=== PATIENT | female | born 1955 | race Caucasian/White ===

== ENCOUNTER → 2016-04-15 | Outpatient (CLI) | payer MEDICARE ==
--- NOTE | 2016-04-22 00:32 | ECWPNPC ---
PATIENT NAME: CHANCE AUGUSTE : 1955 GENDER: FEMALE VISIT DATE: 04/15/2016 DISCHARGE DATE: 04/15/16 1243 VISIT LOCKED DATE TIME: PHYSICIAN: CATIA BYRD RESOURCE: CATIA BYRD REASON FOR APPOINTMENT 1. INCREASED PAIN-BACK HISTORY OF PRESENT ILLNESS HISTORY OF PRESENT ILLNESS: PAIN THE PATIENT DESCRIBES THE PAIN... 60 YEAR OLD FEMALE PATIENT WITH HISTORY OF CHRONIC BACK PAIN. PATIENT DESCRIBES THE PAIN ACHING, SHARP, THROBBING, AND HAVING IT ALL THE TIME WITH A PAIN SCORE OF 7/10. PATIENT STATES THAT NOW SHE HAS PAIN DOWN HER LEFT LEG. PATIENT REPORTS THAT SHE TAKE IBUPROFEN ON BAD DAYS. PATIENT STATES THAT HER PRIMARY HAS INCREASE THE DOSAGE OF HER GABAPENTIN AND SHE DOES NOT SEE A DECREASE IN HER PAIN LEVELS. PATIENT REPORTS THAT MUSCLE SPASM ISM HAVE STOPPED IN HER LEGS. PATIENT ALSO INDICATES THAT SHE HAS RIGHT KNEE PAIN. IN 1976 SHE HAD SURGERY ON HER KNEE DUE TO THE DISLOCATION OF THE KNEE CAP. PATIENT DENIES UNEXPLAINABLE WEIGHT LOSS, FEVER, CHILLS, NEW CHANGES ON HIS URINARY OR BOWEL CONTROL. FALL RISK SCREENING: SCREENING :NO FALLS IN THE PAST YEAR CURRENT MEDICATIONS TAKING SULFAZINE EC 500 MG TABLET DELAYED RELEASE 1 TABLET ORALLY TWICE A DAY TAKING DULCOLAX 10 MG SUPPOSITORY 1 SUPPOSITORY NEEDED RECTAL EVERY 3 DAYS NEEDED FOR CONSTIPATION TAKING VITAMIN D 2000 UNIT TABLET 1 TAB ORALLY ONCE DAILY TAKING AMITRIPTYLINE HCL 25 MG TABLET 1 TABLET AT BEDTIME ORALLY ONCE A DAY TAKING NEURONTIN 300 MG CAPSULE 3 CAPSULES ORALLY TWICE A DAY, NOTES: 900MG THREE TIMES DAILY TAKING ACETAMINOPHEN EXTRA STRENGTH 500 MG TABLET 2 TABLETS NEEDED ORALLY EVERY 6 HRS TAKING REGLAN 10 MG TABLET TAKE 1 TABLET BY MOUTH 1/2 HOUR BEFORE MEALS AND AT BEDTIME TAKING FLUOXETINE HCL 40 MG CAPSULE TAKE 1 CAPSULE BY MOUTH DAILY IN THE MORNING TAKING ASPIRIN 81 MG TABLET CHEWABLE 1 TABLET ORALLY ONCE A DAY TAKING VITAMIN B12 100 MCG TABLET ORALLY TAKING RANITIDINE HCL 75 MG TABLET 3 TABLET ORALLY THREE TIMES A DAY, NOTES: 225MG DAILY TAKING PROMETHAZINE HCL 25 MG TABLET 1 TABLET NEEDED ORALLY EVERY 6 HRS TAKING METFORMIN HCL 500 MG TABLET TAKE 1 TABLET BY MOUTH TWO TIMES DAILY TAKING LOVASTATIN 20 MG TABLET TAKE 1 TABLET BY MOUTH DAILY WITH A MEAL TAKING TRAZODONE HCL 100 MG TABLET TAKE 1 TABLET BY MOUTH DAILY TAKING PROTONIX 40 MG ENTERIC COATED TABLET TAKE 1 TABLET BY MOUTH TWO TIMES DAILY TAKING LEVOTHYROXINE SODIUM 100 MCG TABLET 1 TABLET ORALLY ONCE A DAY TAKING IBUPROFEN 800 MG TABLET TAKE 1 TABLET BY MOUTH 3 TIMES A DAY ORALLY THREE TIMES DAILY TAKING LISINOPRIL 20 MG TABLET 1 TAB ORALLY DAILY TAKING ZOFRAN 4 MG TABLET TAKE 1 TABLET BY MOUTH EVERY 6 HOURS NEEDED FOR NAUSEA NOT-TAKING MIRALAX . POWDER 1 CAP(S) ORALLY ONCE A DAY MEDICATION LIST REVIEWED AND RECONCILED WITH THE PATIENT PAST MEDICAL HISTORY HYPOTHYROIDISM TYPE 2 DM WITH NEPHROPATHY/ELEV MIKKI HYPERLIPIDEMIA FATTY LIVER, ABNL LFT'S METABOLIC SYNDROME IBS FIBROMYALGIA VIT D DEFICIENCY DEPRESSION INFLAMMATORY ARTHRITIS/ + REESE - DR. LARA (RHEUMATOLOGY [facility]) - SULFAZINE PER RHUEMATOLOGY GASTROPARESIS PER UGI WITH SBFT 2015 SEVERE LUMBAR SPINAL STENOSIS L4-5 MRI 02/16; DDD MULTIPLE LEVELS; DONE BY NCO, SAW DR KELLER, HAD INJECTIONS 2014, FOLLOWING WITH PAIN CLINIC - HAD INJECTIONS 10/2015 (DR. BYRD) DDD THORACIC SPINE MRI 02/16 - [facility] SECONDARY TO SULFAZINE - IMPROVED WITH DECREASED DOSE B12 DEFICIENCY IRON DEFICIENCY ALLERGIES KEFLEX: TONGUE SWELLING: ALLERGY SULFAZINE: HIGH DOSES CAUSE LEUKOPENIA: SIDE EFFECTS SURGICAL HISTORY EGD - MILD CHEMICAL GASTRITITS, COLONOSCOPY INCOMPLETE DUE TO POOR PREP - PATIENT DECLINES REPEAT (DR. CLARK) 12/2015 FAMILY HISTORY NO FAMILY HISTORY DOCUMENTED. SOCIAL HISTORY GENERAL: TOBACCO USE ARE YOU A:NONSMOKER LEARNING BARRIERS / SPECIAL NEEDS ORIENTED TO PLAN OF CARE: PATIENT, PAIN MANAGEMENT PATIENT, ORIENTED TO PLAN OF CARE: PATIENT, PAIN MANAGEMENT PATIENT. 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 SHE IS ON DISABILITY NOW FOR MAJOR DEPRESSION AND FIBROMYALGIAIN HER SPARE TIME SHE ENJOYS READING AND GARDENING. HOSPITALIZATION/MAJOR DIAGNOSTIC PROCEDURE SURGERY RELATED REVIEW OF SYSTEMS CONSTITUTIONAL: ANY CHANGE IN YOUR MEDICAL CONDITION? NO . CHILLS NO . FEVER NO . INFECTION: DO YOU HAVE NEW INFECTIONS? NO . DO YOU HAVE HISTORY OF MRSA? NO . MUSCULOSKELETAL: ANY NEW PATTERNS OF PAIN OR NUMBNESS? NO . GASTROENTEROLOGY: ANY NEW CHANGE IN BOWEL CONTROL? NO . GENITOURINARY: ANY NEW CHANGE IN BLADDER CONTROL? NO . IS THERE A CHANCE YOU COULD BE ? NO . HEMATOLOGY/LYMPH: DO YOU TAKE ANY BLOOD THINNERS? (FOR EXAMPLE- COUMADIN, PLAVIX, AGGRENOX, PLATEL, PRADAXA, OR XARELTO) NO . WHEN WAS YOUR LAST DOSE? DATE: TIME: . NEUROLOGY: HAVE YOU FALLEN IN THE PAST 6 MONTHS? YES, PT STATES THAT SHE WAS AT HOME, FELL WHILE ATTEMPTING TO PUT ON SHOES, NO INJURY AND NO REPORT TO ED. . ANY NEW EXTREMITY NUMBNESS OR WEAKNESS? NO . CARDIOLOGY: DO YOU HAVE A PACEMAKER OR DEFIBRILLATOR? NO . RESPIRATORY: HAVE YOU BEEN SICK IN THE PAST WEEK? NO . FEVER NO . FLU LIKE SYMPTOMS? NO . COUGH NO . INTEGUMENTARY: DO YOU HAVE ANY RASHES OR OPEN SORES? NO . ALLERGIC/IMMUNO: ARE YOU ALLERGIC TO SHELLFISH OR IV DYE? NO . ANY NEW ALLERGIES? NO . PSYCHIATRIC: DO YOU HAVE THOUGHTS OF HURTING YOURSELF OR SOMEONE ELSE? NO . ARE YOU ABUSED, NEGLECTED, OR IN AN UNSAFE ENVIRONMENT? NO . ENDOCRINOLOGY: ARE YOU DIABETIC? YES, MANAGED WITH MEDICATION . OTHER: DO YOU NEED ANY PRESCRIPTIONS? NO . IF YES, PLEASE LIST: ____ . ANY NEW PROBLEMS WITH YOUR MEDICATIONS? NO . WHEN DID YOU LAST EAT? ____ . WHEN DID YOU LAST DRINK? ____ . WHAT DID YOU LAST DRINK? ____ . NAME OF PERSON DRIVING YOU HOME? ____ . DO YOU HAVE ANY OTHER QUESTIONS OR CONCERNS PT STATES THAT SHE HAD AN LUMBAR EPIDURAL IN SEPTEMBER 2015 AND GRADUALLY PAIN HAS RETURNED, NO SPASMS BUT PAIN IS RADIATING INTO LEFT HIP . REVIEWED BY: PROVIDER: CATIA BYRD MD . VITAL SIGNS WT 255 LBS, HT 67 IN, BMI 39.93 INDEX, BP 160/91 MM HG, HR 91 /MIN, RR 18 /MIN, TEMP 97.8 F, OXYGEN SAT % 97%, NA INITIALS SC 11:10. EXAMINATION : PATIENT IS ALERT O X 3 AND COOPERATIVE. PATIENT IS ALERT O X 3 AND COOPERATIVE. MRI OF THE LUMBAR SPINE DONE ON 10/9/15 SHOWS STENOSIS L4-L5 DISC PROTRUSION L5-S1. MILD TENDERNESS IN THE LOWER RIGHT SIDE OF THE BACK.. ASSESSMENTS INTERVERTEBRAL DISC DISORDERS WITH RADICULOPATHY, LUMBAR REGION - M51.16 (PRIMARY) INTERVERTEBRAL DISC DISORDERS WITH RADICULOPATHY, LUMBOSACRAL REGION - M51.17 TREATMENT INTERVERTEBRAL DISC DISORDERS WITH RADICULOPATHY, LUMBAR REGION NOTES: WE DISCUSSED SEVERAL ISSUES WITH MS. AUGUSTE'S PAIN MANAGEMENT CASE. PATIENT WAS ADVISED TO SEE THEIR PRIMARY TO HAVE A REFERRAL SENT OVER FOR HER RIGHT KNEE PAIN. PATIENT IS A CANDIDATE FOR AN LUMBAR EPIDURAL INJECTION. WE DISCUSSED THE RISK, BENEFITS, AND ALTERNATIVES AND THE PATIENT WOULD LIKE TO PROCEED. I DISCUSSED WITH THE PATIENT THAT LATER DOWN THE ROAD SHE WILL BE SEEN BY ONE OF THE NURSE PRACTITIONERS. INSTRUCTIONS WERE GIVEN, QUESTIONS WERE ANSWERED, PATIENT REPORTS UNDERSTANDING AND AGREES WITH THE PLAN. I, ELISABETH WHITT, DOCUMENTED THE ABOVE INFORMATION ACTING A SCRIBE FOR DR. BYRD. I HAVE REVIEWED THE ABOVE DOCUMENT, WRITTEN BY ELISABETH WHITT SCRIBShazia AND I VERIFY THAT IT IS ACCURATE. PROCEDURE CODES FA211 ESTABILISHED PATIENT [facility] FACILITY CHARGE G8730 PAIN ASSESS POS TOOL F/U PLAN DOC G8427 DOC MEDS VERIFIED W/PT OR RE FOLLOW UP LE PENDING APPROVAL ELECTRONICALLY SIGNED BY CATIA BYRD MD ON 04/21/2016 AT 11:01 AM EST DISCLAIMER : THIS IS A VISIT SUMMARY EXTRACTED FROM THE [employer] CHART. IT IS NOT A COPY OF THE [employer] PROGRESS NOTE. MTDD
== END ==
LOC: M PAIN 10:40
PROVIDERS: ATTEND Anesthesiology
DX: M51.16 Intervertebral disc disorders with radiculopathy, lumbar region (principal); M51.17 Intervertebral disc disorders with radiculopathy, lumbosacral region; Z79.899 Other long term (current) drug therapy; Z79.82 Long term (current) use of aspirin; Z79.84 Long term (current) use of oral hypoglycemic drugs; Z88.2 Allergy status to sulfonamides; Z88.8 Allergy status to other drugs, medicaments and biological substances

== ENCOUNTER → 2016-05-12 | Outpatient (CLI) | payer MEDICARE ==
[~2016-05-12] MED LIST: ISOVUE-M 300 61% 15ML VIAL (Q9967) As Ordered ONE; LIDOCAINE 1% SDV INJ 30 ML VIAL As Ordered ONE; methylPREDNISolone SUSP 40 MG/ML (DEPO-medrol) VIAL (J1030) As Ordered ONE
--- NOTE | 2016-05-12 14:43 | REP ---
Partial lumbar spine series: Three views. History: Pain. 15 seconds of fluoroscopy time is reported. Findings: A sequence of three fluoroscopically obtained last image hold spot radiographs of the lumbar spine document needle position and contrast injection associated with lumbar epidural injection procedure. Signed by Francisco Shin MD 05/12/2016 03:06 P
--- NOTE | 2016-05-15 00:02 | ECWPNPC ---
PATIENT NAME: CHANCE AUGUSTE : 1955 GENDER: FEMALE VISIT DATE: 05/12/2016 DISCHARGE DATE: 05/12/16 1243 VISIT LOCKED DATE TIME: PHYSICIAN: CATIA BYRD RESOURCE: CATIA BYRD REASON FOR APPOINTMENT 1. LE HISTORY OF PRESENT ILLNESS HISTORY OF PRESENT ILLNESS: PAIN THE PATIENT DESCRIBES THE PAIN... FALL RISK SCREENING: SCREENING :NO FALLS IN THE PAST YEAR CURRENT MEDICATIONS DISCONTINUED MIRALAX . POWDER 1 CAP(S) ORALLY ONCE A DAY UNKNOWN PROTONIX 40 MG ENTERIC COATED TABLET TAKE 1 TABLET BY MOUTH TWO TIMES DAILY , NOTES: 05/12/16799 UNKNOWN MIRALAX POWDER USING MEASURING CAP MIX 17GM IN WATER AND DRINK ONCE A DAY , NOTES: 05/10/16 UNKNOWN FLUOXETINE HCL 40 MG CAPSULE TAKE 1 CAPSULE BY MOUTH DAILY IN THE MORNING , NOTES: 05/12/16799 UNKNOWN TRAZODONE HCL 100 MG TABLET TAKE 1 TABLET BY MOUTH DAILY , NOTES: 05/11/162099 UNKNOWN REGLAN 10 MG TABLET TAKE 1 TABLET BY MOUTH 1/2 HOUR BEFORE MEALS AND AT BEDTIME , NOTES: 05/11/162099 UNKNOWN LOVASTATIN 20 MG TABLET TAKE 1 TABLET BY MOUTH DAILY WITH A MEAL , NOTES: 05/11/162099 UNKNOWN METFORMIN HCL 500 MG TABLET TAKE 1 TABLET BY MOUTH TWICE A DAY , NOTES: 05/11/161699 UNKNOWN ZOFRAN 4 MG TABLET TAKE 1 TABLET BY MOUTH EVERY 6 HOURS NEEDED FOR NAUSEA , NOTES: 05/12/16799 UNKNOWN LISINOPRIL 20 MG TABLET 1 TAB ORALLY DAILY, NOTES: 05/12/16799 UNKNOWN LEVOTHYROXINE SODIUM 100 MCG TABLET TAKE 1 TABLET BY MOUTH ONCE A DAY , NOTES: 05/12/16799 UNKNOWN RANITIDINE HCL 150 MG TABLET 1 TABLET ORALLY THREE TIMES A DAY, NOTES: 05/12/16799 UNKNOWN AMLODIPINE BESYLATE 5 MG TABLET 1 TABLET ORALLY ONCE A DAY, NOTES: 05/12/16799 UNKNOWN SULFAZINE EC 500 MG TABLET DELAYED RELEASE 1 TABLET ORALLY TWICE A DAY, NOTES: 05/12/16799 UNKNOWN DULCOLAX 10 MG SUPPOSITORY 1 SUPPOSITORY NEEDED RECTAL EVERY 3 DAYS NEEDED FOR CONSTIPATION, NOTES: NONE LATELY UNKNOWN VITAMIN D 2000 UNIT TABLET 1 TAB ORALLY ONCE DAILY, NOTES: 05/12/16799 UNKNOWN AMITRIPTYLINE HCL 25 MG TABLET 1 TABLET AT BEDTIME ORALLY ONCE A DAY, NOTES: 05/11/162099 UNKNOWN NEURONTIN 300 MG CAPSULE 3 CAPSULES ORALLY TWICE A DAY, NOTES: 05/12/16799 UNKNOWN ACETAMINOPHEN EXTRA STRENGTH 500 MG TABLET 2 TABLETS NEEDED ORALLY EVERY 6 HRS, NOTES: 05/11/162099 UNKNOWN ASPIRIN 81 MG TABLET CHEWABLE 1 TABLET ORALLY ONCE A DAY, NOTES: 05/12/16799 UNKNOWN VITAMIN B12 100 MCG TABLET ORALLY , NOTES: 05/12/16799 UNKNOWN PROMETHAZINE HCL 25 MG TABLET 1 TABLET NEEDED ORALLY EVERY 6 HRS, NOTES: 05/12/16799 UNKNOWN IBUPROFEN 800 MG TABLET TAKE 1/2 TABLET BY MOUTH 3 TIMES A DAY ORALLY THREE TIMES DAILY, NOTES: 05/11/162099 MEDICATION LIST REVIEWED AND RECONCILED WITH THE PATIENT PAST MEDICAL HISTORY HYPOTHYROIDISM TYPE 2 DM WITH NEPHROPATHY/ELEV MIKKI HYPERLIPIDEMIA FATTY LIVER, ABNL LFT'S METABOLIC SYNDROME IBS FIBROMYALGIA VIT D DEFICIENCY DEPRESSION INFLAMMATORY ARTHRITIS/ + REESE - DR. LARA (RHEUMATOLOGY [facility]) - SULFAZINE PER RHUEMATOLOGY GASTROPARESIS PER UGI WITH SBFT 2015 SEVERE LUMBAR SPINAL STENOSIS L4-5 MRI 02/16; DDD MULTIPLE LEVELS; DONE BY NCO, SAW DR KELLER, HAD INJECTIONS 2014, FOLLOWING WITH PAIN CLINIC - HAD INJECTIONS 10/2015 (DR. BYRD) DDD THORACIC SPINE MRI 02/16 - [facility] SECONDARY TO SULFAZINE - IMPROVED WITH DECREASED DOSE B12 DEFICIENCY IRON DEFICIENCY HTN ALLERGIES KEFLEX: TONGUE SWELLING: ALLERGY SULFAZINE: HIGH DOSES CAUSE LEUKOPENIA: SIDE EFFECTS SOCIAL HISTORY GENERAL: TOBACCO USE ARE YOU A:NONSMOKER LEARNING BARRIERS / SPECIAL NEEDS ORIENTED TO PLAN OF CARE: PATIENT, PAIN MANAGEMENT PATIENT, ORIENTED TO PLAN OF CARE: PATIENT, PAIN MANAGEMENT PATIENT. NEW PATIENT PAIN DIARY TODAY'S VISITNOTES FROM 0-10, WHAT LEVEL IS YOUR PAIN TODAY?0 PAIN CLINIC PFS, CLERGY, PUBLIC HEALTH REFERRALS PFS REFERRAL NEEDED?NO CLERGY REFERRAL NEEDED?NO PUBLIC HEALTH REFERRAL NEEDED?NO WAS THE PROVIDER NOTIFIED OF ANY PERTINENT INFO?NO PFS REFERRAL NEEDED?NO CLERGY REFERRAL NEEDED?NO PUBLIC HEALTH REFERRAL NEEDED?NO WAS THE PROVIDER NOTIFIED OF ANY PERTINENT INFO?NO REVIEW OF SYSTEMS CONSTITUTIONAL: ANY CHANGE IN YOUR MEDICAL CONDITION? NO . CHILLS NO . FEVER NO . INFECTION: DO YOU HAVE NEW INFECTIONS? NO . DO YOU HAVE HISTORY OF MRSA? NO . MUSCULOSKELETAL: ANY NEW PATTERNS OF PAIN OR NUMBNESS? NO . GASTROENTEROLOGY: ANY NEW CHANGE IN BOWEL CONTROL? NO . GENITOURINARY: ANY NEW CHANGE IN BLADDER CONTROL? NO . IS THERE A CHANCE YOU COULD BE ? NO . HEMATOLOGY/LYMPH: DO YOU TAKE ANY BLOOD THINNERS? (FOR EXAMPLE- COUMADIN, PLAVIX, AGGRENOX, PLATEL, PRADAXA, OR XARELTO) NO . WHEN WAS YOUR LAST DOSE? DATE: TIME: . NEUROLOGY: HAVE YOU FALLEN IN THE PAST 6 MONTHS? YES-X2 TRIPPED. NO ED EVAL . ANY NEW EXTREMITY NUMBNESS OR WEAKNESS? NO . CARDIOLOGY: DO YOU HAVE A PACEMAKER OR DEFIBRILLATOR? NO . RESPIRATORY: HAVE YOU BEEN SICK IN THE PAST WEEK? NO . FEVER NO . FLU LIKE SYMPTOMS? NO . COUGH NO . INTEGUMENTARY: DO YOU HAVE ANY RASHES OR OPEN SORES? NO . ALLERGIC/IMMUNO: ARE YOU ALLERGIC TO SHELLFISH OR IV DYE? NO . ANY NEW ALLERGIES? NO . PSYCHIATRIC: DO YOU HAVE THOUGHTS OF HURTING YOURSELF OR SOMEONE ELSE? NO . ARE YOU ABUSED, NEGLECTED, OR IN AN UNSAFE ENVIRONMENT? NO . ENDOCRINOLOGY: ARE YOU DIABETIC? YES . OTHER: DO YOU NEED ANY PRESCRIPTIONS? NO . IF YES, PLEASE LIST: ____ . ANY NEW PROBLEMS WITH YOUR MEDICATIONS? NO . WHEN DID YOU LAST EAT? ____05/11/16 2100 . WHEN DID YOU LAST DRINK? ____05/12/16 0800 . WHAT DID YOU LAST DRINK? ____WATER . NAME OF PERSON DRIVING YOU HOME? ____SHELLY JACINTO . DO YOU HAVE ANY OTHER QUESTIONS OR CONCERNS NO . REVIEWED BY: PROVIDER: . VITAL SIGNS WT 257 LBS, HT 67 IN, BMI 40.25 INDEX, BP 158/92 MM HG, HR 83 /MIN, RR 18 /MIN, TEMP 97.2 F, OXYGEN SAT % 93%, NA INITIALS SC 11:06, REVIEWED BY: MLF. ASSESSMENTS INTERVERTEBRAL DISC DISORDERS WITH RADICULOPATHY, LUMBOSACRAL REGION - M51.17 (PRIMARY) PROCEDURES PRE PROCEDURE DIAGNOSIS LUMBOSACRAL DISC DISORDER WITH RADICULOPATHY POST PROCEDURE DIAGNOSIS LUMBOSACRAL DISC DISORDER WITH RADICULOPATHY PROCEDURE LUMBAR EPIDURAL STEROID INJECTION UNDER FLUOROSCOPIC GUIDANCE SURGEON DR. CATIA BYRD BOTTOM SAW OPERATOR NONE ANESTHESIA LOCAL PRE PROCEDURE NOTE THE PATIENT HAS A HISTORY OF CHRONIC LOW BACK PAIN. I EVALUATE THE PATIENT AND REVIEWED THE CHART. I WENT OVER THE RISKS, ALTERNATIVES, AND BENEFITS ASSOCIATED WITH THIS PROCEDURE. THE PATIENT WOULD LIKE TO PROCEED AND GIVE CONSENT TO PERFORMED THE PROCEDURE. THE PATIENT DENIES UNEXPLAINABLE WEIGHT LOSS, FEVER, CHILLS, OR NEW CHANGES IN URINARY OR BOWEL CONTROL DESCRIPTION OF PROCEDURE THE PATIENT WAS BROUGHT TO THE PROCEDURE ROOM AND PLACED IN THE PRONE POSITION. THE LUMBOSACRAL AREA WAS CLEANED WITH BETADINE SOLUTION AND DRAPED ASEPTICALLY. THE PROCEDURE WAS DONE UNDER STERILE CONDITIONS. I CHECKED LATERALITY AND THE LEVEL WHERE THE PROCEDURE WAS GOING TO BE PERFORMED WITH THE PATIENT AND THE SUPPORTING STAFF AT THE MOMENT OF THE TIME OUT IN THE PROCEDURE ROOM. UNDER FLUOROSCOPIC GUIDANCE, THE TARGET POINT WAS SELECTED AT THE INTERLAMINAR LEVEL OF L5-S1. LIDOCAINE WAS USED TO NUMB THE SKIN AND THE SUBCUTANEOUS TISSUE BELOW IT. EPIDURAL TUOHY NEEDLE, 17-GAUGE, WAS ADVANCED UNDER FLUOROSCOPIC GUIDANCE AND FOLLOWING PATIENT FEEDBACK UNTIL THE EPIDURAL SPACE WAS REACHED, 7 CM DEEP INTO THE SKIN BY THE LOSS OF RESISTANCE TECHNIQUE. ISOVUE M DYE 30%, 0.25 ML, WAS INJECTED SHOWING ADEQUATE SPREAD OF THE DYE. THEN, A SOLUTION OF 3 ML OF NORMAL SALINE WITH DEPO-MEDROL 60 MG WAS INJECTED SLOWLY FOLLOWING PATIENT FEEDBACK. THERE WAS NO EVIDENCE OF BLOOD, PARESTHESIA OR CEREBROSPINAL FLUID DURING THE PROCEDURE. THE PATIENT WAS SENT TO THE RECOVERY ROOM. THE PATIENT WAS MOVING THE EXTREMITIES AND DOING WELL. THERE WAS NO COMPLICATION DURING THE PROCEDURE. FLUOROSCOPY TIME WAS 15 SECONDS POST PROCEDURE NOTE THE PATIENT WILL BE SEEN IN A FOLLOW UP IN THE NEXT FEW WEEKS. INSTRUCTIONS WERE GIVEN, QUESTIONS WERE ANSWERED, AND THE PATIENT EXPRESSED UNDERSTANDING AND AGREES WITH THE PLAN. I, YOMI BATRES, DOCUMENTED THE ABOVE INFORMATION ACTING A SCRIBE FOR DR. BYRD. I, DR. BYRD, HAVE REVIEWED THE ABOVE DOCUMENT, SCRIBED BY YOMI BATRES, AND I VERIFY THAT IT IS ACCURATE DIAGNOSTIC IMAGING [facility] FLUORO GUIDE SPINE INJECTION (PAIN)[id number] PROCEDURE CODES 6045F RADXPS IN END [id number] PXD [id number] LUMBAR/SACRAL W/ IMAGING FOLLOW UP 3 WEEKS ELECTRONICALLY SIGNED BY CATIA BYRD MD ON 05/14/2016 AT 01:40 PM EST DISCLAIMER : THIS IS A VISIT SUMMARY EXTRACTED FROM THE [employer] CHART. IT IS NOT A COPY OF THE [employer] PROGRESS NOTE. ANA ROSA
== END ==
LOC: M PAIN 10:50
PROVIDERS: ATTEND Anesthesiology
DX: G89.29 Other chronic pain (principal); M51.17 Intervertebral disc disorders with radiculopathy, lumbosacral region; E03.9 Hypothyroidism, unspecified; E11.9 Type 2 diabetes mellitus without complications; I10 Essential (primary) hypertension; M79.7 Fibromyalgia; M48.06 Spinal stenosis, lumbar region; M51.34 Other intervertebral disc degeneration, thoracic region; E78.5 Hyperlipidemia, unspecified; E88.81 Metabolic syndrome and other insulin resistance; E61.1 Iron deficiency; D51.9 Vitamin B12 deficiency anemia, unspecified; K58.1 Irritable bowel syndrome with constipation; K31.84 Gastroparesis; E55.9 Vitamin D deficiency, unspecified; F32.9 Major depressive disorder, single episode, unspecified; M06.4 Inflammatory polyarthropathy; Z88.2 Allergy status to sulfonamides; Z88.8 Allergy status to other drugs, medicaments and biological substances; Z79.84 Long term (current) use of oral hypoglycemic drugs; Z79.1 Long term (current) use of non-steroidal anti-inflammatories (NSAID); Z79.82 Long term (current) use of aspirin; Z79.899 Other long term (current) drug therapy
CPT/HCPCS: 62323; J1030; Q9967

== ENCOUNTER → 2016-06-16 | Outpatient (CLI) | payer MEDICARE ==
--- NOTE | 2016-06-20 23:43 | ECWPNPC ---
PATIENT NAME: CHANCE AUGUSTE : 1955 GENDER: FEMALE VISIT DATE: 06/16/2016 DISCHARGE DATE: 06/16/16 1425 VISIT LOCKED DATE TIME: PHYSICIAN: CATIA BYRD RESOURCE: CATIA BYRD REASON FOR APPOINTMENT 1. LOW BACK PAIN HISTORY OF PRESENT ILLNESS HISTORY OF PRESENT ILLNESS: PAIN THE PATIENT DESCRIBES THE PAIN... 61 YEAR OLD FEMALE PATIENT WITH HISTORY OF CHRONIC LOW BACK PAIN. PATIENT DESCRIBES THE PAIN ACHING AND TENDER WITH A PAIN SCORE OF 9/10. PATIENT RECEIVED A LUMBAR EPIDURAL ON 05/12/16 AND STATES THAT SHE IS DOING VERY WELL FROM THE INJECTION. PATIENT HAS NO PAIN IN THE LEGS AT THIS TIME. HOWEVER, MRS. AUGUSTE REPORTS HAVING PAIN HIGHER IN THE BACK NOW. CURRENTLY THE PATIENT IS USING TYLENOL AND IBUPROFEN TO AID IN PAIN RELIEF WHICH SHE STATES DOES HELP. ANY TYPE OF ACTIVITY INCREASES THE PAIN IN HER LOWER BACK AND AT THIS TIME INTERVENTIONS, MEDICATION, AND REST AIDS IN PAIN RELIEF. PATIENT DENIES UNEXPLAINABLE WEIGHT LOSS, FEVER, CHILLS, NEW CHANGES ON HER URINARY OR BOWEL CONTROL. FALL RISK SCREENING: SCREENING :NO FALLS IN THE PAST YEAR CURRENT MEDICATIONS UNKNOWN PROTONIX 40 MG ENTERIC COATED TABLET TAKE 1 TABLET BY MOUTH TWO TIMES DAILY UNKNOWN MIRALAX POWDER USING MEASURING CAP MIX 17GM IN WATER AND DRINK ONCE A DAY UNKNOWN FLUOXETINE HCL 40 MG CAPSULE TAKE 1 CAPSULE BY MOUTH DAILY IN THE MORNING UNKNOWN TRAZODONE HCL 100 MG TABLET TAKE 1 TABLET BY MOUTH DAILY UNKNOWN REGLAN 10 MG TABLET TAKE 1 TABLET BY MOUTH 1/2 HOUR BEFORE MEALS AND AT BEDTIME UNKNOWN LOVASTATIN 20 MG TABLET TAKE 1 TABLET BY MOUTH DAILY WITH A MEAL UNKNOWN METFORMIN HCL 500 MG TABLET TAKE 1 TABLET BY MOUTH TWICE A DAY UNKNOWN ZOFRAN 4 MG TABLET TAKE 1 TABLET BY MOUTH EVERY 6 HOURS NEEDED FOR NAUSEA UNKNOWN LISINOPRIL 20 MG TABLET 1 TAB ORALLY DAILY UNKNOWN LEVOTHYROXINE SODIUM 100 MCG TABLET TAKE 1 TABLET BY MOUTH ONCE A DAY UNKNOWN RANITIDINE HCL 150 MG TABLET 1 TABLET ORALLY THREE TIMES A DAY UNKNOWN AMLODIPINE BESYLATE 5 MG TABLET 1 TABLET ORALLY ONCE A DAY UNKNOWN SULFAZINE EC 500 MG TABLET DELAYED RELEASE 1 TABLET ORALLY TWICE A DAY UNKNOWN DULCOLAX 10 MG SUPPOSITORY 1 SUPPOSITORY NEEDED RECTAL EVERY 3 DAYS NEEDED FOR CONSTIPATION, NOTES: NONE LATELY UNKNOWN VITAMIN D 2000 UNIT TABLET 1 TAB ORALLY ONCE DAILY UNKNOWN AMITRIPTYLINE HCL 25 MG TABLET 1 TABLET AT BEDTIME ORALLY ONCE A DAY UNKNOWN NEURONTIN 100 MG CAPSULE 3 CAPSULES ORALLY TWICE A DAY UNKNOWN ACETAMINOPHEN EXTRA STRENGTH 500 MG TABLET 2 TABLETS NEEDED ORALLY EVERY 6 HRS UNKNOWN ASPIRIN 81 MG TABLET CHEWABLE 1 TABLET ORALLY ONCE A DAY UNKNOWN VITAMIN B12 100 MCG TABLET ORALLY UNKNOWN PROMETHAZINE HCL 25 MG TABLET 1 TABLET NEEDED ORALLY EVERY 6 HRS UNKNOWN IBUPROFEN 800 MG TABLET TAKE 1/2 TABLET BY MOUTH 3 TIMES A DAY ORALLY THREE TIMES DAILY MEDICATION LIST REVIEWED AND RECONCILED WITH THE PATIENT PAST MEDICAL HISTORY HYPOTHYROIDISM TYPE 2 DM WITH NEPHROPATHY/ELEV MIKKI HYPERLIPIDEMIA FATTY LIVER, ABNL LFT'S METABOLIC SYNDROME IBS FIBROMYALGIA VIT D DEFICIENCY DEPRESSION INFLAMMATORY ARTHRITIS/ + REESE - DR. LARA ([facility]UMATOLOGY [facility]) - SULFAZINE PER RHUEMATOLOGY GASTROPARESIS PER UGI WITH SBFT 2015 SEVERE LUMBAR SPINAL STENOSIS L4-5 MRI 02/16; DDD MULTIPLE LEVELS; DONE BY NCO, SAW DR KELLER, HAD INJECTIONS 2014, FOLLOWING WITH PAIN CLINIC - HAD INJECTIONS 10/2015 (DR. BYRD) DDD THORACIC SPINE MRI 02/16 - [facility] SECOND[facility] TO SULFAZINE - IMPROVED WITH DECREASED DOSE B12 DEFICIENCY IRON DEFICIENCY HTN ALLERGIES KEFLEX: TONGUE SWELLING: ALLERGY SULFAZINE: HIGH DOSES CAUSE [facility]: SIDE EFFECTS SURGICAL HISTORY NO SURGICAL HISTORY DOCUMENTED. FAMILY HISTORY NO FAMILY HISTORY DOCUMENTED. SOCIAL HISTORY GENERAL: TOBACCO USE ARE YOU A:NONSMOKER LEARNING BARRIERS / SPECIAL NEEDS ORIENTED TO PLAN OF CARE: PATIENT, PAIN MANAGEMENT PATIENT, ORIENTED TO PLAN OF CARE: PATIENT, PAIN MANAGEMENT PATIENT. NEW PATIENT PAIN DIARY TODAY'S VISITNOTES FROM 0-10, WHAT LEVEL IS YOUR PAIN TODAY?0 PAIN CLINIC PFS, CLERGY, PUBLIC HEALTH REFERRALS PFS REFERRAL NEEDED?NO CLERGY REFERRAL NEEDED?NO PUBLIC HEALTH REFERRAL NEEDED?NO WAS THE PROVIDER NOTIFIED OF ANY PERTINENT INFO?NO PFS REFERRAL NEEDED?NO CLERGY REFERRAL NEEDED?NO PUBLIC HEALTH REFERRAL NEEDED?NO WAS THE PROVIDER NOTIFIED OF ANY PERTINENT INFO?NO HOSPITALIZATION/MAJOR DIAGNOSTIC PROCEDURE SURGERY RELATED REVIEW OF SYSTEMS CONSTITUTIONAL: ANY CHANGE IN YOUR MEDICAL CONDITION? NO . CHILLS NO . FEVER NO . INFECTION: DO YOU HAVE NEW INFECTIONS? NO . DO YOU HAVE HISTORY OF MRSA? NO . MUSCULOSKELETAL: ANY NEW PATTERNS OF PAIN OR NUMBNESS? NO . GASTROENTEROLOGY: ANY NEW CHANGE IN BOWEL CONTROL? NO . GENITOURINARY: ANY NEW CHANGE IN BLADDER CONTROL? NO . IS THERE A CHANCE YOU COULD BE ? NO . HEMATOLOGY/LYMPH: DO YOU TAKE ANY BLOOD THINNERS? (FOR EXAMPLE- COUMADIN, PLAVIX, AGGRENOX, PLATEL, PRADAXA, OR XARELTO) NO . WHEN WAS YOUR LAST DOSE? DATE: TIME: . NEUROLOGY: HAVE YOU FALLEN IN THE PAST 6 MONTHS? NO . ANY NEW EXTREMITY NUMBNESS OR WEAKNESS? NO . CARDIOLOGY: DO YOU HAVE A PACEMAKER OR DEFIBRILLATOR? NO . RESPIRATORY: HAVE YOU BEEN SICK IN THE PAST WEEK? NO . FEVER NO . FLU LIKE SYMPTOMS? NO . COUGH NO . INTEGUMENTARY: DO YOU HAVE ANY RASHES OR OPEN SORES? NO . ALLERGIC/IMMUNO: ARE YOU ALLERGIC TO SHELLFISH OR IV DYE? NO . ANY NEW ALLERGIES? NO . PSYCHIATRIC: DO YOU HAVE THOUGHTS OF HURTING YOURSELF OR SOMEONE ELSE? NO . ARE YOU ABUSED, NEGLECTED, OR IN AN UNSAFE ENVIRONMENT? NO . ENDOCRINOLOGY: ARE YOU DIABETIC? YES . OTHER: DO YOU NEED ANY PRESCRIPTIONS? NO . IF YES, PLEASE LIST: ____ . ANY NEW PROBLEMS WITH YOUR MEDICATIONS? NO . WHEN DID YOU LAST EAT? ____ . WHEN DID YOU LAST DRINK? ____ . WHAT DID YOU LAST DRINK? ____ . NAME OF PERSON DRIVING YOU HOME? ____ . DO YOU HAVE ANY OTHER QUESTIONS OR CONCERNS NO . REVIEWED BY: PROVIDER: CATIA BYRD MD . VITAL SIGNS WT 249.8 LBS, HT 67 IN, BMI 39.12 INDEX, BP 146.81 MM HG, HR 85 /MIN, RR 18 /MIN, TEMP 96.6 F, OXYGEN SAT % 98%, NA INITIALS AW 1:01, REVIEWED BY: JEREL. EXAMINATION : PATIENT IS ALERT O X 3 AND COOPERATIVE. PATIENT IS ALERT O X 3 AND COOPERATIVE. MRI OF THE LUMBAR SPINE DONE ON 01/10/15 SHOWS STENOSIS L4-L5 DISC PROTRUSION L5-S1. MILD TENDERNESS IN THE LOWER RIGHT SIDE OF THE BACK. ASSESSMENTS SPONDYLOSIS WITHOUT MYELOPATHY OR RADICULOPATHY, LUMBAR REGION - M47.816 (PRIMARY) SPONDYLOSIS WITHOUT MYELOPATHY OR RADICULOPATHY, LUMBOSACRAL REGION - M47.817 TREATMENT SPONDYLOSIS WITHOUT MYELOPATHY OR RADICULOPATHY, LUMBAR REGION NOTES: WE DISCUSSED SEVERAL ISSUES WITH MRS. AUGUSTE'S PAIN MANAGEMENT CASE. AT THIS TIME THE PATIENT WILL CONTINUE WITH THE SAME MEDICATION REGIME BEFORE. PATIENT HAD ADEQUATE RESULTS FROM THE LUMBAR EPIDURAL SHE IS S/P A MONTH AND HAS NO LEG PAIN. PATIENT COMPLAINS OF PAIN LOCATED HIGHER AND IN THE FACET AREA. WE DISCUSSED MOVING FORWARD WITH A FACET BLOCK AND THE PATIENT WOULD LIKE TO PROCEED AT THIS TIME. WE DISCUSSED THE RISKS, BENEFITS, AND ALTNERATIVES OF THE INJECTION AND THE PATIENT WOULD LIKE TO PROCEED AT THIS TIME. INSTRUCTIONS WERE GIVEN, QUESTIONS WERE ANSWERED, PATIENT REPORTS UNDERSTANDING AND AGREES WITH THE PLAN. I, YOMI BATRES, DOCUMENTED THE ABOVE INFORMATION ACTING A SCRIBE FOR DR. BYRD. I HAVE REVIEWED THE ABOVE DOCUMENT, WRITTEN BY YOMI ADANIBShazia AND I VERIFY THAT IT IS ACCURATE. PROCEDURE CODES FA211 ESTABILISHED PATIENT [facility] FACILITY CHARGE G8427 DOC MEDS VERIFIED W/PT OR RE G8730 PAIN ASSESS POS TOOL F/U PLAN DOC DISPOSITION & COMMUNICATION FOLLOW UP LFBT AFTER APPROVAL ELECTRONICALLY SIGNED BY CATIA BYRD MD ON 06/20/2016 AT 09:01 PM EDT DISCLAIMER : THIS IS A VISIT SUMMARY EXTRACTED FROM THE [employer] CHART. IT IS NOT A COPY OF THE [employer] PROGRESS NOTE. ANA ROSA
== END ==
LOC: M PAIN 13:00
PROVIDERS: ATTEND Anesthesiology
DX: Z09 Encounter for follow-up examination after completed treatment for conditions other than malignant neoplasm (principal); G89.29 Other chronic pain; M47.816 Spondylosis without myelopathy or radiculopathy, lumbar region; M47.817 Spondylosis without myelopathy or radiculopathy, lumbosacral region; E03.9 Hypothyroidism, unspecified; E11.9 Type 2 diabetes mellitus without complications; I10 Essential (primary) hypertension; E78.5 Hyperlipidemia, unspecified; E55.9 Vitamin D deficiency, unspecified; F32.9 Major depressive disorder, single episode, unspecified; M06.4 Inflammatory polyarthropathy; D51.9 Vitamin B12 deficiency anemia, unspecified; D50.9 Iron deficiency anemia, unspecified; M48.06 Spinal stenosis, lumbar region; Z88.8 Allergy status to other drugs, medicaments and biological substances; Z88.2 Allergy status to sulfonamides; Z79.84 Long term (current) use of oral hypoglycemic drugs; Z79.1 Long term (current) use of non-steroidal anti-inflammatories (NSAID); Z79.82 Long term (current) use of aspirin

== ENCOUNTER → 2016-06-22 | Outpatient (REF) | payer MEDICARE ==
[2016-06-22 13:17] LABS: ANION GAP 11 MEQ/L (8-16); BLOOD UREA NITROGEN 6 MG/DL (7-18); CALCIUM LEVEL 8.9 MG/DL (8.5-10.1); CARBON DIOXIDE LEVEL 26 MEQ/L (21-32); CHLORIDE LEVEL 97 MEQ/L (98-107); CREATININE FOR GFR 0.79 MG/DL (0.55-1.02); GLOMERULAR FILTRATION RATE > 60.0 (>51); GLUCOSE, FASTING 97 MG/DL (70-105); POTASSIUM SERUM 4.1 MEQ/L (3.5-5.1); SODIUM LEVEL 134 MEQ/L (136-145)
== END ==
LOC: M SFHCADAM 08:31
PROVIDERS: ATTEND Physician Assistant
DX: I10 Essential (primary) hypertension (principal)

== ENCOUNTER → 2016-06-29 | Outpatient (REF) | payer MEDICARE | LOC: M SFHCADAM 12:19 | PROVIDERS: ATTEND Physician Assistant | DX: N30.00 Acute cystitis without hematuria (principal) | CPT/HCPCS: 81002; 87088; 87186; G0463 ==

== ENCOUNTER → 2016-07-12 | Outpatient (REF) | payer MEDICARE | LOC: M SFHCADAM 07:50 | PROVIDERS: ATTEND Physician Assistant | DX: R82.99 Other abnormal findings in urine (principal) ==

== ENCOUNTER → 2016-07-19 | Outpatient (CLI) | payer MEDICARE ==
[~2016-07-19] MED LIST changes: +BUPIVACAINE HCL 0.25% 30 ML VIAL As Ordered ONE; +TRIAMCINOLONE ACETONIDE SUSP 40 MG/ML VIAL (J3301) As Ordered ONE; -methylPREDNISolone SUSP 40 MG/ML (DEPO-medrol) VIAL (J1030) As Ordered ONE
--- NOTE | 2016-07-19 12:23 | REP ---
Partial lumbar spine series: Two views. History: Injection procedure for pain. 15 seconds of fluoroscopy time is reported. Findings: A sequence of two last image hold fluoroscopic spot radiographs of the lumbosacral spine document needle position and contrast injection associated with injection procedure. Signed by Francisco Shin MD 07/19/2016 06:25 P
--- NOTE | 2016-07-25 23:40 | ECWPNPC ---
PATIENT NAME: CHANCE AUGUSTE : 1955 GENDER: FEMALE VISIT DATE: 07/19/2016 DISCHARGE DATE: 07/19/16 1022 VISIT LOCKED DATE TIME: PHYSICIAN: CATIA BYRD RESOURCE: CATIA BYRD REASON FOR APPOINTMENT 1. THERAPEUTIC LFB HISTORY OF PRESENT ILLNESS HISTORY OF PRESENT ILLNESS: PAIN THE PATIENT DESCRIBES THE PAIN... FALL RISK SCREENING: SCREENING :NO FALLS IN THE PAST YEAR CURRENT MEDICATIONS TAKING PROTONIX 40 MG ENTERIC COATED TABLET TAKE 1 TABLET BY MOUTH TWO TIMES DAILY , NOTES: 07-19-16599 TAKING MIRALAX POWDER USING MEASURING CAP MIX 17GM IN WATER AND DRINK ONCE A DAY , NOTES: NONE TAKING FLUOXETINE HCL 40 MG CAPSULE TAKE 1 CAPSULE BY MOUTH DAILY IN THE MORNING , NOTES: 07-19-16599 TAKING TRAZODONE HCL 100 MG TABLET TAKE 1 TABLET BY MOUTH DAILY , NOTES: [id number] TAKING REGLAN 10 MG TABLET TAKE 1 TABLET BY MOUTH 1/2 HOUR BEFORE MEALS AND AT BEDTIME ORALLY FOUR TIMES DAILY, NOTES: 07-19-16599 TAKING LOVASTATIN 20 MG TABLET TAKE 1 TABLET BY MOUTH DAILY WITH A MEAL , NOTES: 07-18-162099 TAKING METFORMIN HCL 500 MG TABLET TAKE 1 TABLET BY MOUTH TWICE A DAY , NOTES: 07-18-161999 TAKING ZOFRAN 4 MG TABLET TAKE 1 TABLET BY MOUTH EVERY 6 HOURS NEEDED FOR NAUSEA , NOTES: 07-19-16599 TAKING LEVOTHYROXINE SODIUM 100 MCG TABLET TAKE 1 TABLET BY MOUTH ONCE A DAY , NOTES: 07-19-16599 TAKING RANITIDINE HCL 150 MG TABLET 1 TABLET ORALLY THREE TIMES A DAY, NOTES: 07-19-16599 TAKING SULFAZINE EC 500 MG TABLET DELAYED RELEASE 1 TABLET ORALLY TWICE A DAY, NOTES: 07-19-16599 TAKING DULCOLAX 10 MG SUPPOSITORY 1 SUPPOSITORY NEEDED RECTAL EVERY 3 DAYS NEEDED FOR CONSTIPATION, NOTES: NONE LATELY TAKING VITAMIN D 2000 UNIT TABLET 1 TAB ORALLY ONCE DAILY, NOTES: 07-19-16599 TAKING AMITRIPTYLINE HCL 25 MG TABLET 1 TABLET AT BEDTIME ORALLY ONCE A DAY, NOTES: 07-18-161999 TAKING NEURONTIN 100 MG CAPSULE 3 CAPSULES ORALLY TWICE A DAY, NOTES: 07-19-16599 TAKING ACETAMINOPHEN EXTRA STRENGTH 500 MG TABLET 2 TABLETS NEEDED ORALLY EVERY 6 HRS, NOTES: NONE TAKING ASPIRIN 81 MG TABLET CHEWABLE 1 TABLET ORALLY ONCE A DAY, NOTES: 07-19-16599 TAKING VITAMIN B12 100 MCG TABLET ORALLY , NOTES: 07-19-16599 TAKING PROMETHAZINE HCL 25 MG TABLET 1 TABLET NEEDED ORALLY EVERY 6 HRS, NOTES: 07-19-16599 TAKING IBUPROFEN 800 MG TABLET TAKE 1/2 TABLET BY MOUTH 3 TIMES A DAY ORALLY THREE TIMES DAILY, NOTES: NONE TAKING AMLODIPINE BESYLATE 5 MG TABLET 1 TABLET ORALLY ONCE A DAY, NOTES: 07-19-16599 TAKING LISINOPRIL 20 MG TABLET 1 TAB ORALLY DAILY, NOTES: 07-19-16599 DISCONTINUED NITROFURANTOIN MONOHYD MACRO 100 MG CAPSULE 1 CAPSULE WITH FOOD ORALLY EVERY 12 HRS MEDICATION LIST REVIEWED AND RECONCILED WITH THE PATIENT PAST MEDICAL HISTORY HYPOTHYROIDISM TYPE 2 DM WITH NEPHROPATHY/ELEV MIKKI HYPERLIPIDEMIA FATTY LIVER, ABNL LFT'S METABOLIC SYNDROME IBS FIBROMYALGIA VIT D DEFICIENCY DEPRESSION INFLAMMATORY ARTHRITIS/ + REESE - DR. LARA (RHEUMATOLOGY [facility]) - SULFAZINE PER RHUEMATOLOGY GASTROPARESIS PER UGI WITH SBFT 2015 SEVERE LUMBAR SPINAL STENOSIS L4-5 MRI 02/16; DDD MULTIPLE LEVELS; DONE BY NCO, SAW DR KELLER, HAD INJECTIONS 2014, FOLLOWING WITH PAIN CLINIC - HAD INJECTIONS 10/2015 (DR. BYRD) DDD THORACIC SPINE MRI 02/16 - [facility] SECONDARY TO SULFAZINE - IMPROVED WITH DECREASED DOSE B12 DEFICIENCY IRON DEFICIENCY HTN ALLERGIES KEFLEX: TONGUE SWELLING: ALLERGY SULFAZINE: HIGH DOSES CAUSE [facility]OPEN[facility]: SIDE EFFECTS SOCIAL HISTORY GENERAL: PAIN CLINIC PFS, CLERGY, PUBLIC HEALTH REFERRALS CLERGY REFERRAL NEEDED?NO WAS THE PROVIDER NOTIFIED OF ANY PERTINENT INFO?NO PFS REFERRAL NEEDED?NO PUBLIC HEALTH REFERRAL NEEDED?NO PATIENT: ____. REVIEW OF SYSTEMS CONSTITUTIONAL: ANY CHANGE IN YOUR MEDICAL CONDITION? NO . CHILLS NO . FEVER NO . INFECTION: DO YOU HAVE NEW INFECTIONS? NO . DO YOU HAVE HISTORY OF MRSA? NO . MUSCULOSKELETAL: ANY NEW PATTERNS OF PAIN OR NUMBNESS? NO . GASTROENTEROLOGY: ANY NEW CHANGE IN BOWEL CONTROL? NO . GENITOURINARY: ANY NEW CHANGE IN BLADDER CONTROL? NO . IS THERE A CHANCE YOU COULD BE ? NO . HEMATOLOGY/LYMPH: DO YOU TAKE ANY BLOOD THINNERS? (FOR EXAMPLE- COUMADIN, PLAVIX, AGGRENOX, PLATEL, PRADAXA, OR XARELTO) NO . WHEN WAS YOUR LAST DOSE? DATE: TIME: . NEUROLOGY: HAVE YOU FALLEN IN THE PAST 6 MONTHS? YES . ANY NEW EXTREMITY NUMBNESS OR WEAKNESS? NO . CARDIOLOGY: DO YOU HAVE A PACEMAKER OR DEFIBRILLATOR? NO . RESPIRATORY: HAVE YOU BEEN SICK IN THE PAST WEEK? NO . FEVER NO . FLU LIKE SYMPTOMS? NO . COUGH NO . INTEGUMENTARY: DO YOU HAVE ANY RASHES OR OPEN SORES? NO . ALLERGIC/IMMUNO: ARE YOU ALLERGIC TO SHELLFISH OR IV DYE? NO . ANY NEW ALLERGIES? NO . PSYCHIATRIC: DO YOU HAVE THOUGHTS OF HURTING YOURSELF OR SOMEONE ELSE? NO . ARE YOU ABUSED, NEGLECTED, OR IN AN UNSAFE ENVIRONMENT? NO . ENDOCRINOLOGY: ARE YOU DIABETIC? YES, . OTHER: DO YOU NEED ANY PRESCRIPTIONS? NO . IF YES, PLEASE LIST: ____ . ANY NEW PROBLEMS WITH YOUR MEDICATIONS? NO . WHEN DID YOU LAST EAT? 07-18-16 8:30 PM . WHEN DID YOU LAST DRINK? 07-19-16 0600 . WHAT DID YOU LAST DRINK? WATER . NAME OF PERSON DRIVING YOU HOME? SHELLY JACINTO . DO YOU HAVE ANY OTHER QUESTIONS OR CONCERNS NO . REVIEWED BY: PROVIDER: . VITAL SIGNS WT 238.4 LBS, HT 67 IN, BMI 37.33 INDEX, BP 147/87 MM HG, HR 87 /MIN, TEMP 97.0 F, OXYGEN SAT % 97%, NA INITIALS SC 08:49, REVIEWED BY: CM. ASSESSMENTS SPONDYLOSIS WITHOUT MYELOPATHY OR RADICULOPATHY, LUMBAR REGION - M47.816 (PRIMARY) SPONDYLOSIS WITHOUT MYELOPATHY OR RADICULOPATHY, LUMBOSACRAL REGION - M47.817 PROCEDURES PN LUMBAR FACET BLOCK THERAPEUTIC PRE PROCEDURE DIAGNOSIS LUMBAR SPONDYLOSIS, LUMBOSACRAL SPONDYLOSIS POST PROCEDURE DIAGNOSIS LUMBAR SPONDYLOSIS, LUMBOSACRAL SPONDYLOSIS PROCEDURE BILATERAL L4-L5 AND BILATERAL L5-S1 LUMBAR FACET THERAPEUTIC BLOCK SURGEON DR. CATIA BYRD DRAGSAW OPERATOR NONE ANESTHESIA LOCAL PRE PROCEDURE NOTE THE PATIENT HAS A HISTORY OF CHRONIC LOW BACK PAIN. I EVALUATE THE PATIENT AND REVIEWED THE CHART. I WENT OVER THE RISKS, ALTERNATIVES, AND BENEFITS ASSOCIATED WITH THIS PROCEDURE. THE PATIENT WOULD LIKE TO PROCEED AND GIVE CONSENT TO PERFORMED THE PROCEDURE. THE PATIENT DENIES UNEXPLAINABLE WEIGHT LOSS, FEVER, CHILLS, OR NEW CHANGES IN URINARY OR BOWEL CONTROL DESCRIPTION OF PROCEDURE THE PATIENT WAS BROUGHT TO THE PROCEDURE ROOM AND PLACED IN THE PRONE POSITION. THE LUMBOSACRAL AREA WAS CLEANED WITH CHLORAPREP SOLUTION AND DRAPED ASEPTICALLY. THE PROCEDURE WAS DONE UNDER STERILE CONDITIONS. I CHECKED LATERALITY AND THE LEVEL WHERE THE PROCEDURE WAS GOING TO BE PERFORMED WITH THE PATIENT AND THE SUPPORTING STAFF AT THE MOMENT OF THE TIME OUT IN THE PROCEDURE ROOM. UNDER FLUOROSCOPIC GUIDANCE, THE TARGET POINT WAS SELECTED AT THE RIGHT AND LEFT L4-L5 AND RIGHT AND LEFT L5-S1 FACET JOINT. TARGET POINT WAS SELECTED AFTER LATERAL ROTATION AND TILT OF THE MAGNIFIER OF THE C-ARM. LIDOCAINE 0.5% WAS USED TO NUMB THE SKIN AND THE SUBCUTANEOUS TISSUE BELOW IT. SPINAL NEEDLES, 22-GAUGE, WERE ADVANCED UNDER FLUOROSCOPIC GUIDANCE AND FOLLOWING PATIENT FEEDBACK UNTIL THE TARGETS WERE TOUCHED. THE POSITION OF THE NEEDLES WAS VERIFIED WITH AP AND LATERAL VIEWS. AFTER PROPER POSITION OF THE NEEDLES WAS ACHIEVED, ISOVUE-M DYE 30% 0.1 ML WAS INJECTED SHOWING ADEQUATE SPREAD OF THE DYE. THEN A SOLUTION OF 1.9 ML OF BUPIVACAINE 0.125% OF KENALOG 10 MG WAS INJECTED AT EACH SITE. THERE WAS NO EVIDENCE OF BLOOD, PARESTHESIA OR CEREBROSPINAL FLUID DURING THE PROCEDURE. THE PATIENT WAS SENT TO THE RECOVERY ROOM. THE PATIENT WAS MOVING THE EXTREMITIES AND DOING WELL. THERE WAS NO COMPLICATION DURING THE PROCEDURE. FLUOROSCOPY TIME WAS 15 SECONDS POST PROCEDURE NOTE THE PATIENT WILL BE SEEN IN A FOLLOW UP IN THE NEXT FEW WEEKS. INSTRUCTIONS WERE GIVEN, QUESTIONS WERE ANSWERED, AND THE PATIENT EXPRESSED UNDERSTANDING AND AGREES WITH THE PLAN. I, ELISABETH WHITT, DOCUMENTED THE ABOVE INFORMATION ACTING A SCRIBE FOR DR. BYRD. I HAVE REVIEWED THE ABOVE DOCUMENT, WRITTEN BY ELISABETH WHITT SCRIBShazia AND I VERIFY THAT IT IS ACCURATE. DIAGNOSTIC IMAGING [facility] FACET BLOCK (PAIN)[id number] PROCEDURE CODES 99369 INJ PARAVERT F JNT L/S 1 LEV 67188 INJ PARAVERT F JNT L/S 2 LEV 6045F RADXPS IN END [id number] PXD DISPOSITION & COMMUNICATION FOLLOW UP 3 WEEKS ELECTRONICALLY SIGNED BY CATIA BYRD MD ON 07/25/2016 AT 05:56 PM EDT DISCLAIMER : THIS IS A VISIT SUMMARY EXTRACTED FROM THE [employer] CHART. IT IS NOT A COPY OF THE [employer] PROGRESS NOTE. MTDD
== END ==
LOC: M PAIN 08:40
PROVIDERS: ATTEND Anesthesiology
DX: G89.29 Other chronic pain (principal); M47.816 Spondylosis without myelopathy or radiculopathy, lumbar region; M47.817 Spondylosis without myelopathy or radiculopathy, lumbosacral region; E03.9 Hypothyroidism, unspecified; E11.9 Type 2 diabetes mellitus without complications; E78.5 Hyperlipidemia, unspecified; E88.81 Metabolic syndrome and other insulin resistance; M79.7 Fibromyalgia; E55.9 Vitamin D deficiency, unspecified; F32.9 Major depressive disorder, single episode, unspecified; M06.4 Inflammatory polyarthropathy; D51.0 Vitamin B12 deficiency anemia due to intrinsic factor deficiency; I10 Essential (primary) hypertension; Z88.2 Allergy status to sulfonamides; Z88.8 Allergy status to other drugs, medicaments and biological substances; Z79.84 Long term (current) use of oral hypoglycemic drugs; Z79.82 Long term (current) use of aspirin; Z79.1 Long term (current) use of non-steroidal anti-inflammatories (NSAID); Z79.899 Other long term (current) drug therapy
CPT/HCPCS: 64493; 64494; J3301; Q9967

== ENCOUNTER → 2016-08-16 | Outpatient (CLI) | payer MEDICARE ==
--- NOTE | 2016-08-26 02:36 | ECWPNPC ---
PATIENT NAME: CHANCE AUGUSTE : 1955 GENDER: FEMALE VISIT DATE: 08/16/2016 DISCHARGE DATE: 08/16/16 1337 VISIT LOCKED DATE TIME: PHYSICIAN: CATIA BYRD RESOURCE: CATIA BYRD REASON FOR APPOINTMENT 1. LOW BACK PAIN HISTORY OF PRESENT ILLNESS HISTORY OF PRESENT ILLNESS: PAIN THE PATIENT DESCRIBES THE PAIN... 61 YEAR OLD FEMALE PATIENT WITH HISTORY OF CHRONIC LOW BACK PAIN. PATIENT DESCRIBES THE PAIN ACHING AND SORE WITH A PAIN SCORE OF 3/10. MRS. AUGUSTE RECEIVED A LUMBAR FACET BLOCK ON 07/19/16 AND STATES THAT WHILE THE PAIN WAS INCREASED A FEW DAYS AFTER THE INJECTION SHE IS RECEIVING OVER 50% RELIEF FROM PAIN WITH INCREASED MOBILITY AND FUNCTIONALITY. CURRENTLY THE PATIENT IS USING TYLENOL AND IBUPROFEN FOR PAIN MANAGEMENT. PATIENT DENIES UNEXPLAINABLE WEIGHT LOSS, FEVER, CHILLS, NEW CHANGES ON HER URINARY OR BOWEL CONTROL. FALL RISK SCREENING: SCREENING :NO FALLS IN THE PAST YEAR CURRENT MEDICATIONS TAKING PROTONIX 40 MG ENTERIC COATED TABLET TAKE 1 TABLET BY MOUTH TWO TIMES DAILY , NOTES: 07-19-16599 TAKING MIRALAX POWDER USING MEASURING CAP MIX 17GM IN WATER AND DRINK ONCE A DAY , NOTES: NONE TAKING FLUOXETINE HCL 40 MG CAPSULE TAKE 1 CAPSULE BY MOUTH DAILY IN THE MORNING , NOTES: 07-19-16599 TAKING TRAZODONE HCL 100 MG TABLET TAKE 1 TABLET BY MOUTH DAILY , NOTES: 07-18-162099 TAKING REGLAN 10 MG TABLET TAKE 1 TABLET BY MOUTH 1/2 HOUR BEFORE MEALS AND AT BEDTIME ORALLY FOUR TIMES DAILY, NOTES: 07-19-16599 TAKING LOVASTATIN 20 MG TABLET TAKE 1 TABLET BY MOUTH DAILY WITH A MEAL , NOTES: 07-18-162099 TAKING METFORMIN HCL 500 MG TABLET TAKE 1 TABLET BY MOUTH TWICE A DAY , NOTES: 07-18-161999 TAKING ZOFRAN 4 MG TABLET TAKE 1 TABLET BY MOUTH EVERY 6 HOURS NEEDED FOR NAUSEA , NOTES: 07-19-16599 TAKING LEVOTHYROXINE SODIUM 100 MCG TABLET TAKE 1 TABLET BY MOUTH ONCE A DAY , NOTES: 07-19-16599 TAKING RANITIDINE HCL 150 MG TABLET 1 TABLET ORALLY THREE TIMES A DAY, NOTES: 07-19-16599 TAKING SULFAZINE EC 500 MG TABLET DELAYED RELEASE 1 TABLET ORALLY TWICE A DAY, NOTES: 07-19-16599 TAKING DULCOLAX 10 MG SUPPOSITORY 1 SUPPOSITORY NEEDED RECTAL EVERY 3 DAYS NEEDED FOR CONSTIPATION, NOTES: NONE LATELY TAKING VITAMIN D 2000 UNIT TABLET 1 TAB ORALLY ONCE DAILY, NOTES: 07-19-16599 TAKING AMITRIPTYLINE HCL 25 MG TABLET 1 TABLET AT BEDTIME ORALLY ONCE A DAY, NOTES: 07-18-161999 TAKING NEURONTIN 100 MG CAPSULE 3 CAPSULES ORALLY TWICE A DAY, NOTES: 07-19-16599 TAKING ACETAMINOPHEN EXTRA STRENGTH 500 MG TABLET 2 TABLETS NEEDED ORALLY EVERY 6 HRS, NOTES: NONE TAKING ASPIRIN 81 MG TABLET CHEWABLE 1 TABLET ORALLY ONCE A DAY, NOTES: 07-19-16599 TAKING VITAMIN B12 100 MCG TABLET ORALLY , NOTES: 07-19-16599 TAKING PROMETHAZINE HCL 25 MG TABLET 1 TABLET NEEDED ORALLY EVERY 6 HRS, NOTES: 07-19-16599 TAKING IBUPROFEN 800 MG TABLET TAKE 1/2 TABLET BY MOUTH 3 TIMES A DAY ORALLY THREE TIMES DAILY, NOTES: NONE TAKING AMLODIPINE BESYLATE 5 MG TABLET 1 TABLET ORALLY ONCE A DAY, NOTES: 07-19-16599 TAKING LISINOPRIL 20 MG TABLET 1 TAB ORALLY DAILY MEDICATION LIST REVIEWED AND RECONCILED WITH THE PATIENT PAST MEDICAL HISTORY HYPOTHYROIDISM TYPE 2 DM WITH NEPHROPATHY/ELEV MIKKI HYPERLIPIDEMIA FATTY LIVER, ABNL LFT'S METABOLIC SYNDROME IBS FIBROMYALGIA VIT D DEFICIENCY DEPRESSION INFLAMMATORY ARTHRITIS/ + REESE - DR. LARA (RHEUMATOLOGY [facility]) - SULFAZINE PER RHUEMATOLOGY GASTROPARESIS PER UGI WITH SBFT 2015 SEVERE LUMBAR SPINAL STENOSIS L4-5 MRI 02/16; DDD MULTIPLE LEVELS; DONE BY NCO, SAW DR KELLER, HAD INJECTIONS 2014, FOLLOWING WITH PAIN CLINIC - HAD INJECTIONS 10/2015 (DR. BYRD) DDD THORACIC SPINE MRI 02/16 - LEUKOPENIA SECONDARY TO SULFAZINE - IMPROVED WITH DECREASED DOSE B12 DEFICIENCY IRON DEFICIENCY HTN ALLERGIES KEFLEX: TONGUE SWELLING: ALLERGY SULFAZINE: HIGH DOSES CAUSE LEUKOPENIA: SIDE EFFECTS SURGICAL HISTORY NO SURGICAL HISTORY DOCUMENTED. FAMILY HISTORY NO FAMILY HISTORY DOCUMENTED. SOCIAL HISTORY GENERAL: PAIN CLINIC PFS, CLERGY, PUBLIC HEALTH REFERRALS CLERGY REFERRAL NEEDED?NO WAS THE PROVIDER NOTIFIED OF ANY PERTINENT INFO?NO PFS REFERRAL NEEDED?NO PUBLIC HEALTH REFERRAL NEEDED?NO PATIENT: ____. 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 SHE IS ON DISABILITY NOW FOR MAJOR DEPRESSION AND FIBROMYALGIAIN HER SPARE TIME SHE ENJOYS READING AND GARDENING. HOSPITALIZATION/MAJOR DIAGNOSTIC PROCEDURE SURGERY RELATED REVIEW OF SYSTEMS CONSTITUTIONAL: ANY CHANGE IN YOUR MEDICAL CONDITION? NO. PT STATES SHE HAD A LUMBAR FACET PROCEDURE HERE 07/2016. PRE PROCEDURE PT PRATES PAIN WAS 6/10. POST PROCEDURE PT RATES PAIN 2-6/10. PT REPORTS PAIN INCREASES WITH ACTIVITY AND CARRYING THINGS. PT STATES OVERALL SOME IMPROVEMENT. . CHILLS NO . FEVER NO . INFECTION: DO YOU HAVE NEW INFECTIONS? NO . DO YOU HAVE HISTORY OF MRSA? NO . MUSCULOSKELETAL: ANY NEW PATTERNS OF PAIN OR NUMBNESS? NO . GASTROENTEROLOGY: ANY NEW CHANGE IN BOWEL CONTROL? NO . GENITOURINARY: ANY NEW CHANGE IN BLADDER CONTROL? NO . IS THERE A CHANCE YOU COULD BE ? NO . HEMATOLOGY/LYMPH: DO YOU TAKE ANY BLOOD THINNERS? (FOR EXAMPLE- COUMADIN, PLAVIX, AGGRENOX, PLATEL, PRADAXA, OR XARELTO) NO . WHEN WAS YOUR LAST DOSE? DATE: TIME: . NEUROLOGY: HAVE YOU FALLEN IN THE PAST 6 MONTHS? NO . ANY NEW EXTREMITY NUMBNESS OR WEAKNESS? NO . CARDIOLOGY: DO YOU HAVE A PACEMAKER OR DEFIBRILLATOR? NO . RESPIRATORY: HAVE YOU BEEN SICK IN THE PAST WEEK? NO . FEVER NO . FLU LIKE SYMPTOMS? NO . COUGH NO . INTEGUMENTARY: DO YOU HAVE ANY RASHES OR OPEN SORES? NO . ALLERGIC/IMMUNO: ARE YOU ALLERGIC TO SHELLFISH OR IV DYE? NO . ANY NEW ALLERGIES? NO . PSYCHIATRIC: DO YOU HAVE THOUGHTS OF HURTING YOURSELF OR SOMEONE ELSE? NO . ARE YOU ABUSED, NEGLECTED, OR IN AN UNSAFE ENVIRONMENT? NO . ENDOCRINOLOGY: ARE YOU DIABETIC? YES . OTHER: DO YOU NEED ANY PRESCRIPTIONS? NO . IF YES, PLEASE LIST: ____ . ANY NEW PROBLEMS WITH YOUR MEDICATIONS? NO . WHEN DID YOU LAST EAT? ____ . WHEN DID YOU LAST DRINK? ____ . WHAT DID YOU LAST DRINK? ____ . NAME OF PERSON DRIVING YOU HOME? ____ . DO YOU HAVE ANY OTHER QUESTIONS OR CONCERNS NO . REVIEWED BY: PROVIDER: CATIA BYRD MD . VITAL SIGNS WT 232.6 LBS, HT 67 IN, BMI 36.43 INDEX, BP 134/81 MM HG, HR 75 /MIN, RR 16 /MIN, TEMP 96.7 F, OXYGEN SAT % 98%, SAFE IN ENV? (Y/N) Y, NA INITIALS SC13:05, REVIEWED BY: GERSON. EXAMINATION : PATIENT IS ALERT O X 3 AND COOPERATIVE. PATIENT IS ALERT O X 3 AND COOPERATIVE. MRI OF THE LUMBAR SPINE DONE ON 01/10/15 SHOWS STENOSIS L4-L5 AND DISC PROTRUSION AT L5-S1. MILD TENDERNESS IN THE LOWER RIGHT SIDE OF THE BACK. ASSESSMENTS INTERVERTEBRAL DISC DISORDERS WITH RADICULOPATHY, LUMBOSACRAL REGION - M51.17 (PRIMARY) TREATMENT INTERVERTEBRAL DISC DISORDERS WITH RADICULOPATHY, LUMBOSACRAL REGION NOTES: WE DISCUSSED SEVERAL ISSUES WITH MRS. AUGUSTE'S PAIN MANAGEMENT CASE. AT THIS TIME THE PATIENT WILL CONTINUE TO USE TYLENOL AND IBUPROFEN FOR PAIN MANAGEMENT. PATIENT WAS ADVISED TO USE IBUPROFEN WITH FOOD TO AVOID GASTROINTESTINAL PROBLEMS. AT THIS TIME NO INTERVENTIONS WILL BE HELD DUE TO THE PATIENT HAVING OVER 50% RELIEF FROM THE LUMBAR FACET BLOCK DONE ON 07/19/16. PATIENT WILL RETURN TO THE CLINIC IN 2 MONTHS BUT WAS ADVISED TO CALL IF THE PAIN SIGNIFICANTLY WORSENS. INSTRUCTIONS WERE GIVEN, QUESTIONS WERE ANSWERED, PATIENT REPORTS UNDERSTANDING AND AGREES WITH THE PLAN. I, YOMI BATRES, DOCUMENTED THE ABOVE INFORMATION ACTING A SCRIBE FOR DR. BYRD. I HAVE REVIEWED THE ABOVE DOCUMENT, WRITTEN BY YOMI DE LA VEGA AND I VERIFY THAT IT IS ACCURATE. PROCEDURE CODES FA211 ESTABILISHED PATIENT [facility] CHARGE G8427 DOC MEDS VERIFIED W/PT OR RE G8730 PAIN ASSESS POS TOOL F/U PLAN DOC DISPOSITION & COMMUNICATION FOLLOW UP 2 MONTHS ELECTRONICALLY SIGNED BY CATIA BYRD MD ON 08/23/2016 AT 07:08 PM EDT DISCLAIMER : THIS IS A VISIT SUMMARY EXTRACTED FROM THE [facility] CHART. IT IS NOT A COPY OF THE [facility] PROGRESS NOTE. MTDD
== END ==
LOC: M PAIN 13:00
PROVIDERS: ATTEND Anesthesiology
DX: G89.29 Other chronic pain (principal); M51.17 Intervertebral disc disorders with radiculopathy, lumbosacral region; E03.9 Hypothyroidism, unspecified; E11.9 Type 2 diabetes mellitus without complications; E78.5 Hyperlipidemia, unspecified; E88.81 Metabolic syndrome and other insulin resistance; M79.7 Fibromyalgia; E55.9 Vitamin D deficiency, unspecified; F32.9 Major depressive disorder, single episode, unspecified; M06.4 Inflammatory polyarthropathy; D51.9 Vitamin B12 deficiency anemia, unspecified; D50.9 Iron deficiency anemia, unspecified; I10 Essential (primary) hypertension; Z88.8 Allergy status to other drugs, medicaments and biological substances; Z88.2 Allergy status to sulfonamides; Z79.84 Long term (current) use of oral hypoglycemic drugs; Z79.82 Long term (current) use of aspirin; Z79.1 Long term (current) use of non-steroidal anti-inflammatories (NSAID); Z79.899 Other long term (current) drug therapy

== ENCOUNTER → 2016-09-27 | Outpatient (REF) | payer MEDICARE | LOC: M SFHCADAM 20:03 | PROVIDERS: ATTEND Family Medicine | DX: N30.00 Acute cystitis without hematuria (principal) | CPT/HCPCS: 81002; 87088; 87186; G0463 ==

== ENCOUNTER → 2016-11-03 | Outpatient (REF) | payer MEDICARE ==
[2016-11-03 13:05] LABS: ALBUMIN 3.9 GM/DL (3.2-5.2); ALBUMIN/GLOBULIN RATIO 1.22 (1.00-1.93); ALKALINE PHOSPHATASE 54 U/L (45-117); ALT/SGPT 20 U/L (12-78); ANION GAP 6 MEQ/L (8-16); AST/SGOT 18 U/L (15-37); BILIRUBIN,TOTAL 0.2 MG/DL (0.2-1.0); BLOOD UREA NITROGEN 3 MG/DL (7-18); CALCIUM LEVEL 9.4 MG/DL (8.5-10.1); CARBON DIOXIDE LEVEL 30 MEQ/L (21-32); CHLORIDE LEVEL 93 MEQ/L (98-107); CREATININE FOR GFR 0.62 MG/DL (0.55-1.02); FREE T4 1.12 NG/DL (0.76-1.46); GLOMERULAR FILTRATION RATE > 60.0 (>51); GLUCOSE, FASTING 74 MG/DL (70-105); POTASSIUM SERUM 4.3 MEQ/L (3.5-5.1); SODIUM LEVEL 129 MEQ/L (136-145); TOTAL PROTEIN 7.1 GM/DL (6.4-8.2)
[2016-11-03 13:15] LABS: BASO % 0.5 % (0.0-1.0); EOS % 0.9 % (0.0-3.0); LARGE UNSTAINED CELL # 0.1 K/mm3 (0.0-0.4); LYMPH # 0.9 K/mm3 (1.5-4.5); LYMPH % 31.8 % (24.0-44.0); MEAN CORPUSCULAR HEMOGLOBIN 32.7 pg (27.0-33.0); MEAN CORPUSCULAR HGB CONC 34.5 g/dl (32.0-36.5); MEAN CORPUSCULAR VOLUME 94.6 fl (80.0-96.0); MONO # 0.2 K/mm3 (0.0-0.8); MONO % 7.9 % (0.0-5.0); NEUTROPHILS # 1.6 K/mm3 (1.8-7.7); NEUTROPHILS % 55.9 % (36.0-66.0); PLATELET COUNT, AUTOMATED 224 k/mm3 (150-450); RED CELL DISTRIBUTION WIDTH 13.1 % (11.5-14.5); WHITE BLOOD COUNT 2.9 K/mm3 (4.0-10.0)
== END ==
LOC: M SFHCADAM 11:55
PROVIDERS: ATTEND Physician Assistant
DX: R07.89 Other chest pain (principal); R42 Dizziness and giddiness; Z86.39 Personal history of other endocrine, nutritional and metabolic disease
CPT/HCPCS: 80053; 82550; 82553; 84439; 84443; 84484; 85025; 93005; G0463

== ENCOUNTER → 2016-11-12 | Outpatient (REF) | payer MEDICARE ==
[2016-11-12 13:08] LABS: OSMOLALITY SERUM 263 MOSM/KG (275-295)
[2016-11-12 13:11] LABS: OSMOLALITY URINE 215 MOSM/KG (500-800)
[2016-11-12 13:25] LABS: ANION GAP 11 MEQ/L (8-16); BLOOD UREA NITROGEN 4 MG/DL (7-18); CALCIUM LEVEL 9.2 MG/DL (8.5-10.1); CARBON DIOXIDE LEVEL 26 MEQ/L (21-32); CHLORIDE LEVEL 94 MEQ/L (98-107); CREATININE FOR GFR 0.53 MG/DL (0.55-1.02); FREE T4 1.08 NG/DL (0.76-1.46); GLOMERULAR FILTRATION RATE > 60.0 (>51); GLUCOSE, FASTING 77 MG/DL (70-105); POTASSIUM SERUM 4.4 MEQ/L (3.5-5.1); SODIUM LEVEL 131 MEQ/L (136-145)
== END ==
LOC: M SFHCADAM 08:03
PROVIDERS: ATTEND Physician Assistant
DX: R94.6 Abnormal results of thyroid function studies (principal); E87.1 Hypo-osmolality and hyponatremia

== ENCOUNTER → 2016-11-26 | Outpatient (REF) | payer MEDICARE ==
[2016-11-26 19:54] LABS: OSMOLALITY URINE 432 MOSM/KG (500-800)
[2016-11-26 20:02] LABS: OSMOLALITY SERUM 268 MOSM/KG (275-295)
[2016-11-26 20:12] LABS: ALBUMIN 3.7 GM/DL (3.2-5.2); ANION GAP 10 MEQ/L (8-16); BLOOD UREA NITROGEN 7 MG/DL (7-18); CALCIUM LEVEL 8.7 MG/DL (8.5-10.1); CARBON DIOXIDE LEVEL 26 MEQ/L (21-32); CHLORIDE LEVEL 97 MEQ/L (98-107); CREATININE FOR GFR 0.63 MG/DL (0.55-1.02); GLOMERULAR FILTRATION RATE > 60.0 (>51); GLUCOSE, FASTING 106 MG/DL (70-105); PHOSPHORUS LEVEL 3.9 MG/DL (2.5-4.9); POTASSIUM SERUM 4.1 MEQ/L (3.5-5.1); SODIUM LEVEL 133 MEQ/L (136-145)
== END ==
LOC: M SFHCADAM 16:42
PROVIDERS: ATTEND Physician Assistant
DX: E87.1 Hypo-osmolality and hyponatremia (principal)

== ENCOUNTER → 2016-12-09 | Outpatient (REF) | payer MEDICARE ==
[2016-12-09 19:25] LABS: ANION GAP 8 MEQ/L (8-16); BLOOD UREA NITROGEN 6 MG/DL (7-18); CALCIUM LEVEL 9.2 MG/DL (8.5-10.1); CARBON DIOXIDE LEVEL 29 MEQ/L (21-32); CHLORIDE LEVEL 96 MEQ/L (98-107); GLOMERULAR FILTRATION RATE > 60.0 (>51); GLUCOSE, FASTING 82 MG/DL (70-105); SODIUM LEVEL 133 MEQ/L (136-145)
[2016-12-09 19:27] LABS: POTASSIUM SERUM 5.2 MEQ/L (3.5-5.1)
[2016-12-09 20:11] LABS: BASO % 0.4 % (0.0-1.0); EOS % 1.1 % (0.0-3.0); LARGE UNSTAINED CELL # 0.1 K/mm3 (0.0-0.4); LARGE UNSTAINED CELL % 2.2 % (0.0-4.0); LYMPH # 1.2 K/mm3 (1.5-4.5); LYMPH % 28.3 % (24.0-44.0); MEAN CORPUSCULAR HEMOGLOBIN 33.2 pg (27.0-33.0); MEAN CORPUSCULAR VOLUME 97.4 fl (80.0-96.0); MONO # 0.3 K/mm3 (0.0-0.8); MONO % 5.8 % (0.0-5.0); NEUTROPHILS # 2.7 K/mm3 (1.8-7.7); NEUTROPHILS % 62.2 % (36.0-66.0); PLATELET COUNT, AUTOMATED 224 k/mm3 (150-450); WHITE BLOOD COUNT 4.3 K/mm3 (4.0-10.0)
== END ==
LOC: M SFHCADAM 14:16
PROVIDERS: ATTEND Physician Assistant
DX: D72.819 Decreased white blood cell count, unspecified (principal); E22.2 Syndrome of inappropriate secretion of antidiuretic hormone
CPT/HCPCS: 80048; 81001; 85025; G0463

== ENCOUNTER → 2016-12-20 | Outpatient (CLI) | payer MEDICARE ==
--- NOTE | 2016-12-20 09:02 | REPMRS ---
Patient History The patient states she has not had a clinical breast exam in over a year. Patient is postmenopausal and is nulliparous. Family history of breast cancer in maternal aunt at age 50 or over. Digital Woman Screen Mammo: December 20, 2016 - Exam #: [id number] Bilateral CC and MLO view(s) were taken. Technologist: Kylie Cheung, Technologist Prior study comparison: November 24, 2015, digital woman screen mammo performed at [facility] to [place]. November 22, 2014, digital woman screen mammo performed at [facility] to [place]. FINDINGS: There are scattered fibroglandular densities. There has been no change in the appearance of the mammogram from the prior studies. There is a mild amount of residual fibroglandular tissue which is fairly symmetric. There is no interval development of dominant mass, architectural distortion, or clustered microcalcification suggestive of malignancy. ASSESSMENT: BI-RADS/ACR category 1 mammogram. Negative. Recommendation Routine screening mammogram in 1 year (for women over age 40). This mammogram was interpreted with the aid of an FDA-approved computer-aided dectection system. Electronically Signed By: Mainor Corley MD 12/20/16 0901
== END ==
LOC: M WHC 07:52
PROVIDERS: ATTEND Physician Assistant
DX: Z12.31 Encounter for screening mammogram for malignant neoplasm of breast (principal); Z80.3 Family history of malignant neoplasm of breast

== ENCOUNTER → 2016-12-29 | Outpatient (REF) | payer MEDICARE ==
[2016-12-29 12:41] LABS: FOLATE 20.4 NG/ML
== END ==
LOC: M SFHCADAM 08:41
PROVIDERS: ATTEND Physician Assistant
DX: E53.8 Deficiency of other specified B group vitamins (principal)

== ENCOUNTER → 2017-01-12 | Outpatient (CLI) | payer MEDICARE ==
[~2017-01-12] MED LIST changes: -BUPIVACAINE HCL 0.25% 30 ML VIAL As Ordered ONE; -ISOVUE-M 300 61% 15ML VIAL (Q9967) As Ordered ONE; -LIDOCAINE 1% SDV INJ 30 ML VIAL As Ordered ONE; +PROHANCE 279.3MG/ML 5ML VIAL (A9576) As Ordered ONE; -TRIAMCINOLONE ACETONIDE SUSP 40 MG/ML VIAL (J3301) As Ordered ONE
--- NOTE | 2017-01-12 12:48 | REP ---
MRI BRAIN WITHOUT AND WITH CONTRAST: HISTORY: SIADH. CONTRAST: ProHance 9 mL. Scattered punctate areas of increased signal intensity on T2-weighted images are present in the periventricular and subcortical white matter and [place]. This represents small vessel ischemic disease. There is no intraparenchymal hemorrhage, infarct, mass, or midline shift. The sella turcica is partially empty. There is no abnormal enhancement. The ventricular system is normal in appearance. There is no extracerebral collection. The sinuses are clear. IMPRESSION: Minimal small vessel ischemic disease. Signed by Aquilino Carrington MD 01/12/2017 12:56 P
== END ==
LOC: M RAD 10:28
PROVIDERS: ATTEND Physician Assistant
DX: E22.2 Syndrome of inappropriate secretion of antidiuretic hormone (principal)
CPT/HCPCS: 70553; A9576

== ENCOUNTER → 2017-03-07 | Outpatient (REF) | payer MEDICARE ==
[2017-03-07 13:00] LABS: BASO % 0.4 % (0.0-1.0); EOS # 0.1 10^3/uL (0.0-0.50); IMMATURE GRANULOCYTE % 0.4 % (0-0); LYMPH # 0.9 10^3/uL (1.5-4.5); LYMPH % 11.1 % (24.0-44.0); MEAN CORPUSCULAR HEMOGLOBIN 31.8 pg (27.0-33.0); MEAN CORPUSCULAR HGB CONC 32.4 g/dl (32.0-36.5); MEAN CORPUSCULAR VOLUME 98.2 fl (80.0-96.0); MONO # 0.3 10^3/uL (0.0-0.8); MONO % 3.8 % (0.0-5.0); NEUTROPHILS # 6.6 10^3/uL (1.8-7.7); NEUTROPHILS % 83.3 % (36.0-66.0); PLATELET COUNT, AUTOMATED 201 10^3/uL (150-450); RED CELL DISTRIBUTION WIDTH 12.8 % (11.5-14.5)
[2017-03-07 14:08] LABS: ALBUMIN 3.7 GM/DL (3.2-5.2); ALBUMIN/GLOBULIN RATIO 1.06 (1.00-1.93); ALKALINE PHOSPHATASE 58 U/L (45-117); ALT/SGPT 26 U/L (12-78); ANION GAP 6 MEQ/L (8-16); AST/SGOT 23 U/L (7-37); BILIRUBIN,TOTAL 0.2 MG/DL (0.2-1.0); BLOOD UREA NITROGEN 7 MG/DL (7-18); CARBON DIOXIDE LEVEL 31 MEQ/L (21-32); CHLORIDE LEVEL 98 MEQ/L (98-107); CREATININE FOR GFR 0.66 MG/DL (0.55-1.02); GLOMERULAR FILTRATION RATE > 60.0 (>51); GLUCOSE, FASTING 101 MG/DL (70-105); POTASSIUM SERUM 3.8 MEQ/L (3.5-5.1); SODIUM LEVEL 135 MEQ/L (136-145); TOTAL PROTEIN 7.2 GM/DL (6.4-8.2)
== END ==
LOC: M SFHCADAM 08:42
PROVIDERS: ATTEND Physician Assistant
DX: D64.9 Anemia, unspecified (principal); I10 Essential (primary) hypertension; E11.9 Type 2 diabetes mellitus without complications; E03.9 Hypothyroidism, unspecified

== ENCOUNTER → 2017-04-19 | Outpatient (REF) | payer MEDICARE ==
[2017-04-19 12:53] LABS: BASO % 0.7 % (0.0-1.0); EOS # 0.1 10^3/uL (0.0-0.50); EOS % 1.6 % (0.0-3.0); HEMATOCRIT 34.5 % (36.0-47.0); HEMOGLOBIN 11.4 g/dl (12.0-16.0); IMMATURE GRANULOCYTE % 0.5 % (0-0); LYMPH # 1.2 10^3/uL (1.5-4.5); LYMPH % 27.3 % (24.0-44.0); MEAN CORPUSCULAR HEMOGLOBIN 32.3 pg (27.0-33.0); MEAN CORPUSCULAR VOLUME 97.7 fl (80.0-96.0); MONO # 0.3 10^3/uL (0.0-0.8); MONO % 7.2 % (0.0-5.0); NEUTROPHILS # 2.8 10^3/uL (1.8-7.7); NEUTROPHILS % 62.7 % (36.0-66.0); PLATELET COUNT, AUTOMATED 216 10^3/uL (150-450); RED BLOOD COUNT 3.53 10^6/uL (4.00-5.40); WHITE BLOOD COUNT 4.4 10^3/uL (4.0-10.0)
[2017-04-19 13:25] LABS: ERYTHROCYTE SEDIMENTATION RATE 17 mm/hr (0-30)
[2017-04-19 13:29] LABS: ALBUMIN 4.1 GM/DL (3.2-5.2); ALT/SGPT 21 U/L (12-78); AST/SGOT 18 U/L (7-37); C REACTIVE PROTEIN QUANTITATIV < 0.30 MG/DL (0.00-0.30); CREATININE FOR GFR 0.65 MG/DL (0.55-1.02); GLOMERULAR FILTRATION RATE > 60.0 (>51)
== END ==
LOC: M LAB REF 12:24
DX: Z79.899 Other long term (current) drug therapy (principal)
CPT/HCPCS: 84460

== ENCOUNTER → 2017-05-25 | Outpatient (REF) | payer MEDICARE ==
[2017-05-25 12:20] LABS: HEMATOCRIT 34.8 % (36.0-47.0); HEMOGLOBIN 11.7 g/dl (12.0-16.0); MEAN CORPUSCULAR HEMOGLOBIN 32.4 pg (27.0-33.0); MEAN CORPUSCULAR HGB CONC 33.6 g/dl (32.0-36.5); MEAN CORPUSCULAR VOLUME 96.4 fl (80.0-96.0); PLATELET COUNT, AUTOMATED 195 10^3/uL (150-450); RED BLOOD COUNT 3.61 10^6/uL (4.00-5.40); RED CELL DISTRIBUTION WIDTH 12.8 % (11.5-14.5); RETIC HEMOGLOBIN EQUIVALENT 37.8 pg (24-36); RETICULOCYTE # 50.5 10^9/L (17-77); RETICULOCYTE % 1.4 % (0.5-1.5); WHITE BLOOD COUNT 3.8 10^3/uL (4.0-10.0)
[2017-05-25 13:14] LABS: IRON (FE) 81 UG/DL (50-170)
[2017-05-25 13:15] LABS: FERRITIN 23 NG/ML (8-252); PERCENT SATURATION 22.8 % (13.2-45.0); TOTAL IRON BINDING CAPACITY 355 UG/DL (250-450)
== END ==
LOC: M SFHCADAM 09:52
DX: R04.0 Epistaxis (principal); R53.83 Other fatigue; E11.9 Type 2 diabetes mellitus without complications; Z79.84 Long term (current) use of oral hypoglycemic drugs; Z79.82 Long term (current) use of aspirin; Z79.899 Other long term (current) drug therapy
CPT/HCPCS: 83550

== ENCOUNTER → 2017-10-26 | Outpatient (REF) | payer MEDICARE ==
[2017-10-26 12:59] LABS: BASO % 0.8 % (0.0-1.0); EOS % 1.2 % (0.0-3.0); HEMATOCRIT 33.8 % (36.0-47.0); HEMOGLOBIN 11.4 g/dl (12.0-15.5); LYMPH # 1.2 10^3/uL (1.5-4.5); LYMPH % 50.8 % (24.0-44.0); MEAN CORPUSCULAR HEMOGLOBIN 33.4 pg (27.0-33.0); MEAN CORPUSCULAR HGB CONC 33.7 g/dl (32.0-36.5); MEAN CORPUSCULAR VOLUME 99.1 fl (80.0-96.0); MONO # 0.2 10^3/uL (0.0-0.8); MONO % 8.6 % (0.0-5.0); NEUTROPHILS % 38.6 % (36.0-66.0); PLATELET COUNT, AUTOMATED 213 10^3/uL (150-450); RED BLOOD COUNT 3.41 10^6/uL (4.00-5.40); RED CELL DISTRIBUTION WIDTH 12.4 % (11.5-14.5); WHITE BLOOD COUNT 2.4 10^3/uL (4.0-10.0)
[2017-10-26 13:06] LABS: ALBUMIN/GLOBULIN RATIO 1.21 (1.00-1.93); ALKALINE PHOSPHATASE 56 U/L (45-117); ALT/SGPT 24 U/L (12-78); ANION GAP 7 MEQ/L (8-16); AST/SGOT 19 U/L (7-37); BILIRUBIN,TOTAL 0.2 MG/DL (0.2-1.0); BLOOD UREA NITROGEN 4 MG/DL (7-18); CALCIUM LEVEL 8.9 MG/DL (8.8-10.2); CARBON DIOXIDE LEVEL 30 MEQ/L (21-32); CHLORIDE LEVEL 96 MEQ/L (98-107); CREATININE FOR GFR 0.61 MG/DL (0.55-1.30); GLOMERULAR FILTRATION RATE > 60.0 (>45); GLUCOSE, FASTING 73 MG/DL (70-100); POTASSIUM SERUM 4.5 MEQ/L (3.5-5.1); SODIUM LEVEL 133 MEQ/L (136-145); TOTAL PROTEIN 7.3 GM/DL (6.4-8.2)
[2017-10-26 13:10] LABS: NEUTROPHILS # 0.9 10^3/uL (1.8-7.7); POSITIVE DIFF POS FLAG
[2017-10-26 13:19] LABS: TOTAL 25(OH) VITAMIN D 76.3 NG/ML (30.0-100.0)
== END ==
LOC: M SFHCADAM 07:39
DX: D64.9 Anemia, unspecified (principal); I10 Essential (primary) hypertension; E55.9 Vitamin D deficiency, unspecified; Z79.899 Other long term (current) drug therapy
CPT/HCPCS: 80053

== ENCOUNTER → 2017-10-28 | Outpatient (REF) | payer MEDICARE ==
[2017-10-28 13:29] LABS: INR 1.01; PROTHROMBIN TIME 13.4 SECONDS (12.1-14.4)
== END ==
LOC: M SFHCADAM 10:08
DX: R04.0 Epistaxis (principal)
CPT/HCPCS: 85610

== ENCOUNTER → 2017-11-04 | Outpatient (REF) | payer MEDICARE ==
[2017-11-04 20:05] LABS: HEMATOCRIT 33.4 % (36.0-47.0); HEMOGLOBIN 11.4 g/dl (12.0-15.5); MEAN CORPUSCULAR HEMOGLOBIN 33.4 pg (27.0-33.0); MEAN CORPUSCULAR HGB CONC 34.1 g/dl (32.0-36.5); MEAN CORPUSCULAR VOLUME 97.9 fl (80.0-96.0); PLATELET COUNT, AUTOMATED 242 10^3/uL (150-450); RED BLOOD COUNT 3.41 10^6/uL (4.00-5.40); RED CELL DISTRIBUTION WIDTH 12.3 % (11.5-14.5); WHITE BLOOD COUNT 3.6 10^3/uL (4.0-10.0)
[2017-11-04 20:11] LABS: ALBUMIN 3.7 GM/DL (3.2-5.2); ALBUMIN/GLOBULIN RATIO 1.12 (1.00-1.93); ALKALINE PHOSPHATASE 51 U/L (45-117); ALT/SGPT 21 U/L (12-78); ANION GAP 9 MEQ/L (8-16); AST/SGOT 19 U/L (7-37); BILIRUBIN,TOTAL 0.2 MG/DL (0.2-1.0); BLOOD UREA NITROGEN 5 MG/DL (7-18); CARBON DIOXIDE LEVEL 29 MEQ/L (21-32); CHLORIDE LEVEL 93 MEQ/L (98-107); CREATININE FOR GFR 0.53 MG/DL (0.55-1.30); GLOMERULAR FILTRATION RATE > 60.0 (>45); GLUCOSE, FASTING 91 MG/DL (70-100); POTASSIUM SERUM 3.6 MEQ/L (3.5-5.1); SODIUM LEVEL 131 MEQ/L (136-145)
== END ==
LOC: M SFHCADAM 16:27
DX: R53.1 Weakness (principal); R11.0 Nausea; R42 Dizziness and giddiness
CPT/HCPCS: 80053

== ENCOUNTER 2017-11-08 15:28 | Emergency (ER) | payer MEDICARE ==
[2017-11-08 16:05] LABS: BASO % 0.4 % (0.0-1.0); EOS # 0.1 10^3/uL (0.0-0.50); EOS % 1.1 % (0.0-3.0); HEMOGLOBIN 13.1 g/dl (12.0-15.5); IMMATURE GRANULOCYTE % 0.4 % (0-3.0); LYMPH # 1.5 10^3/uL (1.5-4.5); LYMPH % 28.6 % (24.0-44.0); MEAN CORPUSCULAR HEMOGLOBIN 33.2 pg (27.0-33.0); MEAN CORPUSCULAR HGB CONC 34.5 g/dl (32.0-36.5); MEAN CORPUSCULAR VOLUME 96.2 fl (80.0-96.0); MONO # 0.3 10^3/uL (0.0-0.8); MONO % 6.4 % (0.0-5.0); NEUTROPHILS # 3.4 10^3/uL (1.8-7.7); NEUTROPHILS % 63.1 % (36.0-66.0); PLATELET COUNT, AUTOMATED 257 10^3/uL (150-450); RED BLOOD COUNT 3.95 10^6/uL (4.00-5.40); RED CELL DISTRIBUTION WIDTH 12.4 % (11.5-14.5); WHITE BLOOD COUNT 5.4 10^3/uL (4.0-10.0)
[2017-11-08] MEDS: ONDANSETRON 4MG/2ML VIAL (J2405) IV (16:06)
[2017-11-08] MEDS: ASPIRIN 81 MG CHEW TABLET PO (16:06)
[2017-11-08 16:18] LABS: ANION GAP 12 MEQ/L (8-16); BLOOD UREA NITROGEN 8 MG/DL (7-18); CALCIUM LEVEL 9.6 MG/DL (8.8-10.2); CARBON DIOXIDE LEVEL 26 MEQ/L (21-32); CHLORIDE LEVEL 95 MEQ/L (98-107); CK-MB VALUE MASS 1.5 NG/ML (<3.6); CPK CREATINE PHOSPHOKINASE 88 U/L (26-192); CREATININE FOR GFR 0.63 MG/DL (0.55-1.30); GLOMERULAR FILTRATION RATE > 60.0 (>45); GLUCOSE, FASTING 92 MG/DL (70-100); POTASSIUM SERUM 3.2 MEQ/L (3.5-5.1); SODIUM LEVEL 133 MEQ/L (136-145); TROPONIN I < 0.02 NG/ML (< 0.10)
[2017-11-08 19:34] LABS: CK-MB VALUE MASS 1.3 NG/ML (<3.6); CPK CREATINE PHOSPHOKINASE 87 U/L (26-192); MB/CK RELATIVE INDEX 1.49 (< OR =4); TROPONIN I < 0.02 NG/ML (< 0.10)
[2017-11-08] MEDS: POTASSIUM CHLORIDE 10 MEQ SR TABLET PO (20:42)
== END 2017-11-08 20:51 | disposition home or self-care (01) ==
LOC: M ED 15:28
DX: R07.89 Other chest pain (principal); I10 Essential (primary) hypertension; E11.9 Type 2 diabetes mellitus without complications; E78.9 Disorder of lipoprotein metabolism, unspecified; F33.9 Major depressive disorder, recurrent, unspecified; M79.7 Fibromyalgia; K58.9 Irritable bowel syndrome, unspecified; E66.9 Obesity, unspecified; Z88.8 Allergy status to other drugs, medicaments and biological substances; Z79.899 Other long term (current) drug therapy; Z79.890 Hormone replacement therapy; Z79.84 Long term (current) use of oral hypoglycemic drugs
CPT/HCPCS: J2405

== ENCOUNTER → 2018-01-04 | Outpatient (CLI) | payer MEDICARE | LOC: M WHC 07:47 | DX: Z12.31 Encounter for screening mammogram for malignant neoplasm of breast (principal) | CPT/HCPCS: 77067 ==

== ENCOUNTER → 2018-02-15 | Outpatient (CLI) | payer MEDICARE | LOC: M RAD 13:07 | DX: M17.11 Unilateral primary osteoarthritis, right knee (principal); M22.41 Chondromalacia patellae, right knee; M25.461 Effusion, right knee | CPT/HCPCS: 73721 ==

== ENCOUNTER → 2018-05-24 | Outpatient (REF) | payer MEDICARE ==
[~2018-05-24] MED LIST changes: +AMIT50TA; +FLUO40CA; +GABA-843; +IBUP-359; +LEVO100T5; +LISI-538; +LOVA20TA2; +MECL-68; +METF500T13; +METO10TA2; +ONDA4TAB5; +PANT40TA3; +PARO15TA; +POLY33503; -PROHANCE 279.3MG/ML 5ML VIAL (A9576) As Ordered ONE; +RANI150T; +SULF50TA; +TRAZ-163
[2018-05-24 13:24] LABS: EOS # 0.1 10^3/uL (0.0-0.50); EOS % 2.9 % (0.0-3.0); HEMATOCRIT 37.8 % (36.0-47.0); HEMOGLOBIN 12.2 g/dl (12.0-15.5); LYMPH # 1.3 10^3/uL (1.5-4.5); LYMPH % 34.8 % (24.0-44.0); MEAN CORPUSCULAR HEMOGLOBIN 31.3 pg (27.0-33.0); MEAN CORPUSCULAR HGB CONC 32.3 g/dl (32.0-36.5); MEAN CORPUSCULAR VOLUME 96.9 fl (80.0-96.0); MONO # 0.3 10^3/uL (0.0-0.8); MONO % 8.8 % (0.0-5.0); NEUTROPHILS % 52.2 % (36.0-66.0); PLATELET COUNT, AUTOMATED 253 10^3/uL (150-450); WHITE BLOOD COUNT 3.9 10^3/uL (4.0-10.0)
[2018-05-24 13:29] LABS: ALBUMIN 3.6 GM/DL (3.2-5.2); ALT/SGPT 21 U/L (12-78); BILIRUBIN,TOTAL 0.2 MG/DL (0.2-1.0); BLOOD UREA NITROGEN 5 MG/DL (7-18); CALCIUM LEVEL 9.1 MG/DL (8.8-10.2); CARBON DIOXIDE LEVEL 32 MEQ/L (21-32); CHLORIDE LEVEL 99 MEQ/L (98-107); CREATININE FOR GFR 0.57 MG/DL (0.55-1.30); FREE T4 1.09 NG/DL (0.76-1.46); GLOMERULAR FILTRATION RATE > 60.0 (>45); GLUCOSE, FASTING 96 MG/DL (70-100); POTASSIUM SERUM 4.3 MEQ/L (3.5-5.1); SODIUM LEVEL 136 MEQ/L (136-145); TOTAL PROTEIN 7.1 GM/DL (6.4-8.2)
[2018-05-24 13:54] LABS: CREATININE, URINE 73.8 MG/DL; MALB URINE SIEMENS 20.6 MG/L; MAU/CREAT RATIO 27.9 MCG/MG (0.0-30.0)
== END ==
LOC: M SFHCADAM 08:29
PROVIDERS: ATTEND Physician Assistant
DX: D72.819 Decreased white blood cell count, unspecified (principal); I10 Essential (primary) hypertension; E11.9 Type 2 diabetes mellitus without complications; E03.9 Hypothyroidism, unspecified

== ENCOUNTER → 2018-06-22 | Outpatient (REF) | payer MEDICARE ==
[2018-06-22 20:37] LABS: C REACTIVE PROTEIN QUANTITATIV < 0.30 MG/DL (0.00-0.30); RHEUMATOID FACTOR QUANT < 10.0 IU/ML (<15.0)
[2018-06-24 16:50] LABS: ANTI DOUBLE STRAND-DNA AB 22 IU/mL (0-9)
[2018-06-28 00:08] LABS: ANA (HEP2) Negative (.); CYCLIC CITRULLINATED PEPTIDE 3 units (0-19)
== END ==
LOC: M SFHCPLAZ 14:54 → M SFHCADAM 14:57
PROVIDERS: ATTEND Internal Medicine Rheumatology
DX: M06.9 Rheumatoid arthritis, unspecified (principal)

== ENCOUNTER → 2018-07-14 | Outpatient (REF) | payer MEDICARE | LOC: M SFHCADAM 13:51 | PROVIDERS: ATTEND Family Medicine | DX: N30.01 Acute cystitis with hematuria (principal) | CPT/HCPCS: 87088; 87186; G0463 ==

== ENCOUNTER → 2018-09-14 | Outpatient (REF) | payer MEDICARE ==
[2018-09-14 19:34] LABS: FOLATE > 24.0 NG/ML; VITAMIN B12 LEVEL 1597 PG/ML
== END ==
LOC: M SFHCADAM 11:56
PROVIDERS: ATTEND Physician Assistant
DX: E11.9 Type 2 diabetes mellitus without complications (principal)
CPT/HCPCS: 82607; 82746; G0463

== ENCOUNTER → 2018-12-19 | Outpatient (REF) | payer MEDICARE ==
[2018-12-19 12:50] LABS: BASO % 0.7 % (0.0-1.0); EOS # 0.1 10^3/uL (0.0-0.5); EOS % 1.1 % (0.0-3.0); HEMATOCRIT 41.8 % (36.0-47.0); HEMOGLOBIN 13.2 g/dl (12.0-15.5); LYMPH # 1.4 10^3/uL (1.5-5.0); LYMPH % 23.5 % (24.0-44.0); MEAN CORPUSCULAR HEMOGLOBIN 31.5 pg (27.0-33.0); MEAN CORPUSCULAR HGB CONC 31.6 g/dl (32.0-36.5); MEAN CORPUSCULAR VOLUME 99.8 fl (80.0-96.0); MONO # 0.4 10^3/uL (0.0-0.8); MONO % 6.5 % (0.0-5.0); NEUTROPHILS # 4.2 10^3/uL (1.5-8.5); NEUTROPHILS % 67.7 % (36.0-66.0); PLATELET COUNT, AUTOMATED 247 10^3/uL (150-450); RED BLOOD COUNT 4.19 10^6/uL (4.00-5.40); WHITE BLOOD COUNT 6.1 10^3/uL (4.0-10.0)
[2018-12-19 13:15] LABS: ALBUMIN 3.6 GM/DL (3.2-5.2); ALT/SGPT 16 U/L (12-78); BILIRUBIN,TOTAL 0.2 MG/DL (0.2-1.0); BLOOD UREA NITROGEN 7 MG/DL (7-18); C REACTIVE PROTEIN QUANTITATIV < 0.30 MG/DL (0.00-0.30); CALCIUM LEVEL 9.4 MG/DL (8.8-10.2); CARBON DIOXIDE LEVEL 28 MEQ/L (21-32); CHLORIDE LEVEL 104 MEQ/L (98-107); CREATININE FOR GFR 0.63 MG/DL (0.55-1.30); GLOMERULAR FILTRATION RATE > 60.0 (>45); GLUCOSE, FASTING 94 MG/DL (70-100); POTASSIUM SERUM 4.1 MEQ/L (3.5-5.1); SODIUM LEVEL 140 MEQ/L (136-145); TOTAL PROTEIN 7.1 GM/DL (6.4-8.2)
[2018-12-19 13:23] LABS: ERYTHROCYTE SEDIMENTATION RATE 25 mm/hr (0-30)
== END ==
LOC: M SFHCADAM 10:06
PROVIDERS: ATTEND Internal Medicine Rheumatology
DX: M06.9 Rheumatoid arthritis, unspecified (principal)

== ENCOUNTER → 2019-01-08 | Outpatient (REF) | payer MEDICARE ==
[~2019-01-08] MED LIST changes: -MECL-68; +MECL1TAB31; +ONDA-83; -ONDA4TAB5; -TRAZ-163; +TRAZ-257
[2019-01-08 14:51] LABS: HEMOGLOBIN A1c 5.7 %
[2019-01-08 15:02] LABS: ALBUMIN 3.8 GM/DL (3.2-5.2); ALT/SGPT 20 U/L (12-78); BILIRUBIN,TOTAL 0.2 MG/DL (0.2-1.0); BLOOD UREA NITROGEN 5 MG/DL (7-18); CALCIUM LEVEL 9.2 MG/DL (8.8-10.2); CARBON DIOXIDE LEVEL 30 MEQ/L (21-32); CHLORIDE LEVEL 99 MEQ/L (98-107); CREATININE, URINE 32.6 MG/DL; FREE T4 0.76 NG/DL (0.76-1.46); GLOMERULAR FILTRATION RATE > 60.0 (>45); GLUCOSE, FASTING 81 MG/DL (70-100); MALB URINE SIEMENS 5.4 MG/L; MAU/CREAT RATIO 16.5 MCG/MG (0.0-30.0); POTASSIUM SERUM 4.4 MEQ/L (3.5-5.1); SODIUM LEVEL 136 MEQ/L (136-145); TOTAL PROTEIN 7.4 GM/DL (6.4-8.2)
== END ==
LOC: M SFHCADAM 07:52
PROVIDERS: ATTEND Physician Assistant
DX: I10 Essential (primary) hypertension (principal); E11.9 Type 2 diabetes mellitus without complications

== ENCOUNTER → 2019-01-29 | Outpatient (CLI) | payer MEDICARE ==
[~2019-01-29] MED LIST changes: +MECL-68; -MECL1TAB31; -ONDA-83; +ONDA4TAB5; +TRAZ-163; -TRAZ-257
--- NOTE | 2019-01-29 09:18 | REPMRS ---
Patient History The patient states she has not had a clinical breast exam in over a year. Patient is postmenopausal and is nulliparous. Family history of breast cancer at age 50 or over in maternal aunt. No Hormone Replacement Therapy 3D TOMOSYNTHESIS WAS PERFORMED. The [facility] lifetime risk for breast cancer is 7.5%. Digital Woman Screen Mammo: January 29, 2019 - Exam #: [id number] Bilateral CC and MLO view(s) were taken. Technologist: Kylie Cheung, Technologist Prior study comparison: January 04, 2018, bilateral digital woman screen mammo performed at [facility]. December 20, 2016, digital woman screen mammo performed at [facility]. FINDINGS: The breast tissue is heterogeneously dense. This may lower the sensitivity of mammography. There has been no change in the appearance of the mammogram from the prior studies. There is a moderate amount of residual fibroglandular tissue which is fairly symmetric. There is no interval development of dominant mass, areas of architectural distortion, or clustered microcalcification typical of malignancy. Assessment: BI-RADS/ACR category 1 mammogram. Negative Mammogram. Recommendation Routine screening mammogram in 1 year (for women over age 40). This mammogram was interpreted with the aid of an FDA-approved computer-aided dectection system. Electronically Signed By: Mainor Corley MD 01/29/19 0917
== END ==
LOC: M WHC 07:59
PROVIDERS: ATTEND Physician Assistant
DX: Z12.31 Encounter for screening mammogram for malignant neoplasm of breast (principal); Z80.3 Family history of malignant neoplasm of breast

== ENCOUNTER → 2019-04-12 | Outpatient (REF) | payer MEDICARE ==
[~2019-04-12] MED LIST changes: -MECL-68; +MECL1TAB31; +ONDA-83; -ONDA4TAB5; -TRAZ-163; +TRAZ-257
[2019-04-12 13:22] LABS: CHOLESTEROL LEVEL 171 MG/DL (<200); CHOLESTEROL RISK RATIO 2.342 (<5); HDL CHOLESTEROL 73 MG/DL (>40); LDL CHOLESTEROL 83 MG/DL (<100); NON-HDL-C 98 MG/DL; THYROID STIMULATING HORMONE 0.455 uIU/ML (0.358-3.740); TRIGLYCERIDES LEVEL 76 MG/DL (<150)
[2019-04-12 13:24] LABS: VITAMIN B12 LEVEL 1493 PG/ML
[2019-04-12 13:25] LABS: FOLATE > 24.0 NG/ML
[2019-04-12 13:50] LABS: HEMOGLOBIN A1c 5.9 %
== END ==
LOC: M SFHCADAM 10:03
PROVIDERS: ATTEND Physician Assistant
DX: E11.9 Type 2 diabetes mellitus without complications (principal); E03.9 Hypothyroidism, unspecified; D75.89 Other specified diseases of blood and blood-forming organs
CPT/HCPCS: 80061; 82607; 82746; 83036; 84439; 84443; G0463

== ENCOUNTER → 2019-07-30 | Outpatient (CLI) | payer MEDICARE ==
--- NOTE | 2019-07-30 16:30 | REP ---
MRI RIGHT KNEE: TECHNIQUE: Axial proton density fat saturation, sagittal proton density T2 STIR, water excitation, coronal proton density, proton density fat saturation. COMPARISON: 02/15/2018 Metallic artifact is again seen along the anterior proximal tibia. Extensive complex tear is noted of the body and posterior horn of the medial meniscus. This appears mildly progressed compared to the prior study. Diffuse tear and truncation of the lateral meniscus is again noted unchanged with small remnants again noted. There is a grade 2 sprain or partial tear of the anterior cruciate ligament. Posterior cruciate ligament is intact. Collateral ligaments are intact. Extensor mechanism is intact. Moderate chondromalacia of the patella is unchanged. There is fairly severe chondromalacia along the medial and lateral femoral condyles and medial and lateral tibial plateaus with some minor subchondral marrow edema, unchanged. Moderate diffuse spurring is noted. There is a moderate joint effusion, which has increased since the prior study. No popliteal cyst is seen. IMPRESSION: Complex tear body and posterior horn medial meniscus has mildly progressed since the prior study. Once again, there is evidence of chronic tearing and truncation of the anterior and posterior horns of the lateral meniscus with small remnants of the anterior and posterior horns noted. There is a grade 2 sprain or partial tear of the anterior cruciate ligament, which appears new. Diffuse chondromalacia appears unchanged. Moderate joint effusion has increased since prior study. Electronically Signed by Mainor Corley MD 07/31/2019 10:23 A
== END ==
LOC: M RAD 11:03
PROVIDERS: ATTEND Physician Assistant
DX: S83.411A Sprain of medial collateral ligament of right knee, initial encounter (principal); M94.261 Chondromalacia, right knee; M25.461 Effusion, right knee; X58.XXXA Exposure to other specified factors, initial encounter; Y92.9 Unspecified place or not applicable

== ENCOUNTER → 2019-09-05 | Outpatient (REF) | payer MEDICARE ==
[~2019-09-05] MED LIST changes: -PARO15TA; +PARO30TA4; +SULF500T41; -SULF50TA
[2019-09-05 12:58] LABS: BASO # 0.1 10^3/uL (0.0-0.2); BASO % 1.1 % (0.0-1.0); EOS # 0.2 10^3/uL (0.0-0.5); EOS % 3.5 % (0.0-3.0); HEMATOCRIT 38.6 % (36.0-47.0); HEMOGLOBIN 12.1 g/dl (12.0-15.5); LYMPH # 1.5 10^3/uL (1.5-5.0); LYMPH % 33.1 % (24.0-44.0); MEAN CORPUSCULAR HEMOGLOBIN 29.6 pg (27.0-33.0); MEAN CORPUSCULAR HGB CONC 31.3 g/dl (32.0-36.5); MEAN CORPUSCULAR VOLUME 94.4 fl (80.0-96.0); MONO # 0.4 10^3/uL (0.0-0.8); MONO % 7.8 % (0.0-5.0); NEUTROPHILS # 2.5 10^3/uL (1.5-8.5); NEUTROPHILS % 54.1 % (36.0-66.0); PLATELET COUNT, AUTOMATED 225 10^3/uL (150-450); RED BLOOD COUNT 4.09 10^6/uL (4.00-5.40); WHITE BLOOD COUNT 4.6 10^3/uL (4.0-10.0)
[2019-09-05 13:02] LABS: ALBUMIN 3.6 GM/DL (3.2-5.2); ALT/SGPT 31 U/L (12-78); BILIRUBIN,TOTAL 0.2 MG/DL (0.2-1.0); BLOOD UREA NITROGEN 6 MG/DL (7-18); C REACTIVE PROTEIN QUANTITATIV < 0.30 MG/DL (0.00-0.30); CALCIUM LEVEL 9.5 MG/DL (8.8-10.2); CARBON DIOXIDE LEVEL 30 MEQ/L (21-32); CHLORIDE LEVEL 107 MEQ/L (98-107); COMPLEMENT C3 130 MG/DL (90-180); COMPLEMENT C4 30 MG/DL (10-40); CREATININE FOR GFR 0.66 MG/DL (0.55-1.30); GLOMERULAR FILTRATION RATE > 60.0 (>45); GLUCOSE, FASTING 110 MG/DL (70-100); POTASSIUM SERUM 4.5 MEQ/L (3.5-5.1); SODIUM LEVEL 143 MEQ/L (136-145)
[2019-09-05 13:21] LABS: HEPATITIS B SURFACE ANTIGEN NEGATIVE (NEGATIVE)
[2019-09-05 13:50] LABS: HEPATITIS C VIRUS ABY INDEX 0.3 INDEX (<0.8)
[2019-09-05 13:55] LABS: ERYTHROCYTE SEDIMENTATION RATE 21 mm/hr (0-30)
[2019-09-06 21:29] LABS: ANA (HEP2) Negative (.); HEPATITIS B CORE ANTIBODY IGG Negative (Negative); SSA SJOGRENS A <0.2 AI (0.0-0.9); SSB SJOGRENS B <0.2 AI (0.0-0.9)
== END ==
LOC: M SFHCRHEU 09:41
PROVIDERS: ATTEND Internal Medicine
DX: M06.4 Inflammatory polyarthropathy (principal); R68.2 Dry mouth, unspecified
CPT/HCPCS: 36415; 80053; 85025; 85652; 86038; 86140; 86160; 86235; 86704; 86803; 87340; G0463

== ENCOUNTER → 2019-10-08 | Outpatient (REF) | payer MEDICARE ==
[~2019-10-08] MED LIST changes: +PANT40TA29; -PANT40TA3
== END ==
LOC: M SFHCADAM 16:29
PROVIDERS: ATTEND Family Medicine
DX: R35.0 Frequency of micturition (principal)
CPT/HCPCS: 81002; 87088; 87186; G0463

== ENCOUNTER → 2020-02-08 | Outpatient (CLI) | payer MEDICARE ==
--- NOTE | 2020-02-08 12:16 | REPMRS ---
Patient History The patient states she has not had a clinical breast exam in over a year. Family history of breast cancer at age 50 or over in maternal aunt. No Hormone Replacement Therapy 3D TOMOSYNTHESIS WAS PERFORMED. [facility] lifetime risk for [facility] cancer is 7.2%. [facility] breast density b. Digital Woman Screen Mammo: February 08, 2020 - Exam #: [id number] Bilateral CC and MLO view(s) were taken. Technologist: Sallie Garcia, Technologist Prior study comparison: January 29, 2019, bilateral digital woman screen mammo performed at [facility]. January 04, 2018, bilateral digital woman screen mammo performed at [facility]. FINDINGS: The breast tissue is heterogeneously dense. This may lower the sensitivity of mammography. There has been no change in the appearance of the mammogram from the prior studies. There is a moderate amount of residual fibroglandular tissue which is fairly symmetric. There is no interval development of dominant mass, areas of architectural distortion, or clustered microcalcification typical of malignancy. Assessment: BI-RADS/ACR category 1 mammogram. Negative Mammogram. Recommendation Routine screening mammogram in 1 year (for women over age 40). This mammogram was interpreted with the aid of an FDA-approved computer-aided dectection system. Electronically Signed By: Mainor Corley MD 02/08/20 5032
== END ==
LOC: M WHC 10:30
PROVIDERS: ATTEND Physician Assistant
DX: Z12.31 Encounter for screening mammogram for malignant neoplasm of breast (principal)

== ENCOUNTER → 2020-04-16 | Outpatient (REF) | payer MEDICARE ==
[~2020-04-16] MED LIST changes: +GABA-282; -GABA-843; -LISI-538; +LISI20TA33
== END ==
LOC: M SFHCADAM 15:25
PROVIDERS: ATTEND Physician Assistant
DX: R05 Cough (principal); Z11.52 Encounter for screening for COVID-19
CPT/HCPCS: G0463; U0003

== ENCOUNTER 2020-04-18 18:10 | Emergency (ER) | payer MEDICARE ==
[~2020-04-18] VITALS: Ht 170.2 cm; Wt 118.8 kg
--- OUTSIDE RECORDS SUMMARY | 2020-04-18 18:17 | CCD | Continuity of Care Document ---
Author Author [facility] Organization [facility] Address Unknown Phone Unavailable Care Team Providers Care School Age Teacher Name Role Phone Jose Enrique TURK, Davey Unavailable Unavailable Allergies, Adverse Reactions, Alerts Substance Reaction Status Criticality CEPHALEXIN MONOHYDRATE Active No Inform ation NSAIDS (Non-Steroidal Anti-Inflammatory Drug) Active No Information codeine Active No Information Medications Medication Instructions Dosage Effective Dates (start - stop) Sta tus Comments GABAPENTIN 300MG CAPSULE TAKE 3 CAPSULES BY MOUTH TWO TIMES LIN LY 900 MG - Active sulfasalazine 500 mg tablet,delayed release TAKE 1 TAB LET BY MOUTH IN THE MORNING AND 1 TABLET BY MOUTH IN THE EVENING - Act emery amitriptyline 50 mg tablet take 1 tablet by oral route ever y day at bedtime 50 MG - Active Effexor XR 150 mg capsule,extended release take 1 caps ule by oral route every day 150 MG - Active ranitidine 150 mg capsule take 1 capsule by oral route every bedti me - Active lovastatin 20 mg tablet take 1 tablet by oral route every day with the evening meal 20 MG - Active ibuprofen 200 mg capsule take 1 capsule by oral route every 6 hours as needed 200 MG - Active pantoprazole 40 mg tablet,delayed release take 1 table t by oral route every day 40 MG - Active Zofran 4 mg tablet take 1 - 2 Tablet by oral route every 8 hours for 2 days 4 MG - Active levothyroxine 125 mcg tablet take 1 tablet by oral route every day 125 MCG - Active trazodone 100 mg Tab take 1 tablet (100MG) by or al route every day after meals 100 MG - Active Glucophage 500 mg Tab take 1 tablet (500MG) by or al route 2 times every day with morning and evening meals 500 MG - Active PHENERGAN (unknown strength) take 0-4 tablets by oral route every day as needed Not Available - Active COLACE (unknown strength) BID Not Available - Active aspirin 81 mg Tab take 1 tablet (81MG) by oral route every day - Active Problems Condition Type Effective Dates (start - stop) Clinical S tatus Comments Rheumatoid arthritis w/o rheumatoid factor, multiple s ites Diagnosis interpretation (observable entity) Fibromyalgia Diagnosis interpretation (observable entity) Other terminal operator (current) drug therapy Diagnosis inter pretation (observable entity) Fibromyalgia Diagnosis interpretation (observable entity) RA w/o rheumatoid factor of multiple sites Diagnosis i nterpretation (observable entity) Leukopenia Diagnosis interpretation (observable entity) Other residential (current) drug therapy Diagnosis inter pretation (observable entity) Weakness Diagnosis interpretation (observable entity) Other terminal operator (current) drug therapy Diagnosis inter pretation (observable entity) RA w/o rheumatoid factor of multiple sites Diagnosis i nterpretation (observable entity) Fibromyalgia Diagnosis interpretation (observable entity) Other terminal operator (current) drug therapy Diagnosis inter pretation (observable entity) RA w/o rheumatoid factor of multiple sites Diagnosis i nterpretation (observable entity) Other terminal operator (current) drug therapy Diagnosis inter pretation (observable entity) Leukopenia Diagnosis interpretation (observable entity) Fibromyalgia Diagnosis interpretation (observable entity) RA w/o rheumatoid factor of multiple sites Diagnosis i nterpretation (observable entity) Fibromyalgia Diagnosis interpretation (observable entity) Other terminal operator (current) drug therapy Diagnosis inter pretation (observable entity) Leukopenia Diagnosis interpretation (observable entity) Rheumatoid arthritis, unspecified Diagnosis interpretation ( observable entity) Other terminal operator (current) drug therapy Diagnosis inter pretation (observable entity) Fibromyalgia Diagnosis interpretation (observable entity) Rheumatoid arthritis, unspecified Diagnosis interpretation ( observable entity) Other residential (current) drug therapy Diagnosis inter pretation (observable entity) Fibromyalgia Diagnosis interpretation (observable entity) Rheumatoid arthritis, unspecified Diagnosis interpretation ( observable entity) Other residential (current) drug therapy Diagnosis inter pretation (observable entity) Arthropathy Problem (finding) - Active Mapped f rom [facility] Chronic Conditions table on 06/11/2014 by the ICD9 to SNOMED Bulk Mapping Utility. The mapped diagnosis code was Inflammatory Arthritis - Multiple sites, 716.99, added by Mary Escobar, with responsible provider Mary Escobar. Onset date 02/08/2012; last addressed on 08/10/2013. Fibromyositis Problem (finding) - Active Mapped from [facility] Chronic Conditions table on 07/26/2014 by the ICD9 to SNOMED Bulk Mapping Utility. The mapped diagnosis code was Fibromyalgia / Myalgia, 729.1, added by Mary Escobar, with responsible provider Mary Escobar. Onset date 02/08/2012; last addressed on 08/10/2013. High risk drug monitoring status Problem (finding) - A ctive Mapped from [facility] Chronic Conditions table on 08/12/2014 by the ICD9 to SNOMED Bulk Mapping Utility. 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 Onset date 02/08/2012; last addressed on 08/10/2013. Procedures Procedure Date No Information Results Test Name Date and Time Measure Units Reference Range Abnormal Flag St atus Comments No Information Advance Directives Directive Yes / No Effective Date File Name No Information Encounters Encounter Description Practice Location Reason(s) For Visit Diagnose s Date Provider Providers Copied on Encounter [facility], [address] [place] [address], [id number], tel:[phone] [facility] No Information Jose Enrique Mariscal. [address] [place], [place], [id number], [place]. tel:[phone] [facility], [address] [place] [address], [id number], [place] tel:[phone] [facility] No Information [facility] [address] [place], [place], [id number], [place]. tel:[phone] [facility], [address] [place] [address], [id number], [place] tel:[phone] [facility] Rheumatoid arthritis w/o rheumatoid factor, multiple sitesFibromyalgiaOther residential (current) drug therapy [facility]. [address] [place] [address], [id number], [place]. tel:[phone] Referring Provider: [place], [address], [place], [address]. tel:[phone] [facility], [address] [place] [address], [id number], [place] tel:[phone] [facility] FibromyalgiaRA w/o rheumatoid factor of multiple sitesLeukopeniaOther terminal operator (current) drug therapyWeakness [facility]. [address] [place] [address], [id number], [place]. tel:[phone] Referring Provider: [place], [address], [place], [address]. tel:[phone] [facility], [address] [place] [address], [id number], [place] tel:[phone] [facility] Other terminal operator (current) drug therapy [facility]. [address] [place], [place], [id number], [place]. tel:[phone] [facility], [address] [place] [address], [id number], [place] tel:[phone] [facility] RA w/o rheumatoid factor of multiple sitesFibromyalgiaOther residential (current) drug therapy [facility]. [address] [place] [address], [id number], [place]. tel:[phone] Referring Provider: [place] , [address], [place], [address]. tel:[phone] [facility], [address] [place] [address], [id number], [place] tel:[phone] [facility] RA w/o rheumatoid factor of multiple sitesOther residential (current) drug therapyLeukopeniaFibromyalgia [facility]. [address], [place], [id number], [place]. tel:[phone] Referring Provider: [place], [address], [place], [address]. tel:[phone] [facility], [address] [place], [place], [id number], [place] tel:[phone] [facility] RA w/o rheumatoid factor of multiple sitesFibromyalgiaOther terminal operator (current) drug therapyLeukopenia [facility]. [address] [place], [place], [id number], [place]. tel:[phone] Referring Provider: [place], [address], [place], [address]. tel:[phone] [facility], [address] [place] [address], [id number], [place] tel:[phone] [facility] Rheumatoid arthritis, unspecifiedOther residential (current) drug therapyFibromyalgia Bijal Singh. [address] [place], [place], [id number], [place]. tel:[phone] [facility], [address] [place], [place], [id number], [place] tel:[phone] [facility] Rheumatoid arthritis, unspecifiedOther residential (current) drug therapyFibromyalgia Julienne Lloyd. [address] [place], [place], [id number], [place]. tel:[phone] Referring Provider: [place] , [address], [place], [address]. tel:[phone] [facility], [address] [place], [place], [id number], [place] tel:[phone] [facility] Rheumatoid arthritis, unspecifiedOther terminal operator (current) drug therapy Bijal Singh. [address] [place], [place], [id number], [place]. tel:[phone] Referring Provider: [place] , [address], [place], [address]. tel:[phone] [facility], [address] [place], [place], [id number], [place] tel:[phone] [facility] No Information [facility] Mary. [address] [place], [place], [id number], [place]. tel:[phone] Referring Provider: [place] , [address], [place], [address]. tel:[phone] [facility], [address] [place], [place], [id number], [place] tel:[phone] [facility] No Information Avanolurdes Lloyd. [address] [place], [place], [id number], [place]. tel:[phone] Referring Provider: [place] , [address], [place], [address]. tel:[phone] [facility], [address] [place], [place], [id number], [place] tel:[phone] [facility] No Information Chiraglurdes Lloyd. [address] [place], [place], [id number], [place]. tel:[phone] Referring Provider: [place] , [address], [place], [address]. tel:[phone] [facility], [address] [place], [place], [id number], [place] tel:[phone] [facility] No Information Jellychac Mary. [address] [place], [place], [id number], . tel:[phone] Referring Provider: [place] , [address], [place], [address]. tel:[phone] [facility], [address] [place], [place], [id number], tel:[phone] [facility] No Information Charo Hernandez. [address] [place], [place], [id number], [place]. tel:[phone] Referring Provider: [place] , [address], [place], [address]. tel:[phone] [facility], [address] [place] [address], [id number], tel:[phone] [facility] No Information Bijal Singh. [address] [place], [place], [id number], . tel:[phone] Referring Provider: [place] , [address], [place], [address]. tel:[phone] Family History Family Member Type Diagnosis Age At Onset Family Problem (finding) Immunizations Vaccine Date Status Comments Influenza, split virus, injectable, 3 years and older Fluvirin [id number] administered Source: Other Provider Influenza virus vaccine, Injection administered Source: Other Provider Never had Zoster administered Source: [facility] unization Record Influenza virus vaccine, Injection administered Source: Source Unspecified pneumo (2 yrs or older) (PPV23) administered Source: Other Provider Payers Payer name Insurance type Covered constitution party ID Authorization(s ) [facility] [employer] [id number] Social History Type Description Quantity Date Captured Comments Sex Female Smoking Status No Information Vital Signs Date / Time: Height Weight BMI Pulse Rate Blood Pressure Temperatu re Respiratory Rate Body Surface Area Head Circumference BMI percentile Pulse Ox In haled Ox No Information Chief Complaint And Reason For Visit No Information Reason For Referral Reason For Referral No Information Plan Of Treatment Date Type Action Status No Information History Of Present Illness Encounter Date Complaint History Of Present I llness No Information Functional Status Date Functional Assessment No Information Medications Administered Medication Instructions Dosage Effective Dates (start - stop) Sta tus Comments No Information Instructions Date Instruction Additional Informati on Labs ordered to check disease activity. Risks/benefits of medications reviewed Labs ordered to check blood counts, liver and kidney functions to monitor safety of medication. Discussed / Reviewed Labs call if symptoms worsen continue same medication plan Physical Examination Exam Findings Details No Information
--- OUTSIDE RECORDS SUMMARY | 2020-04-18 18:17 | CCD ---
Author Author [facility] Organization [facility] Address Unknown Phone Unavailable Care Team Providers Care Room Service Clerk Name Role Phone Casakeiza Jannette Unavailable PROBLEMS Type Condition ICD9-CM Code UGI80-KS Code Onset Dates Condition S tatus SNOMED Code Notes Problem Intervertebral disc disorders with radiculopathy , lumbar region M51.16 Active 571618194612496 Problem B12 deficiency anemia D51.9 Active 08225662 Problem Iron deficiency anemia D50.9 Active 69915125 Problem Other chronic pain G89.29 Active 59348549 Problem Leukopenia, unspecified type D72.819 Active 848 40254 Problem Spondylosis without myelopathy or radiculopathy, lumbar region M47.816 Active 89396199 Problem Spondylosis without myelopathy or radiculopathy, lumbosacral region M47.817 Active 23853778 Problem Unspecified personality disorder F60.9 Active 28518616 Problem Anemia D64.9 Active 261416129 Problem Rheumatoid arthritis involvi ng multiple sites, unspecified rheumatoid factor presence M06.9 Active 479650379 Problem Intestinal metaplasia of gastric mucosa K31.89 Active 59913886 Problem Spinal stenosis, lumbar region M48.06 Active 1 2038388 Problem Intervertebral disc disorders with radiculopathy , lumbosacral region M51.17 Active 3451495 Problem Obesity (BMI 30.0-34.9) E66.9 Active 29417970 5070551 Problem Chronic nausea R11.0 Active 264921940 Problem Fibromyalgia M79.7 Active 704656476 Problem Vitamin D deficiency, unspecified E55.9 Active 16959957 Problem Anemia complicating , unspecified trimester O99.019 Active 28107740 Problem Major depressive disorder, single episode, unspecified F32.9 Active 42663439 Problem Major depressive disorder, severe F32.2 Active 199047249 Problem Gastro-esophageal reflux disease without esophagitis K21.9 Active 492104027 Problem Major depressive disorder wi th single episode, remission status unspecified F32.9 Active 52821172 Problem Hypothyroidism, unspecified E03.9 Active 4093 0008 Problem Borderline personality disorder F60.3 Active 32321493 Problem Diabetes type 2, controlled E11.9 Active 4405 4006 Problem Generalized anxiety disorder F41.1 Active 218 96213 Problem Essential (primary) hypertension I10 Active 30029470 Problem Other secondary osteoarthritis, unspecified site M 19.93 Active 657526210 Problem Age-related memory disorder R41.3 Active 2314 99447 Problem Gastroesophageal reflux disease without esophagitis K21.9 Active 769796714 Problem 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 Active 881073428 Problem Severe episode of recurrent major depressive disorder, without psychotic features F33.2 Active 13013209 Problem 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 Active 07452 3000 Problem SIADH (syndrome of inappropriate ADH production) E 22.2 Active 86131745 Problem Chronic fatigue R53.82 Active 49213954 Problem Macrocytosis without anemia D75.89 Active 2343 17874 Problem Subclinical hypothyroidism E03.9 Active 40391 002 Problem Morbid obesity E66.01 Active 868064793 Problem Chronic pain syndrome G89.4 Active 332469888 ALLERGIES Allergen (clinical drug ingredient) Drug/Non Drug Allergy do cumented on EMR Reaction Allergy Type Onset Date Status Sulfazine high doses cause leukopenia Drug Allergy Active cephalexin Keflex([facility] Code:[address]-10) tongue swelling Drug Allerg y Active Wellbutrin gi side effects Drug Allergy Active ENCOUNTERS from 1955 to 2020-04-16 Encounter Location Date Provider Diagnosis [facility] [address] [address] Apr, Jannette Altamirano IMMUNIZATIONS Vaccine Route Administration Date Status Influenza (18 yrs & older) Flublok IM Intramuscular Jan 17, 2020 Administered TDAP 0.5mL (Boostrix) IM Intramuscular September 02, 2010 Administe red Influenza (18 yrs & older) Flublok IM Intramuscular Jan 30, 2018 Administered Influenza (18 yrs & older) Flublok IM Intramuscular Jan 12, 2019 Administered Influenza (6mo & up) Fluzone IM Intramuscular Jan 06, 2010 Ad ministered TD Adult 0.5mL (Tetanus) IM Intramuscular Apr 06, 2019 Admini stered Influenza (6mo & up) Fluzone IM Intramuscular Feb 01, 2017 Ad ministered Influenza (6mo & up) Fluzone IM Intramuscular Jan 22, 2016 Ad ministered Influenza (6mo & up) Fluzone IM Intramuscular Jan 02, 2015 Ad ministered Influenza (6mo & up) Fluzone IM Intramuscular Jan 23, 2014 Ad ministered Influenza (6mo & up) Fluzone IM Intramuscular Mar 13, 2013 Ad ministered Influenza (6mo & up) Fluzone IM Intramuscular Jan 20, 2012 Ad ministered Influenza (6mo & up) Fluzone IM Intramuscular Dec 29, 2010 Ad ministered SOCIAL HISTORY Tobacco Use: Social History Observation Description Date Details (start date - stop date) Never Smoker Sex Assigned At : Social History Observation Description Sex Assigned At Unknown Education: Question Answer Notes Level of Education: High School Audit Question Answer Notes Total Score: 0 Interpretation: Alcohol Education Language: Question Answer Notes Languages spoken: French Bahai: Question Answer Notes Bahai No methodist beliefs that would impact health care. Sexual Hx: Question Answer Notes Had sex in the last 12 months (vaginal, oral, or anal)? Yes LMP: hyster with Women only Use protection? No Drug and Alcohol Question Answer Notes Total Score: 0 Interpretation: No problems reported Alcohol Screening: Question Answer Notes Did you have a drink containing alcohol in the past year? No Points 0 Interpretation Negative BMI Care Goal Follow-Up Question Answer Notes Above Normal BMI Follow-Up Feeding regime, Weight monitoring Tobacco Use: Question Answer Notes Are you a: never smoker REASON FOR REFERRAL No Information VITAL SIGNS No information MEDICATIONS Medication SIG (Take, Route, Frequency, Duration) Notes Start Da te End Date Status Famotidine 40 MG 1 tablet at bedtime Orally Twice a day for 14 Active Vitamin D3 50 MCG (1999 [place]) 1 tablet Orally Once a day for 30 day(s) Active Cimetidine 800 MG 1 tablet at bedtime Orally before bedtime for 7 day(s) Feb, Active Plaquenil 200 MG 1 tab Orally twice daily for 30 days 08 O 2019 Active Vitamin B-12 1000 MCG 1 tablet Orally Once a day for 30 day(s) Active Lisinopril 20 MG 1 tablet Orally Once a day Active Protonix 40 MG 1 tablet Orally bid for 7 day(s) Active AmLODIPine Besylate 2.5 MG 1 tablet Orally Once a day Active Fiber-Lax 625 MG 2 tablets as needed Orally twice daily Active Aspirin Adult Low Dose 81 MG 1 tablet Orally Once a day Active Paroxetine HCl 20 MG TAKE 1 TABLET BY MOUTH ONCE DAILY Oral for 30 Active Aripiprazole 10 MG TAKE 1/2 tab (ONE HALF) TABLET BY MOUTH ONCE LIN LY Oral Active Docusate Sodium 100 MG 2 capsules Orally BID Active Acetaminophen Extra Strength 500 MG 2 tablets as needed Orally ever y 6 hrs Active Venlafaxine HCl ER 37.5 MG 1 capsule with food Orally Daily Feb, Active Promethazine HCl 25MG 1 tablet as needed Orally ev bruno 6 hrs as needed for nausea for 90 day(s) Active Gabapentin 300 MG 1 capsule Orally three times daily Not-Taking Levothyroxine Sodium 125 MCG 1 tablet on an empty stom ach in the morning Orally Once a day Active Ibuprofen 800 MG TAKE 1/2 TABLET BY MOUTH 3 TIMES A DAY for 90 Active PROCEDURES No Information RESULTS No Results REASON FOR VISIT cough MEDICAL (GENERAL) HISTORY Type Description Date Medical History hypothyroidism Medical History Type 2 DM with nephropathy/elev MIKKI Medical History hyperlipidemia Medical History fatty liver, abnl LFT's Medical History Metabolic syndrome Medical History IBS Medical History Fibromyalgia Medical History Vit D deficiency Medical History depression Medical History Inflammatory arthritis/ + AN A - Dr. Clemente (Rheumatology [facility]) - Sulfazine per Rhuematology which causes leukopenia, so it was stopped - Dr. Izquierdo told her that this is not RA - she feels it is Fibromyalgia. She is now following with Dr. Mooney who has started her on Plaquenil Medical History Gastroparesis per [facility] with SBFT 2015 Medical History Severe lumbar spinal stenosi s L4-5 MRI 02/16; DDD multiple levels; done by [facility], saw Dr Mojica, had injections 2014, following with pain clinic - had injections 10/2015 (Dr. Vargas) Medical History DDD thoracic spine MRI 02/16 Medical History 11/2015 - Leukopenia secondar y to Sulfazine - improved with decreased dose, sulfasalazine stopped Medical History B12 Deficiency Medical History iron deficiency Medical History HTN--started rx meds 06/20 Medical History Right knee - severe tricompartamental OA - followed by [facility] Medical History Anemia Medical History Age related memory disorder - MRI brain 2017 showed small vessel dz, thyroid studies normal 05/2018, B12 ordered, MMSE = 29 09/2018 Medical History Borderline Personality disorder 12/2018 Surgical History EGD - chemical gastritis 12/2015 Surgical History Colonoscopy - Poor PRep - re peat was recommended - patient declined at that time. 12/2015 Surgical History Appendectomy Surgical History Hysterectomy Surgical History cholecystectomy Hospitalization History SURGERY RELATED Goals Section No Information Health Concerns No Information MEDICAL EQUIPMENT No Information MENTAL STATUS No Information FUNCTIONAL STATUS No Information ASSESSMENTS No Information PLAN OF TREATMENT Next Appt Details Provider Name:Janet Mooney, 2020-04 09:00:00 AM, [address], [id number], Provider Name:Becky Mooney, 2020-05 09:45:00 AM, [address] [place] [address], [id number], Provider Name:Becky Mooney, 2020-05 09:45:00 AM, [address] [place] [address], [id number], Insurance Providers Payer Name Payer Address Payer Phone Insured Name Patient Relati onship to Insured Coverage Start Date Coverage End Date MEDICARE COMPLETE [employer] [address] [address] [facility] [phone] [place] self
--- OUTSIDE RECORDS SUMMARY | 2020-04-18 18:18 | CCD ---
Author Author [facility] Organization [facility] Address Unknown Phone Unavailable Care Team Providers Care Green Energy Marketing Analyst Name Role Phone Casakezia Jannette Unavailable PROBLEMS Type Condition ICD9-CM Code [id number] Code Onset Dates Condition S tatus SNOMED Code Notes Problem Intervertebral disc disorders with radiculopathy , lumbar region M51.16 Active [id number] Problem B12 deficiency anemia D51.9 Active 42304950 Problem Iron deficiency anemia D50.9 Active 08185475 Problem Other chronic pain G89.29 Active 87473712 Problem Leukopenia, unspecified type D72.819 Active 848 29700 Problem Spondylosis without myelopathy or radiculopathy, lumbar region M47.816 Active 09989761 Problem Spondylosis without myelopathy or radiculopathy, lumbosacral region M47.817 Active 60283244 Problem Unspecified personality disorder F60.9 Active 67182858 Problem Anemia D64.9 Active 582910867 Problem Rheumatoid arthritis involvi ng multiple sites, unspecified rheumatoid factor presence M06.9 Active 841546811 Problem Intestinal metaplasia of gastric mucosa K31.89 Active 01675101 Problem Spinal stenosis, lumbar region M48.06 Active 1 2200611 Problem Intervertebral disc disorders with radiculopathy , lumbosacral region M51.17 Active 6865907 Problem Obesity (BMI 30.0-34.9) E66.9 Active 89177045 1795776 Problem Chronic nausea R11.0 Active 811181095 Problem Fibromyalgia M79.7 Active 150074755 Problem Vitamin D deficiency, unspecified E55.9 Active 25143925 Problem Anemia complicating , unspecified trimester O99.019 Active 71616538 Problem Major depressive disorder, single episode, unspecified F32.9 Active 01746620 Problem Major depressive disorder, severe F32.2 Active 474070673 Problem Gastro-esophageal reflux disease without esophagitis K21.9 Active 659477342 Problem Major depressive disorder wi th single episode, remission status unspecified F32.9 Active 31764715 Problem Hypothyroidism, unspecified E03.9 Active 4093 0008 Problem Borderline personality disorder F60.3 Active 50157141 Problem Diabetes type 2, controlled E11.9 Active 4405 4006 Problem Generalized anxiety disorder F41.1 Active 218 92619 Problem Essential (primary) hypertension I10 Active 64315359 Problem Other secondary osteoarthritis, unspecified site M 19.93 Active 893207543 Problem Age-related memory disorder R41.3 Active 2314 38756 Problem Gastroesophageal reflux disease without esophagitis K21.9 Active 957594284 Problem 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 Active 573827871 Problem Severe episode of recurrent major depressive disorder, without psychotic features F33.2 Active 43875966 Problem 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 Active 60390 3000 Problem SIADH (syndrome of inappropriate ADH production) E 22.2 Active 57033676 Problem Chronic fatigue R53.82 Active 35859498 Problem Macrocytosis without anemia D75.89 Active 2343 22083 Problem Subclinical hypothyroidism E03.9 Active 45997 002 Problem Morbid obesity E66.01 Active 005009788 Problem Chronic pain syndrome G89.4 Active 205497429 ALLERGIES Allergen (clinical drug ingredient) Drug/Non Drug Allergy do cumented on EMR Reaction Allergy Type Onset Date Status Sulfazine high doses cause leukopenia Drug Allergy Active cephalexin Keflex([facility] Code:[address]-17) tongue swelling Drug Allerg y Active Wellbutrin gi side effects Drug Allergy Active ENCOUNTERS from 1955 to 2020-04-09 Encounter Location Date Provider Diagnosis [facility] [place] [address] Apr, Jannette Altamirano IMMUNIZATIONS Vaccine Route Administration Date Status Influenza (18 yrs & older) Flublok IM Intramuscular Jan 17, 2020 Administered Influenza (18 yrs & older) Flublok IM Intramuscular Jan 30, 2018 Administered Influenza (18 yrs & older) Flublok IM Intramuscular Jan 12, 2019 Administered TD Adult 0.5mL (Tetanus) IM Intramuscular Apr 06, 2019 Admini stered Influenza (6mo & up) Fluzone IM Intramuscular Jan 06, 2010 Ad ministered Influenza (6mo & up) Fluzone IM Intramuscular Feb 01, 2017 Ad ministered Influenza (6mo & up) Fluzone IM Intramuscular Jan 22, 2016 Ad ministered Influenza (6mo & up) Fluzone IM Intramuscular Jan 02, 2015 Ad ministered TDAP 0.5mL (Boostrix) IM Intramuscular September 02, 2010 Administe red Influenza (6mo & up) Fluzone IM Intramuscular [...] Education Language: Question Answer Notes Languages spoken: Japanese Temple: Question Answer Notes Temple No episcopal beliefs that would impact health care. Sexual [...] Notes Start Da te End Date Status Aripiprazole 10 MG TAKE 1/2 tab (ONE HALF) TABLET BY MOUTH ONCE LIN LY Oral Active Cimetidine 800 MG 1 tablet at bedtime Orally before bedtime for 7 day(s) Feb, Active Plaquenil 200 MG 1 tab Orally twice daily for 30 days 08 O 2019 Active Paroxetine HCl 20 MG TAKE 1 TABLET BY MOUTH ONCE DAILY Oral for 30 Active Levothyroxine Sodium 125 MCG 1 tablet on an empty stom ach in the morning Orally Once a day Active Acetaminophen Extra Strength 500 MG 2 tablets as needed Orally ever y 6 hrs Active Ibuprofen 800 MG TAKE 1/2 TABLET BY MOUTH 3 TIMES A DAY for 90 Active Lisinopril 20 MG 1 tablet Orally Once a day Active Aspirin Adult Low Dose 81 MG 1 tablet Orally Once a day Active Vitamin D3 50 MCG (2000 UT) 1 tablet Orally Once a day for 30 day(s) Active Venlafaxine HCl ER 37.5 MG 1 capsule with food Orally Daily Feb, Active Protonix 40 MG 1 tablet Orally bid for 7 day(s) Active AmLODIPine Besylate 2.5 MG 1 tablet Orally Once a day Active Docusate Sodium 100 MG 2 capsules Orally BID Active Famotidine 40 MG 1 tablet at bedtime Orally Twice a day for 14 Active Gabapentin 300 MG 1 capsule Orally three times daily Active Fiber-Lax 625 MG 2 tablets as needed Orally twice daily Active Promethazine HCl 25MG 1 tablet as needed Orally ev bruno 6 hrs as needed for nausea for 90 day(s) Active Vitamin B-12 1000 MCG 1 tablet Orally Once a day for 30 day(s) Active PROCEDURES No Information RESULTS No Results REASON FOR VISIT COVID testing MEDICAL (GENERAL) HISTORY Type Description Date Medical History hypothyroidism Medical History Type 2 DM with nephropathy/elev MIKKI Medical History hyperlipidemia Medical History fatty liver, abnl LFT's Medical History Metabolic syndrome Medical History IBS Medical History Fibromyalgia Medical History Vit D deficiency Medical History depression Medical History Inflammatory arthritis/ + AN A - Dr. Clemente (Rheumatology [facility]) - Sulfazine per Rhuematology which causes leukopenia, [...] Information ASSESSMENTS No Information PLAN OF TREATMENT Medication Medication Name Sig Start Date Stop Date AmLODIPine Besylate 2.5 MG 1 tablet Orally Once a day Lisinopril 20 MG 1 tablet Orally Once a day Protonix 40 MG 1 tablet Orally bid for 7 day(s) Famotidine 40 MG 1 tablet at bedtime Orally Twice a day for 14 Levothyroxine Sodium 125 MCG 1 tablet on an empty stom ach in the morning Orally Once a day Cimetidine 800 MG 1 tablet at bedtime Orally before bedtim e for 7 day(s) Feb, Ibuprofen 800 MG TAKE 1/2 TABLET BY MOUTH 3 TIMES A DAY for 90 Next Appt Details Provider Name:Janet Mooney, 2020-04 09:00:00 AM, [address] [place] [address], [phone], Provider Name:Becky Mooney, 2020-05 09:45:00 AM, [address] [place] [address], [id number], Provider Name:Becky Mooney, 2020-05 09:45:00 AM, [address] [place] [address], [address], Insurance Providers Payer Name Payer Address Payer Phone Insured Name Patient Relati onship to Insured Coverage Start Date Coverage End Date MEDICARE COMPLETE [employer]CARE [address] [address] [facility] [id number] CHANCE AUGUSTE self
--- OUTSIDE RECORDS SUMMARY | 2020-04-18 18:18 | CCD ---
Author Author [facility] Organization [facility] Address Unknown Phone Unavailable Care Team Providers Care Security Alarm Technician Name Role Phone Hira Altamirano Unavailable PROBLEMS Type Condition ICD9-CM Code [id number] Code Onset Dates Condition S tatus SNOMED Code Notes Problem Intervertebral disc disorders with radiculopathy , lumbar region M51.16 Active 609189721030218 Problem B12 deficiency anemia D51.9 Active 34394998 Problem Iron deficiency anemia D50.9 Active 12926323 Problem Other chronic pain G89.29 Active 81666940 Problem Leukopenia, unspecified type D72.819 Active 848 00713 Problem Spondylosis without myelopathy or radiculopathy, lumbar region M47.816 Active 55677435 Problem Spondylosis without myelopathy or radiculopathy, lumbosacral region M47.817 Active 50146281 Problem Unspecified personality disorder F60.9 Active 33100969 Problem Anemia D64.9 Active 087620505 Problem Rheumatoid arthritis involvi ng multiple sites, unspecified rheumatoid factor presence M06.9 Active 155503971 Problem Intestinal metaplasia of gastric mucosa K31.89 Active 25140224 Problem Spinal stenosis, lumbar region M48.06 Active 1 9344405 Problem Intervertebral disc disorders with radiculopathy , lumbosacral region M51.17 Active 6849355 Problem Obesity (BMI 30.0-34.9) E66.9 Active 73352929 1156155 Problem Chronic nausea R11.0 Active 498703522 Problem Fibromyalgia M79.7 Active 991175371 Problem Vitamin D deficiency, unspecified E55.9 Active 27774076 Problem Anemia complicating , unspecified trimester O99.019 Active 03921381 Problem Major depressive disorder, single episode, unspecified F32.9 Active 91002005 Problem Major depressive disorder, severe F32.2 Active 288603798 Problem Gastro-esophageal reflux disease without esophagitis K21.9 Active 949207032 Problem Major depressive disorder wi th single episode, remission status unspecified F32.9 Active 79200739 Problem Hypothyroidism, unspecified E03.9 Active 4093 0008 Problem Borderline personality disorder F60.3 Active 30823586 Problem Diabetes type 2, controlled E11.9 Active 4405 4006 Problem Generalized anxiety disorder F41.1 Active 218 55721 Problem Essential (primary) hypertension I10 Active 67694159 Problem Other secondary osteoarthritis, unspecified site M 19.93 Active 256358315 Problem Age-related memory disorder R41.3 Active 2314 31688 Problem Gastroesophageal reflux disease without esophagitis K21.9 Active 620724675 Problem 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 Active 881543668 Problem Severe episode of recurrent major depressive disorder, without psychotic features F33.2 Active 71768229 Problem 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 Active 82764 3000 Problem SIADH (syndrome of inappropriate ADH production) E 22.2 Active 60468111 Problem Chronic fatigue R53.82 Active 86468298 Problem Macrocytosis without anemia D75.89 Active 2343 16478 Problem Subclinical hypothyroidism E03.9 Active 99499 002 Problem Morbid obesity E66.01 Active 793464797 Problem Chronic pain syndrome G89.4 Active 247685486 ALLERGIES Allergen (clinical drug ingredient) Drug/Non Drug Allergy do cumented on EMR Reaction Allergy Type Onset Date Status Sulfazine high doses cause leukopenia Drug Allergy Active cephalexin Keflex([facility] Code:[address]-45) tongue swelling Drug Allerg y Active Wellbutrin gi side effects Drug Allergy Active ENCOUNTERS from 1955 to 2020-02-14 Encounter Location Date Provider Diagnosis [facility] [address] [facility] [place] [address] Feb, Rene Altamirano IMMUNIZATIONS Vaccine Route Administration Date Status [...] Education Language: Question Answer Notes Languages spoken: Indonesian Presybeterian: Question Answer Notes Presybeterian No hinduism beliefs that would impact health care. Sexual [...] MEDICATIONS Medication SIG (Take, Route, Frequency, Duration) Start Date En d Date Status Aripiprazole 10 MG TAKE 1/2 tab (ONE HALF) TABLET BY MOUTH ONCE LIN LY Oral Active Ibuprofen 800 MG Take 1/2 tablet by mouth 3 times a day orally three times daily for 90 Active Plaquenil 200 MG 1 tab Orally twice daily for 30 days Jan, Active Protonix 40 MG 1 tablet Orally bid for 7 day(s) Active Levothyroxine Sodium 125 MCG 1 tablet on an empty stom ach in the morning Orally Once a day Active Acetaminophen Extra Strength 500 MG 2 tablets as needed Orally ever y 6 hrs Active Lisinopril 20 MG 1 tablet Orally Once a day Active Aspirin Adult Low Dose 81 MG 1 tablet Orally Once a day Active Vitamin D3 50 MCG (1999 UT) 1 tablet Orally Once a day for 30 day(s ) Active Gabapentin 300 MG 1 capsule Orally three times daily Active Venlafaxine HCl ER 37.5 MG 1 capsule with food Orally Daily Feb, Active AmLODIPine Besylate 2.5 MG 1 tablet Orally Once a day Active Vitamin B-12 1000 MCG 1 tablet Orally Once a day for 30 day(s) Active Paroxetine HCl 20 MG TAKE 1 TABLET BY MOUTH ONCE DAILY Oral for 30 Active Docusate Sodium 100 MG 2 capsules Orally BID Active Fiber-Lax 625 MG 2 tablets as needed Orally twice daily Active Promethazine HCl 25MG 1 tablet as needed Orally ev bruno 6 hrs as needed for nausea for 90 day(s) Active Cimetidine 800 MG 1 tablet at bedtime Orally before bedtim e for 7 day(s) Feb, Active PROCEDURES No Information RESULTS No Results REASON FOR VISIT No Information MEDICAL (GENERAL) HISTORY Type Description Date Medical History hypothyroidism Medical History Type 2 DM with nephropathy/elev MIKKI Medical History hyperlipidemia Medical History fatty liver, abnl LFT's Medical History Metabolic syndrome Medical History IBS Medical History Fibromyalgia Medical History Vit D deficiency Medical History depression Medical History Inflammatory arthritis/ + AN A - Dr. Clemente (Rheumatology [facility]) - Sulfazine per Rhuematology which causes [...] - severe tricompartamental OA - followed by [facility] Medical History Anemia Medical History Age related [...] MG 1 tablet Orally Once a day Cimetidine 800 MG 1 tablet at bedtime Orally before bedtim e for 7 day(s) Feb, Protonix 40 MG 1 tablet Orally bid for 7 day(s) Levothyroxine Sodium 125 MCG 1 tablet on an empty stom ach in the morning Orally Once a day Next Appt Details Provider Name:Janet Mooney, 2020-02 08:00:00 AM, [address] [facility] [address] [place] [address], [phone] Provider Name:Becky Mooney, 2020-05 09:45:00 AM, [address] [place] [address], [address], Insurance Providers Payer Name Payer Address Payer Phone Insured Name Patient Relati onship to Insured Coverage Start Date Coverage End Date MEDICARE COMPLETE [facility] [address] [address] [facility] [phone] [employer] [place] self
--- OUTSIDE RECORDS SUMMARY | 2020-04-18 18:18 | CCD ---
Author Author [facility] Organization [facility] Address Unknown Phone Unavailable Care Team Providers Care Natural Fabricator Name Role Phone Neeraj-Quiana Hunt Unavailable PROBLEMS Type Condition ICD9-CM Code [id number] Code Onset Dates Condition S tatus SNOMED Code Notes Problem Intervertebral disc disorders with radiculopathy , lumbar region M51.16 Active 051300345999304 Problem B12 deficiency anemia D51.9 Active 80792132 Problem Iron deficiency anemia D50.9 Active 22639572 Problem Other chronic pain G89.29 Active 16652179 Problem Leukopenia, unspecified type D72.819 Active 848 15667 Problem Spondylosis without myelopathy or radiculopathy, lumbar region M47.816 Active 36148356 Problem Spondylosis without myelopathy or radiculopathy, lumbosacral region M47.817 Active 49556616 Problem Unspecified personality disorder F60.9 Active 79606862 Problem Anemia D64.9 Active 453681082 Problem Rheumatoid arthritis involvi ng multiple sites, unspecified rheumatoid factor presence M06.9 Active 864512623 Problem Intestinal metaplasia of gastric mucosa K31.89 Active 21223063 Problem Spinal stenosis, lumbar region M48.06 Active 1 8884423 Problem Intervertebral disc disorders with radiculopathy , lumbosacral region M51.17 Active 2008380 Problem Obesity (BMI 30.0-34.9) E66.9 Active 25119136 6712400 Problem Chronic nausea R11.0 Active 269716488 Problem Fibromyalgia M79.7 Active 517384297 Problem Vitamin D deficiency, unspecified E55.9 Active 94970019 Problem Anemia complicating , unspecified trimester O99.019 Active 28528981 Problem Major depressive disorder, single episode, unspecified F32.9 Active 72515190 Problem Major depressive disorder, severe F32.2 Active 198497375 Problem Gastro-esophageal reflux disease without esophagitis K21.9 Active 146119381 Problem Major depressive disorder wi th single episode, remission status unspecified F32.9 Active 08292258 Problem Hypothyroidism, unspecified E03.9 Active 4093 0008 Problem Borderline personality disorder F60.3 Active 43974441 Problem Diabetes type 2, controlled E11.9 Active 4405 4006 Problem Generalized anxiety disorder F41.1 Active 218 36860 Problem Essential (primary) hypertension I10 Active 86168279 Problem Other secondary osteoarthritis, unspecified site M 19.93 Active 436292085 Problem Age-related memory disorder R41.3 Active 2314 14729 Problem Gastroesophageal reflux disease without esophagitis K21.9 Active 226868202 Problem 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 Active 225433160 Problem Severe episode of recurrent major depressive disorder, without psychotic features F33.2 Active 54869574 Problem 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 Active 02921 3000 Problem SIADH (syndrome of inappropriate ADH production) E 22.2 Active 86356533 Problem Chronic fatigue R53.82 Active 38707196 Problem Macrocytosis without anemia D75.89 Active 2343 48290 Problem Subclinical hypothyroidism E03.9 Active 06091 002 Problem Morbid obesity E66.01 Active 813724367 Problem Chronic pain syndrome G89.4 Active 479115518 ALLERGIES Allergen (clinical drug ingredient) Drug/Non Drug Allergy do cumented on EMR Reaction Allergy Type Onset Date Status Sulfazine high doses cause leukopenia Drug Allergy Active cephalexin Keflex([facility] Code:[address]-02) tongue swelling Drug Allerg y Active Wellbutrin gi side effects Drug Allergy Active ENCOUNTERS from 1955 to 2020-02-14 Encounter Location Date Provider Diagnosis [place] [address] [place] [address] Feb, Quiana Neeraj-Tartell Gastro-esophageal reflux disease without esophagitis K21.9 IMMUNIZATIONS Vaccine Route Administration Date Status Influenza [...] Education Language: Question Answer Notes Languages spoken: Setswana Yarsani: Question Answer Notes Yarsani No taoist beliefs that would impact health care. Sexual [...] Information RESULTS No Results REASON FOR VISIT refills MEDICAL (GENERAL) HISTORY Type Description Date Medical History hypothyroidism Medical History Type 2 DM with nephropathy/elev MIKKI Medical History hyperlipidemia Medical History fatty liver, abnl LFT's Medical History Metabolic syndrome Medical History IBS Medical History Fibromyalgia Medical History Vit D deficiency Medical History depression Medical History Inflammatory arthritis/ + AN A - Dr. Clemente (Rheumatology [facility]) - Sulfazine per Rhuematology which causes leukopenia, [...] - severe tricompartamental [facility] Medical History Anemia Medical History Age related [...] No Information FUNCTIONAL STATUS No Information ASSESSMENTS Encounter Date Diagnosis Notes Feb, Gastro-esophageal reflux dis ease without esophagitis (ICD-10 - K21.9) PLAN OF TREATMENT Medication Medication Name Sig [...] Details Provider Name:Janet Mooney, 2020-02 08:00:00 AM, [address] [place] [address], [phone] Provider Name:Becky Mooney, 2020-05 09:45:00 AM, [address] [place] [address], [address], Insurance Providers Payer Name Payer Address Payer Phone Insured Name Patient Relati onship to Insured Coverage Start Date Coverage End Date MEDICARE COMPLETE [employer] [address] [address] [facility] [phone] [place] self
--- OUTSIDE RECORDS SUMMARY | 2020-04-18 18:18 | CCD ---
Author Author [facility] Organization [facility] Address Unknown Phone Unavailable Care Team Providers Care Electrophysiologist Name Role Phone SukiJannette barreto Unavailable PROBLEMS Type Condition ICD9-CM Code ZVD27-DD Code Onset Dates Condition S tatus SNOMED Code Notes Problem Intervertebral disc disorders with radiculopathy , lumbar region M51.16 Active 214328281124131 Problem B12 deficiency anemia D51.9 Active 52019605 Problem Iron deficiency anemia D50.9 Active 74845849 Problem Other chronic pain G89.29 Active 65987460 Problem Leukopenia, unspecified type D72.819 Active 848 02286 Problem Spondylosis without myelopathy or radiculopathy, lumbar region M47.816 Active 53370057 Problem Spondylosis without myelopathy or radiculopathy, lumbosacral region M47.817 Active 10437220 Problem Unspecified personality disorder F60.9 Active 05702169 Problem Anemia D64.9 Active 088880628 Problem Rheumatoid arthritis involvi ng multiple sites, unspecified rheumatoid factor presence M06.9 Active 323222226 Problem Intestinal metaplasia of gastric mucosa K31.89 Active 17977098 Problem Spinal stenosis, lumbar region M48.06 Active 1 2920885 Problem Intervertebral disc disorders with radiculopathy , lumbosacral region M51.17 Active 6123034 Problem Obesity (BMI 30.0-34.9) E66.9 Active 58089053 4282758 Problem Chronic nausea R11.0 Active 990163797 Problem Fibromyalgia M79.7 Active 012507067 Problem Vitamin D deficiency, unspecified E55.9 Active 05363326 Problem Anemia complicating , unspecified trimester O99.019 Active 06279220 Problem Major depressive disorder, single episode, unspecified F32.9 Active 42971488 Problem Major depressive disorder, severe F32.2 Active 987050099 Problem Gastro-esophageal reflux disease without esophagitis K21.9 Active 654552988 Problem Major depressive disorder wi th single episode, remission status unspecified F32.9 Active 58053046 Problem Hypothyroidism, unspecified E03.9 Active 4093 0008 Problem Borderline personality disorder F60.3 Active 90230653 Problem Diabetes type 2, controlled E11.9 Active 4405 4006 Problem Generalized anxiety disorder F41.1 Active 218 76293 Problem Essential (primary) hypertension I10 Active 83071179 Problem Other secondary osteoarthritis, unspecified site M 19.93 Active 064084859 Problem Age-related memory disorder R41.3 Active 2314 63902 Problem Gastroesophageal reflux disease without esophagitis K21.9 Active 634849229 Problem 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 Active 156984946 Problem Severe episode of recurrent major depressive disorder, without psychotic features F33.2 Active 27798984 Problem 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 Active 71820 3000 Problem SIADH (syndrome of inappropriate ADH production) E 22.2 Active 15846153 Problem Chronic fatigue R53.82 Active 79627992 Problem Macrocytosis without anemia D75.89 Active 2343 52081 Problem Subclinical hypothyroidism E03.9 Active 28044 002 Problem Morbid obesity E66.01 Active 049751530 Problem Chronic pain syndrome G89.4 Active 934443776 ALLERGIES Allergen (clinical drug ingredient) Drug/Non Drug Allergy do cumented on EMR Reaction Allergy Type Onset Date Status Sulfazine high doses cause leukopenia Drug Allergy Active cephalexin Keflex([facility] Code:[address]-49) tongue swelling Drug Allerg y Active Wellbutrin gi side effects Drug Allergy Active ENCOUNTERS from 1957 to 2020-02-14 Encounter Location Date Provider Diagnosis [place] [id number] [place] [address] Feb, Reg libia Evelia Gastro-esophageal reflux disease without esophagitis K21.9 IMMUNIZATIONS [...] Education Language: Question Answer Notes Languages spoken: Korean Amish: Question Answer Notes Amish No hoahaoism beliefs that would impact health care. Sexual [...] Information RESULTS No Results REASON FOR VISIT medications MEDICAL (GENERAL) HISTORY Type Description Date Medical History hypothyroidism Medical History Type 2 DM with nephropathy/elev MIKKI Medical History hyperlipidemia Medical History fatty liver, abnl LFT's Medical History Metabolic syndrome Medical History IBS Medical History Fibromyalgia Medical History Vit D deficiency Medical History depression Medical History Inflammatory arthritis/ + AN A - Dr. Clemente (Rheumatology [facility]) - Sulfazine per Rhuematology which [...] - severe tricompartamental OA [facility] Medical History Anemia Medical History [...] Details Provider Name:Janet Mooney, 2020-02 08:00:00 AM, [address] [place] [address], [phone] Provider Name:Becky Mooney, 2020-05 09:45:00 AM, [address] [place] [address], [id number], Insurance Providers Payer Name Payer Address Payer Phone Insured Name Patient Relati onship to Insured Coverage Start Date Coverage End Date MEDICARE COMPLETE [employer]ARE [address] [address] [facility] [phone] CHANCE AUGUSTE self
--- OUTSIDE RECORDS SUMMARY | 2020-04-18 18:18 | CCD ---
Author Author [facility] Organization [facility] Address Unknown Phone Unavailable Care Team Providers Care Event Specialist Product Demonstrator Name Role Phone SukiJannette barreto Unavailable PROBLEMS Type Condition ICD9-CM Code [id number] Code Onset Dates Condition S tatus SNOMED Code Notes Problem Intervertebral disc disorders with radiculopathy , lumbar region M51.16 Active 299841610726855 Problem B12 deficiency anemia D51.9 Active 48727306 Problem Iron deficiency anemia D50.9 Active 82862423 Problem Other chronic pain G89.29 Active 47030753 Problem Leukopenia, unspecified type D72.819 Active 848 36586 Problem Spondylosis without myelopathy or radiculopathy, lumbar region M47.816 Active 79888195 Problem Spondylosis without myelopathy or radiculopathy, lumbosacral region M47.817 Active 29577639 Problem Unspecified personality disorder F60.9 Active 18821687 Problem Anemia D64.9 Active 141781707 Problem Rheumatoid arthritis involvi ng multiple sites, unspecified rheumatoid factor presence M06.9 Active 564590780 Problem Intestinal metaplasia of gastric mucosa K31.89 Active 17627772 Problem Spinal stenosis, lumbar region M48.06 Active 1 6260558 Problem Intervertebral disc disorders with radiculopathy , lumbosacral region M51.17 Active 2971965 Problem Obesity (BMI 30.0-34.9) E66.9 Active 12038791 7935483 Problem Chronic nausea R11.0 Active 369265061 Problem Fibromyalgia M79.7 Active 151505868 Problem Vitamin D deficiency, unspecified E55.9 Active 95847381 Problem Anemia complicating , unspecified trimester O99.019 Active 46772605 Problem Major depressive disorder, single episode, unspecified F32.9 Active 34658368 Problem Major depressive disorder, severe F32.2 Active 801264424 Problem Gastro-esophageal reflux disease without esophagitis K21.9 Active 277970670 Problem Major depressive disorder wi th single episode, remission status unspecified F32.9 Active 06315082 Problem Hypothyroidism, unspecified E03.9 Active 4093 0008 Problem Borderline personality disorder F60.3 Active 74673574 Problem Diabetes type 2, controlled E11.9 Active 4405 4006 Problem Generalized anxiety disorder F41.1 Active 218 11020 Problem Essential (primary) hypertension I10 Active 69227610 Problem Other secondary osteoarthritis, unspecified site M 19.93 Active 155764606 Problem Age-related memory disorder R41.3 Active 2314 42289 Problem Gastroesophageal reflux disease without esophagitis K21.9 Active 937282874 Problem 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 Active 747613853 Problem Severe episode of recurrent major depressive disorder, without psychotic features F33.2 Active 77377792 Problem 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 Active 30420 3000 Problem SIADH (syndrome of inappropriate ADH production) E 22.2 Active 64801237 Problem Chronic fatigue R53.82 Active 96213778 Problem Macrocytosis without anemia D75.89 Active 2343 75283 Problem Subclinical hypothyroidism E03.9 Active 73145 002 Problem Morbid obesity E66.01 Active 557358553 Problem Chronic pain syndrome G89.4 Active 453469001 ALLERGIES Allergen (clinical drug ingredient) Drug/Non Drug Allergy do cumented on EMR Reaction Allergy Type Onset Date Status Sulfazine high doses cause leukopenia Drug Allergy Active cephalexin Keflex([facility] Code:[address]-75) tongue swelling Drug Allerg y Active Wellbutrin gi side effects Drug Allergy Active ENCOUNTERS from 1955 to 2020-02-20 Encounter Location Date Provider Diagnosis [place] [id number] [place] [address] Feb, Reg libia [place]ano IMMUNIZATIONS Vaccine Route Administration Date Status [...] IM Intramuscular Jan 22, 2016 Ad ministered TDAP 0.5mL (Boostrix) IM Intramuscular [...] Language: Question Answer Notes Languages spoken: Japanese Caodaism: Question Answer Notes Caodaism No denominational beliefs that would impact health care. Sexual [...] tab Orally twice daily for 30 days 2019 Active Protonix 40 MG 1 tablet Orally bid for 7 day(s) Active Levothyroxine Sodium 125 MCG 1 tablet on an empty stom ach in the morning Orally Once a day Active Acetaminophen Extra Strength 500 MG 2 tablets as needed Orally ever y 6 hrs Active Famotidine 40 MG 1 tablet at bedtime Orally Twice a day for 14 Active Lisinopril 20 MG 1 tablet Orally Once a day Active Aspirin Adult Low Dose 81 MG 1 tablet Orally Once a day Active Vitamin D3 50 MCG (2000 UT) 1 tablet Orally Once a day for 30 day(s) Active Gabapentin 300 MG 1 capsule [...] before bedtime for 7 day(s) Feb, Active PROCEDURES No Information RESULTS No Results REASON FOR VISIT famotidine MEDICAL (GENERAL) HISTORY Type Description Date Medical History hypothyroidism Medical History Type 2 DM with nephropathy/elev MIKKI Medical History hyperlipidemia Medical History fatty liver, abnl LFT's Medical History Metabolic syndrome Medical History IBS Medical History Fibromyalgia Medical History Vit D deficiency Medical History depression Medical History Inflammatory arthritis/ + AN A - Dr. Clemente (Rheumatology [facility]) - Sulfazine per Rhuematology which causes leukopenia, [...] day Next Appt Details Provider Name:Janet Mooney, 2020-03 08:00:00 AM, [address], [address] Provider Name:Becky Mooney, 2020-05 09:45:00 AM, [address] [place] [address], [id number], Insurance Providers Payer Name Payer Address Payer Phone Insured Name Patient Relati onship to Insured Coverage Start Date Coverage End Date MEDICARE COMPLETE UNITED HEALTHCARE [address] [address] [facility] [phone] CHANCE AUGUSTE self
--- OUTSIDE RECORDS SUMMARY | 2020-04-18 18:18 | CCD ---
Author Author [facility] Organization [facility] Address Unknown Phone Unavailable Care Team Providers Care Radiology Practitioner Assistant Name Role Phone Janet Mooney Unavailable PROBLEMS Type Condition ICD9-CM Code [id number] Code Onset Dates Condition S tatus SNOMED Code Notes Problem Intervertebral disc disorders with radiculopathy , lumbar region M51.16 Active 805040838329843 Problem B12 deficiency anemia D51.9 Active 94365281 Problem Iron deficiency anemia D50.9 Active 73976872 Problem Other chronic pain G89.29 Active 83177262 Problem Leukopenia, unspecified type D72.819 Active 848 94621 Problem Spondylosis without myelopathy or radiculopathy, lumbar region M47.816 Active 60176326 Problem Spondylosis without myelopathy or radiculopathy, lumbosacral region M47.817 Active 22468618 Problem Unspecified personality disorder F60.9 Active 21250410 Problem Anemia D64.9 Active 191019317 Problem Rheumatoid arthritis involvi ng multiple sites, unspecified rheumatoid factor presence M06.9 Active 338700376 Problem Intestinal metaplasia of gastric mucosa K31.89 Active 45935259 Problem Spinal stenosis, lumbar region M48.06 Active 1 6510415 Problem Intervertebral disc disorders with radiculopathy , lumbosacral region M51.17 Active 4716683 Problem Obesity (BMI 30.0-34.9) E66.9 Active 08163729 4776328 Problem Chronic nausea R11.0 Active 571475163 Problem Fibromyalgia M79.7 Active 339171010 Problem Vitamin D deficiency, unspecified E55.9 Active 29178226 Problem Anemia complicating , unspecified trimester O99.019 Active 34060641 Problem Major depressive disorder, single episode, unspecified F32.9 Active 31210697 Problem Major depressive disorder, severe F32.2 Active 327752780 Problem Gastro-esophageal reflux disease without esophagitis K21.9 Active 309399596 Problem Major depressive disorder wi th single episode, remission status unspecified F32.9 Active 56100005 Problem Hypothyroidism, unspecified E03.9 Active 4093 0008 Problem Borderline personality disorder F60.3 Active 94701521 Problem Diabetes type 2, controlled E11.9 Active 4405 4006 Problem Generalized anxiety disorder F41.1 Active 218 18773 Problem Essential (primary) hypertension I10 Active 59746576 Problem Other secondary osteoarthritis, unspecified site M 19.93 Active 252325159 Problem Age-related memory disorder R41.3 Active 2314 10932 Problem Gastroesophageal reflux disease without esophagitis K21.9 Active 382891660 Problem 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 Active 784371187 Problem Severe episode of recurrent major depressive disorder, without psychotic features F33.2 Active 94745395 Problem 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 Active 57394 3000 Problem SIADH (syndrome of inappropriate ADH production) E 22.2 Active 36470677 Problem Chronic fatigue R53.82 Active 45096104 Problem Macrocytosis without anemia D75.89 Active 2343 25402 Problem Subclinical hypothyroidism E03.9 Active 91449 002 Problem Morbid obesity E66.01 Active 944826655 Problem Chronic pain syndrome G89.4 Active 904285824 ALLERGIES Allergen (clinical drug ingredient) Drug/Non Drug Allergy do cumented on EMR Reaction Allergy Type Onset Date Status Sulfazine high doses cause leukopenia Drug Allergy Active cephalexin Keflex([facility] Code:[address]-18) tongue swelling Drug Allerg y Active Wellbutrin gi side effects Drug Allergy Active ENCOUNTERS from 1955 to 2020-03-22 Encounter Location Date Provider Diagnosis [facility] [address] [place] [address] Mar Janet Mooney Major depressive disorder with single ep isode, remission status unspecified F32.9 IMMUNIZATIONS Vaccine Route Administration Date Status Influenza [...] Education Language: Question Answer Notes Languages spoken: [place] Citizen Congregation: Question Answer Notes Congregation No shinto beliefs that would impact health care. Sexual [...] Notes Start Da te End Date Status Ibuprofen 800 MG Take 1/2 tablet by mouth 3 times a day orally three times daily for 90 Active Cimetidine 800 MG 1 tablet at bedtime Orally before bedtime for 7 day(s) Feb, Active Levothyroxine Sodium 125 MCG 1 tablet on an empty stom ach in the morning Orally Once a day Active Paroxetine HCl 20 MG TAKE 1 TABLET BY MOUTH ONCE DAILY Oral for 30 Active Aripiprazole 10 MG TAKE 1/2 tab (ONE HALF) TABLET BY MOUTH ONCE LIN LY Oral Active Acetaminophen Extra Strength 500 MG 2 tablets as needed Orally ever y 6 hrs Active Plaquenil 200 MG 1 tab Orally twice daily for 30 days 08 2019 Active Lisinopril 20 MG 1 tablet Orally [...] Information RESULTS No Results REASON FOR VISIT follow up MEDICAL (GENERAL) HISTORY Type Description Date Medical History hypothyroidism Medical History Type 2 DM with nephropathy/elev MIKKI Medical History hyperlipidemia Medical History fatty liver, abnl LFT's Medical History Metabolic syndrome Medical History IBS Medical History Fibromyalgia Medical History Vit D deficiency Medical History depression Medical History Inflammatory arthritis/ + AN A - Dr. Clemente (Rheumatology [facility]) - Sulfazine per Rhuematology which [...] - severe tricompartamental OA - [place] [facility] Medical History Anemia Medical History Age related [...] STATUS No Information ASSESSMENTS Encounter Date Diagnosis Assessment Notes Treatment Notes Treatm ent Clinical Notes Mar, Major depressive disorder wi th single episode, remission status unspecified (ICD-10 - F32.9) Kacy was seen for a follow up session. Reports symptoms have remained the same. Scheduled for a return session 04/01/2020 PLAN OF TREATMENT Medication Medication Name Sig [...] before bedtim e for 7 day(s) Feb, Treatment Notes Assessment Notes Clinical Notes Major depressive disorder with single episode, remission sta tus unspecified Kacy was seen for a follow up session. Reports symptoms have remained the same. Scheduled for a return session 04/01/2020 Next Appt Details Provider Name:Janet Mooney, 2020-03 08:00:00 AM, [address] [place] [address], [phone] Provider Name:Becky Mooney, 2020-05 09:45:00 AM, [address] [place] [address], [phone], Provider Name:Becky Mooney, 2020-05 09:45:00 AM, [address] [place] [address], [phone], Insurance Providers Payer Name Payer Address Payer Phone Insured Name Patient Relati onship to Insured Coverage Start Date Coverage End Date MEDICARE COMPLETE [facility] [address] [address] [facility] [id number] KACY AUGUSTE self
--- OUTSIDE RECORDS SUMMARY | 2020-04-18 18:18 | CCD ---
Author Author [facility] Organization [facility] Address Unknown Phone Unavailable Care Team Providers Care Acid Dumper Name Role Phone Janet Mooney Unavailable PROBLEMS Type Condition ICD9-CM Code [id number] Code Onset Dates Condition S tatus SNOMED Code Notes Problem Intervertebral disc disorders with radiculopathy , lumbar region M51.16 Active 247457612027960 Problem B12 deficiency anemia D51.9 Active 56742927 Problem Iron deficiency anemia D50.9 Active 77916969 Problem Other chronic pain G89.29 Active 32898423 Problem Leukopenia, unspecified type D72.819 Active 848 08762 Problem Spondylosis without myelopathy or radiculopathy, lumbar region M47.816 Active 58202075 Problem Spondylosis without myelopathy or radiculopathy, lumbosacral region M47.817 Active 72437887 Problem Unspecified personality disorder F60.9 Active 60376584 Problem Anemia D64.9 Active 142868582 Problem Rheumatoid arthritis involvi ng multiple sites, unspecified rheumatoid factor presence M06.9 Active 863854261 Problem Intestinal metaplasia of gastric mucosa K31.89 Active 92301613 Problem Spinal stenosis, lumbar region M48.06 Active 1 0480658 Problem Intervertebral disc disorders with radiculopathy , lumbosacral region M51.17 Active 3801629 Problem Obesity (BMI 30.0-34.9) E66.9 Active 21240992 2608374 Problem Chronic nausea R11.0 Active 316586784 Problem Fibromyalgia M79.7 Active 817240355 Problem Vitamin D deficiency, unspecified E55.9 Active 16571421 Problem Anemia complicating , unspecified trimester O99.019 Active 45543408 Problem Major depressive disorder, single episode, unspecified F32.9 Active 48483541 Problem Major depressive disorder, severe F32.2 Active 837972517 Problem Gastro-esophageal reflux disease without esophagitis K21.9 Active 102237645 Problem Major depressive disorder wi th single episode, remission status unspecified F32.9 Active 08469823 Problem Hypothyroidism, unspecified E03.9 Active 4093 0008 Problem Borderline personality disorder F60.3 Active 60062956 Problem Diabetes type 2, controlled E11.9 Active 4405 4006 Problem Generalized anxiety disorder F41.1 Active 218 53379 Problem Essential (primary) hypertension I10 Active 43542467 Problem Other secondary osteoarthritis, unspecified site M 19.93 Active 896770753 Problem Age-related memory disorder R41.3 Active 2314 35093 Problem Gastroesophageal reflux disease without esophagitis K21.9 Active 422497628 Problem 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 Active 880604872 Problem Severe episode of recurrent major depressive disorder, without psychotic features F33.2 Active 83288562 Problem 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 Active 31664 3000 Problem SIADH (syndrome of inappropriate ADH production) 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.2 Active 46789449 Problem Chronic fatigue R53.82 Active 02211520 Problem Macrocytosis without anemia D75.89 Active 2343 73570 Problem Subclinical hypothyroidism E03.9 Active 76035 002 Problem Morbid obesity E66.01 Active 590068007 Problem Chronic pain syndrome G89.4 Active 834686616 ALLERGIES Allergen (clinical drug ingredient) Drug/Non Drug Allergy do cumented on EMR Reaction Allergy Type Onset Date Status Sulfazine high doses cause leukopenia Drug Allergy Active cephalexin Keflex([facility] Code:[address]-77) tongue swelling Drug Allerg y Active Wellbutrin gi side effects Drug Allergy Active ENCOUNTERS from 1955 to 2020-02-23 Encounter Location Date Provider Diagnosis [facility] [address] [place] [address] Feb Janet Mooney Major depressive disorder with single [...] Education Language: Question Answer Notes Languages spoken: Malian Confucianism: Question Answer Notes Confucianism No congregational beliefs that would impact health care. Sexual [...] daily for 30 days 08 2019 Active Protonix 40 MG 1 tablet [...] + AN A - Dr. Clemente (Rheumatology [facility]) - Sulfazine per Rhuematology which [...] - severe tricompartamental OA - [place] [facility] Medical History Anemia Medical History Age related [...] Notes Treatment Notes Treatm ent Clinical Notes Feb, Major depressive disorder wi th single episode, remission status unspecified (ICD-10 - F32.9) Kacy was seen for a follow up session. Reports symptoms have remained the same Scheduled for a return session 03/11/2020. PLAN OF TREATMENT Medication Medication Name Sig [...] in the morning Orally Once a day Treatment Notes Assessment Notes Clinical Notes Major depressive disorder with single episode, remission sta tus unspecified Kacy was seen for a follow up session. Reports symptoms have remained the same Scheduled for a return session 03/11/2020. Next Appt Details Provider Name:Janet Mooney, 2020-03 08:00:00 AM, [address] [place] [address], [phone] Provider Name:Becky Mooney, 2020-05 09:45:00 AM, [address] [place] [address], [phone], Insurance Providers Payer Name Payer Address Payer Phone Insured Name Patient Relati onship to Insured Coverage Start Date Coverage End Date MEDICARE COMPLETE [employer]ARE [address] [address] [facility] [id number] KACY AUGUSTE self
--- OUTSIDE RECORDS SUMMARY | 2020-04-18 18:18 | CCD ---
Author Author [facility] Organization [facility] Address Unknown Phone Unavailable Care Team Providers Care Unix Administrator Name Role Phone Janet Mooney Unavailable PROBLEMS Type Condition ICD9-CM Code [id number] Code Onset Dates Condition S tatus SNOMED Code Notes Problem Intervertebral disc disorders with radiculopathy , lumbar region M51.16 Active 339436391674143 Problem B12 deficiency anemia D51.9 Active 92647233 Problem Iron deficiency anemia D50.9 Active 25109308 Problem Other chronic pain G89.29 Active 90802892 Problem Leukopenia, unspecified type D72.819 Active 848 97326 Problem Spondylosis without myelopathy or radiculopathy, lumbar region M47.816 Active 51695614 Problem Spondylosis without myelopathy or radiculopathy, lumbosacral region M47.817 Active 87241394 Problem Unspecified personality disorder F60.9 Active 38455196 Problem Anemia D64.9 Active 162831663 Problem Rheumatoid arthritis involvi ng multiple sites, unspecified rheumatoid factor presence M06.9 Active 707286356 Problem Intestinal metaplasia of gastric mucosa K31.89 Active 61626909 Problem Spinal stenosis, lumbar region M48.06 Active 1 1875501 Problem Intervertebral disc disorders with radiculopathy , lumbosacral region M51.17 Active 3398024 Problem Obesity (BMI 30.0-34.9) E66.9 Active 10840964 0097478 Problem Chronic nausea R11.0 Active 254700827 Problem Fibromyalgia M79.7 Active 883008110 Problem Vitamin D deficiency, unspecified E55.9 Active 12761245 Problem Anemia complicating , unspecified trimester O99.019 Active 36450010 Problem Major depressive disorder, single episode, unspecified F32.9 Active 33603623 Problem Major depressive disorder, severe F32.2 Active 596864491 Problem Gastro-esophageal reflux disease without esophagitis K21.9 Active 194241261 Problem Major depressive disorder wi th single episode, remission status unspecified F32.9 Active 83006518 Problem Hypothyroidism, unspecified E03.9 Active 4093 0008 Problem Borderline personality disorder F60.3 Active 12779306 Problem Diabetes type 2, controlled E11.9 Active 4405 4006 Problem Generalized anxiety disorder F41.1 Active 218 01534 Problem Essential (primary) hypertension I10 Active 07120252 Problem Other secondary osteoarthritis, unspecified site M 19.93 Active 092034931 Problem Age-related memory disorder R41.3 Active 2314 19508 Problem Gastroesophageal reflux disease without esophagitis K21.9 Active 932488174 Problem 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 Active 562637804 Problem Severe episode of recurrent major depressive disorder, without psychotic features F33.2 Active 20063137 Problem 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 Active 30951 3000 Problem SIADH (syndrome of inappropriate ADH production) E 22.2 Active 23040642 Problem Chronic fatigue R53.82 Active 52402906 Problem Macrocytosis without anemia D75.89 Active 2343 96795 Problem Subclinical hypothyroidism E03.9 Active 88613 002 Problem Morbid obesity E66.01 Active 413367127 Problem Chronic pain syndrome G89.4 Active 747936001 ALLERGIES Allergen (clinical drug ingredient) Drug/Non Drug Allergy do cumented on EMR Reaction Allergy Type Onset Date Status Sulfazine high doses cause leukopenia Drug Allergy Active cephalexin Keflex([facility] Code:[address]-47) tongue swelling Drug Allerg y Active Wellbutrin gi side effects Drug Allergy Active ENCOUNTERS from 1957 to 2020-04-02 Encounter Location Date Provider Diagnosis [facility] [address] [facility] [place] [address] Mar, Dione Mooney IMMUNIZATIONS Vaccine Route Administration Date Status Influenza (18 yrs & older) Flublok IM Intramuscular Jan 17, 2020 Administered TDAP 0.5mL (Boostrix) IM Intramuscular September 02, 2010 Administpaul sy Influenza (18 yrs & older) Flublok IM [...] Education Language: Question Answer Notes Languages spoken: Lao Sikhism: Question Answer Notes Sikhism No jain beliefs that would impact health care. Sexual [...] Information RESULTS No Results REASON FOR VISIT callback MEDICAL (GENERAL) HISTORY Type Description Date Medical History hypothyroidism Medical History Type 2 DM with nephropathy/elev MIKKI Medical History hyperlipidemia Medical History fatty liver, abnl LFT's Medical History Metabolic syndrome Medical History IBS Medical History Fibromyalgia Medical History Vit D deficiency Medical History depression Medical History Inflammatory arthritis/ + AN A - Dr. Clemente (Rheumatology [facility]) - Sulfazine per Rhuematology which causes [...] Details Provider Name:Janet Mooney, 2020-04 09:00:00 AM, [address] [facility] [address] [place] [address], [phone], Provider Name:Becky Mooney, 2020-05 09:45:00 AM, [address] [place] [address], [id number], Provider Name:Becky Mooney, 2020-05 09:45:00 AM, [address] [place] [address], [address], Insurance Providers Payer Name Payer Address Payer Phone Insured Name Patient Relati onship to Insured Coverage Start Date Coverage End Date MEDICARE COMPLETE [employer] [address] [address] [facility] [id number] CHANCE AUGUSTE self
--- OUTSIDE RECORDS SUMMARY | 2020-04-18 18:19 | CCD ---
Author Author [facility] Organization [facility] Address Unknown Phone Unavailable Care Team Providers Care Cemetery Manager Name Role Phone Janet Mooney Unavailable PROBLEMS Type Condition ICD9-CM Code [id number] Code Onset Dates Condition S tatus SNOMED Code Notes Problem Intervertebral disc disorders with radiculopathy , lumbar region M51.16 Active 310404604499325 Problem B12 deficiency anemia D51.9 Active 66845761 Problem Iron deficiency anemia D50.9 Active 55725864 Problem Other chronic pain G89.29 Active 95238106 Problem Leukopenia, unspecified type D72.819 Active 848 64494 Problem Spondylosis without myelopathy or radiculopathy, lumbar region M47.816 Active 10943522 Problem Spondylosis without myelopathy or radiculopathy, lumbosacral region M47.817 Active 23421661 Problem Unspecified personality disorder F60.9 Active 57684267 Problem Anemia D64.9 Active 558808253 Problem Rheumatoid arthritis involvi ng multiple sites, unspecified rheumatoid factor presence M06.9 Active 217353020 Problem Intestinal metaplasia of gastric mucosa K31.89 Active 69781064 Problem Spinal stenosis, lumbar region M48.06 Active 1 1760005 Problem Intervertebral disc disorders with radiculopathy , lumbosacral region M51.17 Active 9314153 Problem Obesity (BMI 30.0-34.9) E66.9 Active 82416364 4605243 Problem Chronic nausea R11.0 Active 247968978 Problem Fibromyalgia M79.7 Active 996281774 Problem Vitamin D deficiency, unspecified E55.9 Active 21884009 Problem Anemia complicating , unspecified trimester O99.019 Active 56939686 Problem Major depressive disorder, single episode, unspecified F32.9 Active 33409175 Problem Major depressive disorder, severe F32.2 Active 603650829 Problem Gastro-esophageal reflux disease without esophagitis K21.9 Active 262507120 Problem Major depressive disorder wi th single episode, remission status unspecified F32.9 Active 31666037 Problem Hypothyroidism, unspecified E03.9 Active 4093 0008 Problem Borderline personality disorder F60.3 Active 53417138 Problem Diabetes type 2, controlled E11.9 Active 4405 4006 Problem Generalized anxiety disorder F41.1 Active 218 87122 Problem Essential (primary) hypertension I10 Active 29047063 Problem Other secondary osteoarthritis, unspecified site M 19.93 Active 763565690 Problem Age-related memory disorder R41.3 Active 2314 45600 Problem Gastroesophageal reflux disease without esophagitis K21.9 Active 825731681 Problem 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 Active 395281105 Problem Severe episode of recurrent major depressive disorder, without psychotic features F33.2 Active 03675810 Problem 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 Active 29006 3000 Problem SIADH (syndrome of inappropriate ADH production) E 22.2 Active 95056994 Problem Chronic fatigue R53.82 Active 66903890 Problem Macrocytosis without anemia D75.89 Active 2343 29849 Problem Subclinical hypothyroidism E03.9 Active 42220 002 Problem Morbid obesity E66.01 Active 123843020 Problem Chronic pain syndrome G89.4 Active 650668068 ALLERGIES Allergen (clinical drug ingredient) Drug/Non Drug Allergy do cumented on EMR Reaction Allergy Type Onset Date Status Sulfazine high doses cause leukopenia Drug Allergy Active cephalexin Keflex([facility] Code:[address]-97) tongue swelling Drug Allerg y Active Wellbutrin gi side effects Drug Allergy Active ENCOUNTERS from 1955 to 2020-02-02 Encounter Location Date Provider Diagnosis [facility] [address] [place] [address] Jan aJnet Mooney Major depressive disorder with single ep [...] Education Language: Question Answer Notes Languages spoken: Liberian Voodoo: Question Answer Notes Voodoo No yazidi beliefs that would impact health care. Sexual [...] twice daily for 30 days Jan, Active Famotidine 40 MG 1 tab Orally bid Active Levothyroxine Sodium 125 MCG 1 tablet [...] a day for 30 day(s ) Active Venlafaxine HCl ER 37.5 MG 1 capsule with food Orally Daily Feb, Active Protonix 40 MG TAKE 1 TABLET BY MOUTH TWO TIMES DAILY Orally bid or 90 Active AmLODIPine Besylate 2.5 MG 1 tablet Orally Once a day Active Docusate Sodium 100 MG 2 capsules Orally BID Active Paroxetine HCl 20 MG TAKE 1 TABLET BY MOUTH ONCE DAILY Oral for 30 Active Gabapentin 300 MG 1 capsule Orally [...] + AN A - Dr. Clemente (Rheumatology [facility]) - Sulfazine per Rhuematology which [...] No Information ASSESSMENTS Encounter Date Diagnosis Notes Jan, Major depressive disorder wi th single episode, remission status unspecified (ICD-10 - F32.9) PLAN OF TREATMENT Medication Medication Name Sig Start Date Stop Date AmLODIPine Besylate 2.5 MG 1 tablet Orally Once a day Lisinopril 20 MG 1 tablet Orally Once a day Levothyroxine Sodium 125 MCG 1 tablet on an empty stom ach in the morning Orally Once a day Treatment Notes Assessment Notes Clinical Notes Major depressive disorder with single episode, remission sta tus unspecified Kacy was seen for a follow up session. Reports symptoms have improved. Scheduled for a return session 02/19/2020. Next Appt Details Provider Name:Janet Mooney, 2020-02 08:00:00 AM, [address] [place] [address], [phone] Provider Name:Becky Mooney, 2020-05 09:45:00 AM, [address] [place] [address], [address], Insurance Providers Payer Name Payer Address Payer Phone Insured Name Patient Relati onship to Insured Coverage Start Date Coverage End Date MEDICARE COMPLETE UNITED [employer]CARE [address] [address] [facility] [id number] KACY AUGUSTE self
--- OUTSIDE RECORDS SUMMARY | 2020-04-18 18:19 | CCD ---
Author Author [facility] Organization [facility] Address Unknown Phone Unavailable Care Team Providers Care Staff Software Engineer Name Role Phone Bekah Duong Unavailable PROBLEMS Type Condition ICD9-CM Code [id number] Code Onset Dates Condition S tatus SNOMED Code Notes Problem Intervertebral disc disorders with radiculopathy , lumbar region M51.16 Active 417628229229662 Problem B12 deficiency anemia D51.9 Active 41782018 Problem Iron deficiency anemia D50.9 Active 15764851 Problem Other chronic pain G89.29 Active 35788244 Problem Leukopenia, unspecified type D72.819 Active 848 61280 Problem Spondylosis without myelopathy or radiculopathy, lumbar region M47.816 Active 95959960 Problem Spondylosis without myelopathy or radiculopathy, lumbosacral region M47.817 Active 78748506 Problem Unspecified personality disorder F60.9 Active 99751399 Problem Anemia D64.9 Active 086544469 Problem Rheumatoid arthritis involvi ng multiple sites, unspecified rheumatoid factor presence M06.9 Active 067281218 Problem Intestinal metaplasia of gastric mucosa K31.89 Active 46098947 Problem Spinal stenosis, lumbar region M48.06 Active 1 4169065 Problem Intervertebral disc disorders with radiculopathy , lumbosacral region M51.17 Active 8922855 Problem Obesity (BMI 30.0-34.9) E66.9 Active 64234585 9077813 Problem Chronic nausea R11.0 Active 264757263 Problem Fibromyalgia M79.7 Active 105939118 Problem Vitamin D deficiency, unspecified E55.9 Active 31833663 Problem Anemia complicating , unspecified trimester O99.019 Active 69986513 Problem Major depressive disorder, single episode, unspecified F32.9 Active 15079871 Problem Major depressive disorder, severe F32.2 Active 443729172 Problem Gastro-esophageal reflux disease without esophagitis K21.9 Active 407411567 Problem Major depressive disorder wi th single episode, remission status unspecified F32.9 Active 12461278 Problem Hypothyroidism, unspecified E03.9 Active 4093 0008 Problem Borderline personality disorder F60.3 Active 35068589 Problem Diabetes type 2, controlled E11.9 Active 4405 4006 Problem Generalized anxiety disorder F41.1 Active 218 94641 Problem Essential (primary) hypertension I10 Active 71403900 Problem Other secondary osteoarthritis, unspecified site M 19.93 Active 330520097 Problem Age-related memory disorder R41.3 Active 2314 64301 Problem Gastroesophageal reflux disease without esophagitis K21.9 Active 846458411 Problem 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 Active 609809185 Problem Severe episode of recurrent major depressive disorder, without psychotic features F33.2 Active 98906429 Problem 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 Active 76574 3000 Problem SIADH (syndrome of inappropriate ADH production) 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.2 Active 17622165 Problem Chronic fatigue R53.82 Active 50603301 Problem Macrocytosis without anemia D75.89 Active 2343 97842 Problem Subclinical hypothyroidism E03.9 Active 29679 002 Problem Morbid obesity E66.01 Active 345164964 Problem Chronic pain syndrome G89.4 Active 361685452 ALLERGIES Allergen (clinical drug ingredient) Drug/Non Drug Allergy do cumented on EMR Reaction Allergy Type Onset Date Status Sulfazine high doses cause leukopenia Drug Allergy Active cephalexin Keflex([facility] Code:[address]-26) tongue swelling Drug Allerg y Active Wellbutrin gi side effects Drug Allergy Active ENCOUNTERS from 1957 to 2020-02-11 Encounter Location Date Provider Diagnosis [facility] [address] [place] [address] Feb, Mar ia Duong Gastro-esophageal reflux disease without esophagitis K21.9 IMMUNIZATIONS [...] Education Language: Question Answer Notes Languages spoken: Latvian Latter-Day: Question Answer Notes Latter-Day No sikhism beliefs that would impact health care. Sexual [...] Duration) Start Date En d Date Status Levothyroxine Sodium 125 MCG 1 tablet on an empty stom ach in the morning Orally Once a day Active Aripiprazole 10 MG TAKE 1/2 tab (ONE HALF) TABLET BY MOUTH ONCE LIN LY Oral Active Famotidine 20 MG 2tab Orally bid for 90 days Active Protonix 40 MG TAKE 1 TABLET BY MOUTH TWO TIMES DAILY Orally bid or 90 Active Plaquenil 200 MG 1 tab Orally twice daily for 30 days 08 Oct, 2020 Active Acetaminophen Extra Strength 500 MG 2 [...] needed for nausea for 90 day(s) Active Ibuprofen 800 MG Take 1/2 tablet by mouth 3 times a day orally three times daily for 90 Active PROCEDURES No Information RESULTS No Results REASON FOR VISIT resend the famotidine MEDICAL (GENERAL) HISTORY Type Description Date Medical History hypothyroidism Medical History Type 2 DM with nephropathy/elev MIKKI Medical History hyperlipidemia Medical History fatty liver, abnl LFT's Medical History Metabolic syndrome Medical History IBS Medical History Fibromyalgia Medical History Vit D deficiency Medical History depression Medical History Inflammatory arthritis/ + AN A - Dr. Clemente (Rheumatology [facility]) - Sulfazine per Rhuematology which causes [...] MG 1 tablet Orally Once a day Famotidine 20 MG 2tab Orally bid for 90 days Levothyroxine Sodium 125 MCG 1 tablet on an empty stom ach in the morning Orally Once a day Next Appt Details Provider Name:Janet Mooney, 2020-02 08:00:00 AM, [address] [place] [address], [phone] Provider Name:Becky Mooney, 2020-05 09:45:00 AM, [address] [place] [address], [address], Insurance Providers Payer Name Payer Address Payer Phone Insured Name Patient Relati onship to Insured Coverage Start Date Coverage End Date MEDICARE COMPLETE [facility] [address] [address] [facility] [id number] CHANCE AUGUSTE self
--- OUTSIDE RECORDS SUMMARY | 2020-04-18 18:19 | CCD ---
Author Author [facility] Organization [facility] Address Unknown Phone Unavailable Care Team Providers Care Passport Support Manager Name Role Phone Becky Mooney Unavailable PROBLEMS Type Condition ICD9-CM Code KYE03-EU Code Onset Dates Condition S tatus SNOMED Code Notes Problem Intervertebral disc disorders with radiculopathy , lumbar region M51.16 Active 088385124470283 Problem B12 deficiency anemia D51.9 Active 71655041 Problem Iron deficiency anemia D50.9 Active 69343591 Problem Other chronic pain G89.29 Active 85038117 Problem Leukopenia, unspecified type D72.819 Active 848 95858 Problem Spondylosis without myelopathy or radiculopathy, lumbar region M47.816 Active 07716478 Problem Spondylosis without myelopathy or radiculopathy, lumbosacral region M47.817 Active 50923307 Problem Unspecified personality disorder F60.9 Active 14492980 Problem Anemia D64.9 Active 150288078 Problem Rheumatoid arthritis involvi ng multiple sites, unspecified rheumatoid factor presence M06.9 Active 640705883 Problem Intestinal metaplasia of gastric mucosa K31.89 Active 50152961 Problem Spinal stenosis, lumbar region M48.06 Active 1 0781340 Problem Intervertebral disc disorders with radiculopathy , lumbosacral region M51.17 Active 1020180 Problem Obesity (BMI 30.0-34.9) E66.9 Active 66794273 6680864 Problem Chronic nausea R11.0 Active 385286815 Problem Fibromyalgia M79.7 Active 479795887 Problem Vitamin D deficiency, unspecified E55.9 Active 00151117 Problem Anemia complicating , unspecified trimester O99.019 Active 13660480 Problem Major depressive disorder, single episode, unspecified F32.9 Active 37335148 Problem Major depressive disorder, severe F32.2 Active 381606634 Problem Gastro-esophageal reflux disease without esophagitis K21.9 Active 195264990 Problem Major depressive disorder wi th single episode, remission status unspecified F32.9 Active 74444851 Problem Hypothyroidism, unspecified E03.9 Active 4093 0008 Problem Borderline personality disorder F60.3 Active 20146208 Problem Diabetes type 2, controlled E11.9 Active 4405 4006 Problem Generalized anxiety disorder F41.1 Active 218 04067 Problem Essential (primary) hypertension I10 Active 64932971 Problem Other secondary osteoarthritis, unspecified site M 19.93 Active 100115148 Problem Age-related memory disorder R41.3 Active 2314 61737 Problem Gastroesophageal reflux disease without esophagitis K21.9 Active 592923069 Problem 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 Active 444560631 Problem Severe episode of recurrent major depressive disorder, without psychotic features F33.2 Active 63673638 Problem 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 Active 59988 3000 Problem SIADH (syndrome of inappropriate ADH production) E 22.2 Active 83114180 Problem Chronic fatigue R53.82 Active 14441902 Problem Macrocytosis without anemia D75.89 Active 2343 82872 Problem Subclinical hypothyroidism E03.9 Active 52995 002 Problem Morbid obesity E66.01 Active 841766959 Problem Chronic pain syndrome G89.4 Active 052650363 ALLERGIES Allergen (clinical drug ingredient) Drug/Non Drug Allergy do cumented on EMR Reaction Allergy Type Onset Date Status Sulfazine high doses cause leukopenia Drug Allergy Active cephalexin Keflex([facility] Code:[address]-12) tongue swelling Drug Allerg y Active Wellbutrin gi side effects Drug Allergy Active ENCOUNTERS from 1957 to 2020-01-22 Encounter Location Date Provider Diagnosis [facility] Rheumatology [address] [place] [id number] 08 Jan, 2020 Becyk Mooney Fibromyalgia M79.7 ; Primary osteoarthri tis involving multiple joints M89.49 ; 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 and Ds DNA antibody positive R76.8 IMMUNIZATIONS Vaccine Route Administration Date Status Influenza [...] Education Language: Question Answer Notes Languages spoken: Maltese Buddhism: Question Answer Notes Buddhism No evangelical beliefs that would impact health care. Sexual [...] REASON FOR REFERRAL No Information VITAL SIGNS Weight 258.8 lbs Jan, Weight-kg 117.4 kg Jan, Height 67 in Jan, BMI 40.53 kg/m2 Jan, Heart Rate 100 /min Jan, Respiratory Rate 18 /min Jan, Temperature 96.7 degrees Fahrenheit Jan, Oximetry 98% Jan, Blood pressure systolic 142 mm Hg Jan, Blood pressure diastolic 70 mm Hg Jan, MEDICATIONS Medication SIG (Take, Route, Frequency, Duration) [...] Information RESULTS No Results REASON FOR VISIT per Pt pain and swelling all over MEDICAL (GENERAL) HISTORY Type Description Date Medical History hypothyroidism Medical History Type 2 DM with nephropathy/elev MIKKI Medical History hyperlipidemia Medical History fatty liver, abnl LFT's Medical History Metabolic syndrome Medical History IBS Medical History Fibromyalgia Medical History Vit D deficiency Medical History depression Medical History Inflammatory arthritis/ + AN A - Dr. Clemente (Rheumatology [facility]) - Sulfazine per Rhuematology which [...] Age related memory disorder - MRI brain 2016 showed small vessel dz, thyroid studies normal [...] Information ASSESSMENTS Encounter Date Diagnosis Notes Jan, Ds DNA antibody positive (ICD-10 - R76.8 ) Jan, Inflammatory polyarthritis (ICD-10 - M06 .4) Jan, Primary osteoarthritis involving multipl e joints (ICD-10 - M89.49) Jan, Fibromyalgia (ICD-10 - M79.7) PLAN OF TREATMENT Medication Medication Name Sig Start Date Stop Date AmLODIPine Besylate 2.5 MG 1 tablet Orally Once a day Lisinopril 20 MG 1 tablet Orally Once a day Levothyroxine Sodium 125 MCG 1 tablet on an empty stom ach in the morning Orally Once a day Treatment Notes Assessment Notes Clinical Notes Fibromyalgia Primary pain generator in th is patient is most likely fibromyalgia.She is on Effexor and amitriptyline to treat this issue and this should be continued.I strongly urged her to go back to pool exercise as this is a highly recommended treatment for fibromyalgia. Primary osteoarthritis involving multiple joints She h as osteoarthritis in knees and hands in addition to fibromyalgia.I suggested dietary modification i.e. cutting out sugars and carbs. Knee pain would be benefited by weight loss. Inflammatory polyarthritis There is most likely some l ow-grade inflammatory arthritis, she has now failed methotrexate and sulfasalazine.She has no recollection of being on Plaquenil so I suggested she try this drug at a dose of 200 mg by mouth twice a day.We reviewed risks, benefits, side effects of Plaquenil and she agrees to a trial of therapy.If there is a cost issue with Plaquenil she should let the office know. In that case we would refer her to good Rx for a discount coupon.We reviewed the need for an annual eye exam if she stays on this drug. Ds DNA antibody positive DNA antibody previously was low positive but in the setting of a negative REESE, which suggests a possible false positive result.Recheck this before the next visit. Future Test Test Name Order Date C REACTIVE PROTEIN QUANTITATIV (At [facility]) [id number] CBC with Differential [id number] ERYTHROCYTE SEDIMENTATION RATE [id number] Comprehensive Metabolic Profile (CMP) [id number] ANTI DOUBLE STRAND DNA LEIGH [id number] Next Appt Details 4 Months Reason: Provider Name:Janet Mooney, 2020-01 08:00:00 AM, [address], [address] Provider Name:Becky Mooney, 2020-05 09:45:00 AM, [address] [place] [address], [address], Insurance Providers Payer Name Payer Address Payer Phone Insured Name Patient Relati onship to Insured Coverage Start Date Coverage End Date MEDICARE COMPLETE [facility] [address] [address] [facility] [phone] CHANCE AUGUSTE self
--- OUTSIDE RECORDS SUMMARY | 2020-04-18 18:19 | CCD ---
Author Author [facility] Organization [facility] Address Unknown Phone Unavailable Care Team Providers Care Die Engraving Supervisor Name Role Phone SukiJannette barreto Unavailable PROBLEMS Type Condition ICD9-CM Code UMM90-VO Code Onset Dates Condition S tatus SNOMED Code Notes Problem Intervertebral disc disorders with radiculopathy , lumbar region M51.16 Active 094180984254430 Problem B12 deficiency anemia D51.9 Active 58263407 Problem Iron deficiency anemia D50.9 Active 31803903 Problem Other chronic pain G89.29 Active 34651254 Problem Leukopenia, unspecified type D72.819 Active 848 99996 Problem Spondylosis without myelopathy or radiculopathy, lumbar region M47.816 Active 12954425 Problem Spondylosis without myelopathy or radiculopathy, lumbosacral region M47.817 Active 77641291 Problem Unspecified personality disorder F60.9 Active 63588378 Problem Anemia D64.9 Active 092016153 Problem Rheumatoid arthritis involvi ng multiple sites, unspecified rheumatoid factor presence M06.9 Active 441089636 Problem Intestinal metaplasia of gastric mucosa K31.89 Active 61901691 Problem Spinal stenosis, lumbar region M48.06 Active 1 6926433 Problem Intervertebral disc disorders with radiculopathy , lumbosacral region M51.17 Active 5422254 Problem Obesity (BMI 30.0-34.9) E66.9 Active 58088573 4228403 Problem Chronic nausea R11.0 Active 423740432 Problem Fibromyalgia M79.7 Active 847362488 Problem Vitamin D deficiency, unspecified E55.9 Active 27581294 Problem Anemia complicating , unspecified trimester O99.019 Active 76967557 Problem Major depressive disorder, single episode, unspecified F32.9 Active 69159419 Problem Major depressive disorder, severe F32.2 Active 296864455 Problem Gastro-esophageal reflux disease without esophagitis K21.9 Active 540687800 Problem Major depressive disorder wi th single episode, remission status unspecified F32.9 Active 93787827 Problem Hypothyroidism, unspecified E03.9 Active 4093 0008 Problem Borderline personality disorder F60.3 Active 48561138 Problem Diabetes type 2, controlled E11.9 Active 4405 4006 Problem Generalized anxiety disorder F41.1 Active 218 32319 Problem Essential (primary) hypertension I10 Active 87885892 Problem Other secondary osteoarthritis, unspecified site M 19.93 Active 474364416 Problem Age-related memory disorder R41.3 Active 2314 92072 Problem Gastroesophageal reflux disease without esophagitis K21.9 Active 841756724 Problem 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 Active 039695976 Problem Severe episode of recurrent major depressive disorder, without psychotic features F33.2 Active 48847232 Problem 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 Active 84664 3000 Problem SIADH (syndrome of inappropriate ADH production) E 22.2 Active 56097925 Problem Chronic fatigue R53.82 Active 50763746 Problem Macrocytosis without anemia D75.89 Active 2343 42480 Problem Subclinical hypothyroidism E03.9 Active 58718 002 Problem Morbid obesity E66.01 Active 323779189 Problem Chronic pain syndrome G89.4 Active 301737187 ALLERGIES Allergen (clinical drug ingredient) Drug/Non Drug Allergy do cumented on EMR Reaction Allergy Type Onset Date Status Sulfazine high doses cause leukopenia Drug Allergy Active cephalexin Keflex([facility] Code:[address]-47) tongue swelling Drug Allerg y Active Wellbutrin gi side effects Drug Allergy Active ENCOUNTERS from 1957 to 2020-02-06 Encounter Location Date Provider Diagnosis [place] [id number] [facility] [place] [address] 15 Jan, 2020 Reg libia Evelia Essential (primary) hypertension I10 ; Encounter for screening mammogram for malignant neoplasm of breast Z12.31 ; 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 Sexual [...] FOR REFERRAL No Information VITAL SIGNS Weight 259 lbs Jan, Height 67 in Jan, BMI 40.56 kg/m2 Jan, Heart Rate 109 /min Jan, Respiratory Rate 18 /min Jan, Temperature 96.9 degrees Fahrenheit Jan, Oximetry 96 Jan, Blood pressure systolic 130 mm Hg Jan, Blood pressure diastolic 78 mm Hg Jan, MEDICATIONS Medication SIG (Take, [...] a day for 30 day(s) Active PROCEDURES Procedure Date Ordered Result Body Site Immunization: Flublok Quadrivalent (18 years & older) 0.5mL IM (Influenza) 2020-01-17 N/A RESULTS No Results REASON FOR VISIT 5 month follow up MEDICAL (GENERAL) HISTORY Type Description Date Medical History hypothyroidism Medical History Type 2 DM with nephropathy/elev MIKKI Medical History hyperlipidemia Medical History fatty liver, abnl LFT's Medical History Metabolic syndrome Medical History IBS Medical History Fibromyalgia Medical History Vit D deficiency Medical History depression Medical History Inflammatory arthritis/ + AN A - Dr. Clemente (Rheumatology [facility]) - Sulfazine per Rhuematology which causes [...] Information ASSESSMENTS Encounter Date Diagnosis Notes Jan, Diabetes type 2, controlled (ICD-10 - E1 1.9) Jan, Severe episode of recurrent major depressive disorder, without psychotic features (ICD-10 - F33.2) Jan, Inflammatory polyarthritis (ICD-10 - M06 .4) Jan, Encounter for immunization (ICD-10 - Z23 ) Jan, Hypothyroidism, unspecified (ICD-10 - E0 3.9) Jan, Encounter for screening mamm ogram for malignant neoplasm of breast (ICD-10 - Z12.31) Jan, Essential (primary) hypertension (ICD-10 - I10) PLAN OF TREATMENT Medication Medication Name Sig Start Date Stop Date AmLODIPine Besylate 2.5 MG 1 tablet Orally Once a day Lisinopril 20 MG 1 tablet Orally Once a day Levothyroxine Sodium 125 MCG 1 tablet on an empty stom ach in the morning Orally Once a day Treatment Notes Assessment Notes Clinical Notes Severe episode of recurrent major depres sive disorder, without psychotic features Continues to follow with Jazmín garay. She feels better than she has in a long time. Treatment Notes Test Name Order Date [facility] Anirudh Screening Bilateral (Ultrasound if Indicated ) (3D Mammo) 2020-02-06 Future Test Test Name Order Date CBC - Complete Blood Count [id number] Comprehensive Metabolic Profile (CMP) [id number] HEMOGLOBIN A1c [id number] FREE T4 & TSH PANEL [id number] LIPID PANEL (CARDIAC RISK) [id number] MICROALBUMIN RANDOM [id number] VITB12 & FOL [id number] Next Appt Details 6 Months, labs prior Reason: Provider Name:Janet Mooney, 2020-02 08:00:00 AM, [address] [place] [address], [phone] Provider Name:Becky Mooney, 2020-05 09:45:00 AM, [address] [place] [address], [address], Insurance Providers Payer Name Payer Address Payer Phone Insured Name Patient Relati onship to Insured Coverage Start Date Coverage End Date MEDICARE COMPLETE [facility] [address] [address] [facility] [id number] CHANCE AUGUSTE self
--- OUTSIDE RECORDS SUMMARY | 2020-04-18 18:19 | CCD ---
Author Author [facility] Organization [facility] Address Unknown Phone Unavailable Care Team Providers Care Dental Laboratory Supervisor Name Role Phone Hira Altamirano Unavailable PROBLEMS Type Condition ICD9-CM Code YMM46-DU Code Onset Dates Condition S tatus SNOMED Code Notes Problem Intervertebral disc disorders with radiculopathy , lumbar region M51.16 Active 117675305690891 Problem B12 deficiency anemia D51.9 Active 99100222 Problem Iron deficiency anemia D50.9 Active 68102893 Problem Other chronic pain G89.29 Active 44908957 Problem Leukopenia, unspecified type D72.819 Active 848 58217 Problem Spondylosis without myelopathy or radiculopathy, lumbar region M47.816 Active 55874342 Problem Spondylosis without myelopathy or radiculopathy, lumbosacral region M47.817 Active 86285106 Problem Unspecified personality disorder F60.9 Active 15162573 Problem Anemia D64.9 Active 602693973 Problem Rheumatoid arthritis involvi ng multiple sites, unspecified rheumatoid factor presence M06.9 Active 803830633 Problem Intestinal metaplasia of gastric mucosa K31.89 Active 12028708 Problem Spinal stenosis, lumbar region M48.06 Active 1 5346900 Problem Intervertebral disc disorders with radiculopathy , lumbosacral region M51.17 Active 2245856 Problem Obesity (BMI 30.0-34.9) E66.9 Active 60159638 1293840 Problem Chronic nausea R11.0 Active 971898237 Problem Fibromyalgia M79.7 Active 479818553 Problem Vitamin D deficiency, unspecified E55.9 Active 38025493 Problem Anemia complicating , unspecified trimester O99.019 Active 05418104 Problem Major depressive disorder, single episode, unspecified F32.9 Active 94924945 Problem Major depressive disorder, severe F32.2 Active 910691012 Problem Gastro-esophageal reflux disease without esophagitis K21.9 Active 286060118 Problem Major depressive disorder wi th single episode, remission status unspecified F32.9 Active 38873259 Problem Hypothyroidism, unspecified E03.9 Active 4093 0008 Problem Borderline personality disorder F60.3 Active 69742789 Problem Diabetes type 2, controlled E11.9 Active 4405 4006 Problem Generalized anxiety disorder F41.1 Active 218 19980 Problem Essential (primary) hypertension I10 Active 39214580 Problem Other secondary osteoarthritis, unspecified site M 19.93 Active 025083071 Problem Age-related memory disorder R41.3 Active 2314 87690 Problem Gastroesophageal reflux disease without esophagitis K21.9 Active 956391589 Problem 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 Active 465521532 Problem Severe episode of recurrent major depressive disorder, without psychotic features F33.2 Active 75485243 Problem 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 Code:[address]-09) tongue swelling Drug Allerg y Active Wellbutrin gi side effects Drug Allergy Active ENCOUNTERS from 1955 to 2020-02-12 Encounter Location Date Provider Diagnosis [facility] [address] [place] [address] Feb, Rene Altamirano IMMUNIZATIONS Vaccine Route Administration [...] Education Language: Question Answer Notes Languages spoken: Upper Sorbian Worship: Question Answer Notes Worship No voodoo beliefs that would impact health care. Sexual [...] twice daily for 30 days Jan, Active Acetaminophen Extra Strength 500 MG 2 [...] RESULTS No Results REASON FOR VISIT famotidine 40mg MEDICAL (GENERAL) HISTORY Type Description Date Medical History hypothyroidism Medical History Type 2 DM with nephropathy/elev MIKKI Medical History hyperlipidemia Medical History fatty liver, abnl LFT's Medical History Metabolic syndrome Medical History IBS Medical History Fibromyalgia Medical History Vit D deficiency Medical History depression Medical History Inflammatory arthritis/ + AN A - Dr. Clemente (Rheumatology [facility]) - Sulfazine per Rhuematology which [...] severe tricompartamental OA [facility] Medical History Anemia Medical History Age related [...] in the morning Orally Once a day Famotidine 40 MG 1 tablet at bedtime Orally Twice a day for 14 Next Appt Details Provider Name:Janet Mooney, 2020-02 08:00:00 AM[facility] [address] [facility] [address], [address] Provider Name:Becky Mooney, 2020-05 09:45:00 AM, [address] [place] [address], [address], Insurance Providers Payer Name Payer Address Payer Phone Insured Name Patient Relati onship to Insured Coverage Start Date Coverage End Date MEDICARE COMPLETE [facility] [address] [address] [facility] [id number] [place]ANCE [place]E self
--- OUTSIDE RECORDS SUMMARY | 2020-04-18 18:20 | CCD ---
Author Author [facility] Organization [facility] Address Unknown Phone Unavailable Care Team Providers Care Maturity Checker Name Role Phone DRAZEK, I CATIA PA Unavailable Unavailable DRAZEK, I CATIA PA Unavailable Unavailable DRAZEK, I CATIA PA Unavailable Unavailable DRAZEK, I CATIA PA Unavailable Unavailable DRAZEK, I CATIA PA Unavailable Unavailable DRAZEK, I CATIA PA Unavailable Unavailable DRAZEK, I CATIA PA Unavailable Unavailable DRAZEK, I CATIA PA Unavailable Unavailable DRAZEK, I CATIA PA Unavailable Unavailable DRAZEK, I CATIA PA Unavailable Unavailable DRAZEK, I CATIA PA Unavailable Unavailable DRAZEK, I CATIA PA Unavailable Unavailable DRAZEK, I CATIA PA Unavailable Unavailable DRAZEK, I CATIA PA Unavailable Unavailable DRAZEK, I CATIA PA Unavailable Unavailable DRAZEK, I CATIA PA Unavailable Unavailable DRAZEK, I CATIA PA Unavailable Unavailable DRAZEK, I CATIA PA Unavailable Unavailable DRAZEK, I CATIA PA Unavailable Unavailable DRAZEK, I CATIA PA Unavailable Unavailable DRAZEK, I CATIA PA Unavailable Unavailable DRAZEK, I CATIA PA Unavailable Unavailable DRAZEK, I CATIA PA Unavailable Unavailable DRAZEK, I CATIA PA Unavailable Unavailable DRAZEK, I CATIA PA Unavailable Unavailable DRAZEK, I CATIA PA Unavailable Unavailable DRAZEK, I CATIA PA Unavailable Unavailable DRAZEK, I CATIA PA Unavailable Unavailable DRAZEK, I CATIA PA Unavailable Unavailable DRAZEK, I CATIA PA Unavailable Unavailable KHAIRALLAH, RAMZI MD Unavailable Unavailable KHAIRALLAH, RAMZI MD Unavailable Unavailable KHAIRALLAH, RAMZI MD Unavailable Unavailable KHAIRALLAH, RAMZI MD Unavailable Unavailable KHAIRALLAH, RAMZI MD Unavailable Unavailable KHAIRALLAH, RAMZI MD Unavailable Unavailable KHAIRALLAH, RAMZI MD Unavailable Unavailable KHAIRALLAH, RAMZI MD Unavailable Unavailable KHAIRALLAH, RAMZI MD Unavailable Unavailable KHAIRALLAH, RAMZI MD Unavailable Unavailable KHAIRALLAH, RAMZI MD Unavailable Unavailable KHAIRALLAH, RAMZI MD Unavailable Unavailable KHAIRALLAH, RAMZI MD Unavailable Unavailable KHAIRALLAH, RAMZI MD Unavailable Unavailable KHAIRALLAH, RAMZI MD Unavailable Unavailable KHAIRALLAH, RAMZI MD Unavailable Unavailable KHAIRALLAH, RAMZI MD Unavailable Unavailable KHAIRALLAH, RAMZI MD Unavailable Unavailable KHAIRALLAH, RAMZI MD Unavailable Unavailable KHAIRALLAH, RAMZI MD Unavailable Unavailable KHAIRALLAH, RAMZI MD Unavailable Unavailable KHAIRALLAH, RAMZI MD Unavailable Unavailable KHAIRALLAH, RAMZI MD Unavailable Unavailable KHAIRALLAH, RAMZI MD Unavailable Unavailable KHAIRALLAH, RAMZI MD Unavailable Unavailable KHAIRALLAH, RAMZI MD Unavailable Unavailable KHAIRALLAH, RAMZI MD Unavailable Unavailable KHAIRALLAH, RAMZI MD Unavailable Unavailable KHAIRALLAH, RAMZI MD Unavailable Unavailable KHAIRALLAH, RAMZI MD Unavailable Unavailable KHAIRALLAH, RAMZI MD Unavailable Unavailable KHAIRALLAH, RAMZI MD Unavailable Unavailable KHAIRALLAH, RAMZI MD Unavailable Unavailable KHAIRALLAH, RAMZI MD Unavailable Unavailable KHAIRALLAH, RAMZI MD Unavailable Unavailable KHAIRALLAH, RAMZI MD Unavailable Unavailable KHAIRALLAH, RAMZI MD Unavailable Unavailable KHAIRALLAH, RAMZI MD Unavailable Unavailable KHAIRALLAH, RAMZI MD Unavailable Unavailable KHAIRALLAH, RAMZI MD Unavailable Unavailable KHAIRALLAH, RAMZI MD Unavailable Unavailable KHAIRALLAH, RAMZI MD Unavailable Unavailable KHAIRALLAH, RAMZI MD Unavailable Unavailable KHAIRALLAH, RAMZI MD Unavailable Unavailable KHAIRALLAH, RAMZI MD Unavailable Unavailable KHAIRALLAH, RAMZI MD Unavailable Unavailable KHAIRALLAH, RAMZI MD Unavailable Unavailable KHAIRALLAH, RAMZI MD Unavailable Unavailable KHAIRALLAH, RAMZI MD Unavailable Unavailable KHAIRALLAH, RAMZI MD Unavailable Unavailable KHAIRALLMARLON, RAMZI MD Unavailable Unavailable KHAIRALLMARLON, RAMZI MD Unavailable Unavailable KHAIRALLMARLON, RAMZI MD Unavailable Unavailable KHAIRALLMARLON, RAMPASCUAL MD Unavailable Unavailable KHAIRALLMARLON, RAMZI MD Unavailable Unavailable KHAIRALLMARLON RAMZI MD Unavailable Unavailable KHAIRALLMARLON, RAMZI MD Unavailable Unavailable KHAIRALLMARLON, RAMZI MD Unavailable Unavailable KHAIRALLMARLON, RAMZI MD Unavailable Unavailable KHAIRALLMARLON, RAMZI MD Unavailable Unavailable KHAIRALLMARLON, RAMZI MD Unavailable Unavailable KHAIRALLMARLON, RAMZI MD Unavailable Unavailable KHAIRALLMARLON, RAMZI MD Unavailable Unavailable KHAIRALLMARLON, RAMZI MD Unavailable Unavailable KHAIRALLMARLON, RAMZI MD Unavailable Unavailable KHAIRALLMARLON, RAMPASCUAL MD Unavailable Unavailable KHAIRALLMARLON, RAMZI MD Unavailable Unavailable KHAIROMAR, RAMPASCUAL MD Unavailable Unavailable KHAIROMAR, RAMZI MD Unavailable Unavailable KHAIROMAR, RAMZI MD Unavailable Unavailable KHAIROMAR, RAMZI MD Unavailable Unavailable KHDARIELA, RAMPASCUAL MD Unavailable Unavailable NELY, RAMPASCUAL MD Unavailable Unavailable NELY, RAMPASCUAL MD Unavailable Unavailable KHAIROMAR, RAMZI MD Unavailable Unavailable REMIGIOAIROMAR, RAMPASCUAL MD Unavailable Unavailable KHAIROMAR, RAMPASCUAL MD Unavailable Unavailable NELY, RAMPASCUAL MD Unavailable Unavailable NELY, RAMPASCUAL MD Unavailable Unavailable NELY, RAMPASCUAL MD Unavailable Unavailable KHAIROMAR, RAMZI MD Unavailable Unavailable KHAIROMAR, RAMPASCUAL MD Unavailable Unavailable KHAIROMAR, RAMZI MD Unavailable Unavailable KHAIROMAR, RAMPASCUAL MD Unavailable Unavailable NELY, RAMPASCUAL MD Unavailable Unavailable DRAZEK, I CATIA PA Unavailable Unavailable DRAZEK, I CATIA PA Unavailable Unavailable DRAZEK, I CATIA PA Unavailable Unavailable DRAZEK, I CATIA PA Unavailable Unavailable DRAZEK, I CATIA PA Unavailable Unavailable DRAZEK, I CATIA PA Unavailable Unavailable DRAZEK, I CATIA PA Unavailable Unavailable DRAZEK, I CATIA PA Unavailable Unavailable DRAZEK, I CATIA PA Unavailable Unavailable DRAZEK, I CATIA PA Unavailable Unavailable DRAZEK, I CATIA PA Unavailable Unavailable DRAZEK, I CATIA PA Unavailable Unavailable DRAZEK, I CATIA PA Unavailable Unavailable DRAZEK, I CATIA PA Unavailable Unavailable DRAZEK, I CATIA PA Unavailable Unavailable DRAZEK, I CATIA PA Unavailable Unavailable DRAZEK, I CATIA PA Unavailable Unavailable DRAZEK, I CATIA PA Unavailable Unavailable DRAZEK, I CATIA PA Unavailable Unavailable DRAZEK, I CATIA PA Unavailable Unavailable DRAZEK, I CATIA PA Unavailable Unavailable DRAZEK, I CATIA PA Unavailable Unavailable DRAZEK, I CATIA PA Unavailable Unavailable DRAZEK, I CATIA PA Unavailable Unavailable DRAZEK, I CATIA PA Unavailable Unavailable DRAZEK, I CATIA PA Unavailable Unavailable DRAZEK, I CATIA PA Unavailable Unavailable DRAZEK, I CATIA PA Unavailable Unavailable DRAZEK, I CATIA PA Unavailable Unavailable DRAZEK, I CATIA PA Unavailable Unavailable Re-disclosure Warning The records that you are about to access may contain information from federally-assisted alcohol or drug abuse programs. If such information is present, then the following federally mandated warning applies: This information has been disclosed to you from records protected by federal confidentiality rules (42 CFR part 2). The federal rules prohibit you from making any further disclosure of this information unless further disclosure is expressly permitted by the written consent of the person to whom it pertains or as otherwise permitted by 42 CFR part 2. A general authorization for the release of medical or other information is NOT sufficient for this purpose. The Federal rules restrict any use of the information to criminally investigate or prosecute any alcohol or drug abuse patient.The records that you are about to access may contain highly sensitive health information, the redisclosure of which is protected by Article 27-F of the [facility] Public Health law. If you continue you may have access to information: Regarding HIV / AIDS; Provided by facilities licensed or operated by the [facility] Office of Mental Health; or Provided by the [facility] Office for People With Developmental Disabilities. If such information is present, then the following [facility] mandated warning applies: This information has been disclosed to you from confidential records which are protected by state law. State law prohibits you from making any further disclosure of this information without the specific written consent of the person to whom it pertains, or as otherwise permitted by law. Any unauthorized further disclosure in violation of state law may result in a fine or snf sentence or both. A general authorization for the release of medical or other information is NOT sufficient authorization for further disc losure. Allergies and Adverse Reactions Type Description Substance Reaction Status Data Source(s ) Drug allergy Keflex Cephalexin tongue swelling Active eCW1 ( [facility]) Drug allergy Sulfazine Drug allergy high doses cause leukopenia Act emery eCW1 ([facility]) Wellbutrin Wellbutrin Wellbutrin gi side effects Active eCW1 ([facility]) Wellbutrin Wellbutrin Wellbutrin gi side effects Active eCW1 ([facility]) Family History Family Member Name Family Member Gender Family Member Status Date o f Status Description Data Source(s) Unknown Male Problem MEDENT ([facility] ) Unknown Male Problem MEDENT ([facility] ) Unknown Unknown Problem MEDENT ([facility], ) Unknown Unknown Problem MEDENT ([facility], ) Unknown Unknown Problem MEDENT ([facility]) Unknown Male Encounters Encounter Providers Location Date Indications Data Source(s ) Attender: ROS MCKAY MD [facility] 04/15/2020 07:07:00 PM EST - 04/15/2020 07:07:00 PM EST [facility] ( [facility]) Unknown [address] [facility] [address] 04/15/2020 12:00:00 AM EST eCW1 ([facility]) [place] [address] [facility] [address] 04/08/2020 12:00:00 AM EST eCW1 ([facility]) Unknown [address] [facility] [address] 03/31/2020 12:00:00 AM EST eCW1 ([facility]) [facility] Scheduled Visit [address] [place] [address] 03/11/2020 12:00:00 AM EST eCW1 ([facility]) [facility] Scheduled Visit [address] [place] [address] 02/19/2020 12:00:00 AM EST eCW1 ([facility]) [place] [address] [facility] [address] 02/19/2020 12:00:00 AM EST eCW1 ([facility]) Unknown [address] [facility] [address] 02/14/2020 12:00:00 AM EST eCW1 ([facility]) Unknown [address] [facility] [place] [address] 02/13/2020 12:00:00 AM EST eCW1 ([facility]) Unknown [address] [facility] [address] 02/13/2020 12:00:00 AM EST eCW1 ([facility]) Unknown [address] [facility] [place] [address] 02/12/2020 12:00:00 AM EST eCW1 ([facility]) Unknown [address] [facility] [address] 02/11/2020 12:00:00 AM EST eCW1 ([facility]) ([facility]) [facility] Scheduled Visit [address] [place] [address] 01/29/2020 12:00:00 AM EDT eCW1 ([facility]) Outpatient [address] [facility] [address] 01/17/2020 12:00:00 AM EDT eCW1 ([facility]) [facility] Octavio [address] [facility] [address] 01/16/2020 12:00:00 AM EDT eCW1 ([facility]) Office Visit, Est Pt., Level 4 PC [address] [place] [address] 01/10/2020 12:00:00 AM EDT eCW1 ([facility]) Unknown [address] [facility] [address] 10/22/2019 12:00:00 AM EDT eCW1 ([facility]) [facility] Octavio [address] [facility] [address] 10/16/2019 12:00:00 AM EDT eCW1 ([facility]) ([facility]) [facility] Scheduled Visit [address] [place] [address] 10/15/2019 12:00:00 AM EDT eCW1 ([facility]) Unknown [address] [facility] [place] [address] 10/15/2019 12:00:00 AM EDT eCW1 ([facility]) Outpatient [address] [facility] [place] [address] 10/08/2019 12:00:00 AM EDT eCW1 ([facility]) Outpatient Attender: CATIA POP Physical Therapy 10/03/2019 0 1:30:00 PM EDT MEDENT ([facility]) Outpatient Attender: CATIA POP Physical Therapy 09/24/2019 1 1:30:00 AM EDT MEDENT ([facility]) ([facility]) [facility] Scheduled Visit [address] [place] [address] 09/12/2019 12:00:00 AM EDT eCW1 ([facility]) Unknown [address] [facility] [place] [address] 09/11/2019 12:00:00 AM EDT eCW1 ([facility]) Outpatient [address] [facility] [place] [address] 09/05/2019 12:00:00 AM EDT eCW1 ([facility]) Unknown [address] [facility] [place] [address] 09/05/2019 12:00:00 AM EDT eCW1 ([facility]) Unknown [address] [facility] [place] [address] 09/05/2019 12:00:00 AM EDT eCW1 ([facility]) [facility] [address] [place] [address] 08/28/2019 12:00:00 AM EDT eCW1 ([facility]) Outpatient Attender: CATIA POP Physical Therapy 08/15/2019 1 0:30:00 AM EDT MEDENT ([facility]) Outpatient Referrer: CATIA POP 08/15/2019 05:58:00 AM EDT [facility] [address] [place] [address] [place] [address] 08/14/2019 12:00:00 AM EDT eCW1 ([facility]) [address] [address] 08/07/2019 12:00:00 AM EDT eCW1 ([facility]) [facility] [address] [place] [address] 07/31/2019 12:00:00 AM EDT eCW1 ([facility]) [address] [address] 07/23/2019 12:00:00 AM EDT eCW1 ([facility]) [facility] [address] [place] [address] 07/18/2019 12:00:00 AM EDT eCW1 ([facility]) Outpatient Attender: CATIA POP Physical Therapy 07/17/2019 0 2:00:00 PM EDT MEDENT ([facility]) [facility] [address] [place] [address] Y [address] 07/11/2019 12:00:00 AM EDT eCW1 ([facility]) [address] [address] 07/06/2019 12:00:00 AM EDT eCW1 ([facility]) [address] [address] 06/14/2019 12:00:00 AM EDT eCW1 ([facility]) [address] [address] 06/14/2019 12:00:00 AM EDT eCW1 ([facility]) [address] [place] [address] 06/14/2019 12:00:00 AM EDT eCW1 ([facility]) [facility] [address] [facility] [address] 06/12/2019 12:00:00 AM EDT eCW1 ([facility]) 06/11/2019 12:43:00 PM EDT - 020 12:43:00 PM EDT [facility] ([facility]) Outpatient Attender: CATIA POP Physical Therapy 06/07/2019 0 9:00:00 AM EST MEDENT ([facility]) [facility] [address] [place] [address] 06/07/2019 12:00:00 AM EST eCW1 ([facility]) [facility] [address] [place] [address] Y [address] 05/28/2019 12:00:00 AM EST eCW1 ([facility]) [address] [address] 05/23/2019 12:00:00 AM EST eCW1 ([facility]) [facility] [address] [place] [address] Y [address] 05/11/2019 12:00:00 AM EST eCW1 ([facility]) [facility] [place] [address] [place] [address] [place] [address] 05/10/2019 12:00:00 AM EST eCW1 ([facility]) [address] [address] 05/07/2019 12:00:00 AM EST eCW1 ([facility]) [address] [address] 04/20/2019 12:00:00 AM EST eCW1 ([facility]) Outpatient Attender: CATIA POP Physical Therapy 04/13/2019 1 2:30:00 PM EST MEDENT ([facility]) [address] [place] [address] 04/12/2019 12:00:00 AM EST eCW1 ([facility]) [facility] [place] [address] [facility] [address] 04/11/2019 12:00:00 AM EST eCW1 ([facility]) [facility] [address] [facility] [place] [address] 04/06/2019 12:00:00 AM EST eCW1 ([facility]) [facility] Octavio [address] [place] [address], [place] [address] 04/06/2019 12:00:00 AM EST eCW1 ([facility]) [facility] [address] [facility] [place] [address] 04/06/2019 12:00:00 AM EST eCW1 ([facility]) [facility] Octavio [address] [place] [address] Y [address] 04/06/2019 12:00:00 AM EST eCW1 ([facility]) [address] [address] 04/05/2019 12:00:00 AM EST eCW1 ([facility]) [facility] Octavio [address] [place] [address], [place] [address] 04/05/2019 12:00:00 AM EST eCW1 ([facility]) [facility] Octavio [address] [place] [address] [place] [address] 04/02/2019 12:00:00 AM EST eCW1 ([facility]) [facility] Octavio [address] [place] [address], [place] [address] 03/20/2019 12:00:00 AM EST eCW1 ([facility]) [address] [address] 03/13/2019 12:00:00 AM EST eCW1 ([facility]) [facility] [address] [place] [address] Y [address] 03/07/2019 12:00:00 AM EST eCW1 ([facility]) [facility] Oct[place] [address] [facility] [address] 03/06/2019 12:00:00 AM EST eCW1 ([facility]) [facility] [place] [address] [facility] [address] 03/06/2019 12:00:00 AM EST eCW1 ([facility]) [facility] Octavio [address] [place] [address] 02/23/2019 12:00:00 AM EST eCW1 ([facility]) Immunizations Vaccine Date Status Description Data Source(s) influenza, recombinant, quadrIvalent,injectable, prese rvative free 01/17/2020 11:24:00 AM EDT completed eCW1 ([facility]) influenza, recombinant, quadrIvalent,injectable, prese rvative free 01/17/2020 11:24:00 AM EDT completed eCW1 ([facility]) influenza, recombinant, quadrIvalent,injectable, prese rvative free 01/17/2020 11:24:00 AM EDT completed eCW1 ([facility]) influenza, recombinant, quadrIvalent,injectable, prese rvative free 01/17/2020 11:24:00 AM EDT completed eCW1 ([facility]) influenza, recombinant, quadrIvalent,injectable, prese rvative free 01/17/2020 11:24:00 AM EDT completed eCW1 ([facility]) influenza, recombinant, quadrIvalent,injectable, prese rvative free 01/17/2020 11:24:00 AM EDT completed eCW1 ([facility]) influenza, recombinant, quadrIvalent,injectable, prese rvative free 01/17/2020 11:24:00 AM EDT completed eCW1 ([facility]) influenza, recombinant, quadrIvalent,injectable, prese rvative free 01/17/2020 11:24:00 AM EDT completed eCW1 ([facility]) influenza, recombinant, quadrIvalent,injectable, prese rvative free 01/17/2020 11:24:00 AM EDT completed eCW1 ([facility]) influenza, recombinant, quadrIvalent,injectable, prese rvative free 01/17/2020 11:24:00 AM EDT completed eCW1 ([facility]) influenza, recombinant, quadrIvalent,injectable, prese rvative free 01/17/2020 11:24:00 AM EDT completed eCW1 ([facility]) influenza, recombinant, quadrIvalent,injectable, prese rvative free 01/17/2020 11:24:00 AM EDT completed eCW1 ([facility]) influenza, recombinant, quadrIvalent,injectable, prese rvative free 01/17/2020 11:24:00 AM EDT completed eCW1 ([facility]) influenza, recombinant, quadrIvalent,injectable, prese rvative free 01/17/2020 11:24:00 AM EDT completed eCW1 ([facility]) Note that this vaccine name has changed. See also Td (adult). It is not adsorbed. 04/06/2019 03:18:00 PM EST completed eCW1 ([facility]) Note that this vaccine name has changed. See also Td (adult). It is not adsorbed. 04/06/2019 03:18:00 PM EST completed eCW1 ([facility]) Note that this vaccine name has changed. See also Td (adult). It is not adsorbed. 04/06/2019 03:18:00 PM EST completed eCW1 ([facility]) Note that this vaccine name has changed. See also Td (adult). It is not adsorbed. 04/06/2019 03:18:00 PM EST completed eCW1 ([facility]) Note that this vaccine name has changed. See also Td (adult). It is not adsorbed. 04/06/2019 03:18:00 PM EST completed eCW1 ([facility]) Note that this vaccine name has changed. See also Td (adult). It is not adsorbed. 04/06/2019 03:18:00 PM EST completed eCW1 ([facility]) Note that this vaccine name has changed. See also Td (adult). It is not adsorbed. 04/06/2019 03:18:00 PM EST completed eCW1 ([facility]) Note that this vaccine name has changed. See also Td (adult). It is not adsorbed. 04/06/2019 03:18:00 PM EST completed eCW1 ([facility]) Note that this vaccine name has changed. See also Td (adult). It is not adsorbed. 04/06/2019 03:18:00 PM EST completed eCW1 ([facility]) Note that this vaccine name has changed. See also Td (adult). It is not adsorbed. 04/06/2019 03:18:00 PM EST completed eCW1 ([facility]) Note that this vaccine name has changed. See also Td (adult). It is not adsorbed. 04/06/2019 03:18:00 PM EST completed eCW1 ([facility]) Note that this vaccine name has changed. See also Td (adult). It is not adsorbed. 04/06/2019 03:18:00 PM EST completed eCW1 ([facility]) Note that this vaccine name has changed. See also Td (adult). It is not adsorbed. 04/06/2019 03:18:00 PM EST completed eCW1 ([facility]) Note that this vaccine name has changed. See also Td (adult). It is not adsorbed. 04/06/2019 03:18:00 PM EST completed eCW1 ([facility]) Note that this vaccine name has changed. See also Td (adult). It is not adsorbed. 04/06/2019 03:18:00 PM EST completed eCW1 ([facility]) Note that this vaccine name has changed. See also Td (adult). It is not adsorbed. 04/06/2019 03:18:00 PM EST completed eCW1 ([facility]) Note that this vaccine name has changed. See also Td (adult). It is not adsorbed. 04/06/2019 03:18:00 PM EST completed eCW1 ([facility]) Note that this vaccine name has changed. See also Td (adult). It is not adsorbed. 04/06/2019 03:18:00 PM EST completed eCW1 ([facility]) Note that this vaccine name has changed. See also Td (adult). It is not adsorbed. 04/06/2019 03:18:00 PM EST completed eCW1 ([facility]) Note that this vaccine name has changed. See also Td (adult). It is not adsorbed. 04/06/2019 03:18:00 PM EST completed eCW1 ([facility]) Note that this vaccine name has changed. See also Td (adult). It is not adsorbed. 04/06/2019 03:18:00 PM EST completed eCW1 ([facility]) Note that this vaccine name has changed. See also Td (adult). It is not adsorbed. 04/06/2019 03:18:00 PM EST completed eCW1 ([facility]) Note that this vaccine name has changed. See also Td (adult). It is not adsorbed. 04/06/2019 03:18:00 PM EST completed eCW1 ([facility]) Medications Medication Brand Name Start Date Product Form Dose Route Admi nistrative Instructions Pharmacy Instructions Status Indications Reaction Description Data Source(s) 800 mg 02/15/2020 12:00:00 AM EST tablet 7 TAKE ONE TABLET BY MOUTH AT BEDTIME FOR 7 DAYS TAKE ONE TABLET BY MOUTH AT BEDTIME FOR 7 DAYS SOLD: 02/16/2020 [employer] Cimetidine 800 MG Oral Tablet Cimetidine 800 MG 02/14/2020 12:00:00 AM EST 1.0 {tablet_at_bedtime} active Cimetidine 8 00 MG eCW1 ([facility]) pantoprazole 40 MG Delayed Release Oral Tablet PANTOPRAZOLE SODIUM 02/14/2020 12:00:00 AM EST tablet,delayed release (DR/EC) 14 T ELVIRA ONE TABLET BY MOUTH TWICE A DAY FOR 7 DAYS TAKE ONE TABLET BY MOUTH TWICE A DAY FOR 7 DAYS SOLD: 02/16/2020 [facility] Cimetidine 800 MG Oral Tablet Cimetidine 800 MG 02/14/2020 12:00:00 AM EST 1.0 {tablet_at_bedtime} active Cimetidine 8 00 MG eCW1 ([facility]) Cimetidine 800 MG Oral Tablet Cimetidine 800 MG 02/14/2020 12:00:00 AM EST 1.0 {tablet_at_bedtime} active Cimetidine 8 00 MG eCW1 ([facility]) Cimetidine 800 MG Oral Tablet Cimetidine 800 MG 02/14/2020 12:00:00 AM EST 1.0 {tablet_at_bedtime} active Cimetidine 8 00 MG eCW1 ([facility]) Cimetidine 800 MG Oral Tablet Cimetidine 800 MG 02/14/2020 12:00:00 AM EST 1.0 {tablet_at_bedtime} active Cimetidine 8 00 MG eCW1 ([facility]) Cimetidine 800 MG Oral Tablet Cimetidine 800 MG 02/14/2020 12:00:00 AM EST 1.0 {tablet_at_bedtime} active Cimetidine 8 00 MG eCW1 ([facility]) Cimetidine 800 MG Oral Tablet Cimetidine 800 MG 02/14/2020 12:00:00 AM EST 1.0 {tablet_at_bedtime} active Cimetidine 8 00 MG eCW1 ([facility]) Cimetidine 800 MG Oral Tablet Cimetidine 800 MG 02/14/2020 12:00:00 AM EST 1.0 {tablet_at_bedtime} active Cimetidine 8 00 MG eCW1 ([facility]) Cimetidine 800 MG Oral Tablet Cimetidine 800 MG 02/14/2020 12:00:00 AM EST 1.0 {tablet_at_bedtime} active Cimetidine 8 00 MG eCW1 ([facility]) Hydroxychloroquine Sulfate 200 MG Oral Tablet [Plaquen il] Plaquenil 200 MG Plaquenil 200 MG 01/10/2020 12:00:00 AM EDT a ctive Plaquenil 200 MG eCW1 ([facility]) Hydroxychloroquine Sulfate 200 MG Oral Tablet [Plaquen il] Plaquenil 200 MG Plaquenil 200 MG 01/10/2020 12:00:00 AM EDT a ctive Plaquenil 200 MG eCW1 ([facility]) Hydroxychloroquine Sulfate 200 MG Oral Tablet [Plaquen il] Plaquenil 200 MG Plaquenil 200 MG 01/10/2020 12:00:00 AM EDT a ctive Plaquenil 200 MG eCW1 ([facility]) Hydroxychloroquine Sulfate 200 MG Oral Tablet [Plaquen il] Plaquenil 200 MG Plaquenil 200 MG 01/10/2020 12:00:00 AM EDT a ctive Plaquenil 200 MG eCW1 ([facility]) Hydroxychloroquine Sulfate 200 MG Oral Tablet [Plaquen il] Plaquenil 200 MG Plaquenil 200 MG 01/10/2020 12:00:00 AM EDT a ctive Plaquenil 200 MG eCW1 ([facility]) Hydroxychloroquine Sulfate 200 MG Oral Tablet [Plaquen il] Plaquenil 200 MG Plaquenil 200 MG 01/10/2020 12:00:00 AM EDT a ctive Plaquenil 200 MG eCW1 ([facility]) Hydroxychloroquine Sulfate 200 MG Oral Tablet [Plaquen il] Plaquenil 200 MG Plaquenil 200 MG 01/10/2020 12:00:00 AM EDT a ctive Plaquenil 200 MG eCW1 ([facility]) Hydroxychloroquine Sulfate 200 MG Oral Tablet [Plaquen il] Plaquenil 200 MG Plaquenil 200 MG 01/10/2020 12:00:00 AM EDT a ctive Plaquenil 200 MG eCW1 ([facility]) Hydroxychloroquine Sulfate 200 MG Oral Tablet [Plaquen il] Plaquenil 200 MG Plaquenil 200 MG 01/10/2020 12:00:00 AM EDT a ctive Plaquenil 200 MG eCW1 ([facility]) Hydroxychloroquine Sulfate 200 MG Oral Tablet [Plaquen il] Plaquenil 200 MG Plaquenil 200 MG 01/10/2020 12:00:00 AM EDT a ctive Plaquenil 200 MG eCW1 ([facility]) Hydroxychloroquine Sulfate 200 MG Oral Tablet [Plaquen il] Plaquenil 200 MG Plaquenil 200 MG 01/10/2020 12:00:00 AM EDT a ctive Plaquenil 200 MG eCW1 ([facility]) Hydroxychloroquine Sulfate 200 MG Oral Tablet [Plaquen il] Plaquenil 200 MG Plaquenil 200 MG 01/10/2020 12:00:00 AM EDT a ctive Plaquenil 200 MG eCW1 ([facility]) Hydroxychloroquine Sulfate 200 MG Oral Tablet [Plaquen il] Plaquenil 200 MG Plaquenil 200 MG 01/10/2020 12:00:00 AM EDT a ctive Plaquenil 200 MG eCW1 ([facility]) Hydroxychloroquine Sulfate 200 MG Oral Tablet [Plaquen il] Plaquenil 200 MG Plaquenil 200 MG 01/10/2020 12:00:00 AM EDT a ctive Plaquenil 200 MG eCW1 ([facility]) Hydroxychloroquine Sulfate 200 MG Oral Tablet [Plaquen il] Plaquenil 200 MG Plaquenil 200 MG 01/10/2020 12:00:00 AM EDT a ctive Plaquenil 200 MG eCW1 ([facility]) NITROFURANTOIN, MACROCRYSTALS 25 MG / Ni trofurantoin, Monohydrate 75 MG Oral Capsule [Macrobid] Macrobid 100 MG Macrobid 100 MG 10/08/2019 12:00:00 AM EDT 1.0 {capsule} active Macrobid 100 MG eC W1 ([facility]) NITROFURANTOIN, MACROCRYSTALS 25 MG / Ni trofurantoin, Monohydrate 75 MG Oral Capsule [Macrobid] Macrobid 100 MG Macrobid 100 MG 10/08/2019 12:00:00 AM EDT 1.0 {capsule} active Macrobid 100 MG eC W1 ([facility]) NITROFURANTOIN, MACROCRYSTALS 25 MG / Ni trofurantoin, Monohydrate 75 MG Oral Capsule [Macrobid] Macrobid 100 MG Macrobid 100 MG 10/08/2019 12:00:00 AM EDT 1.0 {capsule} active Macrobid 100 MG eC W1 ([facility]) NITROFURANTOIN, MACROCRYSTALS 25 MG / Ni trofurantoin, Monohydrate 75 MG Oral Capsule [Macrobid] Macrobid 100 MG Macrobid 100 MG 10/08/2019 12:00:00 AM EDT 1.0 {capsule} active Macrobid 100 MG eC W1 ([facility]) Methotrexate 2.5 MG Oral Tablet Methotrexate Sodium 2. 5 MG Methotrexate Sodium 2.5 MG 09/05/2019 12:00:00 AM EDT suspended Methotrexate Sodium 2.5 MG eCW1 ([facility]) Methotrexate 2.5 MG Oral Tablet Methotrexate Sodium 2. 5 MG Methotrexate Sodium 2.5 MG 09/05/2019 12:00:00 AM EDT active Methotrexate Sodium 2.5 MG eCW1 ([facility]) Folic Acid 1 MG Oral Tablet Folic Acid 1 MG 09/05/2019 12:00:00 AM EDT 1.0 {tablet} suspended Folic Acid 1 MG eCW1 ([facility]) Folic Acid 1 MG Oral Tablet Folic Acid 1 MG 09/05/2019 12:00:00 AM EDT 1.0 {tablet} active Folic Acid 1 MG eCW1 ([facility]) Methotrexate 2.5 MG Oral Tablet Methotrexate Sodium 2. 5 MG Methotrexate Sodium 2.5 MG 09/05/2019 12:00:00 AM EDT active Methotrexate Sodium 2.5 MG eCW1 ([facility]) Medrol 4 MG Medrol 4 MG 09/05/2019 12:00:00 AM EDT suspended Medrol 4 MG eCW1 ([facility]) Methotrexate 2.5 MG Oral Tablet Methotrexate Sodium 2. 5 MG Methotrexate Sodium 2.5 MG 09/05/2019 12:00:00 AM EDT active Methotrexate Sodium 2.5 MG eCW1 ([facility]) Medrol 4 MG Medrol 4 MG 09/05/2019 12:00:00 AM EDT active Medrol 4 MG eCW1 ([facility]) Folic Acid 1 MG Oral Tablet Folic Acid 1 MG 09/05/2019 12:00:00 AM EDT 1.0 {tablet} active Folic Acid 1 MG eCW1 ([facility]) Folic Acid 1 MG Oral Tablet Folic Acid 1 MG 09/05/2019 12:00:00 AM EDT 1.0 {tablet} active Folic Acid 1 MG eCW1 ([facility]) Folic Acid 1 MG Oral Tablet Folic Acid 1 MG 09/05/2019 12:00:00 AM EDT 1.0 {tablet} suspended Folic Acid 1 MG eCW1 ([facility]) Methotrexate 2.5 MG Oral Tablet Methotrexate Sodium 2. 5 MG Methotrexate Sodium 2.5 MG 09/05/2019 12:00:00 AM EDT suspended Methotrexate Sodium 2.5 MG eCW1 ([facility]) Medrol 4 MG Medrol 4 MG 09/05/2019 12:00:00 AM EDT suspended Medrol 4 MG eCW1 ([facility]) Medrol 4 MG Medrol 4 MG 09/05/2019 12:00:00 AM EDT suspended Medrol 4 MG eCW1 ([facility]) Folic Acid 1 MG Oral Tablet Folic Acid 1 MG 09/05/2019 12:00:00 AM EDT 1.0 {tablet} suspended Folic Acid 1 MG eCW1 ([facility]) Methotrexate 2.5 MG Oral Tablet Methotrexate Sodium 2. 5 MG Methotrexate Sodium 2.5 MG 09/05/2019 12:00:00 AM EDT suspended Methotrexate Sodium 2.5 MG eCW1 ([facility]) Medrol 4 MG Medrol 4 MG 09/05/2019 12:00:00 AM EDT active Medrol 4 MG eCW1 ([facility]) Methotrexate 2.5 MG Oral Tablet Methotrexate Sodium 2. 5 MG Methotrexate Sodium 2.5 MG 09/05/2019 12:00:00 AM EDT suspended Methotrexate Sodium 2.5 MG eCW1 ([facility]) Folic Acid 1 MG Oral Tablet Folic Acid 1 MG 09/05/2019 12:00:00 AM EDT 1.0 {tablet} active Folic Acid 1 MG eCW1 ([facility]) Medrol 4 MG Medrol 4 MG 09/05/2019 12:00:00 AM EDT suspended Medrol 4 MG eCW1 ([facility]) Medrol 4 MG Medrol 4 MG 09/05/2019 12:00:00 AM EDT active Medrol 4 MG eCW1 ([facility]) Medrol 4 MG Medrol 4 MG 09/05/2019 12:00:00 AM EDT active Medrol 4 MG eCW1 ([facility]) Methotrexate 2.5 MG Oral Tablet Methotrexate Sodium 2. 5 MG Methotrexate Sodium 2.5 MG 09/05/2019 12:00:00 AM EDT active Methotrexate Sodium 2.5 MG eCW1 ([facility]) Folic Acid 1 MG Oral Tablet Folic Acid 1 MG 09/05/2019 12:00:00 AM EDT 1.0 {tablet} suspended Folic Acid 1 MG eCW1 ([facility]) tramadol hydrochloride 50 MG Oral Tablet Tramadol HCL 06/07/2019 12:00:00 AM EST active [facility] ([facility]) gabapentin 300 MG Oral Capsule [Neurontin] Neurontin 300 MG Neurontin 300 MG 04/02/2019 12:00:00 AM EST active 1 capsule eCW1 ([facility]) gabapentin 300 MG Oral Capsule [Neurontin] Neurontin 300 MG Neurontin 300 MG 04/02/2019 12:00:00 AM EST active 1 capsule eCW1 ([facility]) gabapentin 300 MG Oral Capsule [Neurontin] Neurontin 300 MG Neurontin 300 MG 04/02/2019 12:00:00 AM EST active 1 capsule eCW1 ([facility]) Famotidine 20 MG Oral Tablet Famotidine 20 MG 03/07/2019 12:00:[address] active 2 tablet at bedtime eCW1 ([facility]) Famotidine 40 MG Oral Tablet Famotidine 40 MG 03/07/2019 12:00:[address] active 1 tablet at bedtime eCW1 ([facility]) Famotidine 20 MG Oral Tablet Famotidine 20 MG 03/07/2019 12:00:[address] active 2 tablet at bedtime eCW1 ([facility]) Insurance Providers Payer name Policy type / Coverage type Policy ID Covered democrat ID Covered democrat's relationship to jauregui Policy [place] Plan Information MEDICARE COMPLETE [id number] SP [id number] [facility] Medicare Solutions Health Maintenance Organization (HMO) Medicare Risk [id number] self [id number] MEDICARE COMPLETE-[facility] O [id number] S [id number] MEDICARE COMPLETE [id number] SP [id number] [facility] HMO [id number] SP [id number] ANSI-Medicare Part B [id number] ANSI-Medicare Part B [id number] ANSI-Medicare Part B [id number] ANSI-Medicare Part B [id number] ANSI-Medicare Part B [id number] ANSI-Medicare Part B [id number] ANSI-Medicare Part B [id number] ANSI-Medicare Part B [id number] Guardian (pr) Commercial [id number] Self [id number] [place] Medigap Part B [id number] Self [id number] [employer] ([place]) Workers Compensation [id number] Self [id number] [employer] Medicare Medigap Part B [id number] Self [id number] [employer] ([place]) Workers Compensation [id number] Self [id number] [place] Medigap Part B [id number] Self [id number] [employer] Medicare Medigap Part B [id number] Self [id number] [facility] ([facility]) Commercial [id number] Self [id number] Medicaid [place] Medig[place] Part B [id number] Self [id number] [facility] ([place]) Medigap Part B [id number] Self [id number] ANSI-Medicare Part B [id number] ANSI-Medicare Part B [id number] ANSI-Medicare Part B [id number] ANSI-Medicare Part B [id number] ANSI-Medicare Part B [id number] ANSI-Medicare Part B [id number] ANSI-Medicare Part B [id number] ANSI-Medicare Part B [id number] ANSI-Medicare Part B [id number] ANSI-Medicare Part B [id number] ANSI-Medicare Part B [id number] ANSI-Medicare Part B [id number] Guardian (pr) Commercial [id number] Self [id number] [place] Medigap Part B [id number] Self [id number] [employer] (NF) Workers Compensation [id number] Self [id number] [employer] Medicare Medigap Part B [id number] Self [id number] [employer] (NF) Workers Compensation [id number] Self [id number] [place] Medigap Part B [id number] Self [id number] [employer] Medicare Medigap Part B [id number] Self [id number] [facility]) Commercial [id number] Self [id number] ANSI-Medicare Part B [id number] ANSI-Medicare Part B [id number] ANSI-Medicare Part B [id number] ANSI-Medicare Part B [id number] ANSI-Medicare Part B [id number] ANSI-Medicare Part B [id number] ANSI-Medicare Part B [id number] ANSI-Medicare Part B [id number] ANSI-Medicare Part B [id number] ANSI-Medicare Part B [id number] ANSI-Medicare Part B [id number] ANSI-Medicare Part B [id number] ANSI-Medicare Part B [id number] ANSI-Medicare Part B [id number] ANSI-Medicare Part B [id number] ANSI-Medicare Part B [id number] Guardian (pr) Commercial [id number] Self [id number] [place] Medigap Part B [id number] Self [id number] [employer] (NF) Workers Compensation [id number] Self [id number] [employer] Medicare Medigap Part B [id number] Self [id number] [employer] (NF) Workers Compensation [id number] Self [id number] [place] Medigap Part B [id number] Self [id number] [employer] Medicare Medigap Part B [id number] Self [id number] [facility] ([facility]) Commercial [id number] Self [id number] Guardian (pr) Commercial [id number] Self [id number] [place] Medigap Part B [id number] Self [id number] [employer] (NF) Workers Compensation [id number] Self [id number] [employer] Medicare Medigap Part B [id number] Self [id number] [employer] (NF) Workers Compensation [id number] Self [id number] [place] Medigap Part B [id number] Self [id number] [employer] Medicare Medigap Part B [id number] Self [id number] [facility] ([facility]) Commercial [id number] Self [id number] ANSI-Medicare Part B [id number] ANSI-Medicare Part B [id number] ANSI-Medicare Part B [id number] ANSI-Medicare Part B [id number] ANSI-Medicare Part B [id number] ANSI-Medicare Part B [id number] ANSI-Medicare Part B [id number] ANSI-Medicare Part B [id number] [facility]/Medicare Solu Commercial [id number] Self [id number] ANSI-Medicare Part B [id number] ANSI-Medicare Part B [id number] ANSI-Medicare Part B [id number] ANSI-Medicare Part B [id number] ANSI-Medicare Part B [id number] ANSI-Medicare Part B [id number] ANSI-Medicare Part B [id number] ANSI-Medicare Part B [id number] ANSI-Medicare Part B [id number] ANSI-Medicare Part B [id number] Guardian (pr) Commercial [id number] Self [id number] [place] Medigap Part B [id number] Self [id number] [employer] (NF) Workers Compensation [id number] Self [id number] [employer] Medicare Medigap Part B [id number] Self [id number] [employer] (NF) Workers Compensation [id number] Self [id number] [place] Medigap Part B [id number] Self [id number] [employer] Medicare Medigap Part B [id number] Self [id number] [facility] ([facility]) Commercial [id number] Self [id number] [facility]/Medicare Solu Commercial [id number] Self [id number] [facility] P [id number] S [id number] ANSI-Medicare Part B [id number] ANSI-Medicare Part B [id number] ANSI-Medicare Part B [id number] ANSI-Medicare Part B [id number]-m06h-97l222172583 9vch93aj-31e8-82w0-s85f-33f805203861 ANSI-Medicare Part B z87v5dt4-805w-2988-v877-tr5598vv6788 i10a3nc7-987c-1353-y820-is7767ju7676 ANSI-Medicare Part B 46c0i37i-zf15-0791-z206-44yh5kh0x750 74n2y63v-qd98-0899-u273-36im8sc7a262 ANSI-Medicare Part B e68q54w0-g6s1-2y89-9233-wb77pwd8me65 c74o58c1-r9x8-3h93-9403-lw96ctt1ka20 ANSI-Medicare Part B ap391hr8-4c83-4934-704p-56bys3f16gs7 en644qn1-8q17-7518-816b-36vsc1v84tq9 ANSI-Medicare Part B r84q672r-9n70-1imn-f789-76v454pe8htz r61v269k-4a94-8wqv-j582-99d799bc7jjx ANSI-Medicare Part B 2ye61i3b-1uu8-41cu-or55-853488164990 7oz22e8c-9of8-72tf-jv31-476815222690 ANSI-Medicare Part B 3m954j68-c1l0-0q8q-3926-50zf2wtyt19z 0v778v35-y7u9-9r0k-9246-21sj3tyov28z ANSI-Medicare Part B 33rof41u-yf4f-0868-3i3q-05u088400k35 62lgj26j-xi5l-1193-7i9r-32c454038y20 ANSI-Medicare Part B 1nyyd655-0l9e-104t-qc53-xvv1w835433u 6ekba836-2m9i-957d-ya43-wyz9v554454d ANSI-Medicare Part B 370h4zkt-63kw-5928-e5ya-r60lgl078tc3 434i6bqt-34me-8023-t1xy-q74afi593yx5 ANSI-Medicare Part B 3822o57c-161c-8ob1-7j73-k4q00403me4u 7143k28u-531b-8rk0-2v19-i8f35053ai3l ANSI-Medicare Part B w5zi3juj-2w22-1a9r-3udb-t366599ii490 l4jd5cxr-9t34-5h7j-9rhw-o849980vx703 ANSI-Medicare Part B 48ue7315-4205-8799-8shv-8g84327q2776 52li0797-5305-4312-7scp-5l59605e1286 ANSI-Medicare Part B u9s595b8-h470-1t95-u7m0-08f2nv1uw7ec v6c512z6-h020-4m71-r7h3-92z4ns3oq4fb MEDICARE COMPLETE [id number] ANSI-Medicare Part B fo57pj99-5r50-629f-g6u6-9964gpkg0189 sh00ea93-2m62-595b-j0x4-6614rjbt4478 ANSI-Medicare Part B ul2429m3-09o6-7231-2766-602j3p407959 rn9100l3-73x3-0326-0108-509r7o932067 ANSI-Medicare Part B 0856s061-1956-31q8-a7r4-r637te0h76gw 5285p441-9353-15e1-b0p3-o184sc2p42ld ANSI-Medicare Part B 37052313-78c9-3332-x92p-l7h7097q6574 18927244-34n2-5854-a18o-q9o7794p2736 Guardian (pr) Commercial [id number] Self [id number] BS [place] Medigap Part B [id number] Self [id number] [employer] (NF) Workers Compensation [id number] Self [id number] [employer] Medicare Medigap Part B [id number] Self [id number] [employer] (NF) Workers Compensation [id number] Self [id number] [place] Medigap Part B [id number] Self [id number] [employer] Medicare Medigap Part B [id number] Self [id number] [facility]) Commercial [id number] Self [id number] ANSI-Medicare Part B i3wqxrgm-0625-295f-673l-6rui7819y68g k7mqnfjw-6239-901w-754i-4uut2264v04k ANSI-Medicare Part B 3lw9t08l-nb3g-4i1d-7950-44f5768v54e5 0ek5v82a-kf5r-6h6f-1408-42d7261w48a4 ANSI-Medicare Part B e329215w-847y-06j7-14e0-j6339pzc544z i188293d-657u-63b8-33n9-g6527gbc960x ANSI-Medicare Part B z731yw5o-0w56-3sl3-3xe5-3646ae4686p3 v131sz3x-6x56-0ql9-0yt7-5685yw9303k5 ANSI-Medicare Part B wfng755v-1205-6096-5p42-6v6nz6827337 tczp840x-2216-6373-9w88-1g7hr0932154 ANSI-Medicare Part B 32735lp7-j668-401q-492e-tmt75nwnywei 97638ux9-m576-259q-681a-pmf24tjcxeum ANSI-Medicare Part B 7848827d-v20d-8v96-8066-0lj9t726we3j 9972120b-f25i-0t89-8087-4qv4c307vn6m ANSI-Medicare Part B 59svsc54-9043-4ymx-8172-e06np0gf5y84 15wfxt87-9102-9ohp-5787-r95yj6qv4i27 ANSI-Medicare Part B 1u8b90d9-ns01-35d0-0i12-4mb0f3391liv 6s4x33p7-cs03-60l9-0s81-0ix2p4788mij ANSI-Medicare Part B n6tr4z40-0087-49h4-sd6b-oh82109f6dr3 y2av8x94-1521-43v4-bp3v-xz19353v8of4 ANSI-Medicare Part B 1724ht33-46a8-02f9-5397-cd124976m607 2122pq33-05m0-23i1-4709-ko892753o719 ANSI-Medicare Part B f6524321-023d-6xpu-773v-k7547q42d9pg h0209971-764i-3wkk-669p-d3435z24t1ao Guardian (pr) Commercial [id number] Self [id number] BS [place] Medigap Part B [id number] Self [id number] [employer] (NF) Workers Compensation [id number] Self [id number] [employer] Medicare Medigap Part B [id number] Self [id number] [employer] (NF) Workers Compensation [id number] Self [id number] [place] Medigap Part B [id number] Self [id number] [employer] Medicare Medigap Part B [id number] Self [id number] [facility] Commercial [id number] Self [id number] ANSI-Medicare Part B [id number]-xm58-2594-7d79-73s91r0fecr8 p9311285-sy01-5625-5q95-84p71d4ztkw3 ANSI-Medicare Part B jp7s2939-0d78-623k-kc99-s284c9mk4yc6 ww5w5351-9b32-289t-sm43-s448z0pg1xg8 ANSI-Medicare Part B f9g20o87-1513-937z-75v5-o69tr13wx4p2 z3x65e05-8507-065i-69g0-v80jn67vs1d4 ANSI-Medicare Part B [id number]-038z-3947-54k6-7f13618b3f8e 4n09983w-702h-8431-15k6-2a56313u3d2c ANSI-Medicare Part B t4ik1oes-o910-4w21-b599-6gt0k1g3ukv6 h3cj1gaa-y735-0i31-r384-7jv9j0o2lst2 ANSI-Medicare Part B lpns5q07-5y9u-5s1i-9169-b75z14z8708e usfl1q47-9f4d-2h1b-1756-e28i22p5322a ANSI-Medicare Part B 6c0z4eqr-9737-19lz-64s0-56498z324900 4c0p1dxu-4491-63wb-71d7-25234b014870 ANSI-Medicare Part B a1p2s786-b81g-8j17-l75g-93s738h6bq1r n9n7l266-b47f-2a35-k46q-90g838a9cr5z ANSI-Medicare Part B [id number] vl9vmju7-q7vs-8358-04nn-[id number] ANSI-Medicare Part B [id number]-57az-[id number] ANSI-Medicare Part B [id number]-[id number] ANSI-Medicare Part B [id number]-[id number] ANSI-Medicare Part B [id number] [id number]-0627-[id number] ANSI-Medicare Part B [id number] ed5vh06k-28d6-6uf5-0x31-[id number] ANSI-Medicare Part B [id number]-1lby-q6145hhmk43a ANSI-Medicare Part B [id number]-9s15-v04f-2z6sfcpqp07g ANSI-Medicare Part B [id number]-[id number] [id number]-vg9a-6263-76m1-[id number] ANSI-Medicare Part B [id number]-[id number]-[id number] ANSI-Medicare Part B [id number]-n5t8-47ac-33ck-[id number] ANSI-Medicare Part B [id number] [id number]-25nz-2586-x62q-lq8o4mkz6653 ANSI-Medicare Part B [id number]-[id number]-[id number] ANSI-Medicare Part B [id number] [id number]-3e2aplnftc31 Guardian (pr) Commercial [id number] Self [id number] [place] Medigap Part B [id number] Self [id number] [employer] (NF) Workers Compensation [id number] Self [id number] [employer] Medicare Medigap Part B [id number] Self [id number] [employer] (NF) Workers Compensation [id number] Self [id number] [place] Medigap Part B [id number] Self [id number] [employer] Medicare Medigap Part B [id number] Self [id number] [facility]) Commercial [id number] Self [id number] ANSI-Medicare Part B [id number] ANSI-Medicare Part B [id number]-[id number] ANSI-Medicare Part B [id number]-[id number] ANSI-Medicare Part B [id number] ANSI-Medicare Part B [id number]-[id number]-yz3d-90h1-35cg-[id number] ANSI-Medicare Part B [id number] 9mbgv0e1-0091-39q9-2c24-[id number] ANSI-Medicare Part B [id number]-44fb-8gw8-9nz3-5ojq5437vy4d ANSI-Medicare Part B [id number]-3evm-[id number] [id number]-0yft-[id number] ANSI-Medicare Part B [id number] ygi037n1-0892-4u5j-7513-6z7y45341bvq ANSI-Medicare Part B [id number]-260b-g6t99zvz2pud 17907h92-493g-6hub-508d-m2p68rzz3ccp ANSI-Medicare Part B [id number]-[id number]-375m-[id number] ANSI-Medicare Part B [id number]-9j8a-[id number] [id number]-3689-691h-1o1r-zmxci32t733q ANSI-Medicare Part B [id number]-ut0p-[id number] [id number]-8j8n-rs2s-[id number] ANSI-Medicare Part B [id number]-m9m8-alo1zbui202b cv60nlcz-8425-52x8-s0o7-oss6bxqr195f ANSI-Medicare Part B [id number] 63p074gn-1067-44d0-z21t-b22bkx5s9163 ANSI-Medicare Part B [id number] [id number]-r479-4k81-8546-e3q43r7k9s65 ANSI-Medicare Part B [id number] 97fyt6n7-2754-4366-hi33-5i5gpe68tt27 ANSI-Medicare Part B [id number] 675k0x13-g5i7-7526-4164-9tgzuw87b316 ANSI-Medicare Part B [id number] [id number]-7l30-0797-6z78-1d79jm3jx04b ANSI-Medicare Part B [id number] yrwe57a8-67[id number] ANSI-Medicare Part B [id number]-tg1a-b33i209h4pti 646i1156-jhr9-6rxi-fk8a-p47z747l9ffp ANSI-Medicare Part B [id number]-dj1u-7f6xx36ou4t4 7uj41ur9-6308-93c8-lk8l-5o0kp90ht2m4 ANSI-Medicare Part B [id number]-bd6v-7137y3nny233 [id number]-jd0n-6804c5vtj157 ANSI-Medicare Part B [id number]-[id number] 045dx47c-99n4-7400-2d90-l865x1m80zz2 ANSI-Medicare Part B [id number] [id number]-x571-6ll9-460q-0tft5cyt6342 ANSI-Medicare Part B [id number]-4pk5-m285-rd35rp0q0969 l4c6apjj-fd7z-1li3-m330-rz65ra1x7310 ANSI-Medicare Part B [id number]-h09f-pza93w63iwk4 q3zs8xla-gic4-03r5-m62o-olh30r44yvr3 ANSI-Medicare Part B [id number]-l51gq6br9wwn 5y4o0903-g7h1-6m17-17ws-l80sp7hz6yfc ANSI-Medicare Part B [id number]-[id number]-50y780cb2m79 [id number]-s640-38e0-56wz-61t125iw6z06 ANSI-Medicare Part B [id number]-[id number] cz4040h6-d8k9-921w-i397-m50a8mx689i3 ANSI-Medicare Part B [id number]-87c3-b717-52l5x24d71p9 [id number]-h56e-80m8-[id number] ANSI-Medicare Part B [id number]-x413-5y4y07i12fcr 6c5we24l-62l5-3879-c794-7f5d24x92xjh ANSI-Medicare Part B [id number]-[id number] p9tk5a6d-py9r-[id number] ANSI-Medicare Part B [id number]-g579-5l7658780y74 [id number]-w329-2e5587093s70 ANSI-Medicare Part B [id number]-q1aw-[id number]-n688-7967-t3mg-[id number] ANSI-Medicare Part B [id number]-295o-[id number]-111k-b4wfz570cwd8 ANSI-Medicare Part B [id number]-mtp5-[id number] [id number]-i184-07w4-vje2-bfr41558b48p ANSI-Medicare Part B [id number]-[id number] 53h8p9qz-a7iq-5874-4031-3441ld7v99i1 ANSI-Medicare Part B [id number]-fad2-1hx0-732g-u54yhcww6r89 70o72f3w-ubl4-2tu0-651n-n34aepuv0z13 ANSI-Medicare Part B [id number] ouemr94o-5999-3093-1ht9-7l0c98k23336 ANSI-Medicare Part B [id number] 195k5v3t-67q6-74t5-7v37-9pfc73owbe0z ANSI-Medicare Part B [id number]-l48h-[id number] [id number]-v91z-321e0gev5hu5 ANSI-Medicare Part B [id number] f9x9cuee-628a-4dv1-9l3f-[id number] ANSI-Medicare Part B [id number] ANSI-Medicare Part B [id number]-[id number]-[id number] ANSI-Medicare Part B [id number]-[id number] 51g5w7p0-rw4y-3840-[id number] ANSI-Medicare Part B [id number]-[id number] ANSI-Medicare Part B [id number] Guardian (pr) Commercial [id number] Self [id number] BS [place] Medigap Part B [id number] Self [id number] [employer] (NF) Workers Compensation [id number] Self [id number] [employer] Medicare Medigap Part B [id number] Self [id number] [employer] (NF) Workers Compensation [id number] Self [id number] BS [place] Medigap Part B [id number] Self [id number] [employer] Medicare Medigap Part B [id number] Self [id number] [facility] ([facility]) Commercial [id number] Self [id number] Guardian (pr) Commercial [id number] Self [id number] BS [place] Medigap Part B [id number] Self [id number] [employer] (NF) Workers Compensation [id number] Self [id number] [employer] Medicare Medigap Part B [id number] Self [id number] [employer] (NF) Workers Compensation [id number] Self [id number] BS [place] Medigap Part B [id number] Self [id number] [employer] Medicare Medigap Part B [id number] Self [id number] [facility] ([facility]) Commercial [id number] Self [id number] MEDICARE COMPLETE [id number] SP [id number] Sliding Fee Scale P None S No ne MEDICARE COMPLETE-[facility] O [id number] S [id number] MEDICARE [id number] SP [id number] A MEDICARE C [id number] S [id number] A [employer] Medicare Medigap Part B Self [employer] (NF) Workers Compensation Aquilino Horowitz Self Aquilino Horowitz BS [place] Medigap Part B Self [place] Medig[place] Part B Self [employer] Medicare Medigap Part B Self [employer] (pr) Medigap Part B Self [facility] ([facility]) Commercial Self MEDICARE COMPLETE [id number] SP [id number] [facility] Medicare Commercial Self [employer] Health Maintenance Organization (HMO) Self Self Pay P UNAVAILABLE S UNAVAILA BLE Self Pay S NONE S NONE Sliding Fee Scale P UNAVAILABLE S UNAVAILABLE UNITED [employer]ARE [id number] SP [id number] [facility]/Medicare Sol Commercial Self [facility] UNITED MEDICARE COMPLETE G [id number] Self [id number] Problems, Conditions, and Diagnoses Code Display Name Description Problem Type Effective Dates Data Source(s) M06.4 [id number] Inflammatory polyarthritis Problem 0 12:00:00 AM EDT eCW1 ([facility]) M89.49 [id number] Primary osteoarthritis involving multiple joints Problem 09/05/2019 12:00:00 AM EDT eCW1 ([facility]) G89.4 [id number] Chronic pain syndrome Problem 07/11/2019 12: 00:00 AM EDT eCW1 ([facility]) G89.4 [id number] Chronic pain syndrome Problem 07/11/2019 12: 00:00 AM EDT eCW1 ([facility]) E66.01 [id number] Morbid obesity Problem 04/12/2019 12:00:00 A M EST eCW1 ([facility]) E03.9 Subclinical hypothyroidism Subclinical hypothyroidism Problem 04/12/2019 12:00:00 AM EST eCW1 ([facility]) D75.89 [id number] Macrocytosis without anemia Problem 04/12/19 12:00:00 AM EST eCW1 ([facility]) D75.89 [id number] Macrocytosis without anemia Problem 04/12/19 12:00:00 AM EST eCW1 ([facility]) E66.01 [id number] Morbid obesity Problem 04/12/2019 12:00:00 A M EST eCW1 ([facility]) K21.9 [id number] Gastroesophageal reflux disease without e sophagitis Problem 03/07/2019 12:00:00 AM EST eCW1 ([facility]) Surgeries/Procedures Procedure Description Date Indications Data Source(s) Immunization: Flublok Quadrivalent (18 years & older) 0.5mL IM (Influenza) 01/17/2020 12:00:00 AM EDT eCW1 ([facility]) PSYTX W PT 45 MINUTES 08/28/2019 12:00:00 AM EDT eCW1 ([facility]) ARTHROCENTESIS ASPIR&/INJECTION MAJOR JT/BURSA 020 12:00:00 AM EDT MEDENT ([facility]) Annual wellness visit, includes a person alized prevention plan of service (pps), subsequent visit 08/14/2019 12:00:00 AM EDT eCW 1 ([facility]) Office Visit, Est Pt., Level 4 PC 08/14/2019 12:00:00 AM EDT eCW1 ([facility]) Office Visit, Est Pt., Level 2 FC 08/14/2019 12:00:00 AM EDT eCW1 ([facility]) RADIOLOGIC EXAM KNEE COMPLETE 4/MORE VIEWS 06/07/2019 12:00:00 AM EST MEDENT ([facility]) ARTHROCENTESIS ASPIR&/INJECTION MAJOR JT/BURSA 020 12:00:00 AM EST MEDENT ([facility]) RADEX SHOULDER COMPLETE MINIMUM 2 VIEWS 04/13/2019 12: 00:00 AM EST MEDENT ([facility]) Office Visit, Est Pt., Level 3 PC 04/12/2019 12:00:00 AM EST eCW1 ([facility]) TD Adult 0.5mL (Tetanus) 04/06/2019 12:00:00 AM EST eCW1 ([facility]) IMMUNIZATION ADMIN 04/06/2019 12:00:00 AM EST eCW1 ([facility]) Results ID Date Data Source URINE CULTURE 10/12/2019 10:53:07 AM EDT eCW1 ([facility]) Name Value Range Interpretation Code Description Data Anahi rce(s) Supporting Document(s) Laboratory studies (set) URINE CULTU RE eCW1 ([facility]) ID Date Data Source Urinalysis, no micro 10/08/2019 03:41:03 AM EDT eCW1 ([facility]) Name Value Range Interpretation Code Description Data Anahi rce(s) Supporting Document(s) 5 pH eCW1 ([facility]) 1.020 Spec gravity eCW1 ([facility]) + Nitrate eCW1 ([facility]) + Leukocyte eCW1 ([facility]) - Urobili eCW1 ([facility]) - Glucose eCW1 ([facility]) + Protein eCW1 ([facility]) - Ketones eCW1 ([facility]) 50 Blood eCW1 ([facility]) - Bilirubin eCW1 ([facility]) y Internal QC Acceptable (Y/N) e CW1 ([facility]) ID Date Data Source VITB12 & FOL 04/12/2019 12:00:00 AM EST eCW1 ([facility]) Name Value Range Interpretation Code Description Data Anahi rce(s) Supporting Document(s) > 24.0 FOLATE eCW1 ([facility]) 1493 VITAMIN B12 LEVEL eCW1 ([facility]) ID Date Data Source LIPID PANEL (CARDIAC RISK) 04/12/2019 12:00:00 AM EST eCW1 ( [facility]) Name Value Range Interpretation Code Description Data Anahi rce(s) Supporting Document(s) Cholesterol in HDL [Moles/volume] in Serum or Plasma 73 >40 HDL CHOLESTEROL eCW1 ([facility]) Triglyceride [Mass/volume] in Serum or Plasma by calculation 76 <150 TRIGLYCERIDES LEVEL eCW1 ([facility]) Cholesterol in LDL [Mass/volume] in Serum or Plasma by calculation 83 <100 LDL CHOLESTEROL eCW1 ([facility]) Cholesterol [Moles/volume] in Serum or Plasma 171 <200 CHOLESTEROL LEVEL eCW1 ([facility]) 2.342 <5 CHOLESTEROL RISK RATIO eCW1 ([facility]) 98 NON-HDL-C eCW1 ([facility]) ID Date Data Source [id number] 04/12/2019 12:00:00 AM EST eCW1 ([facility]) Name Value Range Interpretation Code Description Data Anahi rce(s) Supporting Document(s) Hemoglobin A1c/Hemoglobin.total in Blood 5.9 HEMOGLOBIN A1c eCW1 ([facility]) ID Date Data Source FREE T4 & TSH PANEL 04/12/2019 12:00:00 AM EST eCW1 ([facility]) Name Value Range Interpretation Code Description Data Anahi rce(s) Supporting Document(s) 0.455 0.358-3.740 THYROID STIMULATING HORM ONE eCW1 ([facility]) 1.20 0.76-1.46 FREE T4 eCW1 ([facility]) Procedure Social History Code Duration Value Status Description Data Source(s ) Smoking 04/16/2020 12:00:00 AM EST Never Smoker completed Never S moker eCW1 ([facility]) Smoking 01/17/2020 12:00:00 AM EDT Never Smoker completed Never S moker eCW1 ([facility]) Smoking 01/17/2020 12:00:00 AM EDT Never Smoker completed Never S moker eCW1 ([facility]) Smoking 01/17/2020 12:00:00 AM EDT Never Smoker completed Never S moker eCW1 ([facility]) Smoking 01/17/2020 12:00:00 AM EDT Never Smoker completed Never S moker eCW1 ([facility]) Smoking 01/17/2020 12:00:00 AM EDT Never Smoker completed Never S moker eCW1 ([facility]) Smoking 01/17/2020 12:00:00 AM EDT Never Smoker completed Never S moker eCW1 ([facility]) Smoking 01/17/2020 12:00:00 AM EDT Never Smoker completed Never S moker eCW1 ([facility]) Smoking 01/17/2020 12:00:00 AM EDT Never Smoker completed Never S moker eCW1 ([facility]) Smoking 01/17/2020 12:00:00 AM EDT Never Smoker completed Never S moker eCW1 ([facility]) Smoking 01/17/2020 12:00:00 AM EDT Never Smoker completed Never S moker eCW1 ([facility]) Smoking 01/17/2020 12:00:00 AM EDT Never Smoker completed Never S moker eCW1 ([facility]) Smoking 01/17/2020 12:00:00 AM EDT Never Smoker completed Never S moker eCW1 ([facility]) Smoking 01/17/2020 12:00:00 AM EDT Never Smoker completed Never S moker eCW1 ([facility]) Smoking 01/10/2020 12:00:00 AM EDT Never Smoker completed Never S moker eCW1 ([facility]) Smoking 10/08/2019 12:00:00 AM EDT Never Smoker completed Never S moker eCW1 ([facility]) Smoking 10/08/2019 12:00:00 AM EDT Never Smoker completed Never S moker eCW1 ([facility]) Smoking 10/08/2019 12:00:00 AM EDT Never Smoker completed Never S moker eCW1 ([facility]) Smoking 09/05/2019 12:00:00 AM EDT Never Smoker completed Never S moker eCW1 ([facility]) Smoking 09/05/2019 12:00:00 AM EDT Never Smoker completed Never S moker eCW1 ([facility]) Smoking 09/05/2019 12:00:00 AM EDT Never Smoker completed Never S moker eCW1 ([facility]) Smoking 09/05/2019 12:00:00 AM EDT Never Smoker completed Never S moker eCW1 ([facility]) Vital Signs ID Date Data Source UNK Name Value Range Interpretation Code Description Data Source(s) Diastolic blood pressure 78 mm[Hg] 78 mm[Hg] eCW1 ([facility]) Systolic blood pressure 130 mm[Hg] 130 mm[Hg] e CW1 ([facility]) Body temperature 96.9 [degF] 96.9 [degF] eCW1 ( [facility]) Respiratory rate 18 /min 18 /min eCW1 ([facility]) Heart rate 109 /min 109 /min eCW1 ([facility]) Body mass index (BMI) [Ratio] 40.56 kg/m2 40.56 kg/m2 W1 ([facility]) Body height 67 [in_i] 67 [in_i] eCW1 ([facility]) Body weight 259 [lb_av] 259 [lb_av] eCW1 ([facility]) Diastolic blood pressure 70 mm[Hg] 70 mm[Hg] eCW1 ([facility]) Systolic blood pressure 142 mm[Hg] 142 mm[Hg] e CW1 ([facility]) Body temperature 96.7 [degF] 96.7 [degF] eCW1 ( [facility]) Respiratory rate 18 /min 18 /min eCW1 ([facility]) Heart rate 100 /min 100 /min eCW1 ([facility]) Body mass index (BMI) [Ratio] 40.53 kg/m2 40.53 kg/m2 eCW1 ([facility]) Body height 67 [in_i] 67 [in_i] eCW1 ([facility]) Body weight 117.4 kg 117.4 kg eCW1 ([facility]) Body weight 258.8 [lb_av] 258.8 [lb_av] eCW1 ([facility]) Diastolic blood pressure 76 mm[Hg] 76 mm[Hg] eCW1 ([facility]) Systolic blood pressure 142 mm[Hg] 142 mm[Hg] e CW1 ([facility]) Body temperature 97.6 [degF] 97.6 [degF] eCW1 ( [facility]) Respiratory rate 18 /min 18 /min eCW1 ([facility]) Heart rate 107 /min 107 /min eCW1 ([facility]) Body mass index (BMI) [Ratio] 40.69 kg/m2 40.69 kg/m2 eCW1 ([facility]) Body height 67 [in_i] 67 [in_i] eCW1 ([facility]) Body weight 259.8 [lb_av] 259.8 [lb_av] eCW1 ([facility]) Diastolic blood pressure 72 mm[Hg] 72 mm[Hg] eCW1 ([facility]) Systolic blood pressure 148 mm[Hg] 148 mm[Hg] e CW1 ([facility]) Body temperature 96.7 [degF] 96.7 [degF] eCW1 ( [facility]) Respiratory rate 18 /min 18 /min eCW1 ([facility]) Body mass index (BMI) [Ratio] 40.28 kg/m2 40.28 kg/m2 eCW1 ([facility]) Body height 67 [in_i] 67 [in_i] eCW1 ([facility]) Body weight 257.2 [lb_av] 257.2 [lb_av] eCW1 ([facility]) Diastolic blood pressure 82 mm[Hg] 82 mm[Hg] eCW1 ([facility]) Systolic blood pressure 140 mm[Hg] 140 mm[Hg] e CW1 ([facility]) Body temperature 98.3 [degF] 98.3 [degF] eCW1 ( [facility]) Respiratory rate 18 /min 18 /min eCW1 ([facility]) Heart rate 109 /min 109 /min eCW1 ([facility]) Body mass index (BMI) [Ratio] 41.66 kg/m2 41.66 kg/m2 eCW1 ([facility]) Body height 67 [in_us] 67 [in_us] eCW1 ([facility]) Body weight Measured 266 [lb_av] 266 [lb_av] eC W1 ([facility]) Diastolic blood pressure 80 mm[Hg] 80 mm[Hg] eCW1 ([facility]) Systolic blood pressure 130 mm[Hg] 130 mm[Hg] e CW1 ([facility]) Body temperature 96.3 [degF] 96.3 [degF] eCW1 ( [facility]) Respiratory rate 18 /min 18 /min eCW1 ([facility]) Heart rate 60 /min 60 /min eCW1 ([facility]) Body mass index (BMI) [Ratio] 41.38 kg/m2 41.38 kg/m2 eCW1 ([facility]) Body height 67 [in_us] 67 [in_us] eCW1 ([facility]) Body weight Measured 264.2 [lb_av] 264.2 [lb_av ] eCW1 ([facility]) Patient Treatment Plan of Care Planned Activity Planned Date Details Description Data Source (s) Cimetidine 800 MG Oral Tablet 02/14/2020 12:00:00 AM EST eCW1 ([facility]) Cimetidine 800 MG Oral Tablet 02/14/2020 12:00:00 AM EST eCW1 ([facility]) Cimetidine 800 MG Oral Tablet 02/14/2020 12:00:00 AM EST eCW1 ([facility]) Cimetidine 800 MG Oral Tablet 02/14/2020 12:00:00 AM EST eCW1 ([facility]) Cimetidine 800 MG Oral Tablet 02/14/2020 12:00:00 AM EST eCW1 ([facility]) Cimetidine 800 MG Oral Tablet 02/14/2020 12:00:00 AM EST eCW1 ([facility]) Cimetidine 800 MG Oral Tablet 02/14/2020 12:00:00 AM EST eCW1 ([facility]) Cimetidine 800 MG Oral Tablet 02/14/2020 12:00:00 AM EST eCW1 ([facility]) Hydroxychloroquine Sulfate 200 MG Oral Tablet [[place]] 01/10/2020 12:00:00 AM EDT eCW1 ([facility]) NITROFURANTOIN, MACROCRYSTALS 25 MG / Ni trofurantoin, Monohydrate 75 MG Oral Capsule [Macrobid] 10/08/2019 12:00:00 AM EDT eC W1 ([facility]) NITROFURANTOIN, MACROCRYSTALS 25 MG / Ni trofurantoin, Monohydrate 75 MG Oral Capsule [Macrobid] 10/08/2019 12:00:00 AM EDT eC W1 ([facility]) NITROFURANTOIN, MACROCRYSTALS 25 MG / Ni trofurantoin, Monohydrate 75 MG Oral Capsule [Macrobid] 10/08/2019 12:00:00 AM EDT eC W1 ([facility]) Methotrexate 2.5 MG Oral Tablet 09/05/2019 12:00:00 AM EDT eCW1 ([facility]) Folic Acid 1 MG Oral Tablet 09/05/2019 12:00:00 AM EDT eCW1 ([facility]) Medrol 4 MG 09/05/2019 12:00:00 AM EDT e CW1 ([facility]) Methotrexate 2.5 MG Oral Tablet 09/05/2019 12:00:00 AM EDT eCW1 ([facility]) Folic Acid 1 MG Oral Tablet 09/05/2019 12:00:00 AM EDT eCW1 ([facility]) Medrol 4 MG 09/05/2019 12:00:00 AM EDT e CW1 ([facility]) Methotrexate 2.5 MG Oral Tablet 09/05/2019 12:00:00 AM EDT eCW1 ([facility]) Folic Acid 1 MG Oral Tablet 09/05/2019 12:00:00 AM EDT eCW1 ([facility]) Medrol 4 MG 09/05/2019 12:00:00 AM EDT e CW1 ([facility]) Methotrexate 2.5 MG Oral Tablet 09/05/2019 12:00:00 AM EDT eCW1 ([facility]) Folic Acid 1 MG Oral Tablet 09/05/2019 12:00:00 AM EDT eCW1 ([facility]) Medrol 4 MG 09/05/2019 12:00:00 AM EDT e CW1 ([facility]) gabapentin 300 MG Oral Capsule [Neurontin] 04/02/2019 12:00:[address] eCW1 ([facility]) Famotidine 20 MG Oral Tablet 03/07/2019 12:00:00 AM EST eCW1 ([facility]) Famotidine 20 MG Oral Tablet 03/07/2019 12:00:00 AM EST eCW1 ([facility])
--- OUTSIDE RECORDS SUMMARY | 2020-04-18 19:27 | CCD ---
Author Author [facility] Organization [facility] Address Unknown Phone Unavailable Care Team Providers Care Academic Support Assistant Name Role Phone DRAZEK, I CATIA PA [...] is protected by Article 27-F of the [facility] Public Health law. If you continue you may have access to information: Regarding HIV / AIDS; Provided by facilities licensed or operated by the [facility] Office of Mental Health; or Provided by the [facility] Office for People With Developmental Disabilities. If such information is present, then the following [facility] mandated warning applies: This information has been [...] law may result in a fine or half-way sentence or both. A general authorization for the release of medical or other information is NOT sufficient authorization for further disc losure. Allergies and Adverse Reactions Type Description Substance Reaction Status Data Source(s ) Drug allergy Keflex Cephalexin tongue swelling Active eCW1 ( [facility]) Drug allergy Sulfazine Drug allergy high doses cause leukopenia Act emery eCW1 ([facility]) Wellbutrin Wellbutrin Wellbutrin gi side effects Active eCW1 ([facility]) Wellbutrin Wellbutrin Wellbutrin gi side effects Active eCW1 ([facility]) Family History Family Member Name Family Member Gender Family Member Status Date o f Status Description Data Source(s) Unknown Male Problem MEDENT ([facility] ) Unknown Male Problem MEDENT ([facility] ) Unknown Unknown Problem MEDENT ([facility], ) Unknown Unknown Problem MEDENT ([facility], ) Unknown Unknown Problem MEDENT ([facility]) Unknown Male Encounters Encounter Providers Location Date Indications Data Source(s ) Attender: ROS MCKAY MD [facility] 04/15/2020 07:07:00 PM EST - 04/15/2020 07:07:00 PM EST NextGen ( [facility]) [place] [address] [facility] [address] 04/15/2020 12:00:00 AM EST eCW1 ([facility]) [place] [address] [facility] [address] 04/08/2020 12:00:00 AM EST eCW1 ([facility]) [place] [address] [facility] [address] 03/31/2020 12:00:00 AM EST eCW1 ([facility]) [facility] Scheduled Visit [address] [place] [address] 03/11/2020 12:00:00 AM EST eCW1 ([facility]) [facility] Scheduled Visit [address] [place] [address] 02/19/2020 12:00:00 AM EST eCW1 ([facility]) [place] [address] [facility] [address] 02/19/2020 12:00:00 AM EST eCW1 ([facility]) [place] [address] [facility] [address] 02/14/2020 12:00:00 AM EST eCW1 ([facility]) Unknown [address] [facility] [place] [address] 02/13/2020 12:00:00 AM EST eCW1 ([facility]) [place] [address] [facility] [address] 02/13/2020 12:00:00 AM EST eCW1 ([facility]) Unknown [address] [facility] [place] [address] 02/12/2020 12:00:00 AM EST eCW1 ([facility]) Unknown [address] [facility] [address] 02/11/2020 12:00:00 AM EST eCW1 ([facility]) ([facility]) [facility] Scheduled Visit [address] [place] [address] 01/29/2020 12:00:00 AM EDT eCW1 ([facility]) Outpatient [address] [facility] [address] 01/17/2020 12:00:00 AM EDT eCW1 ([facility]) [facility] Octavio [address] [facility] [address] 01/16/2020 12:00:00 AM EDT eCW1 ([facility]) Office Visit, Est Pt., Level 4 PC [address] [place] [address] 01/10/2020 12:00:00 AM EDT eCW1 ([facility]) Unknown [address] [facility] [address] 10/22/2019 12:00:00 AM EDT eCW1 ([facility]) [facility] Octavio [address] [facility] [address] 10/16/2019 12:00:00 AM EDT eCW1 ([facility]) ([facility]) [facility] Scheduled Visit [address] [place] [address] 10/15/2019 12:00:00 AM EDT eCW1 ([facility]) Unknown [address] [facility] [place] [address] 10/15/2019 12:00:00 AM EDT eCW1 ([facility]) Outpatient [address] [facility] [place] [address] 10/08/2019 12:00:00 AM EDT eCW1 ([facility]) Outpatient Attender: CATIA POP Physical Therapy 10/03/2019 0 1:30:00 PM EDT MEDENT ([facility]) Outpatient Attender: CATIA POP Physical Therapy 09/24/2019 1 1:30:00 AM EDT MEDENT ([facility]) ([facility]) [facility] Scheduled Visit [address] [place] [address] 09/12/2019 12:00:00 AM EDT eCW1 ([facility]) Unknown [address] [facility] [place] [address] 09/11/2019 12:00:00 AM EDT eCW1 ([facility]) Outpatient [address] [facility] [place] [address] 09/05/2019 12:00:00 AM EDT eCW1 ([facility]) Unknown [address] [facility] [place] [address] 09/05/2019 12:00:00 AM EDT eCW1 ([facility]) Unknown [address] [facility] [place] [address] 09/05/2019 12:00:00 AM EDT eCW1 ([facility]) [facility] [address] [place] [address] 08/28/2019 12:00:00 AM EDT eCW1 ([facility]) Outpatient Attender: CAITA POP Physical Therapy 08/15/2019 1 0:30:00 AM EDT MEDENT ([facility]) Outpatient Referrer: CATIA POP 08/15/2019 05:58:00 AM EDT [facility] [address] [place] [address] [place] [address] 08/14/2019 12:00:00 AM EDT eCW1 ([facility]) [address] [address] 08/07/2019 12:00:00 AM EDT eCW1 ([facility]) [facility] [address] [place] [address] 07/31/2019 12:00:00 AM EDT eCW1 ([facility]) [address] [address] 07/23/2019 12:00:00 AM EDT eCW1 ([facility]) [facility] [address] [place] [address] 07/18/2019 12:00:00 AM EDT eCW1 ([facility]) Outpatient Attender: CATIA POP Physical Therapy 07/17/2019 0 2:00:00 PM EDT MEDENT ([facility]) [facility] [address] [place] [address] [place] [address] 07/11/2019 12:00:00 AM EDT eCW1 ([facility]) [address] [address] 07/06/2019 12:00:00 AM EDT eCW1 ([facility]) [address] [address] 06/14/2019 12:00:00 AM EDT eCW1 ([facility]) [address] [address] 06/14/2019 12:00:00 AM EDT eCW1 ([facility]) [address] [place] [address] 06/14/2019 12:00:00 AM EDT eCW1 ([facility]) [facility] [address] [facility] [address] 06/12/2019 12:00:00 AM EDT eCW1 ([facility]) 06/11/2019 12:43:00 PM EDT - 020 12:43:00 PM EDT [facility]Gen ([facility]) Outpatient Attender: CATIA POP Physical Therapy 06/07/2019 0 9:00:00 AM EST MEDENT ([facility]) [facility] [address] [place] [address] 06/07/2019 12:00:00 AM EST eCW1 ([facility]) [facility] [address] [place] [address] [place] [address] 05/28/2019 12:00:00 AM EST eCW1 ([facility]) [address] [address] 05/23/2019 12:00:00 AM EST eCW1 ([facility]) [facility] [address] [place] [address] Y [address] 05/11/2019 12:00:00 AM EST eCW1 ([facility]) [facility] [address] [place] [address] Y [address] 05/10/2019 12:00:00 AM EST eCW1 ([facility]) [address] [address] 05/07/2019 12:00:00 AM EST eCW1 ([facility]) [address] [address] 04/20/2019 12:00:00 AM EST eCW1 ([facility]) Outpatient Attender: CATIA POP Physical Therapy 04/13/2019 1 2:30:00 PM EST MEDENT ([facility]) [address] [place] [address] 04/12/2019 12:00:00 AM EST eCW1 ([facility]) [facility] [place] [address] [facility] [address] 04/11/2019 12:00:00 AM EST eCW1 ([facility]) [facility] [address] [facility] [place] [address] 04/06/2019 12:00:00 AM EST eCW1 ([facility]) [facility] Octavio [address] [place] [address], [place] [address] 04/06/2019 12:00:00 AM EST eCW1 ([facility]) [facility] [address] [facility] [place] [address] 04/06/2019 12:00:00 AM EST eCW1 ([facility]) [facility] Octavio [address] [place] [address] [place] [address] 04/06/2019 12:00:00 AM EST eCW1 ([facility]) [address] [address] 04/05/2019 12:00:00 AM EST eCW1 ([facility]) [facility] Octav[place] [address] [place] [address], [place] [address] 04/05/2019 12:00:00 AM EST eCW1 ([facility]) [facility] Octavio [address] [place] [address] [place] [address] 04/02/2019 12:00:00 AM EST eCW1 ([facility]) [facility] Octavio [address] [place] [address], [place] [address] 03/20/2019 12:00:00 AM EST eCW1 ([facility]) [address] [address] 03/13/2019 12:00:00 AM EST eCW1 ([facility]) [facility] [address] [place] [address] [place] [address] 03/07/2019 12:00:00 AM EST eCW1 ([facility]) [facility] [place] [address] [facility] [address] 03/06/2019 12:00:00 AM EST eCW1 ([facility]) [facility] [place] [address] [facility] [address] 03/06/2019 12:00:00 AM EST eCW1 ([facility]) [facility] Oct[facility]io [address] [place] [address] 02/23/2019 12:00:00 AM EST eCW1 ([facility]) Immunizations Vaccine Date Status Description Data Source(s) influenza, recombinant, quadrIvalent,injectable, prese rvative free 01/17/2020 11:24:00 AM EDT completed eCW1 ([facility]) influenza, recombinant, quadrIvalent,injectable, prese rvative free 01/17/2020 11:24:00 AM EDT completed eCW1 ([facility]) influenza, recombinant, quadrIvalent,injectable, prese rvative free 01/17/2020 11:24:00 AM EDT completed eCW1 ([facility]) influenza, recombinant, quadrIvalent,injectable, prese rvative free 01/17/2020 11:24:00 AM EDT completed eCW1 ([facility]) influenza, recombinant, quadrIvalent,injectable, prese rvative free 01/17/2020 11:24:00 AM EDT completed eCW1 ([facility]) influenza, recombinant, quadrIvalent,injectable, prese rvative free 01/17/2020 11:24:00 AM EDT completed eCW1 ([facility]) influenza, recombinant, quadrIvalent,injectable, prese rvative free 01/17/2020 11:24:00 AM EDT completed eCW1 ([facility]) influenza, recombinant, quadrIvalent,injectable, prese rvative free 01/17/2020 11:24:00 AM EDT completed eCW1 ([facility]) influenza, recombinant, quadrIvalent,injectable, prese rvative free 01/17/2020 11:24:00 AM EDT completed eCW1 ([facility]) influenza, recombinant, quadrIvalent,injectable, prese rvative free 01/17/2020 11:24:00 AM EDT completed eCW1 ([facility]) influenza, recombinant, quadrIvalent,injectable, prese rvative free 01/17/2020 11:24:00 AM EDT completed eCW1 ([facility]) influenza, recombinant, quadrIvalent,injectable, prese rvative free 01/17/2020 11:24:00 AM EDT completed eCW1 ([facility]) influenza, recombinant, quadrIvalent,injectable, prese rvative free 01/17/2020 11:24:00 AM EDT completed eCW1 ([facility]) influenza, recombinant, quadrIvalent,injectable, prese rvative free 01/17/2020 11:24:00 AM EDT completed eCW1 ([facility]) Note that this vaccine name has changed. See also Td (adult). It is not adsorbed. 04/06/2019 03:18:00 PM EST completed eCW1 ([facility]) Note that this vaccine name has changed. See also Td (adult). It is not adsorbed. 04/06/2019 03:18:00 PM EST completed eCW1 ([facility]) Note that this vaccine name has changed. See also Td (adult). It is not adsorbed. 04/06/2019 03:18:00 PM EST completed eCW1 ([facility]) Note that this vaccine name has changed. See also Td (adult). It is not adsorbed. 04/06/2019 03:18:00 PM EST completed eCW1 ([facility]) Note that this vaccine name has changed. See also Td (adult). It is not adsorbed. 04/06/2019 03:18:00 PM EST completed eCW1 ([facility]) Note that this vaccine name has changed. See also Td (adult). It is not adsorbed. 04/06/2019 03:18:00 PM EST completed eCW1 ([facility]) Note that this vaccine name has changed. See also Td (adult). It is not adsorbed. 04/06/2019 03:18:00 PM EST completed eCW1 ([facility]) Note that this vaccine name has changed. See also Td (adult). It is not adsorbed. 04/06/2019 03:18:00 PM EST completed eCW1 ([facility]) Note that this vaccine name has changed. See also Td (adult). It is not adsorbed. 04/06/2019 03:18:00 PM EST completed eCW1 ([facility]) Note that this vaccine name has changed. See also Td (adult). It is not adsorbed. 04/06/2019 03:18:00 PM EST completed eCW1 ([facility]) Note that this vaccine name has changed. See also Td (adult). It is not adsorbed. 04/06/2019 03:18:00 PM EST completed eCW1 ([facility]) Note that this vaccine name has changed. See also Td (adult). It is not adsorbed. 04/06/2019 03:18:00 PM EST completed eCW1 ([facility]) Note that this vaccine name has changed. See also Td (adult). It is not adsorbed. 04/06/2019 03:18:00 PM EST completed eCW1 ([facility]) Note that this vaccine name has changed. See also Td (adult). It is not adsorbed. 04/06/2019 03:18:00 PM EST completed eCW1 ([facility]) Note that this vaccine name has changed. See also Td (adult). It is not adsorbed. 04/06/2019 03:18:00 PM EST completed eCW1 ([facility]) Note that this vaccine name has changed. See also Td (adult). It is not adsorbed. 04/06/2019 03:18:00 PM EST completed eCW1 ([facility]) Note that this vaccine name has changed. See also Td (adult). It is not adsorbed. 04/06/2019 03:18:00 PM EST completed eCW1 ([facility]) Note that this vaccine name has changed. See also Td (adult). It is not adsorbed. 04/06/2019 03:18:00 PM EST completed eCW1 ([facility]) Note that this vaccine name has changed. See also Td (adult). It is not adsorbed. 04/06/2019 03:18:00 PM EST completed eCW1 ([facility]) Note that this vaccine name has changed. See also Td (adult). It is not adsorbed. 04/06/2019 03:18:00 PM EST completed eCW1 ([facility]) Note that this vaccine name has changed. See also Td (adult). It is not adsorbed. 04/06/2019 03:18:00 PM EST completed eCW1 ([facility]) Note that this vaccine name has changed. See also Td (adult). It is not adsorbed. 04/06/2019 03:18:00 PM EST completed eCW1 ([facility]) Note that this vaccine name has changed. See also Td (adult). It is not adsorbed. 04/06/2019 03:18:00 PM EST completed eCW1 ([facility]) Medications Medication Brand Name Start Date Product Form Dose Route Admi nistrative Instructions Pharmacy Instructions Status Indications Reaction Description Data Source(s) 800 mg 02/15/2020 12:00:00 AM EST tablet 7 TAKE ONE TABLET BY MOUTH AT BEDTIME FOR 7 DAYS TAKE ONE TABLET BY MOUTH AT BEDTIME FOR 7 DAYS SOLD: 02/16/2020 [facility] Cimetidine 800 MG Oral Tablet Cimetidine 800 MG 02/14/2020 12:00:00 AM EST 1.0 {tablet_at_bedtime} active Cimetidine 8 00 MG eCW1 ([facility]) pantoprazole 40 MG Delayed Release Oral Tablet PANTOPRAZOLE SODIUM 02/14/2020 12:00:00 AM EST tablet,delayed release (DR/EC) 14 T ELVIRA ONE TABLET BY MOUTH TWICE A DAY FOR 7 DAYS TAKE ONE TABLET BY MOUTH TWICE A DAY FOR 7 DAYS SOLD: 02/16/2020 [facility] Cimetidine 800 MG Oral Tablet Cimetidine 800 MG 02/14/2020 12:00:00 AM EST 1.0 {tablet_at_bedtime} active Cimetidine 8 00 MG eCW1 ([facility]) Cimetidine 800 MG Oral Tablet Cimetidine 800 MG 02/14/2020 12:00:00 AM EST 1.0 {tablet_at_bedtime} active Cimetidine 8 00 MG eCW1 ([facility]) Cimetidine 800 MG Oral Tablet Cimetidine 800 MG 02/14/2020 12:00:00 AM EST 1.0 {tablet_at_bedtime} active Cimetidine 8 00 MG eCW1 ([facility]) Cimetidine 800 MG Oral Tablet Cimetidine 800 MG 02/14/2020 12:00:00 AM EST 1.0 {tablet_at_bedtime} active Cimetidine 8 00 MG eCW1 ([facility]) Cimetidine 800 MG Oral Tablet Cimetidine 800 MG 02/14/2020 12:00:00 AM EST 1.0 {tablet_at_bedtime} active Cimetidine 8 00 MG eCW1 ([facility]) Cimetidine 800 MG Oral Tablet Cimetidine 800 MG 02/14/2020 12:00:00 AM EST 1.0 {tablet_at_bedtime} active Cimetidine 8 00 MG eCW1 ([facility]) Cimetidine 800 MG Oral Tablet Cimetidine 800 MG 02/14/2020 12:00:00 AM EST 1.0 {tablet_at_bedtime} active Cimetidine 8 00 MG eCW1 ([facility]) Cimetidine 800 MG Oral Tablet Cimetidine 800 MG 02/14/2020 12:00:00 AM EST 1.0 {tablet_at_bedtime} active Cimetidine 8 00 MG eCW1 ([facility]) Hydroxychloroquine Sulfate 200 MG Oral Tablet [Plaquen il] Plaquenil 200 MG Plaquenil 200 MG 01/10/2020 12:00:00 AM EDT a ctive Plaquenil 200 MG eCW1 ([facility]) Hydroxychloroquine Sulfate 200 MG Oral Tablet [Plaquen il] Plaquenil 200 MG Plaquenil 200 MG 01/10/2020 12:00:00 AM EDT a ctive Plaquenil 200 MG eCW1 ([facility]) Hydroxychloroquine Sulfate 200 MG Oral Tablet [Plaquen il] Plaquenil 200 MG Plaquenil 200 MG 01/10/2020 12:00:00 AM EDT a ctive Plaquenil 200 MG eCW1 ([facility]) Hydroxychloroquine Sulfate 200 MG Oral Tablet [Plaquen il] Plaquenil 200 MG Plaquenil 200 MG 01/10/2020 12:00:00 AM EDT a ctive Plaquenil 200 MG eCW1 ([facility]) Hydroxychloroquine Sulfate 200 MG Oral Tablet [Plaquen il] Plaquenil 200 MG Plaquenil 200 MG 01/10/2020 12:00:00 AM EDT a ctive Plaquenil 200 MG eCW1 ([facility]) Hydroxychloroquine Sulfate 200 MG Oral Tablet [Plaquen il] Plaquenil 200 MG Plaquenil 200 MG 01/10/2020 12:00:00 AM EDT a ctive Plaquenil 200 MG eCW1 ([facility]) Hydroxychloroquine Sulfate 200 MG Oral Tablet [Plaquen il] Plaquenil 200 MG Plaquenil 200 MG 01/10/2020 12:00:00 AM EDT a ctive Plaquenil 200 MG eCW1 ([facility]) Hydroxychloroquine Sulfate 200 MG Oral Tablet [Plaquen il] Plaquenil 200 MG Plaquenil 200 MG 01/10/2020 12:00:00 AM EDT a ctive Plaquenil 200 MG eCW1 ([facility]) Hydroxychloroquine Sulfate 200 MG Oral Tablet [Plaquen il] Plaquenil 200 MG Plaquenil 200 MG 01/10/2020 12:00:00 AM EDT a ctive Plaquenil 200 MG eCW1 ([facility]) Hydroxychloroquine Sulfate 200 MG Oral Tablet [Plaquen il] Plaquenil 200 MG Plaquenil 200 MG 01/10/2020 12:00:00 AM EDT a ctive Plaquenil 200 MG eCW1 ([facility]) Hydroxychloroquine Sulfate 200 MG Oral Tablet [Plaquen il] Plaquenil 200 MG Plaquenil 200 MG 01/10/2020 12:00:00 AM EDT a ctive Plaquenil 200 MG eCW1 ([facility]) Hydroxychloroquine Sulfate 200 MG Oral Tablet [Plaquen il] Plaquenil 200 MG Plaquenil 200 MG 01/10/2020 12:00:00 AM EDT a ctive Plaquenil 200 MG eCW1 ([facility]) Hydroxychloroquine Sulfate 200 MG Oral Tablet [Plaquen il] Plaquenil 200 MG Plaquenil 200 MG 01/10/2020 12:00:00 AM EDT a ctive Plaquenil 200 MG eCW1 ([facility]) Hydroxychloroquine Sulfate 200 MG Oral Tablet [Plaquen il] Plaquenil 200 MG Plaquenil 200 MG 01/10/2020 12:00:00 AM EDT a ctive Plaquenil 200 MG eCW1 ([facility]) Hydroxychloroquine Sulfate 200 MG Oral Tablet [Plaquen il] Plaquenil 200 MG Plaquenil 200 MG 01/10/2020 12:00:00 AM EDT a ctive Plaquenil 200 MG eCW1 ([facility]) NITROFURANTOIN, MACROCRYSTALS 25 MG / Ni trofurantoin, Monohydrate 75 MG Oral Capsule [Macrobid] Macrobid 100 MG Macrobid 100 MG 10/08/2019 12:00:00 AM EDT 1.0 {capsule} active Macrobid 100 MG eC W1 ([facility]) NITROFURANTOIN, MACROCRYSTALS 25 MG / Ni trofurantoin, Monohydrate 75 MG Oral Capsule [Macrobid] Macrobid 100 MG Macrobid 100 MG 10/08/2019 12:00:00 AM EDT 1.0 {capsule} active Macrobid 100 MG eC W1 ([facility]) NITROFURANTOIN, MACROCRYSTALS 25 MG / Ni trofurantoin, Monohydrate 75 MG Oral Capsule [Macrobid] Macrobid 100 MG Macrobid 100 MG 10/08/2019 12:00:00 AM EDT 1.0 {capsule} active Macrobid 100 MG eC W1 ([facility]) NITROFURANTOIN, MACROCRYSTALS 25 MG / Ni trofurantoin, Monohydrate 75 MG Oral Capsule [Macrobid] Macrobid 100 MG Macrobid 100 MG 10/08/2019 12:00:00 AM EDT 1.0 {capsule} active Macrobid 100 MG eC W1 ([facility]) Methotrexate 2.5 MG Oral Tablet Methotrexate Sodium 2. 5 MG Methotrexate Sodium 2.5 MG 09/05/2019 12:00:00 AM EDT suspended Methotrexate Sodium 2.5 MG eCW1 ([facility]) Methotrexate 2.5 MG Oral Tablet Methotrexate Sodium 2. 5 MG Methotrexate Sodium 2.5 MG 09/05/2019 12:00:00 AM EDT active Methotrexate Sodium 2.5 MG eCW1 ([facility]) Folic Acid 1 MG Oral Tablet Folic Acid 1 MG 09/05/2019 12:00:00 AM EDT 1.0 {tablet} suspended Folic Acid 1 MG eCW1 ([facility]) Folic Acid 1 MG Oral Tablet Folic Acid 1 MG 09/05/2019 12:00:00 AM EDT 1.0 {tablet} active Folic Acid 1 MG eCW1 ([facility]) Methotrexate 2.5 MG Oral Tablet Methotrexate Sodium 2. 5 MG Methotrexate Sodium 2.5 MG 09/05/2019 12:00:00 AM EDT active Methotrexate Sodium 2.5 MG eCW1 ([facility]) Medrol 4 MG Medrol 4 MG 09/05/2019 12:00:00 AM EDT suspended Medrol 4 MG eCW1 ([facility]) Methotrexate 2.5 MG Oral Tablet Methotrexate Sodium 2. 5 MG Methotrexate Sodium 2.5 MG 09/05/2019 12:00:00 AM EDT active Methotrexate Sodium 2.5 MG eCW1 ([facility]) Medrol 4 MG Medrol 4 MG 09/05/2019 12:00:00 AM EDT active Medrol 4 MG eCW1 ([facility]) Folic Acid 1 MG Oral Tablet Folic Acid 1 MG 09/05/2019 12:00:00 AM EDT 1.0 {tablet} active Folic Acid 1 MG eCW1 ([facility]) Folic Acid 1 MG Oral Tablet Folic Acid 1 MG 09/05/2019 12:00:00 AM EDT 1.0 {tablet} active Folic Acid 1 MG eCW1 ([facility]) Folic Acid 1 MG Oral Tablet Folic Acid 1 MG 09/05/2019 12:00:00 AM EDT 1.0 {tablet} suspended Folic Acid 1 MG eCW1 ([facility]) Methotrexate 2.5 MG Oral Tablet Methotrexate Sodium 2. 5 MG Methotrexate Sodium 2.5 MG 09/05/2019 12:00:00 AM EDT suspended Methotrexate Sodium 2.5 MG eCW1 ([facility]) Medrol 4 MG Medrol 4 MG 09/05/2019 12:00:00 AM EDT suspended Medrol 4 MG eCW1 ([facility]) Medrol 4 MG Medrol 4 MG 09/05/2019 12:00:00 AM EDT suspended Medrol 4 MG eCW1 ([facility]) Folic Acid 1 MG Oral Tablet Folic Acid 1 MG 09/05/2019 12:00:00 AM EDT 1.0 {tablet} suspended Folic Acid 1 MG eCW1 ([facility]) Methotrexate 2.5 MG Oral Tablet Methotrexate Sodium 2. 5 MG Methotrexate Sodium 2.5 MG 09/05/2019 12:00:00 AM EDT suspended Methotrexate Sodium 2.5 MG eCW1 ([facility]) Medrol 4 MG Medrol 4 MG 09/05/2019 12:00:00 AM EDT active Medrol 4 MG eCW1 ([facility]) Methotrexate 2.5 MG Oral Tablet Methotrexate Sodium 2. 5 MG Methotrexate Sodium 2.5 MG 09/05/2019 12:00:00 AM EDT suspended Methotrexate Sodium 2.5 MG eCW1 ([facility]) Folic Acid 1 MG Oral Tablet Folic Acid 1 MG 09/05/2019 12:00:00 AM EDT 1.0 {tablet} active Folic Acid 1 MG eCW1 ([facility]) Medrol 4 MG Medrol 4 MG 09/05/2019 12:00:00 AM EDT suspended Medrol 4 MG eCW1 ([facility]) Medrol 4 MG Medrol 4 MG 09/05/2019 12:00:00 AM EDT active Medrol 4 MG eCW1 ([facility]) Medrol 4 MG Medrol 4 MG 09/05/2019 12:00:00 AM EDT active Medrol 4 MG eCW1 ([facility]) Methotrexate 2.5 MG Oral Tablet Methotrexate Sodium 2. 5 MG Methotrexate Sodium 2.5 MG 09/05/2019 12:00:00 AM EDT active Methotrexate Sodium 2.5 MG eCW1 ([facility]) Folic Acid 1 MG Oral Tablet Folic Acid 1 MG 09/05/2019 12:00:00 AM EDT 1.0 {tablet} suspended Folic Acid 1 MG eCW1 ([facility]) tramadol hydrochloride 50 MG Oral Tablet Tramadol HCL 06/07/2019 12:00:00 AM EST active MEDENT ([facility]) gabapentin 300 MG Oral Capsule [Neurontin] Neurontin 300 MG Neurontin 300 MG 04/02/2019 12:00:00 AM EST active 1 capsule eCW1 ([facility]) gabapentin 300 MG Oral Capsule [Neurontin] Neurontin 300 MG Neurontin 300 MG 04/02/2019 12:00:00 AM EST active 1 capsule eCW1 ([facility]) gabapentin 300 MG Oral Capsule [Neurontin] Neurontin 300 MG Neurontin 300 MG 04/02/2019 12:00:00 AM EST active 1 capsule eCW1 ([facility]) Famotidine 20 MG Oral Tablet Famotidine 20 MG 03/07/2019 12:00:[address] active 2 tablet at bedtime eCW1 ([facility]) Famotidine 40 MG Oral Tablet Famotidine 40 MG 03/07/2019 12:00:[address] active 1 tablet at bedtime eCW1 ([facility]) Famotidine 20 MG Oral Tablet Famotidine 20 MG 03/07/2019 12:00:[address] active 2 tablet at bedtime eCW1 ([facility]) Insurance Providers Payer name Policy type / Coverage type Policy ID Covered republican ID Covered republican's relationship to jauregui Policy [place] Plan Information MEDICARE COMPLETE [id number] SP [id number] [facility] [employer] Health Maintenance Organization (HMO) Medicare Risk [id number] self [id number] MEDICARE COMPLETE-[facility] O [id number] S [id number] MEDICARE COMPLETE [id number] SP [id number] [facility] HMO [id number] SP [id number] ANSI-Medicare Part B [id number] ANSI-Medicare Part B [id number] ANSI-Medicare Part B [id number]-qfk7-108s-10fz-[id number] ANSI-Medicare Part B [id number]-8d03-1565-rp14-[id number] ANSI-Medicare Part B [id number] [id number]-882a-729h-4m7vl3hya522 ANSI-Medicare Part B [id number]-1272-1b04-a76g-[id number] ANSI-Medicare Part B [id number]-[id number] [id number]-k4yy-058q-s01e-06303rsq079o ANSI-Medicare Part B [id number]-0p7j-[id number] [id number]-8m3u-3vr3-49nlq6m1m75l Guardian (pr) Commercial [id number] Self [id number] [employer] [place] Medigap Part B [id number] Self [id number] [employer] (NF) Workers Compensation [id number] Self [id number] [employer] Medicare Medigap Part B [id number] Self [id number] [employer] (NF) Workers Compensation [id number] Self [id number] BS [place] Medigap Part B [id number] Self [id number] [employer] Medicare Medigap Part B [id number] Self [id number] [facility] ([facility]) Commercial [id number] Self [id number] Medicaid [place] Medigap Part B [id number] Self [id number] [facility] (ky) Medigap Part B [id number] Self [id number] ANSI-Medicare Part B [id number] ANSI-Medicare Part B [id number] ANSI-Medicare Part B [id number]-[id number] ANSI-Medicare Part B [id number]-lc7h-[id number] ANSI-Medicare Part B [id number] [id number] ANSI-Medicare Part B [id number]-[id number] ANSI-Medicare Part B [id number] 2ck578s5-jtu4-7517-66sb-[id number] ANSI-Medicare Part B [id number]-657d-[id number] ANSI-Medicare Part B [id number]-2kk6-81qm-75l84ma15i5e xw73v77k-743p-6hd2-02od-86b03qt67p4h ANSI-Medicare Part B [id number]-yb83-b143x23v095a v8923922-w7yv-6w6i-pw56-s525m78y499i ANSI-Medicare Part B [id number]-56n1-8e1b-80752x18f4w1 u6lr68a1-32qw-86h5-2f0w-38251c85u0w6 ANSI-Medicare Part B [id number]-l449-48814s482t5x 28419c32-51k3-90ko-x716-50158a072t3h Guardian (pr) Commercial [id number] Self [id number] [employer] [place] Medigap Part B [id number] Self [id number] [employer] (NF) Workers Compensation [id number] Self [id number] [employer] Medicare Medigap Part B [id number] Self [id number] [employer] (NF) Workers Compensation [id number] Self [id number] [employer] [place] Medigap Part B [id number] Self [id number] [employer] Medicare Medigap Part B [id number] Self [id number] [facility]) Commercial [id number] Self [id number] ANSI-Medicare Part B [id number]-[id number] ANSI-Medicare Part B [id number]-66w2-kd8x-l8tdl9gi572m 6ckm9212-8zjn-84a1-zu0o-z6roz8sq098o ANSI-Medicare Part B [id number]-fzwv-16q1-sd18-[id number] 2u7xm2p5-lfkg-93s9-ci27-q7cm66635ir0 ANSI-Medicare Part B [id number]-s29r-41sh-76t3-ub8jl49c5463 377j49te-g43m-11ae-83j6-sh6fh68p6613 ANSI-Medicare Part B pg7rv84i-l1y2-9xg4-rf29-44195u6035yz rd3ci31s-n4h7-1ic0-bx55-60070h5104nr ANSI-Medicare Part B [id number]-uv60-wo7or4i69up8 00144925-9vj9-659z-ma13-nt9mw1w66gt0 ANSI-Medicare Part B jxt2g5za-0143-5dx0-g10e-247a1871z9cz fcq3p1hy-0817-8qn8-a99b-776r2552c1gv ANSI-Medicare Part B [id number]-f7394934j626 165ay077-z890-4296-09wv-a4848441a536 ANSI-Medicare Part B 41i51137-f7ay-1763-o441-utta9k5l0366 12w42987-w9vj-5932-q293-tdlb4q4m1349 ANSI-Medicare Part B 0c5w3m5x-38s1-598c-5l59-9n8d5rc22el7 6b0z9f7p-08b1-649g-5u31-5q9x4kr79dp8 ANSI-Medicare Part B iop1860c-e7h5-5h3q-9086-6sp841947358 kzi1601b-b4c0-8o6p-3189-6vf686451275 ANSI-Medicare Part B lxv362e4-c47n-401y-919m-84wtg92plhc9 wdx880u2-t94b-885l-274h-57zba17wehs0 ANSI-Medicare Part B 65f7h55q-560x-6rz5-52zx-2q7wk596g521 99y2i55j-394g-0ax2-97ac-9h8uk871d074 ANSI-Medicare Part B 1134vp89-qfr5-3428-t4d4-i0su114np6ip 7310si66-ckr9-1595-j6r1-m6br396pl4he ANSI-Medicare Part B 7j8ma23r-9583-5k61-wa62-1hxda7257v77 6f7xl89j-1818-4e05-we00-9qrdy1045s60 ANSI-Medicare Part B j381nabs-8t65-6975-01z8-l3n2v441dfs9 u894ngof-8s00-6788-18p6-w1a4s563gal5 Guardian (pr) Commercial [id number] Self [id number] [employer] [place] Medigap Part B [id number] Self [id number] [employer] (NF) Workers Compensation [id number] Self [id number] [employer] Medicare Medigap Part B [id number] Self [id number] [employer] (NF) Workers Compensation [id number] Self [id number] [employer] [place] Medigap Part B [id number] Self [id number] [employer] Medicare Medigap Part B [id number] Self [id number] [facility] ([facility]) Commercial [id number] Self [id number] Guardian (pr) Commercial [id number] Self [id number] [employer] [place] Medigap Part B [id number] Self [id number] [employer] (NF) Workers Compensation [id number] Self [id number] [employer] Medicare Medigap Part B [id number] Self [id number] [employer] (NF) Workers Compensation [id number] Self [id number] BS [place] Medigap Part B [id number] Self [id number] [employer] Medicare Medigap Part B [id number] Self [id number] [facility] ([facility]) Commercial [id number] Self [id number] ANSI-Medicare Part B [id number]-d70e-[id number] f57j3ii1-75k5-15c4-l74d-gl1427n6523w ANSI-Medicare Part B [id number]-l035-99qf19an7w11 tx069m63-6wj1-2bns-b905-57ew48vr1s36 ANSI-Medicare Part B 4mqoi9yd-2x87-8444-r212-72r6el513qo2 2xblw2np-9m63-9139-b440-14f7zl603et7 ANSI-Medicare Part B [id number]-4899-89p5-a853hz782503 60398127-nd0t-9379-77v7-d820es617246 ANSI-Medicare Part B 16kk4z45-4965-4lw2-l56g-e2s82456rz8a 84jc2o02-6617-0ap1-c87e-x4z27350or1u ANSI-Medicare Part B d72220p8-8y41-6867-39b0-b082oc3mm852 y26601s7-6k78-6847-02h6-k616bq6ta859 ANSI-Medicare Part B 13q76r0p-w072-042c-032b-470r64j6llli 17r29y6x-r448-562w-488m-059i93f4gfvz ANSI-Medicare Part B [id number]-b024-6js7-1a99-9p5sd3007776 r19u405h-p222-2dp0-7c10-9b3lo5818290 [facility]/Medicare Solu Commercial [id number] Self [id number] ANSI-Medicare Part B 66v1a5b3-7kn4-1gkb-63d7-oo52rb3662t2 79z3h8n6-3jj9-4dxb-05a7-nm27bg0415p9 ANSI-Medicare Part B a674s472-0o86-7793-qjhp-589u86o2o859 x312p469-1x13-9461-bliv-905p91l1f658 ANSI-Medicare Part B 5c63tm47-834n-613h-54h6-56zztkz56al3 9e32oh57-207p-250x-56c9-84vvyxg55cr7 ANSI-Medicare Part B 79349nyo-mwh5-5035-7658-y0295y2r0isd 03097ztm-tzi5-8542-0114-f8722w2w9qfm ANSI-Medicare Part B x9xhgcg3-f156-2502-75k6-38s1r599z2tx x0dgonq2-c529-4984-95j1-66g8j189j5oa ANSI-Medicare Part B 8v5y1961-1123-31et-47mj-0i5pt6l3s19k 0u8w0613-5387-79gw-98fk-8q3yf8w1r97z ANSI-Medicare Part B b615s335-1wux-4xy3-y8f8-4399v643pz44 v842x982-9quh-1cy0-r9z3-9553s869xf66 ANSI-Medicare Part B m4r20tv3-j9q3-9086-8bo0-973pw4688149 u6p43ws3-e2h2-4223-0fs3-820rg4959761 ANSI-Medicare Part B 66o08930-tu8j-2a96-x9a3-k3287596m9sq 45p33214-sn0j-4a46-q9a7-o7117378g3tf ANSI-Medicare Part B p6f111c9-u0n9-57x7-pvsl-b887v8e38v67 t2t675n9-y1f6-99q9-cgxs-i033a2y00f45 Guardian (pr) Commercial [id number] Self [id number] BS [place] Medigap Part B [id number] Self [id number] [employer] (NF) Workers Compensation [id number] Self [id number] [employer] Medicare Medigap Part B [id number] Self [id number] [employer] (NF) Workers Compensation [id number] Self [id number] BS [place] Medigap Part B [id number] Self [id number] [employer] Medicare Medigap Part B [id number] Self [id number] [facility] ([facility]) Commercial [id number] Self [id number] [facility]/Medicare Solu Commercial [id number] Self [id number] [facility] P [id number] S [id number] ANSI-Medicare Part B 020zkc1e-0kvn-2364-8480-3u4s7338csu0 470fgo6j-0vni-0878-9066-9u1x6329hki5 ANSI-Medicare Part B [id number]677 w929x909-2t02-46x0-4972-162ol46n7903 ANSI-Medicare Part B gt683b64-299b-2x6a-66j9-9n7x76uoam9p mh255s84-871q-8u5j-95q1-9x3d63qdue5g ANSI-Medicare Part B 8aar71tj-43v6-10y1-k05x-68b583602619 6jjc97ys-58o4-67x2-f42a-89p951395977 ANSI-Medicare Part B z31r5ml3-166s-1278-y970-nv8220az5822 l59x9ec7-644l-7122-v032-an6278gn3872 ANSI-Medicare Part B 27s2m55l-rz56-0325-y139-95mn4jl9u013 58a2h02h-ge02-7901-b837-78zy8tx1u256 ANSI-Medicare Part B k80b47b4-r0s6-5r88-9705-gk61hpv6rz57 h20e61r0-k1z6-9c11-0798-ya77eol7mz20 ANSI-Medicare Part B at466hz6-8x00-7645-064n-12orh9n35lw4 sa272el4-2f22-1427-435r-15sxo3d39ll9 ANSI-Medicare Part B u64h363h-7m20-3vih-f934-35c553dw0nbj m60v709t-2e64-9yfh-o555-13t284tv9clf ANSI-Medicare Part B 8lq66i7p-1bk5-84km-nn60-355141966298 7gb05f1v-9zm7-03ie-cl49-654375621916 ANSI-Medicare Part B 6g560t77-h6n1-8c4f-1705-62cg2bxxr97s 0j019f15-o7j5-9b8v-4253-86fn9qnbs54m ANSI-Medicare Part B 16fvv58q-dz3j-4463-5l4c-07j255796a18 28lcl38f-jn1x-3978-2o8d-19p565400q42 ANSI-Medicare Part B 4qxtx040-8p8j-948r-ad11-blq2m368086e 1gdzn848-2f5l-365b-tc17-duy2q202939k ANSI-Medicare Part B 286n1ieg-89wu-9191-g7lt-i37tkk156ej2 001l2ceq-88rw-6165-k8ex-h97xjc053xx1 ANSI-Medicare Part B 4042a10j-059c-4jd7-3q06-n7x19789pn3g 8870f56t-788q-3vz4-7k73-i0x77971fk8l ANSI-Medicare Part B z2cg4xoa-4g40-4r1u-1zxp-p265779yc645 o6hd7scs-4n67-8g5n-1ndy-m941622xj146 ANSI-Medicare Part B 56kd4311-4023-1774-6vye-4v27939t5243 36tr2126-2900-8817-4ltt-6q39086d2710 ANSI-Medicare Part B g4q374k8-p337-6m75-n6l9-76v7xj9rb3nv x0k748y9-o923-4r43-x1r7-62a8aa5mg3wz MEDICARE COMPLETE [id number] 82 [id number] ANSI-Medicare Part B km72wb16-7y33-296p-m9i0-4979kphc5320 ht08qb39-1k91-358u-b2a6-1542coqm5137 ANSI-Medicare Part B vu4003e0-93g8-2277-6318-274x4t828506 pc3985w4-49u3-3169-4751-929y3t880937 ANSI-Medicare Part B 3997o339-4713-31e3-b8s6-e714fb5m36jr 7523g250-3052-10a5-s1r3-h346za0a85qt ANSI-Medicare Part B 59865174-80k8-0862-v37u-u6i1527c2313 44427052-27w4-1521-e43q-x1a2935m1625 Guardian (pr) Commercial [id number] Self [id number] BS [place] Medigap Part B [id number] Self [id number] [employer] (NF) Workers Compensation [id number] Self [id number] [employer] Medicare Medigap Part B [id number] Self [id number] [employer] (NF) Workers Compensation [id number] Self [id number] [place] Medigap Part B [id number] Self [id number] [employer] Medicare Medigap Part B [id number] Self [id number] [facility]) Commercial [id number] Self [id number] ANSI-Medicare Part B s0rgcoid-9813-137p-685e-5dym1060o05d w2savvug-9015-278q-740f-1gsb2257v14w ANSI-Medicare Part B 0yc6q91x-fd3n-2k1y-9024-87o9865f97p4 5qp6a08k-eg9p-4f6f-0366-78z8615a81b6 ANSI-Medicare Part B e215348h-932f-43r4-53d9-l1808fwm099j q790207r-569o-00y6-88w3-m4428qki195y ANSI-Medicare Part B p501br0c-7o25-4qs5-4gp9-1171fh3096f9 w416qf3n-3c91-7zu2-7nj2-3518vi8385l9 ANSI-Medicare Part B kivm321c-6538-9013-7s54-8p0ns6235453 pjgr572z-8153-5596-2m91-2l2oi3154065 ANSI-Medicare Part B 25490jy8-w403-224k-421y-vau06abexvxh 11519yj0-f736-864o-302f-dzw57ikkwivl ANSI-Medicare Part B 2131233q-i33r-7a28-8214-2gz6i505rh4f 1976717x-c15g-9p79-9125-9vb0t749qd6o ANSI-Medicare Part B 74igda19-0298-2hdp-9811-d32sl4rr6t50 78lxct11-3272-3oeg-0804-t88rm1ye5g39 ANSI-Medicare Part B 0u4d39r5-vq02-19m2-8g59-8fw9a7128gbv 8s0h46x5-fo13-27b3-5q93-5zs4r2016cwn ANSI-Medicare Part B u5wt8b79-0978-40i0-pm2i-ua76088d9nw6 p5br8j08-5534-24y5-hz3m-zb54686w7nc5 ANSI-Medicare Part B 5732rd32-85r2-12l4-1859-co047628r997 1112vi67-51t5-72q1-6963-nl761611m553 ANSI-Medicare Part B r4437007-652g-3fiw-180a-r1695q09j4hy m4860840-376z-8ozo-439t-m7419j89f8yz Guardian (pr) Commercial [id number] Self [id number] BS [place] Medigap Part B [id number] Self [id number] [employer] (NF) Workers Compensation [id number] Self [id number] [employer] Medicare Medigap Part B [id number] Self [id number] [employer] (NF) Workers Compensation [id number] Self [id number] BS [place] Medigap Part B [id number] Self [id number] [employer] Medicare Medigap Part B [id number] Self [id number] [facility] Commercial [id number] Self [id number] ANSI-Medicare Part B e9520043-if08-3049-0e95-47q20w0nlij4 w5550977-bu35-8472-1s75-30c09l1pdqw4 ANSI-Medicare Part B oy7v1875-6x61-373s-gy46-w126y0qx1nc1 xk8u5225-0b82-445f-nq89-g093j7ii5ew4 ANSI-Medicare Part B k1e59q14-4052-200z-83p4-v83zr10ff3v7 n2x32q63-4409-080b-34t7-c76cz61hu9d7 ANSI-Medicare Part B 7e18937c-138g-7015-95i6-7t25884m8h5t 4b32111b-664d-6031-01y0-3e04180r6p5c ANSI-Medicare Part B g2up4ddk-e749-5z14-k625-1zr7y5p8txn4 c0za0lnu-y003-4j63-n099-7vg3o4n4moj4 ANSI-Medicare Part B zhjd5z07-1x9v-5t5p-4251-q17m48n0411i clpa9u97-8m6x-9h4e-6522-g00h69y5215l ANSI-Medicare Part B 8s9i9mjf-7050-19ui-80k4-18306n070215 3m3o9ayv-7498-15na-83v7-56631n073876 ANSI-Medicare Part B f3f1d684-w49y-5s25-u88o-94u370r4ge8d m4c0l034-j16s-8g52-h90n-39q786g6un4m ANSI-Medicare Part B fv9kvzm7-b0kk-4328-66ha-y3l1su4sw6v3 ts3frtl5-g3kw-7923-74zc-o5e5xs6fv0m3 ANSI-Medicare Part B l57ldo4w-45mi-50a2-6354-25d1euzu350o l48yyb3y-50io-96h1-0599-15h7vbis326z ANSI-Medicare Part B 31c4g216-0q0o-9224-5vg9-7327e73308p4 38v2a192-3m0h-9804-3ge4-9309n34057x4 ANSI-Medicare Part B 8p7mvf15-w173-0217-97m2-0y94q77m3621 8d2rys81-g645-4707-33i1-1b63y68m2541 ANSI-Medicare Part B o7c81w47-3gah-2986-y541-s39q7n79rk43 x3t68u96-9vec-7939-u943-a41k0i27eg55 ANSI-Medicare Part B ok2uy82t-62h6-8qq5-0w25-h18h1pp26q8t ei5qc50h-10p6-7pu7-4d08-c24y1td59s6i ANSI-Medicare Part B 8393n657-o458-639z-4soc-y2740rqwn05r 0526u409-y755-512z-0lfs-g9629rmyt85b ANSI-Medicare Part B wn6r86x8-79cn-6g15-v41d-9z7lkojts41n ef0z23w7-10oh-0l93-y85c-0n1lowmiw03p ANSI-Medicare Part B iq6x1x71-vq4u-6307-18s2-p7hlk8e07x28 qk4a5a67-tq0k-3246-43g6-t5yip0x52g28 ANSI-Medicare Part B 1k7c93x6-75gi-9597-d24u-50197g996327 1z9s09y1-13ym-6703-w32z-40717g685732 ANSI-Medicare Part B c7d1t78j-o2o4-83lb-56db-zj1w952m365j i5v2w71f-x1s3-05yh-19il-em6a070o519t ANSI-Medicare Part B a27tb1ie-24kk-7308-q93b-zb8n1mpy9056 r51ps0xh-33el-7942-k05b-ci1f2fwx9139 ANSI-Medicare Part B 54y6su69-npb3-2099-3f46-b3k26945s520 01p3xv41-tqw8-7835-8b49-d3f32985a949 ANSI-Medicare Part B 002xj403-7l69-7hv5-89nq-8o0cbmiofq73 430so668-6n56-5kz0-20vm-5b3elsslri15 Guardian (pr) Commercial [id number] Self [id number] BS [place] Medigap Part B [id number] Self [id number] [employer] (NF) Workers Compensation [id number] Self [id number] [employer] Medicare Medigap Part B [id number] Self [id number] [employer] (NF) Workers Compensation [id number] Self [id number] [place] Medigap Part B [id number] Self [id number] [employer] Medicare Medigap Part B [id number] Self [id number] [facility]) Commercial [id number] Self [id number] ANSI-Medicare Part B bdtm9541-54s0-6g71-c0k0-802l6r0t5t17 rmnl1068-45r9-6h94-m5y8-013y0z8j3e09 ANSI-Medicare Part B fq2uuuv0-1p39-7v08-gf56-q7ec96b38156 rh9mlnc7-1a26-4w37-dd19-x6gt00a17277 ANSI-Medicare Part B 32h3r628-0gg6-3j67-lwd6-5119x5ge0364 19x4d424-6lx4-2f48-gvv4-1099u0qt6746 ANSI-Medicare Part B ec98823p-17y9-64b1-61ux-1442800ks783 kc94216u-91b9-84f4-44xi-3898711oc781 ANSI-Medicare Part B 1a1r68i1-tl9j-45z0-54yd-gwh4f0435rho 6p1o68u4-xt4f-09w7-84sd-rgq6p2643rzg ANSI-Medicare Part B 1pwdx2k3-1973-86b5-2m79-i0z136fjr589 3kokf8t6-4928-40q8-7m54-r1n171vvs738 ANSI-Medicare Part B 1g01r95g-62rt-1tv7-9ub4-9gea0190sc2e 8y19k12j-49bi-0ba3-3rf1-1vzd7281zq1w ANSI-Medicare Part B 0a95q123-230e-0crw-mz73-9e0x68786i05 1f19l238-983j-1nlu-uc72-3x8h44962v53 ANSI-Medicare Part B zsp303x6-0629-3i3z-6546-2r9q03432lor iqu982q0-1701-5r0t-7458-8b3i44908uef ANSI-Medicare Part B 12467z60-507k-4zfk-258x-f5u59oho1arg 14749g07-683y-7val-939t-j4g47znn1wxd ANSI-Medicare Part B 5ii74153-99ly-822q-8392-15728f08166u 4bl39024-40nc-943r-7031-61863t85368t ANSI-Medicare Part B 396s567e-9524-621j-6n6h-autxy02z720d 542c664v-1616-729f-3x4h-zagaa86f996w ANSI-Medicare Part B 2x4812h4-vmua-0p5o-ob4t-2gk3i854ay11 1k7171h2-jybc-3u9j-he9o-4ro5p645gw87 ANSI-Medicare Part B kr86yukw-5518-82q2-f6s5-hmu7kgcg416v be09ikuu-8253-39h7-p0f6-ylk6utev967f ANSI-Medicare Part B 26x865ip-0158-73u3-a40w-r24wgo6y2637 11c691ri-2455-44w0-s65w-q13sfo1p7965 ANSI-Medicare Part B 4px99343-e576-1e10-4146-h0c99p0g3k92 7zf22795-c732-1m89-7445-n9i64n2a7d61 ANSI-Medicare Part B 13fwn3o3-7970-9971-hw17-2q4rhh55xw59 62shf4j4-8965-8396-bz99-4t7hkl96em26 ANSI-Medicare Part B 402o1p41-l9f2-7341-2066-6adjrj48e807 224q8u93-c5k2-6809-5651-3tgwsi06p162 ANSI-Medicare Part B a24274uk-5l45-8515-5w16-6x74ty9bw00n y01402pz-1d47-5972-6y15-9z91fd9cp85s ANSI-Medicare Part B smsh73p7-9051-3146-62o5-414jc545151j rqcr43h3-1653-7849-93k8-704ww540080c ANSI-Medicare Part B 157t7800-frx0-4ngd-ko6t-r45y207h8ijs 958s5105-gsi5-4jdb-kt9x-d31g859u1miq ANSI-Medicare Part B 0mj70zb8-5385-38d9-yk3e-7x7lj71tm3a3 6we57rv0-4042-52b1-sq4t-3q7sa25fn2d0 ANSI-Medicare Part B 4c15c161-90x6-2gka-kz4u-5554x3cxy490 4g98y849-33p7-9auw-vs4p-8515u6ump484 ANSI-Medicare Part B 428nb43l-54i4-6470-2f43-q879q9k17cw6 533hq29u-55m8-8476-7p39-q747p2y53ix5 ANSI-Medicare Part B 5d29953b-n752-8sm6-310g-8lwk0csx9493 7d17278u-w781-6wk3-726j-6pyv1qzc3073 ANSI-Medicare Part B p3a5itzv-gs6l-7fb5-i700-ai46qm2s6806 a5x1rznk-gl8q-4zd3-e926-fr27yv5w5998 ANSI-Medicare Part B v0tz1kei-sst5-43a8-s51z-gcj43q82dzx7 m6la6fqu-ydy2-69p6-c30o-oad47m51vym6 ANSI-Medicare Part B 4v6i7232-w6o5-5x21-81ai-t83hj9zd0uvf 4b6i6067-t0k0-5j21-94fh-x55kr3wc1ayn ANSI-Medicare Part B n5e1h1c3-x687-59x5-42uj-66d254yx6p95 m8b5t8o4-a566-54p2-33oj-44i359fa6y93 ANSI-Medicare Part B lz5443q8-o1u9-842n-u008-g39v2qb689h6 as5569n3-i1a0-100p-y554-c08c9md543u0 ANSI-Medicare Part B 3k9js376-i56m-71o9-d801-32x0w59v30t8 9k8yr487-g46l-71r3-j667-58d4n43j50q2 ANSI-Medicare Part B 8n2ty63d-58h9-4509-o136-6m1v91m60wec 4y4py65e-80t7-6447-a443-4m5i36w44juz ANSI-Medicare Part B a0pg2c6d-ie3x-00e8-3408-8s6q35607623 u1qy6a8e-kf6n-68t2-8987-4p9e00644827 ANSI-Medicare Part B 531bq867-z109-08b6-d806-6k3794750r67 838hd189-g258-26k2-t071-6d2593696u10 ANSI-Medicare Part B 1o0685qg-n619-0771-i2nf-720l21236x1u 2w1122tu-k210-0471-f9gz-518p74641o2t ANSI-Medicare Part B 2dvm8547-10d3-2a7l-706y-m7mzo939tat1 7cxj3521-87g9-2a5r-236e-s6jmd763xxp9 ANSI-Medicare Part B 1433900y-n707-30d6-skj5-qnk00143o50z 3567281w-k544-64z4-ryj9-vtt35530i77p ANSI-Medicare Part B 40i7t2to-o5nz-5747-8497-9163pp3n67g9 85b9z8np-a1xa-0532-5389-0316lg0v86z6 ANSI-Medicare Part B 86t90t4t-akk9-5xl3-034d-k03qtomw3m24 20i15m6l-qsu6-5qz4-954q-w94kwjlu8y31 ANSI-Medicare Part B yhvjw42w-7817-1117-4rv8-0x7k20m72221 nftpz58o-9402-1378-5gf1-5v5r19a00549 ANSI-Medicare Part B 699j4m3s-03a1-50x7-6f52-4rdo34wqoj1f 501v5b1g-21h6-39a1-9p84-8tjc77romx1t ANSI-Medicare Part B 676q7639-0976-3005-g64x-850n3yvo1eh2 982d5220-5574-2764-z41s-564r3zbt3ne9 ANSI-Medicare Part B n4s4unlo-212p-2xt3-5a8e-1m8062o5k9l4 x8x8siyd-567s-6xf6-0s5x-8i5100b1d2o9 ANSI-Medicare Part B 5r915v62-7514-65y4-c6f0-6v5ql18365y8 1a266m77-5623-60g8-v6a1-6j7jd73915g9 ANSI-Medicare Part B 71r544t5-54w9-6p4i-o842-220027x14k2q 52o650w4-95q7-9n1i-r745-881374m28g3i ANSI-Medicare Part B 68b4a1x0-fd7l-6362-pj06-0wc65u1494e3 19y4b9o8-cs4x-1737-dz29-6rs93q9023o6 ANSI-Medicare Part B 67438p3l-iy0r-9466-aj98-38771679v69w 09448g9i-gz9h-3036-hv51-11016867u64q ANSI-Medicare Part B 787480t2-6405-87e6-7523-439suoo5i303 796141q1-2289-83a7-4944-099yjhh1k145 Guardian (pr) Commercial [id number] Self [id number] BS [place] Medigap Part B [id number] Self [id number] [employer] (NF) Workers Compensation [id number] Self [id number] [employer] Medigap Part B [id number] Self [id number] [employer] (NF) Workers Compensation [id number] Self [id number] BS [place] Medigap Part B [id number] Self [id number] [employer] Medicare Medigap Part B [id number] Self [id number] [facility] Commercial [id number] Self [id number] Guardian (pr) Commercial [id number] Self [id number] BS [place] Medigap Part B [id number] Self [id number] [employer] (NF) Workers Compensation [id number] Self [id number] [employer] Medigap Part B [id number] Self [id number] [employer] ([place]) Workers Compensation [id number] Self [id number] BS [place] Medigap Part B [id number] Self [id number] Cigna Medicare Medigap Part B [id number] Self [id number] [facility] ([facility]) Commercial [id number] Self [id number] MEDICARE COMPLETE [id number] SP [id number] Sliding Fee Scale P None S No ne MEDICARE COMPLETE-[facility] O [id number] S [id number] MEDICARE [id number] SP [id number] A MEDICARE C [id number] S [id number] A Cigna Medicare Medigap Part B Self [employer] [place]) Workers Compensation Aquilino Horowitz Self Aquilino Horowitz BS [place] Medig[place] Part B Self [place] Medigap Part B Self Cigna Medicare Medigap Part B Self [employer] (pr) Medigap Part B Self [facility] ([facility]) Commercial Self MEDICARE COMPLETE [id number] SP [id number] [facility] Medicare Commercial Self [employer] Health Maintenance Organization (HMO) Self Self Pay P UNAVAILABLE S UNAVAILA BLE Self Pay S NONE S NONE Sliding Fee Scale P UNAVAILABLE S UNAVAILABLE [employer] [id number] SP [id number] [facility]/Medicare Sol Commercial Self [facility] UNITED MEDICARE COMPLETE G [id number] Self [id number] Problems, Conditions, and Diagnoses Code Display Name Description Problem Type Effective Dates Data Source(s) M06.4 [id number] Inflammatory polyarthritis Problem 0 12:00:00 AM EDT eCW1 ([facility]) M89.49 [id number] Primary osteoarthritis involving multiple joints Problem 09/05/2019 12:00:00 AM EDT eCW1 ([facility]) G89.4 [id number] Chronic pain syndrome Problem 07/11/2019 12: 00:00 AM EDT eCW1 ([facility]) G89.4 [id number] Chronic pain syndrome Problem 07/11/2019 12: 00:00 AM EDT eCW1 ([facility]) E66.01 [id number] Morbid obesity Problem 04/12/2019 12:00:00 A M EST eCW1 ([facility]) E03.9 Subclinical hypothyroidism Subclinical hypothyroidism Problem 04/12/2019 12:00:00 AM EST eCW1 ([facility]) D75.89 [id number] Macrocytosis without anemia Problem 04/12/19 12:00:00 AM EST eCW1 ([facility]) D75.89 [id number] Macrocytosis without anemia Problem 04/12/19 12:00:00 AM EST eCW1 ([facility]) E66.01 [id number] Morbid obesity Problem 04/12/2019 12:00:00 A M EST eCW1 ([facility]) K21.9 [id number] Gastroesophageal reflux disease without e sophagitis Problem 03/07/2019 12:00:00 AM EST eCW1 ([facility]) Surgeries/Procedures Procedure Description Date Indications Data Source(s) Immunization: Flublok Quadrivalent (18 years & older) 0.5mL IM (Influenza) 01/17/2020 12:00:00 AM EDT eCW1 ([facility]) PSYTX W PT 45 MINUTES 08/28/2019 12:00:00 AM EDT eCW1 ([facility]) ARTHROCENTESIS ASPIR&/INJECTION MAJOR JT/BURSA 020 12:00:00 AM EDT MEDENT ([facility]) Annual wellness visit, includes a person alized prevention plan of service (pps), subsequent visit 08/14/2019 12:00:00 AM EDT eCW 1 ([facility]) Office Visit, Est Pt., Level 4 PC 08/14/2019 12:00:00 AM EDT eCW1 ([facility]) Office Visit, Est Pt., Level 2 FC 08/14/2019 12:00:00 AM EDT eCW1 ([facility]) RADIOLOGIC EXAM KNEE COMPLETE 4/MORE VIEWS 06/07/2019 12:00:00 AM EST MEDENT ([facility]) ARTHROCENTESIS ASPIR&/INJECTION MAJOR JT/BURSA 020 12:00:00 AM EST MEDENT ([facility]) RADEX SHOULDER COMPLETE MINIMUM 2 VIEWS 04/13/2019 12: 00:00 AM EST MEDENT ([facility]) Office Visit, Est Pt., Level 3 PC 04/12/2019 12:00:00 AM EST eCW1 ([facility]) TD Adult 0.5mL (Tetanus) 04/06/2019 12:00:00 AM EST eCW1 ([facility]) IMMUNIZATION ADMIN 04/06/2019 12:00:00 AM EST eCW1 ([facility]) Results ID Date Data Source URINE CULTURE 10/12/2019 10:53:07 AM EDT eCW1 ([facility]) Name Value Range Interpretation Code Description Data Anahi rce(s) Supporting Document(s) Laboratory studies (set) URINE CULTU RE eCW1 ([facility]) ID Date Data Source Urinalysis, no micro 10/08/2019 03:41:03 AM EDT eCW1 ([facility]) Name Value Range Interpretation Code Description Data Anahi rce(s) Supporting Document(s) 5 pH eCW1 ([facility]) 1.020 Spec gravity eCW1 ([facility]) + Nitrate eCW1 ([facility]) + Leukocyte eCW1 ([facility]) - Urobili eCW1 ([facility]) - Glucose eCW1 ([facility]) + Protein eCW1 ([facility]) - Ketones eCW1 ([facility]) 50 Blood eCW1 ([facility]) - Bilirubin eCW1 ([facility]) y Internal QC Acceptable (Y/N) e CW1 ([facility]) ID Date Data Source VITB12 & FOL 04/12/2019 12:00:00 AM EST eCW1 ([facility]) Name Value Range Interpretation Code Description Data Anahi rce(s) Supporting Document(s) > 24.0 FOLATE eCW1 ([facility]) 1493 VITAMIN B12 LEVEL eCW1 ([facility]) ID Date Data Source LIPID PANEL (CARDIAC RISK) 04/12/2019 12:00:00 AM EST eCW1 ( [facility]) Name Value Range Interpretation Code Description Data Anahi rce(s) Supporting Document(s) Cholesterol in HDL [Moles/volume] in Serum or Plasma 73 >40 HDL CHOLESTEROL eCW1 ([facility]) Triglyceride [Mass/volume] in Serum or Plasma by calculation 76 <150 TRIGLYCERIDES LEVEL eCW1 ([facility]) Cholesterol in LDL [Mass/volume] in Serum or Plasma by calculation 83 <100 LDL CHOLESTEROL eCW1 ([facility]) Cholesterol [Moles/volume] in Serum or Plasma 171 <200 CHOLESTEROL LEVEL eCW1 ([facility]) 2.342 <5 CHOLESTEROL RISK RATIO eCW1 ([facility]) 98 NON-HDL-C eCW1 ([facility]) ID Date Data Source [id number] 04/12/2019 12:00:00 AM EST eCW1 ([facility]) Name Value Range Interpretation Code Description Data Anahi rce(s) Supporting Document(s) Hemoglobin A1c/Hemoglobin.total in Blood 5.9 HEMOGLOBIN A1c eCW1 ([facility]) ID Date Data Source FREE T4 & TSH PANEL 04/12/2019 12:00:00 AM EST eCW1 ([facility]) Name Value Range Interpretation Code Description Data Anahi rce(s) Supporting Document(s) 0.455 0.358-3.740 THYROID STIMULATING HORM ONE eCW1 ([facility]) 1.20 0.76-1.46 FREE T4 eCW1 ([facility]) Procedure Social History Code Duration Value Status Description Data Source(s ) Smoking 04/16/2020 12:00:00 AM EST Never Smoker completed Never S moker eCW1 ([facility]) Smoking 01/17/2020 12:00:00 AM EDT Never Smoker completed Never S moker eCW1 ([facility]) Smoking 01/17/2020 12:00:00 AM EDT Never Smoker completed Never S moker eCW1 ([facility]) Smoking 01/17/2020 12:00:00 AM EDT Never Smoker completed Never S moker eCW1 ([facility]) Smoking 01/17/2020 12:00:00 AM EDT Never Smoker completed Never S moker eCW1 ([facility]) Smoking 01/17/2020 12:00:00 AM EDT Never Smoker completed Never S moker eCW1 ([facility]) Smoking 01/17/2020 12:00:00 AM EDT Never Smoker completed Never S moker eCW1 ([facility]) Smoking 01/17/2020 12:00:00 AM EDT Never Smoker completed Never S moker eCW1 ([facility]) Smoking 01/17/2020 12:00:00 AM EDT Never Smoker completed Never S moker eCW1 ([facility]) Smoking 01/17/2020 12:00:00 AM EDT Never Smoker completed Never S moker eCW1 ([facility]) Smoking 01/17/2020 12:00:00 AM EDT Never Smoker completed Never S moker eCW1 ([facility]) Smoking 01/17/2020 12:00:00 AM EDT Never Smoker completed Never S moker eCW1 ([facility]) Smoking 01/17/2020 12:00:00 AM EDT Never Smoker completed Never S moker eCW1 ([facility]) Smoking 01/17/2020 12:00:00 AM EDT Never Smoker completed Never S moker eCW1 ([facility]) Smoking 01/10/2020 12:00:00 AM EDT Never Smoker completed Never S moker eCW1 ([facility]) Smoking 10/08/2019 12:00:00 AM EDT Never Smoker completed Never S moker eCW1 ([facility]) Smoking 10/08/2019 12:00:00 AM EDT Never Smoker completed Never S moker eCW1 ([facility]) Smoking 10/08/2019 12:00:00 AM EDT Never Smoker completed Never S moker eCW1 ([facility]) Smoking 09/05/2019 12:00:00 AM EDT Never Smoker completed Never S moker eCW1 ([facility]) Smoking 09/05/2019 12:00:00 AM EDT Never Smoker completed Never S moker eCW1 ([facility]) Smoking 09/05/2019 12:00:00 AM EDT Never Smoker completed Never S moker eCW1 ([facility]) Smoking 09/05/2019 12:00:00 AM EDT Never Smoker completed Never S moker eCW1 ([facility]) Vital Signs ID Date Data Source UNK Name Value Range Interpretation Code Description Data Source(s) Diastolic blood pressure 78 mm[Hg] 78 mm[Hg] eCW1 ([facility]) Systolic blood pressure 130 mm[Hg] 130 mm[Hg] e CW1 ([facility]) Body temperature 96.9 [degF] 96.9 [degF] eCW1 ( [facility]) Respiratory rate 18 /min 18 /min eCW1 ([facility]) Heart rate 109 /min 109 /min eCW1 ([facility]) Body mass index (BMI) [Ratio] 40.56 kg/m2 40.56 kg/m2 W1 ([facility]) Body height 67 [in_i] 67 [in_i] eCW1 ([facility]) Body weight 259 [lb_av] 259 [lb_av] eCW1 ([facility]) Diastolic blood pressure 70 mm[Hg] 70 mm[Hg] eCW1 ([facility]) Systolic blood pressure 142 mm[Hg] 142 mm[Hg] e CW1 ([facility]) Body temperature 96.7 [degF] 96.7 [degF] eCW1 ( [facility]) Respiratory rate 18 /min 18 /min eCW1 ([facility]) Heart rate 100 /min 100 /min eCW1 ([facility]) Body mass index (BMI) [Ratio] 40.53 kg/m2 40.53 kg/m2 eCW1 ([facility]) Body height 67 [in_i] 67 [in_i] eCW1 ([facility]) Body weight 117.4 kg 117.4 kg eCW1 ([facility]) Body weight 258.8 [lb_av] 258.8 [lb_av] eCW1 ([facility]) Diastolic blood pressure 76 mm[Hg] 76 mm[Hg] eCW1 ([facility]) Systolic blood pressure 142 mm[Hg] 142 mm[Hg] e CW1 ([facility]) Body temperature 97.6 [degF] 97.6 [degF] eCW1 ( [facility]) Respiratory rate 18 /min 18 /min eCW1 ([facility]) Heart rate 107 /min 107 /min eCW1 ([facility]) Body mass index (BMI) [Ratio] 40.69 kg/m2 40.69 kg/m2 eCW1 ([facility]) Body height 67 [in_i] 67 [in_i] eCW1 ([facility]) Body weight 259.8 [lb_av] 259.8 [lb_av] eCW1 ([facility]) Diastolic blood pressure 72 mm[Hg] 72 mm[Hg] eCW1 ([facility]) Systolic blood pressure 148 mm[Hg] 148 mm[Hg] e CW1 ([facility]) Body temperature 96.7 [degF] 96.7 [degF] eCW1 ( [facility]) Respiratory rate 18 /min 18 /min eCW1 ([facility]) Body mass index (BMI) [Ratio] 40.28 kg/m2 40.28 kg/m2 eCW1 ([facility]) Body height 67 [in_i] 67 [in_i] eCW1 ([facility]) Body weight 257.2 [lb_av] 257.2 [lb_av] eCW1 ([facility]) Diastolic blood pressure 82 mm[Hg] 82 mm[Hg] eCW1 ([facility]) Systolic blood pressure 140 mm[Hg] 140 mm[Hg] e CW1 ([facility]) Body temperature 98.3 [degF] 98.3 [degF] eCW1 ( [facility]) Respiratory rate 18 /min 18 /min eCW1 ([facility]) Heart rate 109 /min 109 /min eCW1 ([facility]) Body mass index (BMI) [Ratio] 41.66 kg/m2 41.66 kg/m2 eCW1 ([facility]) Body height 67 [in_us] 67 [in_us] eCW1 ([facility]) Body weight Measured 266 [lb_av] 266 [lb_av] eC W1 ([facility]) Diastolic blood pressure 80 mm[Hg] 80 mm[Hg] eCW1 ([facility]) Systolic blood pressure 130 mm[Hg] 130 mm[Hg] e CW1 ([facility]) Body temperature 96.3 [degF] 96.3 [degF] eCW1 ( [facility]) Respiratory rate 18 /min 18 /min eCW1 ([facility]) Heart rate 60 /min 60 /min eCW1 ([facility]) Body mass index (BMI) [Ratio] 41.38 kg/m2 41.38 kg/m2 eCW1 ([facility]) Body height 67 [in_us] 67 [in_us] eCW1 ([facility]) Body weight Measured 264.2 [lb_av] 264.2 [lb_av ] eCW1 ([facility]) Patient Treatment Plan of Care Planned Activity Planned Date Details Description Data Source (s) Cimetidine 800 MG Oral Tablet 02/14/2020 12:00:00 AM EST eCW1 ([facility]) Cimetidine 800 MG Oral Tablet 02/14/2020 12:00:00 AM EST eCW1 ([facility]) Cimetidine 800 MG Oral Tablet 02/14/2020 12:00:00 AM EST eCW1 ([facility]) Cimetidine 800 MG Oral Tablet 02/14/2020 12:00:00 AM EST eCW1 ([facility]) Cimetidine 800 MG Oral Tablet 02/14/2020 12:00:00 AM EST eCW1 ([facility]) Cimetidine 800 MG Oral Tablet 02/14/2020 12:00:00 AM EST eCW1 ([facility]) Cimetidine 800 MG Oral Tablet 02/14/2020 12:00:00 AM EST eCW1 ([facility]) Cimetidine 800 MG Oral Tablet 02/14/2020 12:00:00 AM EST eCW1 ([facility]) Hydroxychloroquine Sulfate 200 MG Oral Tablet [[place]] 01/10/2020 12:00:00 AM EDT eCW1 ([facility]) NITROFURANTOIN, MACROCRYSTALS 25 MG / Ni trofurantoin, Monohydrate 75 MG Oral Capsule [Macrobid] 10/08/2019 12:00:00 AM EDT eC W1 ([facility]) NITROFURANTOIN, MACROCRYSTALS 25 MG / Ni trofurantoin, Monohydrate 75 MG Oral Capsule [Macrobid] 10/08/2019 12:00:00 AM EDT eC W1 ([facility]) NITROFURANTOIN, MACROCRYSTALS 25 MG / Ni trofurantoin, Monohydrate 75 MG Oral Capsule [Macrobid] 10/08/2019 12:00:00 AM EDT eC W1 ([facility]) Methotrexate 2.5 MG Oral Tablet 09/05/2019 12:00:00 AM EDT eCW1 ([facility]) Folic Acid 1 MG Oral Tablet 09/05/2019 12:00:00 AM EDT eCW1 ([facility]) Medrol 4 MG 09/05/2019 12:00:00 AM EDT e CW1 ([facility]) Methotrexate 2.5 MG Oral Tablet 09/05/2019 12:00:00 AM EDT eCW1 ([facility]) Folic Acid 1 MG Oral Tablet 09/05/2019 12:00:00 AM EDT eCW1 ([facility]) Medrol 4 MG 09/05/2019 12:00:00 AM EDT e CW1 ([facility]) Methotrexate 2.5 MG Oral Tablet 09/05/2019 12:00:00 AM EDT eCW1 ([facility]) Folic Acid 1 MG Oral Tablet 09/05/2019 12:00:00 AM EDT eCW1 ([facility]) Medrol 4 MG 09/05/2019 12:00:00 AM EDT e CW1 ([facility]) Methotrexate 2.5 MG Oral Tablet 09/05/2019 12:00:00 AM EDT eCW1 ([facility]) Folic Acid 1 MG Oral Tablet 09/05/2019 12:00:00 AM EDT eCW1 ([facility]) Medrol 4 MG 09/05/2019 12:00:00 AM EDT e CW1 ([facility]) gabapentin 300 MG Oral Capsule [Neurontin] 04/02/2019 12:00:[address] eCW1 ([facility]) Famotidine 20 MG Oral Tablet 03/07/2019 12:00:00 AM EST eCW1 ([facility]) Famotidine 20 MG Oral Tablet 03/07/2019 12:00:00 AM EST eCW1 ([facility])
[2020-04-18 20:31] VITALS: BP 175/86
== END 2020-04-18 21:45 | disposition left against medical advice (07) ==
LOC: M ED 18:10
DX: U07.1 COVID-19 (principal); I10 Essential (primary) hypertension; E11.9 Type 2 diabetes mellitus without complications; E78.5 Hyperlipidemia, unspecified; E03.9 Hypothyroidism, unspecified; K21.9 Gastro-esophageal reflux disease without esophagitis; M79.7 Fibromyalgia; Z79.899 Other long term (current) drug therapy; Z79.890 Hormone replacement therapy; Z79.84 Long term (current) use of oral hypoglycemic drugs; Z88.1 Allergy status to other antibiotic agents

== ENCOUNTER → 2020-05-09 | Outpatient (REF) | payer MEDICARE ==
[2020-05-09 16:21] LABS: BASO % 1.1 % (0.0-1.0); EOS # 0.1 10^3/uL (0.0-0.5); EOS % 2.1 % (0.0-3.0); HEMATOCRIT 37.4 % (36.0-47.0); HEMOGLOBIN 11.9 g/dl (12.0-15.5); LYMPH # 1.4 10^3/uL (1.5-5.0); LYMPH % 37.4 % (24.0-44.0); MEAN CORPUSCULAR HEMOGLOBIN 29.5 pg (27.0-33.0); MEAN CORPUSCULAR HGB CONC 31.8 g/dl (32.0-36.5); MEAN CORPUSCULAR VOLUME 92.6 fl (80.0-96.0); MONO # 0.2 10^3/uL (0.0-0.8); MONO % 6.1 % (0.0-5.0); NEUTROPHILS % 52.8 % (36.0-66.0); PLATELET COUNT, AUTOMATED 227 10^3/uL (150-450); RED BLOOD COUNT 4.04 10^6/uL (4.00-5.40); WHITE BLOOD COUNT 3.7 10^3/uL (4.0-10.0)
[2020-05-09 16:50] LABS: ALBUMIN 3.6 GM/DL (3.2-5.2); ALT/SGPT 37 U/L (12-78); BILIRUBIN,TOTAL 0.3 MG/DL (0.2-1.0); BLOOD UREA NITROGEN 6 MG/DL (7-18); CALCIUM LEVEL 9.6 MG/DL (8.8-10.2); CARBON DIOXIDE LEVEL 29 MEQ/L (21-32); CHLORIDE LEVEL 106 MEQ/L (98-107); CREATININE FOR GFR 0.79 MG/DL (0.55-1.30); GLOMERULAR FILTRATION RATE > 60.0 (>45); GLUCOSE, FASTING 111 MG/DL (70-100); POTASSIUM SERUM 3.4 MEQ/L (3.5-5.1); SODIUM LEVEL 142 MEQ/L (136-145); TOTAL PROTEIN 7.3 GM/DL (6.4-8.2)
[2020-05-09 17:04] LABS: ERYTHROCYTE SEDIMENTATION RATE 45 mm/hr (0-30)
[2020-05-12 14:08] LABS: ANTI DS-DNA AB Negative (Negative)
== END ==
LOC: M SFHCADAM 11:48
PROVIDERS: ATTEND Internal Medicine
DX: M06.4 Inflammatory polyarthropathy (principal); R76.8 Other specified abnormal immunological findings in serum

== ENCOUNTER → 2020-08-27 | Outpatient (CLI) | payer MEDICARE ==
--- NOTE | 2020-08-27 09:49 | REP ---
INDICATION: RIGHT KNEE PAIN. COMPARISON: None. TECHNIQUE: Single PA weight-bearing view of the right and left knee FINDINGS: Advanced osteoarthritic degenerative changes to the right knee includes osteophytosis, subchondral sclerosis and near complete joint space obliteration. Left knee is relatively normal with only minimal medial joint space narrowing suggested. IMPRESSION: Advanced degenerative changes to the right knee. <Electronically signed by Leno Loco > 08/27/20 0923
== END ==
LOC: M SOG 08:57
PROVIDERS: ATTEND Orthopaedic Surgery Adult Reconstructive Orthopaedic Surgery
DX: M17.11 Unilateral primary osteoarthritis, right knee (principal)

== ENCOUNTER → 2020-09-23 | Outpatient (CLI) | payer MEDICARE ==
[~2020-09-23] MED LIST changes: +ABIL1TAB11 PO; +ASPI81TA26 PO; +B-12100010 PO; +BENA25CA4 PO; +D 1010002 PO; +DOCU-153 PO; +FAMO40TA3 PO; +FIBE625T PO; +MULT-90 PO; +PLAQ200T4 PO; +PROM50TA4 PO; +PROTPAK PO; +VENL37.52 PO
--- NOTE | 2020-09-23 15:26 | REP ---
INDICATION: RT KNEE OA. COMPARISON: Comparison knee radiographs August 27, 2020 and June 07, 2019.. TECHNIQUE: [facility] hip/knee protocol is utilized as requested. Two and 3 mm axial images re-formatted. Coronal and sagittal MPR images are generated. Hip knee and ankle regions of interest are included. FINDINGS: There is mild superior acetabular spurring and joint space narrowing. Femoral head is smooth and rounded. There are multiple pelvic phleboliths. No other abnormality at the hip. At the knee acquisition, vascular calcification is visible. There is moderate 3 compartment osteoarthritis at the knee with well established spurring medially and laterally. Patellofemoral spurring is noted as well. There is medial compartment joint space narrowing and sclerosis. There is evidence of a joint effusion. No bony destructive lesion or erosive changes seen. The ankle acquisition, ankle mortise appears intact. There is periarticular soft tissue calcification anterior to the distal fibula. There is mild vascular calcification crossing the ankle. Talar dome and tibial plafond appear intact. There is minimal midfoot spurring. IMPRESSION: Moderate 3 compartment osteoarthritis of the knee. Mild osteoarthritic changes at the ankle and hip as above. No bony destructive lesion. <Electronically signed by Hossein Shin > 09/23/20 [id number]
== END ==
LOC: M RAD 14:11
PROVIDERS: ATTEND Orthopaedic Surgery Adult Reconstructive Orthopaedic Surgery
DX: M17.11 Unilateral primary osteoarthritis, right knee (principal); M19.071 Primary osteoarthritis, right ankle and foot; M16.11 Unilateral primary osteoarthritis, right hip

== ENCOUNTER → 2020-09-24 | Outpatient (REF) | payer MEDICARE ==
[2020-09-24 13:27] LABS: EOS # 0.1 10^3/uL (0.0-0.5); EOS % 2.7 % (0.0-3.0); HEMATOCRIT 38.9 % (36.0-47.0); HEMOGLOBIN 12.3 g/dl (12.0-15.5); LYMPH # 1.5 10^3/uL (1.5-5.0); LYMPH % 36.3 % (24.0-44.0); MEAN CORPUSCULAR HEMOGLOBIN 29.3 pg (27.0-33.0); MEAN CORPUSCULAR HGB CONC 31.6 g/dl (32.0-36.5); MEAN CORPUSCULAR VOLUME 92.6 fl (80.0-96.0); MONO # 0.3 10^3/uL (0.0-0.8); MONO % 7.8 % (2.0-8.0); NEUTROPHILS # 2.1 10^3/uL (1.5-8.5); PLATELET COUNT, AUTOMATED 205 10^3/uL (150-450); WHITE BLOOD COUNT 4.1 10^3/uL (4.0-10.0)
[2020-09-24 14:02] LABS: ALBUMIN 3.9 GM/DL (3.2-5.2); ALT/SGPT 44 U/L (12-78); BILIRUBIN,TOTAL 0.2 MG/DL (0.2-1.0); BLOOD UREA NITROGEN 8 MG/DL (7-18); CALCIUM LEVEL 8.9 MG/DL (8.8-10.2); CARBON DIOXIDE LEVEL 28 MEQ/L (21-32); CHLORIDE LEVEL 107 MEQ/L (98-107); CREATININE FOR GFR 0.76 MG/DL (0.55-1.30); GLOMERULAR FILTRATION RATE > 60.0 (>45); GLUCOSE, FASTING 141 MG/DL (70-100); POTASSIUM SERUM 4.1 MEQ/L (3.5-5.1); SODIUM LEVEL 140 MEQ/L (136-145); TOTAL PROTEIN 7.4 GM/DL (6.4-8.2)
[2020-09-24 14:19] LABS: HEMOGLOBIN A1c 6.7 %
== END ==
LOC: M SFHCADAM 11:25
PROVIDERS: ATTEND Physician Assistant
DX: Z01.818 Encounter for other preprocedural examination (principal); E11.9 Type 2 diabetes mellitus without complications; M06.9 Rheumatoid arthritis, unspecified

== ENCOUNTER → 2020-09-27 | Outpatient (CLI) | payer MEDICARE ==
--- NOTE | 2020-09-27 12:52 | ECGEPIP ---
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
== END ==
LOC: M EKG 08:51
PROVIDERS: ATTEND Anesthesiology
DX: Z01.818 Encounter for other preprocedural examination (principal); R03.0 Elevated blood-pressure reading, without diagnosis of hypertension; E11.9 Type 2 diabetes mellitus without complications

== ENCOUNTER 2020-09-30 07:08 | Outpatient (RCR) | payer MEDICARE ==
[~2020-09-30 07:08] MED LIST changes: -IBUP-359; +IBUP-359 PO; -LISI20TA33; +LISI20TA33 PO
== END 2020-10-01 ==
LOC: M PT 07:08
PROVIDERS: ATTEND Orthopaedic Surgery Adult Reconstructive Orthopaedic Surgery
DX: M17.11 Unilateral primary osteoarthritis, right knee (principal)

== ENCOUNTER → 2020-10-02 | Day surgery (SDC) | payer MEDICARE ==
[~2020-10-02] VITALS: Ht 172.7 cm; Wt 117.9 kg
[~2020-10-02] MED LIST changes: +IBUP-359; -IBUP-359 PO; +LISI20TA33; -LISI20TA33 PO
== END | disposition home or self-care (01) ==
LOC: M SDC 10:12
PROVIDERS: ATTEND Orthopaedic Surgery Adult Reconstructive Orthopaedic Surgery
DX: M17.11 Unilateral primary osteoarthritis, right knee (principal); Z53.9 Procedure and treatment not carried out, unspecified reason

== ENCOUNTER 2020-10-07 06:00 | Observation (INO) | payer MEDICARE ==
[2020-10-07] VITALS (7 sets, daily range): BP systolic 110–146; BP diastolic 60–84
[~2020-10-07] VITALS: Ht 172.7 cm; Wt 128.1 kg
[~2020-10-07 06:00] MED LIST changes: +ACETAMINOPHEN 500 MG TAB PO ONE; -IBUP-359; +IBUP-359 PO; -LISI20TA33; +LISI20TA33 PO; +LR 1,000 ML IV ONE; +NAPROXEN 250 MG TAB PO ONE; +NS 1,000 ML IV SCH; +PREGABALIN 25 MG CAP (LYRICA) PO ONE; +ROPIVA 125MG/EPINEPH 0.25MG/CLONID 40MCG/KETOR 15MG IN NS 50ML SYRINGE PA ONE; +TRANEXAMIC ACID INJection 1,000 MG in NS 50 ML IV ONE; +ceFAZolin SOD 2 GM in IV 1 EA IV ONE; +dexameTHASONE 4 MG/ML 1ML VIAL (J1100 PER 1MG) IV ONE
[2020-10-07] MEDS ORDERED: TRANEXAMIC ACID 100 MG/ML 10ML VIAL As Ordered ONE (07:09)
[2020-10-07] MEDS ORDERED: VANCOMYCIN HCL 1,000 MG, VIAL MATE ADAPTER 1 EACH in NS 250 ML IV ONE (07:20)
[2020-10-07] MEDS ORDERED: MIDAZOLAM INJ 2MG/2ML VIAL (J2250 PER 1MG) As Ordered ONE ×2 (07:24→08:30)
[2020-10-07] MEDS ORDERED: fentaNYL 100 MCG/2 ML INJECTION (J3010) As Ordered ONE (07:24)
[2020-10-07] MEDS ORDERED: propofoL 200 MG/20 ML VIAL As Ordered ONE ×2 (07:24→10:12)
[2020-10-07] MEDS ORDERED: ONDANSETRON 4MG/2ML VIAL As Ordered ONE (07:24)
[2020-10-07] MEDS ORDERED: LIDOCAINE 2% 100MG/5ML SDV (FOR ANES.) As Ordered ONE (07:24)
[2020-10-07] MEDS ORDERED: VANCOMYCIN 1000MG/20ML VIAL As Ordered ONE (07:26)
[2020-10-07] MEDS ORDERED: SCOPOLAMINE 1MG TRANSDERMAL PATCH As Ordered ONE (07:43)
[2020-10-07] MEDS ORDERED: METOCLOPRAMIDE INJ 10MG/2ML VIAL (J2765 PER 1) As Ordered ONE (08:13)
[2020-10-07] MEDS ORDERED: PHENYLephrine 500MCG 5ML (100MCG/ML) SYRINGE As Ordered ONE (09:33)
[2020-10-07] MEDS ORDERED: ESMOLOL INJ 100MG/10ML VIAL As Ordered ONE (09:59)
[2020-10-07] MEDS ORDERED: LABETALOL 100MG/20ML VIAL As Ordered ONE (10:58)
[2020-10-07] MEDS ORDERED: oxyCODONE 5MG TAB PO PRN ×3 (12:10→12:35)
[2020-10-07] MEDS ORDERED: ONDANSETRON 4MG/2ML VIAL IV PRN ×2 (12:10→12:30)
[2020-10-07] MEDS ORDERED: LR 1,000 ML IV SCH (12:10)
[2020-10-07] MEDS ORDERED: fentaNYL 100 MCG/2 ML INJECTION (J3010) IV PRN (12:10)
--- NOTE | 2020-10-07 12:27 | REP ---
INDICATION: S/P TOTAL RIGHT KNEE COMPARISON: None. TECHNIQUE: Portable AP and cross-table lateral views. FINDINGS: Normal appearance and positioning to the femoral, tibial and patellar components. Overlying postsurgical changes and skin fide noted. IMPRESSION: Status post right knee replacement. <Electronically signed by Leno Loco > 10/07/20 [id number]
--- NOTE | 2020-10-07 12:29 | ROOPDOC ---
[facility] Report Of Operation Report of Operation DATE OF PROCEDURE: 10/07/20 PREPROCEDURE DIAGNOSES: Right knee osteoarthritis POSTPROCEDURE DIAGNOSES: Right knee osteoarthritis PROCEDURE PERFORMED: Clayton right total knee arthroplasty SURGEON: Nguyễn Yang MD SUPERVISOR LATHING: SHAR daugherty MD ANESTHESIA: Spinal. ESTIMATED BLOOD LOSS: Approximately less than 250 mL. COMPLICATIONS: No known complication REMARKS: Intraoperatively, it is felt that the patient's popliteus was deficient and therefore she was converted to a constrained polyethylene FINDINGS: Severe osteophyte formation; deficient popliteus SPECIMENS REMOVED: None PROCEDURE NOTE: The patient was seen in the preoperative area and the right lower extremity was marked. The patient denied any recent changes in her past medical history. The preoperative plan for was the ankle right total knee was reviewed prior to surgery and adjustments were made. DESCRIPTION OF PROCEDURE: The patient was brought to the operating room and after a surgical checklist, a spinal anesthetic was conducted. She was positioned appropriately with appropriate padding in the supine position. The right lower extremity underwent a prep with chlorhexidine brush followed by 2 times alcohol swab and hydrogen peroxide wash. This was followed by chlorhexidine prep x2. The patient's leg was then prepped and draped in the standard fashion. The right leg was placed into the [facility] positioning boot. Once this was complete, a surgical pause and safety checklist were performed. After the surgical safety checklist was performed to small incisions were made for the tibial array for the Clayton. These pins were placed unicortical. The midline incision was made and a medial arthrotomy was made. The previous incision was ignored due to this being from the remote past. There was significant scar tissue in the suprapatellar pouch area which was excised with electrocautery. A medial arthrotomy was then carried out. The leg was brought into extension and soft tissue releases around the patella were carried out due to significant scarring in this area. A rongeur was used to remove osteophytes from the patella and a patelloplasty was carried out with the electrocautery. The tightness of the patella was restricting access to the knee so the patellar cut was made first. This was appropriately measured using the caliper and then an appropriate amount of bone was removed. This was done freehand with the sagittal saw. The fat pad was also excised with electrocautery. Attention was then turned to the femur and the medial femoral array pins were placed. The arrays were then placed as well as the tibial and femoral checkpoints. Hip registration and hip center were then carried out followed by registration of the femur and the tibia using the Clayton system. Once the knee was registered, a rongeur and curved osteotome were used to remove the large osteophytes. Soft tissue balancing then occurred in extension and in flexion utilizing the spoons and a Velez. The preoperative plan was then adjusted for the soft tissue adjustments. The Clayton robot was brought in and appropriately registered. Soft tissues were protected using the Clayton retraction system and the 90 degree angle saw blade cuts followed by the straight angle cuts were carried out. A rongeur was used to remove any of the remaining bone. Leg was brought into flexion which was difficult due to the patient's body habitus and large pannus. Electrocautery was used to remove the meniscus medially and laterally. Curved osteotome was used to remove posterior osteophytes from the femur as needed. Femoral and tibial trials were placed. This had no significant varus valgus laxity in extension. When the patient was brought up into flexion it was noted that there was some lateral opening with a varus stress. On further exploration it appeared that the popliteus recession had resulted in this becoming deficient. The Clayton plan appeared to be appropriate with the bone cuts as planned. The decision was made to put in a stabilized component of varus valgus strain for this mid flexion instability. The femoral component was placed and the lug holes were drilled followed by the femoral box cut. The patella press-fit reaming guide was then utilized for the lug hole drills on the patella Trial components were placed. This demonstrated good stable range of motion. The RE CK local anesthetic cocktail was placed. The wound was irrigated. The trackers and arrays for the Clayton system were removed The tibial component was cemented after using fourth generation cement mixing techniques. This was impacted onto the tibial plateau and excess cement was extruded. This appeared to be level and appropriately positioned. The press-fit femoral component was then applied followed by a trial polyethylene. This was held in extension while this dried. The press fit patellar component was then placed in the clamp and attached to the patella. This was allowed to dry in extension for the tibial component. Thereafter the knee demonstrated good stable range of motion. A final TS component 11 mm polyethylene was placed. No obvious cement remained around the tibia. 2 g topical tranexamic acid were applied after thorough irrigation. The wound was closed with #1 Vicryl interrupted followed by a running strata fix #1 suture. The skin and subcutaneous tissue was closed with interrupted #1 Vicryl followed by running 2.0 Vicryl followed by running three-point 0 Monocryl antibacterial suture. Betadine and irrigation were used in between layers. Steri-Strips were applied followed by the long Mepilex dressing. The 2 stab incisions for the tibial arrays were irrigated with Betadine and saline and then closed with subcuticular Monocryl followed by Steri-Strips The patient tolerated procedure well with no known complications. The anesthetic was reversed and the patient was taken to the recovery room. I did update the patient's partner by telephone. The patient will be admitted to the hospitalist service with likely discharge home tomorrow. NGUYỄN YANG MD Oct 07, 2020 12:29
[2020-10-07] MEDS ORDERED: traMADol 50 MG TAB PO PRN ×2 (12:30→15:55)
[2020-10-07] MEDS ORDERED: SENNA 8.6 MG TAB (SENOKOT) PO PRN (12:30)
--- NOTE | 2020-10-07 13:01 | HPEPDOC ---
General Date of Admission October 07, 2020 Date of Service: Oct 07, 2020 Chief Complaint The patient is a 65-year-old female admitted with a reason for visit of Right Knee Osteoarthritis. Source: Patient History of Present Illness Mrs. Horowitz is a 65 year old female with inflammatory arthritis, metabolic syndrome, and fibromyalgia who is here for elective right TKA for osteoarthritis. Prior to surgery, she was feeling well. Denies fever/chills, chest pain, dyspnea, abdominal pain, or dysuria. Dr. Abad took the patient to the OR on 10/07/20. Surgery went well. Pain was controlled. Patient was not hypoxic or hypotensive. Patient will be observed overnight. Home Medications Scheduled Aripiprazole (Aripiprazole) 10 Mg Tablet, 5 MG PO QHS, (Reported) Aspirin (Aspirin EC) 81 Mg Tablet.dr, 81 MG PO DAILY, (Reported) Diphenhydramine HCl (Benadryl) 25 Mg Capsule, 25 MG PO QHS, (Reported) Docusate Sodium (Stool Softener) 100 Mg Capsule, 300 MG PO DAILY, (Reported) Famotidine (Famotidine) 40 Mg Tablet, 40 MG PO QHS, (Reported) Hydroxychloroquine Sulfate (Plaquenil) 200 Mg Tablet, 200 MG PO BID, (Reported) Levothyroxine Sodium (Levoxyl) 125 Mcg Tablet, 125 MCG PO DAILY, (Reported) Lisinopril (Lisinopril) 20 Mg Tab, 20 MG PO DAILY, (Reported) Multivitamin (Multivitamin) 1 Each Tablet, 1 TAB PO DAILY, (Reported) Pantoprazole Sodium (Protonix) 40 Mg Granpkt.dr, 40 MG PO DAILY, (Reported) Paroxetine HCl (Paxil) 20 Mg Tablet, 20 MG PO QHS, (Reported) Venlafaxine HCl (Venlafaxine HCl ER) 37.5 Mg Cap.er.24h, 37.5 MG PO DAILY, (Reported) Scheduled PRN Amlodipine Besylate (Amlodipine Besylate) 2.5 Mg Tablet, 2.5 MG PO DAILY PRN for HIGH BP, (Reported) PATIENT TAKES WHEN SHE FEELS HER BP IS INCREASED Famotidine (Famotidine) 40 Mg Tablet, 40 MG PO DAILY PRN for HEARTBURN/INDIGESTION, (Reported) Ibuprofen (Ibu) 800 Mg Tab, 400 MG PO TID PRN for PAIN LEVEL 1-4, (Reported) Pantoprazole Sodium (Pantoprazole Sodium) 40 Mg Tablet.dr, 40 MG PO QHS PRN for HEARTBURN/INDIGESTION, (Reported) Promethazine HCl (Promethazine HCl) 25 Mg Tablet, 25 MG PO Q6H PRN for NAUSEA OR VOMITING, (Reported) Allergies Coded Allergies: cephalexin (Verified Allergy, Severe, tongue swellinn, 10/07/20) codeine (Verified Allergy, Unknown, tongue swelling, 10/07/20) Past Medical History Medical History 1. Hypothyroidism 2. DM type 2 with nephropathy 3. Hyperlipidemia 4. Fatty liver 5. Metabolic syndrome 6. IBS 7. Fibromyalgia 8. Vit D deficiency 9. Depression 10. Inflammatory arthritis 11. Gastroparesis 12. Severe lumbar spinal stenosis 13. Iron deficiency 14. HTN 15. Borderline personality disorder 16. COVID positive 04/16/20 Surgical History 1. EGD (chemical gastritis 2015) 2. Colonoscopy (poor prep, patient declined repeat) 3. Appendectomy 4. Hysterectomy 5. Cholecystectomy Family History Father: History of Rheumatoid arthritis Mother: History of nicotine use Social History * Smoker: Denies Alcohol: Denies Drugs: denies A-FIB/CHADSVASC A-FIB History Current/History of A-Fib/PAF?: No Review of Systems Constitutional: Denies: Chills, Fever Eyes: Denies: Vision change ENT: Denies: Sore Throat Skin: Denies: Rash Pulmonary: Denies: Dyspnea Cardiovascular: Denies: Chest Pain Gastrointestinal: Denies: Abdominal Pain Genitourinary: Denies: Dysuria Hematologic: Denies: Bruising Musculoskeletal: Reports: Other Symptoms (Right knee pain) Neurological: Denies: Numbness Psych: Denies: Anxiety, Depression Physical Examination General Exam: Positive: Alert, Cooperative Eye Exam: Positive: EOMI; Negative: Sclera icteric Neck Exam: Positive: Supple Chest Exam: Positive: Clear to auscultation; Negative: Rales, Rhonchi, Wheezing Heart Exam: Positive: Tachycardic, Regular Rhythm Abdomen Exam: Positive: Normal bowel sounds, Soft; Negative: Tenderness Neuro Exam: Positive: Normal Speech, Cranial Nerves 3-12 NL Psych Exam: Positive: Anxiety Vital Signs Vital Signs Date Time Temp Pulse Resp B/P (MAP) Pulse Ox O2 Delivery O2 Flow Rate FiO2 10/07/20 12:45 97.6 101 18 127/73 (91) 93 Room Air 10/07/20 12:05 2.0 Laboratory Data Labs 24H Laboratory Tests 2 10/07/20 07:06: Bedside Glucose (Misc Panel) 108 Assessment/Plan Mrs. Horowitz is a 65 year old female with inflammatory arthritis, metabolic syndrome, and fibromyalgia who is here for elective right TKA for osteoarthritis. The surgery went well. Patient will be observed overnight. Ordered for PT in the AM. Plan / VTE VTE Prophylaxis Ordered?: Yes Plan Plan 1. Right knee osteoarthritis s/p right TKA -Performed by Dr. Abad on 10/06/20 -DVT ppx per orthopedic surgery (aspirin 81mg BID) 2. Metabolic syndrome -Patient's history reports DM, but patient not on diabetic medication -Will place patient on a carbohydrate consistent diet 3. Hypertension -Continue lisinopril and PRN amlodipine 4. Inflammatory arthritis -Continue Plaquenil 5. Hypothyroidism -Continue levothyroxine 6. GERD -Continue famotidine and pantoprazole 7. DVT ppx -Per orthopedic surgery (aspirin 81mg BID) Disposition: Pending pain control and PT. Possible discharge tomorrow BENNETT CAMERON DO Oct 07, 2020 13:01
[2020-10-07] MEDS: LR 1,000 ML IV SCH ×2 (13:06→22:35)
[2020-10-07] MEDS ORDERED: AMLO2.5T3 PO (13:25)
[2020-10-07] MEDS ORDERED: PROM25TA12 PO (13:25)
[2020-10-07] MEDS ORDERED: PANT-23 PO (13:25)
[2020-10-07] MEDS ORDERED: LEVO125T41 PO (13:25)
[2020-10-07] MEDS ORDERED: PAXI20TA29 PO (13:25)
[2020-10-07] MEDS ORDERED: ARIP10TA32 PO (13:25)
[2020-10-07] MEDS ORDERED: FAMO40TA3 PO (13:25)
[2020-10-07 14:20] LABS: HEMATOCRIT 35.2 % (36.0-47.0); MEAN CORPUSCULAR HEMOGLOBIN 29.1 pg (27.0-33.0); MEAN CORPUSCULAR HGB CONC 31.3 g/dl (32.0-36.5); MEAN CORPUSCULAR VOLUME 93.1 fl (80.0-96.0); PLATELET COUNT, AUTOMATED 202 10^3/uL (150-450); RED BLOOD COUNT 3.78 10^6/uL (4.00-5.40); WHITE BLOOD COUNT 5.7 10^3/uL (4.0-10.0)
[2020-10-07 14:49] LABS: ALBUMIN 3.7 GM/DL (3.2-5.2); ALT/SGPT 40 U/L (12-78); BILIRUBIN,TOTAL 0.2 MG/DL (0.2-1.0); BLOOD UREA NITROGEN 10 MG/DL (7-18); CALCIUM LEVEL 8.8 MG/DL (8.8-10.2); CARBON DIOXIDE LEVEL 23 MEQ/L (21-32); CHLORIDE LEVEL 106 MEQ/L (98-107); CREATININE FOR GFR 0.98 MG/DL (0.55-1.30); GLOMERULAR FILTRATION RATE > 60.0 (>45); GLUCOSE, FASTING 214 MG/DL (70-100); POTASSIUM SERUM 3.9 MEQ/L (3.5-5.1); SODIUM LEVEL 140 MEQ/L (136-145); TOTAL PROTEIN 6.7 GM/DL (6.4-8.2)
[2020-10-07] MEDS ORDERED: PROMETHAZINE 25 MG TAB PO PRN (16:25)
[2020-10-07] MEDS: ACETAMINOPHEN TAB 650MG DOSE (2X325MG) PO SCH (16:56)
[2020-10-07] MEDS: VANCOMYCIN HCL 1,000 MG, VIAL MATE ADAPTER 1 EACH in NS 250 ML IV SCH (18:32)
[2020-10-07] MEDS: NAPROXEN 250 MG TAB PO SCH (20:35)
[2020-10-07] MEDS: DOCUSATE SODIUM 100MG CAPSULE PO SCH (20:35)
[2020-10-07] MEDS: HYDROXYCHLOROQUINE 200 MG TAB PO SCH (20:44)
[2020-10-07] MEDS ORDERED: PARoxetine 20MG TABLET PO SCH (21:00)
[2020-10-07] MEDS ORDERED: FAMOTIDINE 20 MG TAB PO SCH (21:00)
[2020-10-07] MEDS ORDERED: diphenhydrAMINE 25MG CAP PO SCH (21:00)
[2020-10-07] MEDS: ASPIRIN 81 MG CHEW TABLET PO SCH (21:35)
[2020-10-08] MEDS: ACETAMINOPHEN TAB 650MG DOSE (2X325MG) PO SCH ×3 (00:53→12:31)
[2020-10-08 02:15] VITALS: BP 112/64
[2020-10-08] MEDS: VANCOMYCIN HCL 1,000 MG, VIAL MATE ADAPTER 1 EACH in NS 250 ML IV SCH (05:56)
[2020-10-08] MEDS ORDERED: LEVOTHYROXINE 125MCG TABLET (0.125MG) PO SCH (06:00)
[2020-10-08 06:45] VITALS: BP 108/73
[2020-10-08] MEDS: DOCUSATE SODIUM 100MG CAPSULE PO SCH (08:15)
[2020-10-08] MEDS: ASPIRIN 81 MG CHEW TABLET PO SCH (08:15)
[2020-10-08 08:16] VITALS: BP 123/61
[2020-10-08] MEDS: HYDROXYCHLOROQUINE 200 MG TAB PO SCH (08:16)
[2020-10-08] MEDS: NAPROXEN 250 MG TAB PO SCH (08:16)
[2020-10-08] MEDS: LR 1,000 ML IV SCH (08:18)
[2020-10-08] MEDS ORDERED: MULTIVITAMINS/MINERALS THERAP 1 TAB PO SCH (09:00)
[2020-10-08] MEDS ORDERED: VENLAFAXINE **XR** 37.5 MG CAPSULE PO SCH (09:00)
[2020-10-08] MEDS ORDERED: ASCORBIC ACID 500 MG TAB PO SCH (09:00)
[2020-10-08] MEDS ORDERED: FERROUS SULFATE 325MG TAB PO SCH (09:00)
[2020-10-08] MEDS ORDERED: PANTOPRAZOLE 40MG TAB (PROTONIX) PO SCH (09:00)
--- NOTE | 2020-10-08 09:46 | IPNPDOC ---
Text Note Date of Service The patient was seen on 10/08/20. NOTE Postop day 1 left total right total knee Patient denies any significant pain or concerns. She denies any shortness of breath or chest pain. She has been walking with a walker in the [place]. Reportedly she has not been taking any pain medications, aside from anti-inflammatory and Tylenol Postop x-ray imaging was taken the PACU. This was reviewed independently and ordered by myself. This demonstrated the right total knee arthroplasty prosthesis in good position without any obvious signs of complication postoperatively. Examination of the right lower extremity showed the tensor dressing intact. This was taken down. The Mepilex dressing was intact. There is a dime sized area of staining over one of the pin site regions over the tibia. This did not appear to be actively growing. This can remain intact unless there is significant staining when the patient mobilizes. She is grossly neurovascularly intact to her right foot and ankle. She has a palpable posterior tibial and dorsalis pedis pulse. She is moving the foot and ankle and has intact sensation to all distributions. The patient will be discharged home when able and cleared by physical therapy. Hospitalist service will provide discharge medications. Discharge Instructions Total Knee Arthroplasty 1. Pain: You may take tramadol as prescribed for pain. Supplement with Naproxen and Tylenol as needed. Ice pack to operative knee as tolerated. 2. Wound care: Remove dressing on postop day 7. Call [phone] with any questions or concerns. Hygiene: The patient may shower. No tub baths. Check d ressing seal prior to bathing. 3. Activity: WBAT right lower extremity. Front wheeled walker versus crutches for ambulation. Fall precautions. 4. Driving: No driving until cleared by your surgeon. Do not drive if taking narcotic pain medications as these may make you drowsy. 5. DVT Prophylaxis: Continue taking ASA 81 mg p.o. twice daily as prescribed for the prevention of blood clots. Ankle pumps every 1 hour while awake. SHARONDA hose at all times for 1 month after surgery. May remove for hygiene and wound care. 6. Placement: Plan is to discharge patient to home with home health including nursing and physical therapy. 7. Surgeon Follow-up: The patient is scheduled to be seen in Dr. Yang's office 2 weeks post op with xrays. 8. Primary care Follow-up: Please see your primary care provider in the next 2 to 5 weeks for general medical re-evaluation and medication review. 9. Labs: CBC without differential and BMP to be drawn on postop day 3 with results to PCP and please fax to [phone]. 10. Please contact [facility] if you have any questions or concerns at [phone]. VS,Fishbone, I+O VS, Fishbone, I+O Laboratory Tests 10/07/20 13:57 Vital Signs Date Time Temp Pulse Resp B/P (MAP) Pulse Ox O2 Delivery O2 Flow Rate FiO2 10/08/20 08:16 123/61 10/08/20 06:45 97.9 82 18 95 Room Air 10/07/20 12:05 2.0 I&O- Last 24 Hours up to 6 AM 10/08/20 05:59 Intake Total 4020 ml Output Total 250 ml Balance 3770 ml RADHA YANG MD Oct 08, 2020 09:46
[2020-10-08] MEDS ORDERED: TRAM50TA2 PO (11:56)
[2020-10-08] MEDS ORDERED: ASPI81TA26 PO (11:56)
--- NOTE | 2020-10-08 15:37 | DS.PDOC ---
Discharge Summary General Date of Admission 10/07/2020 Date of Discharge 10/08/2020 Primary Care Physician: MILLER FARIAS PA-C Attending Physician: SALAZAR NOLAN DO Specialist/Consultants Involve: RADHA YANG MD Discharge Summary PROCEDURES PERFORMED DURING STAY: Right knee total arthroplasty performed by Dr. Yang ADMITTING DIAGNOSES: 1. Right knee osteoarthritis status post right total knee arthroplasty. 2. Metabolic syndrome 3. Hypertension 4. Inflammatory arthritis 5. Hypothyroidism 6. GERD DISCHARGE DIAGNOSES: 1. Right knee osteoarthritis status post right total knee arthroplasty. 2. Metabolic syndrome 3. Hypertension 4. Inflammatory arthritis 5. Hypothyroidism 6. GERD COMPLICATIONS/CHIEF COMPLAINT: Right Knee Osteoarthritis. HISTORY OF PRESENT ILLNESS: Patient is a 65-year-old female with inflammatory arthritis, metabolic syndrome, fiber myalgia who is here for elective right total knee arthroplasty for osteoarthritis. Prior to surgery she was feeling well. Patient was brought to the operating room on 10/07/2020. Her surgery went well and her pain was well controlled. HOSPITAL COURSE: Patient did well overnight and work with physical therapy this morning. Dr. Yang saw the patient and deemed her ready for discharge. Patient passed physical therapy and will be sent home with physical therapy services. Patient was discharged on 10/08/2020. DISCHARGE MEDICATIONS: Please see below. ALLERGIES: Please see below. PHYSICAL EXAMINATION ON DISCHARGE: VITAL SIGNS: Please see below. General: Alert and oriented female patient who was laying in bed when I walked in the room. Patient did not appear to be in any acute distress. HEENT: Normocephalic, atraumatic, moist mucous membranes. Neck: No lymphadenopathy or thyromegaly Cardiac: Regular rate and rhythm, no murmurs, normal S1, normal S2 Pulm: Clear to auscultation bilaterally. No wheezes, rhonchi, rales Abd: Nondistended, nontender to palpation, normal bowel sounds Ext: No edema bilateral lower extremities patient had bandage over the right knee with a small spot of blood towards the lower end of the bandage, no purulent drainage was seen and the bandage was not soiled LABORATORY DATA: Please see below. IMAGING: Knee x-ray performed on 10/07/2020 was reported to show status post right knee replacement PROGNOSIS: Good ACTIVITY: Per physical therapy. DIET: Regular DISCHARGE PLAN: Discharge home with home physical therapy DISCHARGE INSTRUCTIONS: Per orthopedic surgery: 1. Pain: You may take tramadol as prescribed for pain. Supplement with Naproxen and Tylenol as needed. Ice pack to operative knee as tolerated. 2. Wound care: Remove dressing on postop day 7. Call [phone] with any questions or concerns. Hygiene: The patient may shower. No tub baths. Check dressing seal prior to bathing. 3. Activity: WBAT right lower extremity. Front wheeled walker versus crutches for ambulation. Fall precautions. 4. Driving: No driving until cleared by your surgeon. Do not drive if taking narcotic pain medications as these may make you drowsy. 5. DVT Prophylaxis: Continue taking ASA 81 mg p.o. twice daily as prescribed for the prevention of blood clots. Ankle pumps every 1 hour while awake. SHARONDA hose at all times for 1 month after surgery. May remove for hygiene and wound care. 6. Placement: Plan is to discharge patient to home with home health including nursing and physical therapy. 7. Surgeon Follow-up: The patient is scheduled to be seen in Dr. Yang's office 2 weeks post op with xrays. 8. Primary care Follow-up: Please see your primary care provider in the next 2 to 5 weeks for general medical re-evaluation and medication review. 9. Labs: CBC without differential and BMP to be drawn on postop day 3 with results to PCP and please fax to [phone]. 10. Please contact [facility] if you have any questions or concerns at [phone]. ITEMS TO FOLLOWUP ON ON OUTPATIENT: 1. Follow-up on CBC and CMP drawn postop day 3. DISCHARGE CONDITION: Stable. TIME SPENT ON DISCHARGE: Greater than 30 minutes. Vital Signs/I&Os Vital Signs Date Time Temp Pulse Resp B/P (MAP) Pulse Ox O2 Delivery O2 Flow Rate FiO2 10/08/20 08:16 123/61 10/08/20 06:45 97.9 82 18 95 Room Air 10/07/20 12:05 2.0 I&O- Last 24 Hours up to 6 AM 10/08/20 06:00 Intake Total 4020 ml Output Total 250 ml Balance 3770 ml Discharge Medications Scheduled Aripiprazole (Aripiprazole) 10 Mg Tablet, 5 MG PO QHS, (Reported) Aspirin (Aspirin EC) 81 Mg Tablet., 81 MG PO BID Diphenhydramine HCl (Benadryl) 25 Mg Capsule, 25 MG PO QHS, (Reported) Docusate Sodium (Stool Softener) 100 Mg Capsule, 300 MG PO DAILY, (Reported) Famotidine (Famotidine) 40 Mg Tablet, 40 MG PO QHS, (Reported) Hydroxychloroquine Sulfate (Plaquenil) 200 Mg Tablet, 200 MG PO BID, (Reported) Levothyroxine Sodium (Levoxyl) 125 Mcg Tablet, 125 MCG PO DAILY, (Reported) Lisinopril (Lisinopril) 20 Mg Tab, 20 MG PO DAILY, (Reported) Multivitamin (Multivitamin) 1 Each Tablet, 1 TAB PO DAILY, (Reported) Pantoprazole Sodium (Protonix) 40 Mg Granpkt.dr, 40 MG PO DAILY, (Reported) Paroxetine HCl (Paxil) 20 Mg Tablet, 20 MG PO QHS, (Reported) Venlafaxine HCl (Venlafaxine HCl ER) 37.5 Mg Cap.er.24h, 37.5 MG PO DAILY, (Reported) Scheduled PRN Amlodipine Besylate (Amlodipine Besylate) 2.5 Mg Tablet, 2.5 MG PO DAILY PRN for HIGH BP, (Reported) PATIENT TAKES WHEN SHE FEELS HER BP IS INCREASED Famotidine (Famotidine) 40 Mg Tablet, 40 MG PO DAILY PRN for HEARTBURN/INDIGESTION, (Reported) Ibuprofen (Ibu) 800 Mg Tab, 400 MG PO TID PRN for PAIN LEVEL 1-4, (Reported) Pantoprazole Sodium (Pantoprazole Sodium) 40 Mg Tablet.dr, 40 MG PO QHS PRN for HEARTBURN/INDIGESTION, (Reported) Promethazine HCl (Promethazine HCl) 25 Mg Tablet, 25 MG PO Q6H PRN for NAUSEA OR VOMITING, (Reported) Tramadol HCl (Tramadol HCl) 50 Mg Tablet, 50 MG PO Q6HP PRN for MILD PAIN (PS 1- 4) Allergies Coded Allergies: cephalexin (Verified Allergy, Severe, tongue swellinn, 10/07/20) codeine (Verified Allergy, Unknown, tongue swelling, 10/07/20) SALAZAR NOLAN DO Oct 08, 2020 15:37
== END 2020-10-08 12:50 | disposition home health service (06) ==
LOC: M SDC 06:00 → M MS5PR 06:01 → M SDC 10-08 12:50
PROVIDERS: ADMIT Internal Medicine; ATTEND Internal Medicine
DX: M17.11 Unilateral primary osteoarthritis, right knee (principal); E88.81 Metabolic syndrome and other insulin resistance; M79.7 Fibromyalgia; E03.9 Hypothyroidism, unspecified; E11.40 Type 2 diabetes mellitus with diabetic neuropathy, unspecified; E78.5 Hyperlipidemia, unspecified; I10 Essential (primary) hypertension; K76.0 Fatty (change of) liver, not elsewhere classified; K58.9 Irritable bowel syndrome, unspecified; F32.9 Major depressive disorder, single episode, unspecified; D64.9 Anemia, unspecified; F60.3 Borderline personality disorder; M48.00 Spinal stenosis, site unspecified; Z79.899 Other long term (current) drug therapy; Z79.82 Long term (current) use of aspirin; Z88.1 Allergy status to other antibiotic agents; Z88.5 Allergy status to narcotic agent
CPT/HCPCS: 27447; 36415; 73560; 80053; 85027; 88304; 88311; 96361; 96374; 96376; 97161; C1713; C1776; G0378; J1100; J2250; J2370; J2765; J3010; J3370; S2900; U0002

== ENCOUNTER → 2020-10-10 | Outpatient (REF) | payer MEDICARE ==
[~2020-10-10] MED LIST changes: -ACETAMINOPHEN 500 MG TAB PO ONE; +AMLO2.5T3 PO; +ARIP10TA32 PO; +LEVO125T41 PO; -LR 1,000 ML IV ONE; -NAPROXEN 250 MG TAB PO ONE; -NS 1,000 ML IV SCH; +PANT-23 PO; +PAXI20TA29 PO; -PREGABALIN 25 MG CAP (LYRICA) PO ONE; +PROM25TA12 PO; -ROPIVA 125MG/EPINEPH 0.25MG/CLONID 40MCG/KETOR 15MG IN NS 50ML SYRINGE PA ONE; +TRAM50TA2 PO; -TRANEXAMIC ACID INJection 1,000 MG in NS 50 ML IV ONE; -ceFAZolin SOD 2 GM in IV 1 EA IV ONE; -dexameTHASONE 4 MG/ML 1ML VIAL (J1100 PER 1MG) IV ONE
[2020-10-10 19:09] LABS: BLOOD UREA NITROGEN 8 MG/DL (7-18); CALCIUM LEVEL 8.8 MG/DL (8.8-10.2); CARBON DIOXIDE LEVEL 23 MEQ/L (21-32); CHLORIDE LEVEL 108 MEQ/L (98-107); CREATININE FOR GFR 0.85 MG/DL (0.55-1.30); GLOMERULAR FILTRATION RATE > 60.0 (>45); GLUCOSE, FASTING 159 MG/DL (70-100); POTASSIUM SERUM 3.7 MEQ/L (3.5-5.1); SODIUM LEVEL 142 MEQ/L (136-145)
[2020-10-10 19:18] LABS: HEMATOCRIT 31.2 % (36.0-47.0); MEAN CORPUSCULAR HEMOGLOBIN 29.8 pg (27.0-33.0); MEAN CORPUSCULAR HGB CONC 32.1 g/dl (32.0-36.5); MEAN CORPUSCULAR VOLUME 92.9 fl (80.0-96.0); PLATELET COUNT, AUTOMATED 221 10^3/uL (150-450); RED BLOOD COUNT 3.36 10^6/uL (4.00-5.40); WHITE BLOOD COUNT 7.2 10^3/uL (4.0-10.0)
== END ==
LOC: M SFHCADAM 14:46
PROVIDERS: ATTEND Physician Assistant
DX: I10 Essential (primary) hypertension (principal); Z96.651 Presence of right artificial knee joint

== ENCOUNTER → 2020-10-21 | Outpatient (CLI) | payer MEDICARE ==
--- NOTE | 2020-10-21 11:41 | REP ---
INDICATION: ENCOUNTER FOR OTHER SPECIFIED SURGICAL AFTERCARE. COMPARISON: Comparison right knee radiographs October 07, 2020.. TECHNIQUE: AP lateral and sunrise views of the right knee. FINDINGS: Patient is status post right knee arthroplasty. Arthroplasty components appear in good alignment unchanged. There is soft tissue swelling in the region of the suprapatellar bursa and anterior to the patella and knee. There is diffuse osteopenia unchanged. No acute bony abnormality. IMPRESSION: Status post right knee arthroplasty. Diffuse osteopenia. Anterior soft tissue swelling. <Electronically signed by Hossein Shin > 10/21/20 [id number]
== END ==
LOC: M SOG 09:37
PROVIDERS: ATTEND Orthopaedic Surgery Adult Reconstructive Orthopaedic Surgery
DX: Z48.89 Encounter for other specified surgical aftercare (principal); Z96.651 Presence of right artificial knee joint

== ENCOUNTER 2020-10-30 07:42 | Outpatient (RCR) | payer MEDICARE | END 2020-11-01 | LOC: M PT 07:42 | PROVIDERS: ATTEND Orthopaedic Surgery Adult Reconstructive Orthopaedic Surgery | DX: Z96.651 Presence of right artificial knee joint (principal) ==

== ENCOUNTER 2020-11-20 07:40 | Outpatient (RCR) | payer MEDICARE | END 2020-12-02 | LOC: M PT 07:40 | PROVIDERS: ATTEND Orthopaedic Surgery Adult Reconstructive Orthopaedic Surgery | DX: M17.11 Unilateral primary osteoarthritis, right knee (principal); Z96.651 Presence of right artificial knee joint ==

== ENCOUNTER → 2021-02-10 | Outpatient (REF) | payer MEDICARE ==
[2021-02-10 14:01] LABS: EOS # 0.1 10^3/uL (0.0-0.5); EOS % 3.1 % (0.0-3.0); HEMATOCRIT 32.9 % (36.0-47.0); HEMOGLOBIN 9.9 g/dl (12.0-15.5); LYMPH # 1.4 10^3/uL (1.5-5.0); LYMPH % 37.1 % (24.0-44.0); MEAN CORPUSCULAR HEMOGLOBIN 25.7 pg (27.0-33.0); MEAN CORPUSCULAR HGB CONC 30.1 g/dl (32.0-36.5); MEAN CORPUSCULAR VOLUME 85.5 fl (80.0-96.0); MONO # 0.3 10^3/uL (0.0-0.8); NEUTROPHILS % 50.5 % (36.0-66.0); PLATELET COUNT, AUTOMATED 228 10^3/uL (150-450); RED BLOOD COUNT 3.85 10^6/uL (4.00-5.40); WHITE BLOOD COUNT 3.9 10^3/uL (4.0-10.0)
[2021-02-10 14:21] LABS: ALBUMIN 3.7 GM/DL (3.2-5.2); ALT/SGPT 36 U/L (12-78); BILIRUBIN,TOTAL 0.1 MG/DL (0.2-1.0); BLOOD UREA NITROGEN 7 MG/DL (7-18); CALCIUM LEVEL 9.2 MG/DL (8.8-10.2); CARBON DIOXIDE LEVEL 30 MEQ/L (21-32); CHLORIDE LEVEL 105 MEQ/L (98-107); CREATININE FOR GFR 0.76 MG/DL (0.55-1.30); GLOMERULAR FILTRATION RATE > 60.0 (>45); GLUCOSE, FASTING 178 MG/DL (70-100); POTASSIUM SERUM 4.1 MEQ/L (3.5-5.1); SODIUM LEVEL 139 MEQ/L (136-145); TOTAL PROTEIN 7.2 GM/DL (6.4-8.2)
[2021-02-10 15:13] LABS: ERYTHROCYTE SEDIMENTATION RATE 34 mm/hr (0-30)
== END ==
LOC: M SFHCRHEU 10:44
PROVIDERS: ATTEND Internal Medicine Rheumatology
DX: R76.8 Other specified abnormal immunological findings in serum (principal)
CPT/HCPCS: 36415; 80053; 85025; 85652; 86140; G0463

== ENCOUNTER → 2021-02-19 | Outpatient (REF) | payer MEDICARE ==
[2021-02-19 13:22] LABS: HEMOGLOBIN A1c 7.2 %
[2021-02-19 13:33] LABS: FERRITIN 13 NG/ML (8-252); FOLATE > 24.0 NG/ML; FREE T4 1.19 NG/DL (0.76-1.46); IRON (FE) 62 UG/DL (50-170); PERCENT SATURATION 12.1 % (13.2-45.0); TOTAL IRON BINDING CAPACITY 511 UG/DL (250-450); VITAMIN B12 LEVEL 1222 PG/ML
== END ==
LOC: M SFHCADAM 09:37
PROVIDERS: ATTEND Physician Assistant
DX: D64.9 Anemia, unspecified (principal); E11.9 Type 2 diabetes mellitus without complications
CPT/HCPCS: 82607; 82728; 82746; 83036; 83550; 84439; 84443; G0463

== ENCOUNTER → 2021-02-27 | Outpatient (CLI) | payer MEDICARE ==
--- NOTE | 2021-02-27 10:48 | REP ---
INDICATION: INFLAMMATORY POLYARTHROPATHY COMPARISON: None. TECHNIQUE: AP, lateral, bilateral oblique views right foot. FINDINGS: Age-related osteopenia and generalized degenerative changes are appreciated. No overt osteoarthritic or inflammatory arthritic changes are identified. No subcutaneous emphysema or foreign body. IMPRESSION: Generalized age-related osteopenia and age-related changes. No overt osteoarthritic or inflammatory arthritic findings. <Electronically signed by Leno Loco > 02/27/21 [id number]
--- NOTE | 2021-02-27 11:01 | REP ---
INDICATION: INFLAMMATORY POLYARTHROPATHY COMPARISON: None. TECHNIQUE: AP, lateral, bilateral oblique views right and left hand. FINDINGS: The right hand demonstrates generalized osteopenia and relatively age-related degenerative changes including elements of subchondral sclerosis, joint space narrowing and subtle marginal spurring primarily involving the interphalangeal joints. There is focal advanced arthritic change involving the 2nd distal interphalangeal joint which demonstrates significant periarticular sclerosis, subchondral cystic changes, joint space obliteration, mild chronic subluxation and marginal osteophytosis ("Gull wing deformity"). These findings are typically noted with osteoarthritic disease and less likely related to inflammatory arthritides. The left hand demonstrates generalized osteopenia and relatively age-related degenerative changes similar to right hand findings. There is focal advanced arthritic change involving the 1st interphalangeal joint which includes periarticular sclerosis, subchondral heterogeneity/small cystic changes, joint space narrowing and marginal osteophytes. IMPRESSION: Primarily moderate age-related osteoarthritic degenerative changes are noted with focal advanced presumed osteoarthritic changes identified at the left 1st interphalangeal joint and right 2nd distal interphalangeal joint. <Electronically signed by Leno Loco > 02/27/21 [id number]
== END ==
LOC: M RAD 10:09
PROVIDERS: ATTEND Internal Medicine Rheumatology
DX: M06.4 Inflammatory polyarthropathy (principal)

== ENCOUNTER → 2021-03-24 | Outpatient (REF) | payer MEDICARE ==
[2021-03-24 12:47] LABS: HEMATOCRIT 30.4 % (36.0-47.0); MEAN CORPUSCULAR HEMOGLOBIN 24.9 pg (27.0-33.0); MEAN CORPUSCULAR HGB CONC 29.6 g/dl (32.0-36.5); MEAN CORPUSCULAR VOLUME 84.2 fl (80.0-96.0); PLATELET COUNT, AUTOMATED 225 10^3/uL (150-450); RED BLOOD COUNT 3.61 10^6/uL (4.00-5.40); WHITE BLOOD COUNT 4.8 10^3/uL (4.0-10.0)
== END ==
LOC: M SFHCADAM 10:16
PROVIDERS: ATTEND Physician Assistant
DX: D50.9 Iron deficiency anemia, unspecified (principal); E11.9 Type 2 diabetes mellitus without complications; E03.9 Hypothyroidism, unspecified
CPT/HCPCS: 82728; 83550; 85027; G0463

== ENCOUNTER → 2021-06-04 | Outpatient (CLI) | payer MEDICARE ==
[~2021-06-04] MED LIST changes: +E-Z-PAQUE 96% w/w SUSP 176GM BTL As Ordered ONE; +METF500T13 PO
== END ==
LOC: M RAD 08:12
PROVIDERS: ATTEND Internal Medicine Gastroenterology
DX: D50.9 Iron deficiency anemia, unspecified (principal)

== ENCOUNTER → 2021-06-08 | Outpatient (CLI) | payer MEDICARE ==
[~2021-06-08] MED LIST changes: -E-Z-PAQUE 96% w/w SUSP 176GM BTL As Ordered ONE
== END ==
LOC: M LABSMTC 10:06
PROVIDERS: ATTEND Anesthesiology
DX: Z01.818 Encounter for other preprocedural examination (principal); Z11.52 Encounter for screening for COVID-19

== ENCOUNTER 2021-06-12 06:33 | Day surgery (SDC) | payer MEDICARE ==
[~2021-06-12] VITALS: Ht 167.6 cm; Wt 127.2 kg
[~2021-06-12 06:33] MED LIST changes: +NS 1,000 ML IV ONE
[2021-06-12] MEDS ORDERED: propofoL 200 MG/20 ML VIAL As Ordered ONE ×2 (07:29→08:09)
[2021-06-12] MEDS ORDERED: LIDOCAINE 2% 100MG/5ML SDV (FOR ANES.) As Ordered ONE (07:29)
[2021-06-12] MEDS ORDERED: fentaNYL 100 MCG/2 ML INJECTION As Ordered ONE (07:29)
[2021-06-12] MEDS ORDERED: ONDANSETRON 4MG/2ML VIAL IV ONE (08:35)
[2021-06-12 08:45] VITALS: BP 147/69
== END 2021-06-12 09:07 | disposition home or self-care (01) ==
LOC: M OPP 06:33
PROVIDERS: ATTEND Internal Medicine Gastroenterology
DX: D12.4 Benign neoplasm of descending colon (principal); K57.30 Diverticulosis of large intestine without perforation or abscess without bleeding; K64.8 Other hemorrhoids; D50.9 Iron deficiency anemia, unspecified; I10 Essential (primary) hypertension; E11.9 Type 2 diabetes mellitus without complications; E03.9 Hypothyroidism, unspecified; Z79.82 Long term (current) use of aspirin; Z79.899 Other long term (current) drug therapy; Z88.1 Allergy status to other antibiotic agents; Z88.5 Allergy status to narcotic agent; Z88.8 Allergy status to other drugs, medicaments and biological substances
CPT/HCPCS: 43239; 45385; 88305; J2405; J3010

== ENCOUNTER → 2021-06-30 | Outpatient (REF) | payer MEDICARE ==
[~2021-06-30] MED LIST changes: -NS 1,000 ML IV ONE
[2021-06-30 13:02] LABS: HEMATOCRIT 30.4 % (36.0-47.0); HEMOGLOBIN 8.8 g/dl (12.0-15.5); MEAN CORPUSCULAR HEMOGLOBIN 22.9 pg (27.0-33.0); MEAN CORPUSCULAR HGB CONC 28.9 g/dl (32.0-36.5); PLATELET COUNT, AUTOMATED 269 10^3/uL (150-450); RED BLOOD COUNT 3.85 10^6/uL (4.00-5.40); WHITE BLOOD COUNT 4.7 10^3/uL (4.0-10.0)
== END ==
LOC: M LABDRWAD 12:31
PROVIDERS: ATTEND Physician Assistant Medical
DX: D50.9 Iron deficiency anemia, unspecified (principal)

== ENCOUNTER → 2021-06-30 | Outpatient (REF) | payer MEDICARE ==
[2021-07-01 08:43] LABS: ALBUMIN 3.6 GM/DL (3.2-5.2); ALT/SGPT 31 U/L (12-78); BILIRUBIN,TOTAL 0.1 MG/DL (0.2-1.0); BLOOD UREA NITROGEN 11 MG/DL (7-18); CALCIUM LEVEL 8.8 MG/DL (8.8-10.2); CARBON DIOXIDE LEVEL 26 MEQ/L (21-32); CHLORIDE LEVEL 109 MEQ/L (98-107); CHOLESTEROL LEVEL 154 MG/DL (<200); CHOLESTEROL RISK RATIO 3.276 (<5); GLOMERULAR FILTRATION RATE > 60.0 (>45); GLUCOSE, FASTING 112 MG/DL (70-100); HDL CHOLESTEROL 47 MG/DL (>40); LDL CHOLESTEROL 90 MG/DL (<100); NON-HDL-C 107 MG/DL; POTASSIUM SERUM 4.3 MEQ/L (3.5-5.1); SODIUM LEVEL 143 MEQ/L (136-145); TOTAL PROTEIN 6.9 GM/DL (6.4-8.2); TRIGLYCERIDES LEVEL 87 MG/DL (<150)
== END ==
LOC: M LABDRWAD 08:21
PROVIDERS: ATTEND Physician Assistant
DX: D50.9 Iron deficiency anemia, unspecified (principal); E11.9 Type 2 diabetes mellitus without complications; I10 Essential (primary) hypertension

== ENCOUNTER → 2021-07-21 | Outpatient (CLI) | payer MEDICARE | LOC: M WHC 07:56 | PROVIDERS: ATTEND Physician Assistant | DX: Z12.31 Encounter for screening mammogram for malignant neoplasm of breast (principal); Z80.3 Family history of malignant neoplasm of breast ==

== ENCOUNTER → 2021-08-05 | Outpatient (REF) | payer MEDICARE ==
[2021-08-05 12:46] LABS: BASO # 0.1 10^3/uL (0.0-0.2); BASO % 1.2 % (0.0-1.0); EOS # 0.1 10^3/uL (0.0-0.5); EOS % 2.7 % (0.0-3.0); HEMATOCRIT 34.9 % (36.0-47.0); HEMOGLOBIN 10.3 g/dl (12.0-15.5); LYMPH # 1.6 10^3/uL (1.5-5.0); LYMPH % 37.7 % (24.0-44.0); MEAN CORPUSCULAR HEMOGLOBIN 25.1 pg (27.0-33.0); MEAN CORPUSCULAR HGB CONC 29.5 g/dl (32.0-36.5); MEAN CORPUSCULAR VOLUME 85.1 fl (80.0-96.0); MONO # 0.4 10^3/uL (0.0-0.8); MONO % 8.5 % (2.0-8.0); NEUTROPHILS % 49.7 % (36.0-66.0); PLATELET COUNT, AUTOMATED 223 10^3/uL (150-450); WHITE BLOOD COUNT 4.1 10^3/uL (4.0-10.0)
[2021-08-05 14:26] LABS: FERRITIN 23 NG/ML (8-252)
[2021-08-05 16:34] LABS: MALB URINE SIEMENS 34.1 MG/L; MAU/CREAT RATIO 27.7 MCG/MG (0.0-30.0)
[2021-08-05 20:43] LABS: ALBUMIN 3.7 GM/DL (3.2-5.2); ALT/SGPT 21 U/L (12-78); BILIRUBIN,TOTAL 0.1 MG/DL (0.2-1.0); BLOOD UREA NITROGEN 9 MG/DL (7-18); CALCIUM LEVEL 9.4 MG/DL (8.8-10.2); CARBON DIOXIDE LEVEL 25 MEQ/L (21-32); CHLORIDE LEVEL 108 MEQ/L (98-107); CREATININE FOR GFR 0.82 MG/DL (0.55-1.30); FREE T4 1.06 NG/DL (0.76-1.46); GLOMERULAR FILTRATION RATE > 60.0 (>45); GLUCOSE, FASTING 132 MG/DL (70-100); IRON (FE) 80 UG/DL (50-170); PERCENT SATURATION 19.2 % (13.2-45.0); SODIUM LEVEL 142 MEQ/L (136-145); TOTAL IRON BINDING CAPACITY 416 UG/DL (250-450); VITAMIN B12 LEVEL 1109 PG/ML
[2021-08-05 21:23] LABS: HEMOGLOBIN A1c 6.1 %
== END ==
LOC: M SFHCADAM 07:57
PROVIDERS: ATTEND Physician Assistant
DX: E11.9 Type 2 diabetes mellitus without complications (principal); D50.9 Iron deficiency anemia, unspecified; I10 Essential (primary) hypertension; E03.9 Hypothyroidism, unspecified; E55.9 Vitamin D deficiency, unspecified; D51.9 Vitamin B12 deficiency anemia, unspecified; M06.4 Inflammatory polyarthropathy; D72.819 Decreased white blood cell count, unspecified; Z79.899 Other long term (current) drug therapy

== ENCOUNTER → 2021-10-07 | Outpatient (CLI) | payer MEDICARE | LOC: M SOG 08:04 | PROVIDERS: ATTEND Orthopaedic Surgery Adult Reconstructive Orthopaedic Surgery | DX: Z96.651 Presence of right artificial knee joint (principal); M17.11 Unilateral primary osteoarthritis, right knee ==

== ENCOUNTER → 2022-01-26 | Outpatient (REF) | payer MEDICARE ==
[2022-01-26 13:12] LABS: BASO # 0.1 10^3/uL (0.0-0.2); BASO % 1.1 % (0.0-1.0); EOS # 0.1 10^3/uL (0.0-0.5); EOS % 2.7 % (0.0-3.0); LYMPH # 2.2 10^3/uL (1.5-5.0); MEAN CORPUSCULAR HEMOGLOBIN 32.5 pg (27.0-33.0); MEAN CORPUSCULAR HGB CONC 33.3 g/dl (32.0-36.5); MEAN CORPUSCULAR VOLUME 97.5 fl (80.0-96.0); MONO # 0.3 10^3/uL (0.0-0.8); MONO % 7.4 % (2.0-8.0); NEUTROPHILS # 1.8 10^3/uL (1.5-8.5); NEUTROPHILS % 39.4 % (36.0-66.0); PLATELET COUNT, AUTOMATED 218 10^3/uL (150-450); WHITE BLOOD COUNT 4.5 10^3/uL (4.0-10.0)
[2022-01-26 13:49] LABS: ALBUMIN 3.6 GM/DL (3.2-5.2); ALT/SGPT 35 U/L (12-78); BILIRUBIN,TOTAL 0.2 MG/DL (0.2-1.0); BLOOD UREA NITROGEN 9 MG/DL (7-18); CALCIUM LEVEL 9.1 MG/DL (8.8-10.2); CARBON DIOXIDE LEVEL 28 MEQ/L (21-32); CHLORIDE LEVEL 107 MEQ/L (98-107); CREATININE FOR GFR 0.79 MG/DL (0.55-1.30); GLOMERULAR FILTRATION RATE > 60.0 (>45); GLUCOSE, FASTING 121 MG/DL (70-100); POTASSIUM SERUM 4.6 MEQ/L (3.5-5.1); SODIUM LEVEL 140 MEQ/L (136-145); TOTAL PROTEIN 6.7 GM/DL (6.4-8.2)
[2022-01-26 13:53] LABS: ERYTHROCYTE SEDIMENTATION RATE 13 mm/hr (0-30)
== END ==
LOC: M SFHCADAM 07:43
PROVIDERS: ATTEND Physician Assistant
DX: M06.4 Inflammatory polyarthropathy (principal); D72.819 Decreased white blood cell count, unspecified; M79.7 Fibromyalgia; M89.49 Other hypertrophic osteoarthropathy, multiple sites; R76.8 Other specified abnormal immunological findings in serum; Z79.899 Other long term (current) drug therapy

== ENCOUNTER → 2022-01-27 | Outpatient (REF) | payer MEDICARE | LOC: M SFHCADAM 08:29 | PROVIDERS: ATTEND Physician Assistant | DX: E11.9 Type 2 diabetes mellitus without complications (principal); Z53.8 Procedure and treatment not carried out for other reasons ==

== ENCOUNTER → 2022-09-20 | Outpatient (REF) | payer MEDICARE ==
[~2022-09-20] MED LIST changes: -PAXI20TA29 PO; +PAXI20TA30 PO
[2022-09-20 13:26] LABS: BASO % 0.9 % (0.0-1.0); C REACTIVE PROTEIN QUANTITATIV < 0.40 MG/DL (<1.0); EOS # 0.1 10^3/uL (0.0-0.5); EOS % 2.8 % (0.0-3.0); HEMOGLOBIN 12.7 g/dl (12.0-15.5); LYMPH # 1.8 10^3/uL (1.5-5.0); LYMPH % 40.6 % (24.0-44.0); MEAN CORPUSCULAR HEMOGLOBIN 30.2 pg (27.0-33.0); MEAN CORPUSCULAR HGB CONC 31.8 g/dl (32.0-36.5); MEAN CORPUSCULAR VOLUME 95.2 fl (80.0-96.0); MONO # 0.3 10^3/uL (0.0-0.8); MONO % 7.4 % (2.0-8.0); NEUTROPHILS # 2.1 10^3/uL (1.5-8.5); NEUTROPHILS % 48.1 % (36.0-66.0); PLATELET COUNT, AUTOMATED 197 10^3/uL (150-450); WHITE BLOOD COUNT 4.3 10^3/uL (4.0-10.0)
[2022-09-20 13:27] LABS: ALKALINE PHOSPHATASE 45 U/L (46-116); ALT/SGPT 39 U/L (7.0-40); AST/SGOT 32 U/L (<34); BILIRUBIN,TOTAL 0.3 MG/DL (0.3-1.2); BLOOD UREA NITROGEN 9 MG/DL (9-23); CALCIUM LEVEL 8.8 MG/DL (8.3-10.6); CARBON DIOXIDE LEVEL 30 MMOL/L (20-31); CHLORIDE LEVEL 105 MMOL/L (98-107); GLOMERULAR FILTRATION RATE > 60.0 (>45); GLUCOSE, FASTING 132 MG/DL (74-106); POTASSIUM SERUM 4.5 MMOL/L (3.5-5.1); SODIUM LEVEL 143 MMOL/L (136-145); TOTAL PROTEIN 6.8 G/DL (5.7-8.2)
[2022-09-20 13:55] LABS: ERYTHROCYTE SEDIMENTATION RATE 19 mm/hr (0-30)
== END ==
LOC: M SFHCRHEU 09:55
PROVIDERS: ATTEND Internal Medicine Rheumatology
DX: M06.4 Inflammatory polyarthropathy (principal); D72.819 Decreased white blood cell count, unspecified; M79.7 Fibromyalgia; M89.49 Other hypertrophic osteoarthropathy, multiple sites; R76.8 Other specified abnormal immunological findings in serum; Z79.899 Other long term (current) drug therapy

== ENCOUNTER → 2022-10-07 | Outpatient (REF) | payer MEDICARE | LOC: M SFHCADAM 15:16 | PROVIDERS: ATTEND Physician Assistant | DX: E03.9 Hypothyroidism, unspecified (principal); I10 Essential (primary) hypertension; E11.9 Type 2 diabetes mellitus without complications; K21.9 Gastro-esophageal reflux disease without esophagitis; E78.2 Mixed hyperlipidemia ==

== ENCOUNTER → 2022-12-10 | Outpatient (CLI) | payer MEDICARE ==
[~2022-12-10] MED LIST changes: +MECL-209; -MECL1TAB31
[2022-12-10 14:34] LABS: THYROID STIMULATING HORMONE 0.908 uIU/ML (0.55-4.78)
[2022-12-10 14:35] LABS: FREE T4 1.07 NG/DL (0.89-1.76)
[2022-12-10 14:37] LABS: FOLATE 22.7 NG/ML (>5.4)
[2022-12-10 14:53] LABS: CREATININE, URINE 141.5 MG/DL; MAU/CREAT RATIO 15.5 MCG/MG (0.0-30.0)
== END ==
LOC: M PLALAB 09:16
PROVIDERS: ATTEND Physician Assistant
DX: I10 Essential (primary) hypertension (principal); E03.9 Hypothyroidism, unspecified; E11.9 Type 2 diabetes mellitus without complications; K21.9 Gastro-esophageal reflux disease without esophagitis; E78.2 Mixed hyperlipidemia

== ENCOUNTER → 2023-03-04 | Outpatient (REF) | payer MEDICARE ==
[2023-03-04 14:19] LABS: BASO % 0.9 % (0.0-1.0); EOS # 0.1 10^3/uL (0.0-0.5); EOS % 2.4 % (0.0-3.0); HEMATOCRIT 37.9 % (36.0-47.0); HEMOGLOBIN 12.1 g/dl (12.0-15.5); LYMPH # 0.9 10^3/uL (1.5-5.0); LYMPH % 27.2 % (24.0-44.0); MEAN CORPUSCULAR HEMOGLOBIN 30.8 pg (27.0-33.0); MEAN CORPUSCULAR HGB CONC 31.9 g/dl (32.0-36.5); MEAN CORPUSCULAR VOLUME 96.4 fl (80.0-96.0); MONO # 0.3 10^3/uL (0.0-0.8); MONO % 8.4 % (2.0-8.0); NEUTROPHILS % 60.8 % (36.0-66.0); PLATELET COUNT, AUTOMATED 185 10^3/uL (150-450); RED BLOOD COUNT 3.93 10^6/uL (4.00-5.40); WHITE BLOOD COUNT 3.3 10^3/uL (4.0-10.0)
[2023-03-04 14:49] LABS: C REACTIVE PROTEIN QUANTITATIV < 0.40 MG/DL (<1.0)
[2023-03-04 14:50] LABS: ERYTHROCYTE SEDIMENTATION RATE 19 mm/hr (0-30)
[2023-03-04 14:51] LABS: ALBUMIN 3.6 G/DL (3.2-5.2); ALKALINE PHOSPHATASE 40 U/L (46-116); ALT/SGPT 51 U/L (7.0-40); AST/SGOT 43 U/L (<34); BILIRUBIN,TOTAL 0.2 MG/DL (0.3-1.2); BLOOD UREA NITROGEN 10 MG/DL (9-23); CALCIUM LEVEL 8.4 MG/DL (8.3-10.6); CARBON DIOXIDE LEVEL 26 MMOL/L (20-31); CHLORIDE LEVEL 104 MMOL/L (98-107); CREATININE FOR GFR 0.67 MG/DL (0.55-1.30); GLOMERULAR FILTRATION RATE > 60.0 (>45); GLUCOSE, FASTING 147 MG/DL (74-106); POTASSIUM SERUM 3.7 MMOL/L (3.5-5.1); SODIUM LEVEL 140 MMOL/L (136-145); TOTAL PROTEIN 6.6 G/DL (5.7-8.2)
== END ==
LOC: M SFHCADAM 10:29
PROVIDERS: ATTEND Internal Medicine Rheumatology
DX: M06.4 Inflammatory polyarthropathy (principal); D72.819 Decreased white blood cell count, unspecified; M79.7 Fibromyalgia; M89.49 Other hypertrophic osteoarthropathy, multiple sites; R76.8 Other specified abnormal immunological findings in serum; Z79.899 Other long term (current) drug therapy

== ENCOUNTER → 2023-04-13 | Outpatient (REF) | payer MEDICARE ==
[2023-04-13 18:00] LABS: HEMOGLOBIN A1c 6.1 % (4.0-6.0)
[2023-04-13 18:09] LABS: ALBUMIN 3.9 G/DL (3.2-5.2); ALKALINE PHOSPHATASE 47 U/L (46-116); ALT/SGPT 40 U/L (7.0-40); AST/SGOT 41 U/L (<34); BILIRUBIN,TOTAL 0.3 MG/DL (0.3-1.2); BLOOD UREA NITROGEN 10 MG/DL (9-23); CALCIUM LEVEL 9.5 MG/DL (8.3-10.6); CARBON DIOXIDE LEVEL 27 MMOL/L (20-31); CHLORIDE LEVEL 104 MMOL/L (98-107); CHOLESTEROL LEVEL 167 MG/DL (<200); CHOLESTEROL RISK RATIO 3.05 (<5); CREATININE FOR GFR 0.69 MG/DL (0.55-1.30); GLOMERULAR FILTRATION RATE > 60.0 (>45); GLUCOSE, FASTING 144 MG/DL (74-106); HDL CHOLESTEROL 54.6 MG/DL (>40); LDL CHOLESTEROL 78.6 MG/DL (<100); NON-HDL-C 112.4 MG/DL; POTASSIUM SERUM 4.1 MMOL/L (3.5-5.1); SODIUM LEVEL 141 MMOL/L (136-145); TOTAL PROTEIN 7.4 G/DL (5.7-8.2); TRIGLYCERIDES LEVEL 169 MG/DL (<150)
== END ==
LOC: M SFHCADAM 11:18
PROVIDERS: ATTEND Physician Assistant
DX: E11.9 Type 2 diabetes mellitus without complications (principal); R74.8 Abnormal levels of other serum enzymes

== ENCOUNTER → 2023-05-28 | Outpatient (REF) | payer MEDICARE ==
[~2023-05-28] MED LIST changes: -DOCU-153 PO; +STOO100C30 PO
[2023-05-28 18:53] LABS: APPEARANCE, URINE CLOUDY (CLEAR); BACTERIA, URINE AUTO 3+ (NEGATIVE); BILIRUBIN, URINE AUTO NEGATIVE (NEGATIVE); BLOOD, URINE BLOOD 1+ (NEGATIVE); COLOR, URINE AMBER (YELLOW); GLUCOSE, URINE (UA) AUTO NEGATIVE (NEGATIVE); KETONE, URINE AUTO NEGATIVE (NEGATIVE); LEUKOCYTE ESTERASE, URINE AUTO 2+ (NEGATIVE); MUCUS, URINE SMALL (NEGATIVE); NITRITE, URINE AUTO POSITIVE (NEGATIVE); PROTEIN, URINE AUTO 3+ mg/dL (NEGATIVE); RBC, URINE AUTO 10 /HPF (0-3); SPECIFIC GRAVITY URINE AUTO 1.022 (1.002-1.035); SQUAMOUS EPITHELIAL CELL UR AU 13 /HPF (0-6); WBC, URINE AUTO 126 /HPF (0-3)
== END ==
LOC: M LAB REF 18:07
PROVIDERS: ATTEND Physician Assistant Medical
DX: N39.0 Urinary tract infection, site not specified (principal); J15.0 Pneumonia due to Klebsiella pneumoniae; B96.20 Unspecified Escherichia coli [E. coli] as the cause of diseases classified elsewhere

== ENCOUNTER → 2023-08-16 | Outpatient (REF) | payer MEDICARE ==
[2023-08-16 14:18] LABS: C REACTIVE PROTEIN QUANTITATIV < 0.40 MG/DL (<1.0)
[2023-08-16 14:20] LABS: ALBUMIN 3.7 G/DL (3.2-5.2); ALKALINE PHOSPHATASE 45 U/L (46-116); ALT/SGPT 19 U/L (7.0-40); AST/SGOT 17 U/L (<34); BASO % 0.8 % (0.0-1.0); BILIRUBIN,TOTAL 0.3 MG/DL (0.3-1.2); BLOOD UREA NITROGEN 11 MG/DL (9-23); CARBON DIOXIDE LEVEL 30 MMOL/L (20-31); CHLORIDE LEVEL 104 MMOL/L (98-107); CREATININE FOR GFR 0.64 MG/DL (0.55-1.30); EOS # 0.1 10^3/uL (0.0-0.5); EOS % 1.4 % (0.0-3.0); GLOMERULAR FILTRATION RATE > 60.0 (>45); GLUCOSE, FASTING 156 MG/DL (74-106); HEMATOCRIT 35.8 % (36.0-47.0); HEMOGLOBIN 11.7 g/dl (12.0-15.5); LYMPH # 1.8 10^3/uL (1.5-5.0); MEAN CORPUSCULAR HEMOGLOBIN 30.6 pg (27.0-33.0); MEAN CORPUSCULAR HGB CONC 32.7 g/dl (32.0-36.5); MEAN CORPUSCULAR VOLUME 93.7 fl (80.0-96.0); MONO # 0.3 10^3/uL (0.0-0.8); MONO % 6.6 % (2.0-8.0); NEUTROPHILS # 2.7 10^3/uL (1.5-8.5); NEUTROPHILS % 53.8 % (36.0-66.0); PLATELET COUNT, AUTOMATED 197 10^3/uL (150-450); POTASSIUM SERUM 3.6 MMOL/L (3.5-5.1); RED BLOOD COUNT 3.82 10^6/uL (4.00-5.40); SODIUM LEVEL 143 MMOL/L (136-145); TOTAL PROTEIN 6.6 G/DL (5.7-8.2)
[2023-08-16 14:42] LABS: ERYTHROCYTE SEDIMENTATION RATE 16 mm/hr (0-30)
== END ==
LOC: M SFHCADAM 09:25
PROVIDERS: ATTEND Internal Medicine Rheumatology
DX: M06.4 Inflammatory polyarthropathy (principal); D72.819 Decreased white blood cell count, unspecified; M79.7 Fibromyalgia; M89.49 Other hypertrophic osteoarthropathy, multiple sites; R76.8 Other specified abnormal immunological findings in serum; Z79.899 Other long term (current) drug therapy

== ENCOUNTER → 2023-08-25 | Outpatient (REF) | payer MEDICARE | LOC: M SFHCRHEU 10:48 | PROVIDERS: ATTEND Internal Medicine Rheumatology | DX: M06.4 Inflammatory polyarthropathy (principal); D72.819 Decreased white blood cell count, unspecified; M79.7 Fibromyalgia; M89.49 Other hypertrophic osteoarthropathy, multiple sites; R76.8 Other specified abnormal immunological findings in serum; Z79.899 Other long term (current) drug therapy ==

== ENCOUNTER → 2023-09-26 | Outpatient (CLI) | payer MEDICARE | LOC: M WHC 09:29 | PROVIDERS: ATTEND Physician Assistant | DX: Z12.31 Encounter for screening mammogram for malignant neoplasm of breast (principal); Z13.820 Encounter for screening for osteoporosis; M85.851 Other specified disorders of bone density and structure, right thigh ==

== ENCOUNTER → 2023-10-11 | Outpatient (REF) | payer MEDICARE ==
[2023-10-11 13:10] LABS: EOS # 0.1 10^3/uL (0.0-0.5); EOS % 1.4 % (0.0-3.0); HEMATOCRIT 37.8 % (36.0-47.0); HEMOGLOBIN 12.2 g/dl (12.0-15.5); LYMPH # 1.9 10^3/uL (1.5-5.0); LYMPH % 45.3 % (24.0-44.0); MEAN CORPUSCULAR HEMOGLOBIN 30.7 pg (27.0-33.0); MEAN CORPUSCULAR HGB CONC 32.3 g/dl (32.0-36.5); MEAN CORPUSCULAR VOLUME 95.2 fl (80.0-96.0); MONO # 0.3 10^3/uL (0.0-0.8); MONO % 7.6 % (2.0-8.0); NEUTROPHILS # 1.9 10^3/uL (1.5-8.5); NEUTROPHILS % 44.5 % (36.0-66.0); PLATELET COUNT, AUTOMATED 189 10^3/uL (150-450); RED BLOOD COUNT 3.97 10^6/uL (4.00-5.40); WHITE BLOOD COUNT 4.2 10^3/uL (4.0-10.0)
[2023-10-11 13:13] LABS: TOTAL 25(OH) VITAMIN D 32.9 NG/ML (20.0-100.0); VITAMIN B12 LEVEL 1588 PG/ML (211-911)
[2023-10-11 13:15] LABS: THYROID STIMULATING HORMONE 1.191 uIU/ML (0.55-4.78)
[2023-10-11 13:16] LABS: ALBUMIN 3.9 G/DL (3.2-5.2); ALKALINE PHOSPHATASE 42 U/L (46-116); ALT/SGPT 23 U/L (7.0-40); AST/SGOT 18 U/L (<34); BILIRUBIN,TOTAL 0.3 MG/DL (0.3-1.2); BLOOD UREA NITROGEN 11 MG/DL (9-23); CALCIUM LEVEL 9.5 MG/DL (8.3-10.6); CARBON DIOXIDE LEVEL 25 MMOL/L (20-31); CHLORIDE LEVEL 107 MMOL/L (98-107); CHOLESTEROL LEVEL 183 MG/DL (<200); CHOLESTEROL RISK RATIO 3.91 (<5); CREATININE FOR GFR 0.69 MG/DL (0.55-1.30); FOLATE 21.9 NG/ML (>5.4); GLOMERULAR FILTRATION RATE > 60.0 (>45); GLUCOSE, FASTING 159 MG/DL (74-106); HDL CHOLESTEROL 46.8 MG/DL (>40); LDL CHOLESTEROL 109.6 MG/DL (<100); NON-HDL-C 136.2 MG/DL; POTASSIUM SERUM 3.8 MMOL/L (3.5-5.1); SODIUM LEVEL 142 MMOL/L (136-145); TOTAL PROTEIN 6.7 G/DL (5.7-8.2); TRIGLYCERIDES LEVEL 133 MG/DL (<150)
[2023-10-11 13:17] LABS: FREE T4 1.17 NG/DL (0.89-1.76)
[2023-10-11 13:28] LABS: HEMOGLOBIN A1c 6.4 % (4.0-6.0)
== END ==
LOC: M SFHCADAM 07:59
PROVIDERS: ATTEND Physician Assistant
DX: E03.9 Hypothyroidism, unspecified (principal); I10 Essential (primary) hypertension; E55.9 Vitamin D deficiency, unspecified; F32.9 Major depressive disorder, single episode, unspecified; E11.9 Type 2 diabetes mellitus without complications; E78.2 Mixed hyperlipidemia

== ENCOUNTER → 2024-02-20 | Outpatient (REF) | payer MEDICARE ==
[~2024-02-20] MED LIST changes: -ARIP10TA32 PO; +ARIP10TA63 PO; +GABA-1172; -GABA-282
[2024-02-20 17:32] LABS: BASO # 0.1 10^3/uL (0.0-0.2); EOS # 0.1 10^3/uL (0.0-0.5); EOS % 2.7 % (0.0-3.0); HEMATOCRIT 38.2 % (36.0-47.0); HEMOGLOBIN 12.3 g/dl (12.0-15.5); LYMPH # 1.8 10^3/uL (1.5-5.0); LYMPH % 37.4 % (24.0-44.0); MEAN CORPUSCULAR HEMOGLOBIN 30.6 pg (27.0-33.0); MEAN CORPUSCULAR HGB CONC 32.2 g/dl (32.0-36.5); MONO # 0.3 10^3/uL (0.0-0.8); MONO % 6.8 % (2.0-8.0); NEUTROPHILS # 2.5 10^3/uL (1.5-8.5); NEUTROPHILS % 51.9 % (36.0-66.0); PLATELET COUNT, AUTOMATED 197 10^3/uL (150-450); RED BLOOD COUNT 4.02 10^6/uL (4.00-5.40); WHITE BLOOD COUNT 4.9 10^3/uL (4.0-10.0)
[2024-02-20 17:38] LABS: ERYTHROCYTE SEDIMENTATION RATE 14 mm/hr (0-30)
[2024-02-20 18:03] LABS: C REACTIVE PROTEIN QUANTITATIV < 0.40 MG/DL (<1.0)
[2024-02-20 18:05] LABS: ALBUMIN 3.8 G/DL (3.2-5.2); ALKALINE PHOSPHATASE 42 U/L (35-104); ALT/SGPT 26 U/L (7.0-40); AST/SGOT 23 U/L (<34); BILIRUBIN,TOTAL 0.3 MG/DL (0.3-1.2); BLOOD UREA NITROGEN 12 MG/DL (9-23); CALCIUM LEVEL 9.6 MG/DL (8.3-10.6); CARBON DIOXIDE LEVEL 28 MMOL/L (20-31); CHLORIDE LEVEL 104 MMOL/L (98-107); CREATININE FOR GFR 0.75 MG/DL (0.55-1.30); GLOMERULAR FILTRATION RATE > 60.0 (>45); GLUCOSE, FASTING 165 MG/DL (74-106); POTASSIUM SERUM 4.7 MMOL/L (3.5-5.1); SODIUM LEVEL 141 MMOL/L (136-145); TOTAL PROTEIN 7.2 G/DL (5.7-8.2)
== END ==
LOC: M SFHCRHEU 11:33
PROVIDERS: ATTEND Internal Medicine Rheumatology
DX: M06.4 Inflammatory polyarthropathy (principal); D72.819 Decreased white blood cell count, unspecified; M79.7 Fibromyalgia; M89.49 Other hypertrophic osteoarthropathy, multiple sites; R76.8 Other specified abnormal immunological findings in serum; Z79.899 Other long term (current) drug therapy

== ENCOUNTER → 2024-04-27 | Outpatient (REF) | payer MEDICARE | LOC: M SFHCADAM 09:00 | PROVIDERS: ATTEND Physician Assistant | DX: E11.9 Type 2 diabetes mellitus without complications (principal) ==

== ENCOUNTER → 2024-10-16 | Outpatient (REF) | payer MEDICARE ==
[2024-10-16 15:02] LABS: BASO # 0.1 10^3/uL (0.0-0.2); BASO % 1.0 % (0.0-1.0); EOS # 0.1 10^3/uL (0.0-0.5); EOS % 1.6 % (0.0-3.0); LYMPH # 1.9 10^3/uL (1.5-5.0); LYMPH % 37.1 % (24.0-44.0); MONO # 0.3 10^3/uL (0.0-0.8); MONO % 6.8 % (2.0-8.0); NEUTROPHILS # 2.7 10^3/uL (1.5-8.5); NEUTROPHILS % 53.3 % (36.0-66.0); PLATELET COUNT, AUTOMATED 185 10^3/uL (150-450)
[2024-10-16 15:08] LABS: ALT/SGPT 27 U/L (7.0-40); AST/SGOT 27 U/L (<34); C REACTIVE PROTEIN QUANTITATIV < 0.50 MG/DL (<1.0); CALCIUM LEVEL 9.3 MG/DL (8.3-10.6); CARBON DIOXIDE LEVEL 24 MMOL/L (20-31); CHLORIDE LEVEL 106 MMOL/L (98-107); CREATININE FOR GFR 0.83 MG/DL (0.55-1.30); GLOMERULAR FILTRATION RATE 77.2 (>45); POTASSIUM SERUM 4.2 MMOL/L (3.5-5.1); SODIUM LEVEL 145 MMOL/L (136-145)
[2024-10-16 15:09] LABS: CALCIUM LEVEL 9.2 MG/DL (8.3-10.6); CARBON DIOXIDE LEVEL 24 MMOL/L (20-31); CHLORIDE LEVEL 106 MMOL/L (98-107); CHOLESTEROL LEVEL 158 MG/DL (<200); CHOLESTEROL RISK RATIO 3.48 (<5); CREATININE FOR GFR 0.83 MG/DL (0.55-1.30); GLOMERULAR FILTRATION RATE 77.2 (>45); LDL CHOLESTEROL 85.2 MG/DL (<100); NON-HDL-C 112.6 MG/DL; POTASSIUM SERUM 4.1 MMOL/L (3.5-5.1); SODIUM LEVEL 145 MMOL/L (136-145); TRIGLYCERIDES LEVEL 137 MG/DL (<150)
[2024-10-16 15:11] LABS: FREE T4 1.38 NG/DL (0.89-1.76)
[2024-10-16 15:12] LABS: TOTAL 25(OH) VITAMIN D 33.9 NG/ML (20.0-100.0)
[2024-10-16 15:13] LABS: ERYTHROCYTE SEDIMENTATION RATE 12 mm/hr (0-30)
[2024-10-16 15:14] LABS: VITAMIN B12 LEVEL 1929 PG/ML (211-911)
[2024-10-16 15:18] LABS: ESTIMATED AVERAGE GLUCOSE 131.0 MG/DL (60-110)
== END ==
LOC: M SFHCADAM 09:19
PROVIDERS: ATTEND Internal Medicine Rheumatology
DX: M06.4 Inflammatory polyarthropathy (principal); D72.819 Decreased white blood cell count, unspecified; M79.7 Fibromyalgia; M89.49 Other hypertrophic osteoarthropathy, multiple sites; R76.8 Other specified abnormal immunological findings in serum; Z79.899 Other long term (current) drug therapy; E11.9 Type 2 diabetes mellitus without complications; E66.01 Morbid (severe) obesity due to excess calories; E78.2 Mixed hyperlipidemia; E03.9 Hypothyroidism, unspecified; I10 Essential (primary) hypertension